=== PATIENT | female | born 1950 | race Caucasian/White ===

== ENCOUNTER 2018-03-27 17:55 | Emergency (ER) | payer MEDICARE ==
[~2018-03-27] VITALS: Ht 162.6 cm; Wt 96.2 kg
--- OUTSIDE RECORDS SUMMARY | 2018-03-27 17:57 | XMS REPORT | Clinical Summary ---
Author Author JAYNE [facility]Customer [facility] Address Unknown Phone Unavailable Care Team Providers Care Massage Therapy Instructor Name Role Phone PCP Unavailable Allergies Active Allergy Reactions Severity Noted Date Comments Codeine Other (See Comments) High 02/17/2018 HALLUCINATE Bupropion Hcl Other (See Comments) High 02/17/2018 ANGRY Current Medications Prescription Sig. Disp. Refills Start End Date Status Date clonazePAM (KLONOPIN) 0.5 Take 0.5 mg by mouth 2 Active MG tablet (two) times daily as needed for Anxiety. levothyroxine (SYNTHROID, Take 175 mcg by mouth Active LEVOTHROID) 175 MCG Every morning on an empty tablet stomach. lamoTRIgine (LAMICTAL) Take 100 mg by mouth Active 100 MG tablet daily. amLODIPine (NORVASC) 5 MG Take 5 mg by mouth daily. Active tablet citalopram (CELEXA) 40 MG Take 40 mg by mouth Active tablet daily. fluticasone (FLONASE) 50 1 spray by Nasal route Active mcg/actuation nasal spray daily. omeprazole (PRILOSEC) 20 Take 20 mg by mouth Active MG capsule daily. aspirin 81 MG EC tablet Take 81 mg by mouth Active daily. azelastine (ASTELIN) 137 1 spray by Nasal route 2 30 mL 1 02/18/20 02/18/20 Active mcg (0.1 %) nasal (two) times daily Use in 18 19 sprayIndications: each nostril as directed. Allergic rhinitis, unspecified seasonality, unspecified trigger rosuvastatin (CRESTOR) 10 Take 1 tablet (10 mg 30 tablet 2 02/18/20 02/18/20 Active MG tabletIndications: total) by mouth daily. 18 19 Hyperlipidemia, unspecified hyperlipidemia type losartan (COZAAR) 100 MG Take 1 tablet (100 mg 30 tablet 1 02/18/20 02/18/20 Active tabletIndications: total) by mouth daily. 18 19 Essential hypertension gabapentin (NEURONTIN) Take 1 capsule (300 mg 60 capsule 5 03/17/20 03/17/20 Active 300 MG capsule total) by mouth 2 (two) 18 19 times daily as needed. gabapentin (NEURONTIN) Take 300 mg by mouth 3 02/18/20 Discontin 300 MG capsule (three) times daily. 18 ued losartan-hydroCHLOROthiaz Take 1 tablet by mouth 02/18/20 Discontin scooter (HYZAAR) 100-25 mg daily. 18 ued per tablet simvastatin (ZOCOR) 40 MG Take 40 mg by mouth 02/18/20 Discontin tablet nightly. 18 ued fexofenadine (VALERIA) 60 Take 60 mg by mouth 02/18/20 Discontin MG tablet daily. 18 ued pregabalin (LYRICA) 50 MG Take 1 capsule (50 mg 90 capsule 1 02/18/20 03/17/20 Discontin capsuleIndications: total) by mouth 3 (three) 18 18 ued Chronic pain of left times daily as needed. ankle Max Daily Amount: 150 mg Active Problems Problem Noted Date Hyperlipidemia, unspecified hyperlipidemia type 02/22/2018 Essential hypertension 02/22/2018 Allergic rhinitis, unspecified seasonality, unspecified trigger 02/22/2018 Chronic pain of left ankle 02/22/2018 Bipolar affective disorder, remission status unspecified (HCC) 02/22/2018 Gastroesophageal reflux disease, esophagitis presence not specified 2017 Hypothyroidism, unspecified type 02/22/2018 Encounters Date Type Specialty Care Team Description 03/26/2018 Telephone Internal Medicine Krissy Moeller MD Concerned about patient (Concerned about patient); [facility] 03/17/2018 Orders Only Internal Medicine Krissy Moeller MD 03/17/2018 Telephone Internal Medicine Krissy Moeller MD Dizziness 02/17/2018 Office Visit Internal Medicine Krissy Moeller MD Hyperlipidemia, unspecified hyperlipidemia type (Primary Dx);Essential hypertension;Allergic rhinitis, unspecified seasonality, unspecified trigger;Chronic pain of left ankle;Bipolar affective disorder, remission status unspecified (HCC);Obstructive sleep apnea syndrome;Gastroesophageal reflux disease, esophagitis presence not specified;Hypothyroidism, unspecified type after 03/26/2017 Family History Medical History Relation Name Comments Bipolar disorder Father Diabetes Father Tongue cancer Father Heart disease Mother 68- MASSIVE Bipolar disorder Sister Relation Name Status Comments Brother Alive Father Maternal Grandfather Maternal Grandmother Mother Paternal Grandfather Paternal Grandmother Sister Alive Son Alive 40 YEARS Social History Tobacco Use Types Packs/Day Years Used Date Passive Smoke Exposure - Never Smoker Smokeless Tobacco: Never Used Comments: teenage Alcohol Use Drinks/Week oz/Week Comments No Sex Assigned at Date Recorded Not on file Last Filed Vital Signs Vital Sign Reading Time Taken Blood Pressure 125/56 02/17/2018 10:57 AM CDT Pulse 68 02/17/2018 10:57 AM CDT Temperature 35.9 C (96.6 F) 02/17/2018 10:57 AM CDT Respiratory Rate 18 02/17/2018 10:57 AM CDT Oxygen Saturation 97% 02/17/2018 10:57 AM CDT Inhaled Oxygen - - Concentration Weight 96.6 kg (213 lb) 02/17/2018 10:57 AM CDT Height 162.6 cm (5' 4") 02/17/2018 10:57 AM CDT Body Mass Index 36.56 02/17/2018 10:57 AM CDT Plan of Treatment Date Type Specialty Care Team Description 05/20/2018 Office Visit Internal Medicine Krissy Moelelr MD [id number] [id number] Health Maintenance Due Date Last Done Comments INFLUENZA VACCINE 08/04/2018 Results Not on fileafter 03/26/2017
[2018-03-27] MEDS ORDERED: ACETAMINOPHEN 325 MG TAB PO ONE (18:30)
[2018-03-27] MEDS ORDERED: DIPHTH/TETANUS/ACEL. PERTUSSIS 0.5 ML SYR IM ONE (18:30)
[2018-03-27] MEDS ORDERED: NORVASC5 MG PO ×2 (18:32→18:39)
[2018-03-27] MEDS ORDERED: ASPIR 8181 MG ×2 (18:33→18:40)
[2018-03-27] MEDS ORDERED: CELEXA40 MG ×2 (18:34→18:40)
[2018-03-27] MEDS ORDERED: KLONOPIN0.5 MG (18:34)
[2018-03-27] MEDS ORDERED: FLONASE (18:35)
[2018-03-27] MEDS ORDERED: LAMICTAL100 MG ×2 (18:36→18:42)
[2018-03-27] MEDS ORDERED: LEVOTHYROXINE50 MCG PO (18:36)
[2018-03-27] MEDS ORDERED: PRILOSEC OTC20 MG ×2 (18:38→18:44)
[2018-03-27] MEDS ORDERED: LEVOTHYROXINE112 MCG PO ×2 (18:38→18:43)
[2018-03-27] MEDS ORDERED: GABAPENTIN100 MG (18:45)
[2018-03-27] MEDS ORDERED: COZAAR25 MG PO (18:45)
[2018-03-27 18:55] VITALS: BP 120/74
== END 2018-03-27 19:00 | disposition home or self-care (01) ==
LOC: FSED 17:55
DX: S11.85XA Open bite of other specified part of neck, initial encounter (principal); W55.01XA Bitten by cat, initial encounter; Y92.008 Other place in unspecified non-institutional (private) residence as the place of occurrence of the external cause; I10 Essential (primary) hypertension; E03.9 Hypothyroidism, unspecified; J45.909 Unspecified asthma, uncomplicated; K21.9 Gastro-esophageal reflux disease without esophagitis; F41.9 Anxiety disorder, unspecified

== ENCOUNTER 2018-07-13 05:08 | Emergency (ER) | payer MEDICARE ==
[~2018-07-13] VITALS: Ht 162.6 cm; Wt 92.5 kg
[~2018-07-13 05:08] MED LIST: ASPIR 8181 MG; CELEXA40 MG; COZAAR25 MG PO; FLONASE; GABAPENTIN100 MG; KLONOPIN0.5 MG; LAMICTAL100 MG; LEVOTHYROXINE112 MCG PO; LEVOTHYROXINE50 MCG PO; NORVASC5 MG PO; PRILOSEC OTC20 MG
[2018-07-13] MEDS ORDERED: ONDANSETRON HCL INJ 2 MG/ML VIAL IV STA (05:43)
[2018-07-13] MEDS ORDERED: MORPHINE SULFATE INJ 4 MG/ML INJ IV ONE (05:45)
== END 2018-07-13 06:49 | disposition other institution (70) ==
LOC: FSED 05:08
DX: S61.211A Laceration without foreign body of left index finger without damage to nail, initial encounter (principal); W45.8XXA Other foreign body or object entering through skin, initial encounter; Y92.008 Other place in unspecified non-institutional (private) residence as the place of occurrence of the external cause; L02.512 Cutaneous abscess of left hand; M65.842 Other synovitis and tenosynovitis, left hand
CPT/HCPCS: 80053; 85025; 99284

== ENCOUNTER 2018-08-30 21:18 | Emergency (ER) | payer MEDICARE ==
[~2018-08-30] VITALS: Ht 162.6 cm; Wt 92.5 kg
--- OUTSIDE RECORDS SUMMARY | 2018-08-30 21:21 | XMS REPORT | Clinical Summary ---
Author Author JAYNE [facility] Address Unknown Phone Unavailable Care Team Providers Care Magnetic Tape Typewriter Operator Name Role Phone Krissy Moeller MD PCP Allergies Comments Active Allergy Reactions Severity Noted Date HALLUCINATE Codeine Other (See High 02/17/2018 Comments) ANGRY Bupropion Hcl Other (See High 02/17/2018 Comments) Medications End Date Status Medication Sig Dispensed Refills Start Date Active clonazePAM (KLONOPIN) 0.5 Take 0.5 mg 0 MG tablet by mouth 2 (two) times daily as needed for Anxiety. Active lamoTRIgine (LAMICTAL) Take 100 mg 0 100 MG tablet by mouth 3 (three) times daily . Active citalopram (CELEXA) 40 MG Take 40 mg by 0 tablet mouth daily. Active fluticasone (FLONASE) 50 1 spray by 0 mcg/actuation nasal spray Nasal route daily. Active omeprazole (PRILOSEC) 20 Take 20 mg by 0 MG capsule mouth daily. Active aspirin 81 MG EC tablet Take 81 mg by 0 mouth daily. 02/17/2019 Active azelastine (ASTELIN) 137 1 spray by 30 mL 1 mcg (0.1 %) nasal Nasal route 2 8 sprayIndications: (two) times Allergic rhinitis, daily Use in unspecified seasonality, each nostril unspecified trigger as directed. 04/29/2019 Active gabapentin (NEURONTIN) Take 2 120 capsule 5 300 MG capsules (600 8 capsuleIndications: Other mg total) by polyneuropathy mouth 2 (two) times daily. Active losartan (COZAAR) 100 MG Take 1 tablet 90 tablet 0 tabletIndications: (100 mg 8 Essential hypertension total) by mouth daily. 06/04/2019 Active simvastatin (ZOCOR) 20 MG Take 1 tablet 30 tablet 2 tabletIndications: Mixed (20 mg total) 8 hyperlipidemia by mouth nightly. Active levothyroxine (SYNTHROID, Take 1 tablet 30 tablet 5 LEVOTHROID) 150 MCG (150 mcg 8 tabletIndications: total) by Hypothyroidism, mouth Every unspecified type morning on an empty stomach. 06/14/2018 Discontinued levothyroxine (SYNTHROID, Take 175 mcg 0 LEVOTHROID) 175 MCG by mouth tablet Every morning on an empty stomach. 02/17/2018 Discontinued gabapentin (NEURONTIN) Take 300 mg 0 300 MG capsule by mouth 3 (three) times daily. 06/04/2018 Discontinued amLODIPine (NORVASC) 5 MG Take 5 mg by 0 tablet mouth daily. 02/17/2018 Discontinued losartan-hydroCHLOROthiaz Take 1 tablet 0 scooter (HYZAAR) 100-25 mg by mouth per tablet daily. 02/17/2018 Discontinued simvastatin (ZOCOR) 40 MG Take 40 mg by 0 tablet mouth nightly. 02/17/2018 Discontinued fexofenadine (VALERIA) 60 Take 60 mg by 0 MG tablet mouth daily. 06/04/2018 Discontinued rosuvastatin (CRESTOR) 10 Take 1 tablet 30 tablet 2 MG tabletIndications: (10 mg total) 8 Hyperlipidemia, by mouth unspecified daily. hyperlipidemia type 04/23/2018 Discontinued losartan (COZAAR) 100 MG Take 1 tablet 30 tablet 1 tabletIndications: (100 mg 8 Essential hypertension total) by mouth daily. 03/17/2018 Discontinued pregabalin (LYRICA) 50 MG Take 1 90 capsule 1 capsuleIndications: capsule (50 8 Chronic pain of left mg total) by ankle mouth 3 (three) times daily as needed. Max Daily Amount: 150 mg 04/29/2018 Discontinued gabapentin (NEURONTIN) Take 1 60 capsule 5 300 MG capsule capsule (300 8 mg total) by mouth 2 (two) times daily as needed. 05/26/2018 Discontinued losartan (COZAAR) 100 MG TAKE ONE 30 tablet 0 tabletIndications: TABLET BY 8 Essential hypertension MOUTH DAILY 07/24/2018 sulfamethoxazole-trimetho Take 1 tablet 14 tablet 0 prim (BACTRIM DS) 800-160 (160 mg of 8 mg per tablet trimethoprim total) by mouth 2 (two) times daily for 7 days. Active Problems Problem Noted Date Tenosynovitis 07/13/2018 Hyperlipidemia, unspecified hyperlipidemia type 02/22/2018 Essential hypertension 02/22/2018 Allergic rhinitis, unspecified seasonality, unspecified trigger 02/22/2018 Chronic pain of left ankle 02/22/2018 Bipolar affective disorder, remission status unspecified 02/22/2018 Gastroesophageal reflux disease, esophagitis presence not specified 02/22/2018 Hypothyroidism, unspecified type 02/22/2018 Encounters Care Team Description Date Type Specialty Pete Tejead, DO DEBRIDEMENT/I&D,WOUND EXTREMITY UPPER 07/14/2018 Surgery PapaCristy, BRAZER CONTROLLED ATMOSPHERIC FURNACE 07/14/2018 Anesthesia Event Abelardo Barnes MD Gadicherla, Sonal Muralinath, MD Tenosynovitis 07/13/2018 [facility] Internal Medicine - Encounter 07/17/2018 Krissy Moeller MD Hypothyroidism, unspecified type (Primary Dx) 06/14/2018 Orders Only Internal Medicine Krissy Moeller MD Weakness (Primary Dx); Chronic fatigue; Mixed hyperlipidemia; Hypothyroidism, unspecified type; Vitamin D deficiency; Hypotension due to drugs; Bipolar affective disorder, remission status unspecified (HCC); Hyperlipidemia, unspecified hyperlipidemia type; Chronic pain of left ankle 06/04/2018 Office Visit Internal Medicine Krissy Moeller MD Essential hypertension 05/29/2018 Refill Internal Medicine Krissy Moeller MD Essential hypertension 05/24/2018 Refill Internal Medicine Krissy Moeller MD Med advice 04/28/2018 Telephone Internal Medicine Krissy Moeller MD Essential hypertension 04/23/2018 Refill Internal Medicine Krissy Moeller MD Concerned about patient (Concerned about patient); FYI 03/26/2018 Telephone Internal Medicine Krissy Moeller MD 03/17/2018 Orders Only Internal Medicine Krissy Moeller MD Dizziness 03/17/2018 Telephone Internal Medicine Krissy Moeller MD Hyperlipidemia, unspecified hyperlipidemia type (Primary Dx); Essential hypertension; Allergic rhinitis, unspecified seasonality, unspecified trigger; Chronic pain of left ankle; Bipolar affective disorder, remission status unspecified ([facility]); Obstructive sleep apnea syndrome; Gastroesophageal reflux disease, esophagitis presence not specified; Hypothyroidism, unspecified type 02/17/2018 Office Visit Internal Medicine after 08/29/2017 Family History Medical History Relation Name Comments Bipolar disorder Father Diabetes Father Tongue cancer Father Heart disease Mother 68- MASSIVE Bipolar disorder Sister Relation Name Status Comments Brother Alive Father Maternal Grandfather Maternal Grandmother Mother Paternal Grandfather Paternal Grandmother Sister Alive Son Alive 40 YEARS Social History Date Tobacco Use Types Packs/Day Years Used Passive Smoke Exposure - Never Smoker Smokeless Tobacco: Never Used Comments: teenage Alcohol Use Drinks/Week oz/Week Comments No Sex Assigned at Date Recorded Not on file Industry Job Start Date Occupation Not on file Not on file Not on file Travel End Travel History Travel Start No recent travel history available. Last Filed Vital Signs Time Taken Vital Sign Reading 07/17/2018 11:15 AM CDT Blood Pressure 139/70 07/17/2018 11:15 AM CDT Pulse 68 07/17/2018 11:15 AM CDT Temperature 36.6 C (97.9 F) 07/17/2018 11:15 AM CDT Respiratory Rate 19 07/17/2018 11:15 AM CDT Oxygen Saturation 97% 07/15/2018 9:46 PM CDT Inhaled Oxygen 21% Concentration 07/13/2018 2:53 PM CDT Weight 92.6 kg (204 lb 3.2 oz) 07/13/2018 2:53 PM CDT Height 164.6 cm (5' 4.8") 07/13/2018 2:53 PM CDT Body Mass Index 34.19 Plan of Treatment Care Team Description Date Type Specialty Krissy Moeller MD [id number] [id number] 09/04/2018 Office Visit Internal Medicine Health Maintenance Due Date Last Done Comments INFLUENZA VACCINE 08/04/2018 Procedures Comments Procedure Name Priority Date/Time Associated Diagnosis RHYTHM STRIP - SCAN 07/18/2018 12:50 PM CDT VANCOMYCIN LEVEL, TROUGH Timed 07/16/2018 6:27 AM CDT CBC W/PLT COUNT & AUTO Routine 07/15/2018 DIFFERENTIAL 6:19 AM CDT CBC W/PLT COUNT & AUTO Routine 07/15/2018 DIFFERENTIAL 6:19 AM CDT BASIC METABOLIC PANEL (7) Routine 07/15/2018 6:19 AM CDT SURGICALLY OBTAINED Routine 07/14/2018 CULTURE + GRAM STAIN 4:31 PM CDT AFB CULTURE + SMEAR Routine 07/14/2018 4:31 PM CDT ANAEROBIC CULTURE Routine 07/14/2018 4:31 PM CDT FUNGUS CULTURE + SMEAR Routine 07/14/2018 4:31 PM CDT SPIN/CONCENTRATION CHARGE Routine 07/14/2018 4:31 PM CDT DEBRIDEMENT/I&D,WOUND 07/14/2018 Infection EXTREMITY UPPER 3:00 PM CDT Special Needs REQ 1200 CBC W/PLT COUNT & AUTO Routine 07/14/2018 DIFFERENTIAL 3:45 AM CDT CBC W/PLT COUNT & AUTO Routine 07/14/2018 DIFFERENTIAL 3:45 AM CDT BASIC METABOLIC PANEL (7) Routine 07/14/2018 3:45 AM CDT XR HAND LEFT 3 VIEW SHAR 07/13/2018 11:49 AM CDT CBC W/PLT COUNT & AUTO Routine 07/13/2018 DIFFERENTIAL 11:17 AM CDT CBC W/PLT COUNT & AUTO Routine 07/13/2018 DIFFERENTIAL 11:17 AM CDT BASIC METABOLIC PANEL (7) Routine 07/13/2018 11:17 AM CDT CBC W/PLT COUNT & AUTO Routine 06/04/2018 Chronic fatigue DIFFERENTIAL 3:01 PM CDT VITAMIN D, 25-HYDROXY Routine 06/04/2018 Vitamin D deficiency 3:01 PM CDT VITAMIN B12 Routine 06/04/2018 Chronic fatigue 3:01 PM CDT TSH+FREE T4 Routine 06/04/2018 Hypothyroidism, 3:01 PM CDT unspecified type BASIC METABOLIC PANEL (7) Routine 06/04/2018 Chronic fatigue 3:01 PM CDT after 08/29/2017 Results * RHYTHM STRIP - SCAN (07/18/2018 12:50 PM CDT) Narrative Performed At * Vancomycin level, trough (07/16/2018 6:27 AM CDT) Vancomycin Tr 16.6 10.0 - 20.0 ug/mL [facility] Specimen Blood Narrative Performed At Draw trough level prior to dose administration. [facility] Performing Organization Address City/State/Zipcode Phone Number [facility] [address] [place] [address] [facility] [place] * CBC with platelet count + automated diff (07/15/2018 6:19 AM CDT) Only the most recent of 3 results within the time period is included. WBC 10.6 (H) 3.5 - 10.5 K/L [facility] RBC 3.78 (L) 3.93 - 5.22 M/L [facility] Hemoglobin 11.1 (L) 11.2 - 15.7 GM/DL [facility] Hematocrit 34.4 34.1 - 44.9 % [facility] MCV 91.0 79.4 - 94.8 fL [facility] MCH 29.4 25.6 - 32.2 pg [facility] MCHC 32.3 32.2 - 35.5 GM/DL [facility] RDW 12.4 11.7 - 14.4 % [facility] Platelets 204 150 - 450 K/CU MM [facility] MPV 11.0 9.4 - 12.3 fL [facility] nRBC 0 0 - 0 /100 WBC [facility] % Neutros 75 % [facility] % Lymphs 14 % [facility] % Monos 10 % [facility] % Eos 0 % [facility] % Baso 0 % [facility] # Neutros 7.98 (H) 1.56 - 6.13 K/L [facility] # Lymphs 1.47 1.18 - 3.74 K/L [facility] # Monos 1.09 (H) 0.24 - 0.36 K/L [facility] # Eos 0.00 (L) 0.04 - 0.36 K/L [facility] # Baso 0.01 0.01 - 0.08 K/L [facility] Immature 1 0 - 1 % [facility] Granulocytes[facility] Specimen Blood Performing Organization Address City/State/Zipcode Phone Number [facility] [address] [place] [address] [facility] * Basic metabolic panel (07/15/2018 6:19 AM CDT) Only the most recent of 4 results within the time period is included. Sodium 137 136 - 145 meq/L [facility] Potassium 4.3 3.5 - 5.1 meq/L [facility] Chloride 104 98 - 107 meq/L [facility] CO2 27 22 - 29 meq/L [facility] BUN 13 7 - 21 mg/dL [facility] Creatinine 0.66 0.57 - 1.25 mg/dL [facility] Glucose 99 70 - 105 mg/dL [facility] Calcium 9.0 8.4 - 10.2 mg/dL [facility] EGFR 89Comment: ESTIMATED GFR IS mL/min/1.73 sq m [facility] NOT ACCURATE CREATININE [facility] CLEARANCE IN PREDICTING GLOMERULAR FILTRATION RATE. ESTIMATED GFR IS NOT APPLICABLE FOR DIALYSIS PATIENTS. Specimen Blood Performing Organization Address City/[facility] Phone Number [address] [address] [phone] [place] [address] * AFB culture + smear (07/14/2018 4:31 PM CDT) Result No acid-fast bacilli isolated [facility] in 42 days [facility] AFB Smear No partially acid fast bacilli [facility] seen [facility] Specimen Wound - Finger, Left Performing Organization Address City/[facility] Phone Number [address] [address] [phone] [place] [address] * Anaerobic culture (07/14/2018 4:31 PM CDT) Result No anaerobes isolated [facility] Specimen Wound - Finger, Left Performing Organization Address [facility] Phone Number [address] [address] [phone] [place] [address] * Surgically obtained culture + gram stain (07/14/2018 4:31 PM CDT) Result (A) [facility] Gram Stain Result <1+ WBCs [facility] Gram Stain Result <1+ gram positive cocci in [facility] pairs [facility] Specimen Wound - Finger, Left Antibiotic Method Susceptibility Organism Clindamycin >=4: Resistant Methicillin resistant Staphylococcus aureus Erythromycin >=8: Resistant Methicillin resistant Staphylococcus aureus Linezolid 2: Susceptible Methicillin resistant Staphylococcus aureus Oxacillin >=4: Resistant Methicillin resistant Staphylococcus aureus Rifampin <=0.5: Susceptible Methicillin resistant Staphylococcus aureus Tetracycline <=1: Susceptible Methicillin resistant Staphylococcus aureus Trimethoprim + Sulfamethoxazole <=10: Susceptible Methicillin resistant Staphylococcus aureus Vancomycin <=0.5: Susceptible Methicillin resistant Staphylococcus aureus Performing Organization Address City/[facility]/Zipcode Phone Number [facility] [address] [place] [phone] [facility] * Fungus culture + smear (07/14/2018 4:31 PM CDT) Result No fungus isolated in 28 days [facility] Fungus Smear No fungi seen [facility] Specimen Wound - Finger, Left Performing Organization Address City/[facility] Cent[facility] Phone Number [facility] [address] [place] [phone] [facility] * SPIN/CONCENTRATION CHARGE (07/14/2018 4:31 PM CDT) Concentration charged Done [facility] Specimen Wound - Finger, Left Performing Organization Address [facility] [place] [address] [phone] [place] [address] * XR hand 3 views left (07/13/2018 11:49 AM CDT) Narrative Performed At FINAL REPORT GE RIS Left hand, three images HISTORY: Index finger infection COMPARISON: None IMPRESSION: No fracture or dislocation. Swelling of the second digit. No apparent soft tissue defect. No radiopaque foreign body. Interphalangeal and carpometacarpal degenerative changes are noted. Signed: Pete Meyers MD Report Verified Date/Time:07/13/2018 13:37:58 Reading Location: [facility] C[facility] CT Body Reading Room Procedure Note Interface, External Ris In - 07/13/2018 1:40 PM CDT FINAL REPORT Left hand, three images HISTORY: Index finger infection COMPARISON: None IMPRESSION: No fracture or dislocation. Swelling of the second digit. No apparent soft tissue defect. No radiopaque foreign body. Interphalangeal and carpometacarpal degenerative changes are noted. Signed: ePte Meyers MD Report Verified Date/Time: 07/13/2018 13:37:58 Reading Location: [facility] [id number] CT Body Reading Room Performing Organization Address [facility] Cent[facility]ode Phone Number GE RIS * TSH+FREE T4 ([facility] Only) (06/04/2018 3:01 PM CDT) TSH 0.039 (L) 0.450 - 4.50 uIU/mL [facility] 1 T4,Free(Direct) 2.03 (H) 0.82 - 1.77 ng/dL [facility] 1 Narrative Performed At Performed at:01 - [facility] [address] [place], [id number] Etl Analyst: González Hsu MD, Phone:[phone] Performing Organization Address [facility] Phone Number [facility] * Vitamin D 25 hydroxy (06/04/2018 3:01 PM CDT) Vitamin D, 25-Hydroxy 43.8 30.0 - 100.0 ng/mL [facility] Comment: Vitamin D deficiency has been defined by the [place] of Medicine and an Endocrine Society practice guideline as a level of serum 25-OH vitamin D less than 20 ng/mL (1,2). The Endocrine Society went on to further define vitamin D insufficiency as a level between 21 and 29 ng/mL (2). 1. IOM ([place] of Medicine). 2010. Dietary reference intakes for calcium and D. [place]: The National Academies Press. 2. Sid MF, Dk [place], Tiesha FARAH, et al. Evaluation, treatment, and prevention of vitamin D deficiency: an Endocrine Society clinical practice guideline. JCEM. 2010; 96(7):1911-30. Specimen Blood Narrative Performed At Performed at:01 - [facility] [address] [place], [id number] Etl Analyst: González Hsu MD, Phone:[phone] Performing Organization Address [facility] Phone Number [facility] * CBC w/PLT Count Auto Differential (06/04/2018 3:01 PM CDT) WBC 6.6 3.4 - 10.8 x10E3/uL [facility] RBC 4.26 3.77 - 5.28 x10E6/uL [facility] Hemoglobin 12.8 11.1 - 15.9 g/dL [facility] 1 Hematocrit 37.7 34.0 - 46.6 % [facility] 1 MCV 89 79 - 97 fL [facility] MCH 30.0 26.6 - 33.0 pg [facility] MCHC 34.0 31.5 - 35.7 g/dL [facility] 1 RDW 13.8 12.3 - 15.4 % [facility] 1 Platelets 249 150 - 379 x10E3/uL [facility] % Neutros 54 Not Estab. % [facility] % Lymphs 33 Not Estab. % [facility] % Monos 10 Not Estab. % [facility] % Eos 3 Not Estab. % [facility] % Baso 0 Not Estab. % [facility] # Neutros 3.5 1.4 - 7.0 x10E3/uL [facility] # Lymphs 2.2 0.7 - 3.1 x10E3/uL [facility] # Monos 0.7 0.1 - 0.9 x10E3/uL [facility] # Eos 0.2 0.0 - 0.4 x10E3/uL [facility] 1 Baso (Absolute) 0.0 0.0 - 0.2 x10E3/uL [facility] % Immature Grans 0 Not Estab. % [facility] # Immature Grans 0.0 0.0 - 0.1 x10E3/uL [facility] 1 Specimen Blood Narrative Performed At Performed at:[address] [place] [address] [facility] [address] [place], [place] [id number] Etl Analyst: González Hsu MD, Phone:[phone] Performing Organization Address [facility] Phone Number [facility] * Vitamin B12 (06/04/2018 3:01 PM CDT) Vitamin B12 576 232 - 1,245 pg/mL [facility] 1 Specimen Blood Narrative Performed At Performed at:[address] [place], [place] [id number] Etl Analyst: González Hsu MD, Phone:[phone] Performing Organization Address [facility] Phone Number [facility] 1 after 08/29/2017 Insurance Payer Benefit Subscriber ID Type Phone Address Plan / Group MEDICARE MEDICARE A xxxxxxxxxxx Medicare B MCR SUPPLEMENT/INDIVIDUAL AARP/UNITE xxxxxxxxxxx [facility] D HEALTHCARE Advance Directives For more information, please contact: [facility] [address] [place] [address] Date Inactivated Comments Code Status Date Activated 07/17/2018 7:21 PM Full Code 07/13/2018 8:01 AM This code status was determined by: Patient
--- OUTSIDE RECORDS SUMMARY | 2018-08-30 21:22 | XMS REPORT | Continuity of Care Document ---
Author Author [facility] Interface Address Unknown Phone Unavailable Problems Problem Status Onset Date Classification Date Reported Comments Source LT INDEX FINGER SEPTIC ARTIRITIS Active 08/18/2018 [facility] Encounter for screening mammogram for malignant neoplasm of breast 12/26/2017 03/19/2018 [facility] ROUTINE SCREENING LAST MMG OOS Active 12/10/2017 [facility] LEG PAIN Active 07/26/2015 [facility] WEAKNESS, DIZZINESS, ANKLE FX Active 07/26/2015 [facility] Discharge Diagnosis: Trimalleolar fracture of left ankle 07/22/2015 07/25/2015 [facility] ANKLE INJURY Active 07/22/2015 [facility] Anxiety Active Problem 03/19/2018 [facility] Depression (<span ID="[id number]">Confirmed</span>) Resolved Problem 03/19/2018 [facility] FH: hypothyroidism Active Problem 03/19/2018 [facility] Gastric reflux Active Problem 03/19/2018 [facility] HTN - Hypertension Active Problem 03/19/2018 [facility] Morbid obesity Active Problem 03/19/2018 [facility] Cholesterol Active Problem 08/07/2015 [facility] MALAISE AND FATIGUE NEC Active [facility] ENCNTR SCREEN MAMMOGRAM FOR MALIGNANT NE Active [facility] ILLNESS, UNSPECIFIED Active [facility] Medications Medication Details Route Status Patient Instructions Ordering Provider Order Date Source meclizine 25 mg oral tablet 25 mg=1 tab, PO, TID, PRN Dizziness, 0 Refill(s) Active 08/05/2015 [facility] heparin 5000 units/0.5 mL injectable solution SUB-Q, Q12H, 0 Refill(s) Active 08/04/2015 [facility] levothyroxine 150 mcg (0.15 mg) oral tablet 150 microgram=1 tab, PO, Q630AM, 0 Refill(s) Active 08/04/2015 [facility] tramadol hydrochloride 50 MG Oral Tablet [Ultram] 1-2 tab, PO, Q4H, PRN for pain, # 40 tab, 0 Refill(s) Active 08/04/2015 [facility] POLYETHYLENE GLYCOL 3350 PO, Daily, PRN Constipation, 0 Refill(s) Active 08/04/2015 [facility] acetaminophen 325 mg oral tablet 650 mg=2 tab, PO, Q4H, PRN Pain 1-3/Temp > 100.4 F, 0 Refill(s) Active 08/04/2015 [facility] Maalox Advanced Regular Strength SUSP 0 Refill(s) Active 08/04/2015 [facility] bisacodyl 5 mg oral enteric coated tablet 5 mg=1 tab, PO, Q24H, PRN Constipation, 0 Refill(s) Active 08/04/2015 [facility] Acetaminophen 325 MG / Hydrocodone Bitartrate 7.5 MG Oral Tablet [Winslow 7.5/325] 1 tab, Route: PO, Drug Form: TAB, Dosing Weight 104.5, kg, Q4H, PRN Pain Score 7-10, Start date: 08/02/15 15:28:00, Duration: 30 day, Stop date: 09/01/15 15:27:00Notes: Same as Winslow 325-7.5mg Do not exceed 4gm/day of acetaminophen. No Longer Active 08/02/2015 [facility] Ativan 2 mg, 1 mL, Route: IV, Drug form: INJ, ONCE, Dosing Weight 104.5, kg, Start date: 07/30/15 14:39:00, Stop date: 07/30/15 14:39:00Notes: (Same as: Ativan) Inactive 07/30/2015 [facility] ceFAZolin (SCIP) 1 gm, 100 mL, Route: IVPB, Drug form: INJ, Q8H, Dosing Weight 104.545, kg, Start date: 07/29/15 15:30:00, Duration: 1 doses or times, Stop date: 07/29/15 15:30:00 Inactive 07/29/2015 [facility] Acetaminophen 325 MG / Hydrocodone Bitartrate 5 MG Oral Tablet [Winslow 5/325] 2 tab, Route: PO, Drug Form: TAB, Dosing Weight 104.545, kg, Q4H, PRN Pain Score 7-10, Start date: 07/29/15 13:44:00, Duration: 30 day, Stop date: 08/28/15 13:43:00Notes: (Same as: Winslow 325/5) Do not exceed 4gm/day of acetaminophen. No Longer Active 07/29/2015 [facility] Clindamycin 150 MG/ML Injectable Solution 600 mg, 50 mL, Route: IVPB, Drug form: INJ, Q8H, Dosing Weight 104.545, kg, Start date: 07/29/15 11:00:00, Duration: 1 doses or times, Stop date: 07/29/15 11:00:00 Inactive 07/29/2015 [facility] Ondansetron 4 mg, Route: IVP, ONCE, Dosing Weight 104.545, kg, PRN Nausea & Vomiting, Start date: 07/29/15 9:28:00 Inactive 07/29/2015 [facility] Naloxone 0.04 mg, Route: IVP, Q2MIN, Dosing Weight 104.545, kg, PRN Narcotic Reversal, Start date: 07/29/15 9:28:00, Duration: 8 doses or times, Stop date: Limited # of times Inactive 07/29/2015 [facility] Flumazenil 0.2 mg, Route: IVP, PRN, Dosing Weight 104.545, kg, PRN Benzodiazepine Reversal, Initial dose, Start date: 07/29/15 9:28:00, Duration: 30 day, Stop date: 08/28/15 9:27:00 Inactive 07/29/2015 [facility] Fentanyl 50 microgram, Route: IVP, Q5Min, Dosing Weight 104.545, kg, PRN Pain Score 7-10, Start date: 07/29/15 9:28:00, Duration: 2 doses or times, Stop date: Limited # of times Inactive 07/29/2015 [facility] Hydromorphone 0.5 mg, Route: IVP, Q5Min, Dosing Weight 104.545, kg, PRN Pain Score 7-10, Start date: 07/29/15 9:28:00, Duration: 4 doses or times, Stop date: Limited # of times Inactive 07/29/2015 [facility] Oxycodone 10 mg, Route: PO, Drug form: TAB, Q4H, Dosing Weight 104.545, kg, PRN Pain Score 7-10, Start date: 07/29/15 9:28:00, Duration: 30 day, Stop date: 08/28/15 9:27:00 Inactive 07/29/2015 [facility] Acetaminophen 1,000 mg, Route: IVPB, Drug form: INJ, ONCE, Dosing Weight 104.545, kg, PRN Pain Score 1-3, Start date: 07/29/15 9:28:00, Duration: 1 doses or times, Stop date: Limited # of times Inactive 07/29/2015 [facility] pantoprazole 40 mg, Route: PO, Drug form: ECTAB, Daily, Dosing Weight 104.545, kg, Start date: 07/29/15 9:00:00, Duration: 30 day, Stop date: 08/27/15 9:00:00 Inactive 07/29/2015 [facility] docusate sodium 100 mg oral capsule 100 mg, 1 cap, Route: PO, Drug form: CAP, BID, Dosing Weight 104.545, kg, Start date: 07/29/15 9:00:00, Duration: 30 day, Stop date: 08/27/15 17:00:00Notes: (Same as: Colace) (Do Not Crush) No Longer Active 07/29/2015 [facility] influenza virus vaccine, inactivated 0.5 mL, Route: IM, Drug Form: SUSP, Daily, Start date: 07/29/15 9:00:00, Duration: 1 doses or times, Stop date: 07/29/15 9:00:00Notes: (Same as: Fluzone Quadrivalent) For 3 years of age and older (0.5 mL IM) Shake well before use Inactive 07/29/2015 [facility] Al hydroxide/Mg hydroxide/simethicone 200 mg-200 mg-20 mg/5 mL oral suspension 30 ml, Route: PO, Drug Form: SUSP, Dosing Weight 104.545, kg, Q4H, PRN Indigestion, Start date: 07/29/15 8:56:00, Duration: 30 day, Stop date: 08/28/15 8:55:00Notes: (aluminum hydroxide-magnesium hyd-simethicone [phone]/5ml 30 ml ud SARAH) No Longer Active 07/29/2015 [facility] Diphenhydramine 12.5 mg, 0.5 tab, Route: PO, Drug form: TAB, Q6H, Dosing Weight 104.545, kg, PRN Itching, Start date: 07/29/15 8:56:00, Duration: 30 day, Stop date: 08/28/15 8:55:00 No Longer Active 07/29/2015 [facility] Dulcolax Laxative 5 mg, 1 tab, Route: PO, Drug form: ECTAB, Q24H, Dosing Weight 104.545, kg, PRN Constipation, Start date: 07/29/15 8:56:00, Duration: 30 day, Stop date: 08/28/15 8:55:00Notes: (Same As: Dulcolax, Correctol) (Do Not Crush) "Do Not Crush" No Longer Active 07/29/2015 [facility] Morphine 2 mg, 1 mL, Route: IVP, Drug form: INJ, Q3H, Dosing Weight 104.545, kg, PRN Pain Score 1-3, Start date: 07/29/15 8:56:00, Duration: 30 day, Stop date: 08/28/15 8:55:00Notes: (Same as:MORPhine Sulfate) Inactive 07/29/2015 [facility] Acetaminophen 650 mg, 2 tab, Route: PO, Drug form: TAB, Q4H, Dosing Weight 104.545, kg, PRN Pain 1-3/Temp > 100.4 F, Start date: 07/29/15 8:56:00, Duration: 30 day, Stop date: 08/28/15 8:55:00Notes: Do not exceed 4 gm/day. (Same as: Tylenol) No Longer Active 07/29/2015 [facility] Acetaminophen 325 MG / Hydrocodone Bitartrate 10 MG Oral Tablet 1 tab, Route: PO, Drug Form: TAB, Dosing Weight 104.545, kg, Q4H, PRN Pain Score 4-6, Start date: 07/29/15 8:56:00, Duration: 30 day, Stop date: 08/28/15 8:55:00Notes: Do not exceed 4gm/day of acetaminophen. (Same as: Winslow 325/10) Inactive 07/29/2015 [facility] Lactated Ringers IV 1,000 mL 1,000 mL, Rate: 75 ml/hr, Infuse over: 13.3 hr, Route: IV, Dosing Weight 104.545 kg, Total Volume: 1,000, Start date: 07/29/15 8:56:00, Duration: 30 day, Stop date: 08/28/15 8:55:00 No Longer Active 07/29/2015 [facility] Ancef 2 gm, 100 mL, Route: IVPB, Drug form: INJ, ONCE, Dosing Weight 104.545, kg, Start date: 07/29/15 7:47:00, Duration: 1 doses or times, Stop date: 07/29/15 7:47:00Notes: Same as: Ancef Inactive 07/29/2015 [facility] Calcium Chloride 0.0014 MEQ/ML / Potassium Chloride 0.004 MEQ/ML / Sodium Chloride 0.103 MEQ/ML / Sodium Lactate 0.028 MEQ/ML Injectable Solution 1,000 mL, Rate: 25 ml/hr, Infuse over: 40 hr, Route: IV, Dosing Weight 104.545 kg, Total Volume: 1,000, Start date: 07/29/15 7:45:00, Duration: 30 day, Stop date: 08/28/15 7:44:00 Inactive 07/29/2015 [facility] Antivert 25 mg, 1 tab, Route: PO, Drug form: TAB, TID, Dosing Weight 104.545, kg, Start date: 07/28/15 13:00:00, Duration: 30 day, Stop date: 08/27/15 9:00:00Notes: (Same as: Antivert) No Longer Active 07/28/2015 [facility] Nitroglycerin 0.4 MG Sublingual Tablet 0.4 mg, 1 tab, Route: SL, Drug form: TAB, Q5Min, Dosing Weight 104.545, kg, PRN Chest Pain, Start date: 07/28/15 11:46:00, Duration: 30 day, Stop date: 08/27/15 11:45:00Notes: (Same as:Nitroquick, Nitrostat) "Do Not Crush" Sublingual tablet No Longer Active 07/28/2015 [facility] Atropine 0.5 mg, 5 mL, Route: IVP, Drug form: INJ, ONCE, Dosing Weight 104.545, kg, PRN Bradycardia, Start date: 07/28/15 11:46:00, for symptomatic bradycardia No Longer Active 07/28/2015 [facility] Solu-Medrol 100 mg, 1.6 mL, Route: IVP, Drug form: INJ, ONCE, Dosing Weight 104.545, kg, Priority: NOW, Start date: 07/28/15 9:30:00, Stop date: 07/28/15 9:30:00Notes: (Same as:Solu-MEDROL, A-Methapred) Inactive 07/28/2015 [facility] heparin sodium, porcine 2500 UNT/ML Injectable Solution 5,000 unit, 1 mL, Route: SUB-Q, Drug form: INJ, Q12H, Dosing Weight 104.545, kg, Start date: 07/27/15 21:00:00, Duration: 30 day, Stop date: 08/26/15 9:00:00Notes: porcine heparin No Longer Active 07/28/2015 [facility] Protonix 40 mg, 1 tab, Route: PO, Drug form: ECTAB, Before Dinner, Start date: 07/27/15 16:30:00, Duration: 30 day, Stop date: 08/25/15 16:30:00Notes: Tablet should not be chewed or crushed. (Same as: Protonix) No Longer Active 07/27/2015 [facility] Claritin 10 mg, 1 tab, Route: PO, Drug form: TAB, Daily, Start date: 07/27/15 9:00:00, Duration: 30 day, Stop date: 08/25/15 9:00:00Notes: 1 hr before meals (Same as: Claritin) No Longer Active 07/27/2015 [facility] hydrochlorothiazide 25 mg oral tablet 25 mg, 1 tab, Route: PO, Drug form: TAB, Daily, Start date: 07/27/15 9:00:00, Duration: 30 day, Stop date: 08/25/15 9:00:00Notes: (Same as: Hydrodiuril) With food. No Longer Active 07/27/2015 [facility] Prevacid 15 mg, Route: PO, Drug form: ECCAP, Daily, Dosing Weight 104.545, kg, Start date: 07/27/15 9:00:00, Duration: 30 day, Stop date: 08/25/15 9:00:00 No Longer Active 07/27/2015 [facility] lamotrigine 100 MG Oral Tablet 300 mg, 3 tab, Route: PO, Drug form: TAB, Daily, Dosing Weight 104.545, kg, Start date: 07/27/15 9:00:00, Duration: 30 day, Stop date: 08/25/15 9:00:00Notes: (Same as:LaMICtal) No Longer Active 07/27/2015 [facility] Hydrochlorothiazide 25 MG / Losartan Potassium 100 MG Oral Tablet 1 tab, Route: PO, Drug Form: TAB, Dosing Weight 104.545, kg, Daily, Start date: 07/27/15 9:00:00, Duration: 30 day, Stop date: 08/25/15 9:00:00 No Longer Active 07/27/2015 [facility] Clarice 180 mg, Route: PO, Drug form: TAB, Daily, Dosing Weight 104.545, kg, Start date: 07/27/15 9:00:00, Duration: 30 day, Stop date: 08/25/15 9:00:00 No Longer Active 07/27/2015 [facility] Citalopram 80 mg, 4 tab, Route: PO, Drug form: TAB, Daily, Dosing Weight 104.545, kg, Start date: 07/27/15 9:00:00, Duration: 30 day, Stop date: 08/25/15 9:00:00Notes: (Same As: CeleXA) No Longer Active 07/27/2015 [facility] Cozaar 100 mg, 2 tab, Route: PO, Drug form: TAB, Daily, Start date: 07/27/15 9:00:00, Duration: 30 day, Stop date: 08/25/15 9:00:00Notes: (Same as: Cozaar) No Longer Active 07/27/2015 [facility] Thyroxine 150 microgram, 1 tab, Route: PO, Drug form: TAB, Q630AM, Dosing Weight 104.545, kg, Start date: 07/27/15 6:30:00, Stop date: 08/25/15 6:30:00Notes: Take 1 hour before or 2 hours after meal; Enteral feeds may interefere with the absorption of this medication. (Same as: Levothroid) No Longer Active 07/27/2015 [facility] Simvastatin 40 mg, 1 tab, Route: PO, Drug form: TAB, Bedtime, Dosing Weight 104.545, kg, Start date: 07/26/15 21:00:00, Duration: 30 day, Stop date: 08/24/15 21:00:00Notes: (Same as: Zocor) No Longer Active 07/27/2015 [facility] Rocephin 1 gm, Route: IVPB, [id number], Dosing Weight 104.545, kg, Start date: 07/26/15 20:00:00, Duration: 30 day, Stop date: 08/24/15 20:00:00Notes: (Same As: Rocephin). Use with 100ml NS mini-bag PLUS and infuse over 30 min MEDICATION WASTE Product Size: 1000 mg Product Wasted: ___ mg No Longer Active 07/27/2015 [facility] Solu-Medrol 125 mg, 2 mL, Route: IV, Drug form: INJ, ONCE, Dosing Weight 104.545, kg, Start date: 07/26/15 17:50:00, Stop date: 07/26/15 17:50:00Notes: (Same as:Solu-MEDROL, A-Methapred) Inactive 07/26/2015 [facility] Meclizine 25 mg, 1 tab, Route: PO, Drug form: TAB, TID, Dosing Weight 104.545, kg, PRN Dizziness, Start date: 07/26/15 17:49:00, Duration: 30 day, Stop date: 08/25/15 17:48:00Notes: (Same as: Antivert) No Longer Active 07/26/2015 [facility] Miralax 17 gm, 1 pkt, Route: PO, Drug form: PWDR, Daily, Dosing Weight 104.545, kg, PRN Constipation, Start date: 07/26/15 17:16:00, Duration: 30 day, Stop date: 08/25/15 17:15:00Notes: Dissolve in 8 oz of water or juice. (Same as: Miralax) No Longer Active 07/26/2015 [facility] Zofran 4 mg, 2 mL, Route: IVP, Drug form: INJ, Q4H, Dosing Weight 104.545, kg, PRN Nausea, Start date: 07/26/15 17:16:00, Duration: 30 day, Stop date: 08/25/15 17:15:00Notes: (Same as: Nancy) MEDICATION WASTE Product Size: 4 mg Product Wasted: ___ mg No Longer Active 07/26/2015 [facility] Tylenol 650 mg, 20.3 mL, Route: PO, Drug form: LIQ, Q6H, Dosing Weight 104.545, kg, PRN Other -See Comment, Start date: 07/26/15 17:16:00, Duration: 30 day, Stop date: 08/25/15 17:15:00, fever, pain, headach eNotes: Max ubismxdydenag=[id number]/day (4 gm/day). (Same as: Tylenol) No Longer Active 07/26/2015 [facility] Restoril 15 mg, 1 cap, Route: PO, Drug form: CAP, Bedtime, Dosing Weight 104.545, kg, PRN Sleep, Start date: 07/26/15 17:16:00, Duration: 30 day, Stop date: 08/25/15 17:15:00Notes: (Same As: Restoril) No Longer Active 07/26/2015 [facility] Acetaminophen 325 MG / Hydrocodone Bitartrate 5 MG Oral Tablet [Winslow 5/325] 1 tab, Route: PO, Drug Form: TAB, Dosing Weight 104.545, kg, Q4H, PRN Other -See Comment, Start date: 07/26/15 17:15:00, Duration: 30 day, Stop date: 08/25/15 17:14:00Notes: (Same as: Winslow 325/5) Do not exceed 4gm/day of acetaminophen. No Longer Active 07/26/2015 [facility] Clonidine Hydrochloride 0.1 MG Oral Tablet 0.1 mg, 1 tab, Route: PO, Drug form: TAB, Q6H, Dosing Weight 104.545, kg, PRN Other -See Comment, Start date: 07/26/15 17:15:00, Duration: 30 day, Stop date: 08/25/15 17:14:00, SBP > 165Notes: (Same As: Catapres) No Longer Active 07/26/2015 [facility] Ondansetron 4 mg, 2 mL, Route: IVP, Drug form: INJ, Q6H, Dosing Weight 104.545, kg, PRN Nausea & Vomiting, Start date: 07/26/15 16:30:00, Duration: 30 day, Stop date: 08/25/15 16:29:00Notes: (Same as: Nancy) MEDICATION WASTE Product Size: 4 mg Product Wasted: ___ mg No Longer Active 07/26/2015 [facility] Morphine 2 mg, 1 mL, Route: IVP, Drug form: INJ, Q4H, Dosing Weight 104.545, kg, PRN Pain Score 7-10, Start date: 07/26/15 16:30:00, Duration: 30 day, Stop date: 08/25/15 16:29:00Notes: (Same as:MORPhine Sulfate) No Longer Active 07/26/2015 [facility] lansoprazole 15 MG Enteric Coated Capsule [Prevacid] 15 mg=1 cap, PO, Daily, 0 Refill(s) Active 07/26/2015 [facility] levothyroxine 200 mcg (0.2 mg) oral tablet 200 microgram=1 tab, PO, Q630AM, 0 Refill(s) No Longer Active 07/26/2015 [facility] Hydrochlorothiazide 25 MG / Losartan Potassium 100 MG Oral Tablet 1 tab, PO, Daily, 0 Refill(s) Active 07/26/2015 [facility] citalopram 40 mg oral tablet 80 mg=2 tab, PO, Daily, 0 Refill(s) Active 07/26/2015 [facility] Fexofenadine hydrochloride 180 MG Oral Tablet [Clarice] 180 mg=1 tab, PO, Daily, 0 Refill(s) Active 07/26/2015 [facility] simvastatin 40 mg oral tablet 40 mg=1 tab, PO, Bedtime, 0 Refill(s) Active 07/26/2015 [facility] lamotrigine 100 MG Oral Tablet 300 mg=3 tab, PO, Daily, 0 Refill(s) Active 07/26/2015 [facility] temazepam 30 mg oral capsule 30 mg=1 cap, PO, Bedtime, 0 Refill(s) Active 07/26/2015 [facility] Levaquin 500 mg, 100 mL, Route: IVPB, Drug form: SOLN, [id number], Dosing Weight 104.545, kg, Start date: 07/26/15 15:00:00, Duration: 30 day, Stop date: 08/24/15 15:00:00Notes: (Same as:Levaquin) Inactive 07/26/2015 [facility] Sodium Chloride 0.9% (titrate) 250 mL 250 mL, Rate: 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 product administration, Dosing Weight 104.545, kg, Route: IV, Total Volume: 250, Start Date: 07/26/15 14:26:00, Duration: 1 day, Stop date: 07/27/15 14:25:00, Replace Every: 24 hr No Longer Active 07/26/2015 [facility] potassium chloride 40 mEq, 2 tab, Route: PO, Drug form: ERTAB, Daily, Dosing Weight 104.545, kg, Priority: Routine, Start date: 07/26/15 13:30:00, Duration: 30 day, Stop date: 08/24/15 13:30:00Notes: (Same as: K-Dur 20) "Do Not Crush" With food and full glass of water Inactive 07/26/2015 [facility] Acetaminophen 325 MG / Hydrocodone Bitartrate 10 MG Oral Tablet [Winslow 10/325] 1 tab, PO, Q6H, PRN for pain, X 5 day, # 20 tab, 0 Refill(s) Active 07/23/2015 [facility] Acetaminophen 325 MG / Hydrocodone Bitartrate 10 MG Oral Tablet 1 tab, Route: PO, Dosing Weight 104.545, kg, ONCE, STAT, Start date: 07/22/15 19:42:00, Stop date: 07/22/15 19:42:00 Inactive 07/23/2015 [facility] Allergies, Adverse Reactions, Alerts Substance Category Reaction Severity Reaction type Status Date Reported Comments Source codeine phosphate Assertion Drug allergy Active [facility] Immunizations Immunization Date Given Site Status Last Updated Comments Source influenza virus vaccine, inactivated 07/29/2015 Right deltoid completed [facility] Results Order Name Results Value Reference Range Date Interpretation Comments Source Hand 3 views DX Hand 3 views DX EXAM: XR LEFT HAND 3 VIEWS DATE: 08/19/2018 11:17 AM CDT INDICATION: - index finger infection COMPARISON: None available TECHNIQUE: PA, lateral and oblique radiographs of the hand FINDINGS: At the left index finger DIP joint, there is joint space narrowing with erosive changes, highly concerning for septic arthritis. There is marked soft tissue swelling of the index finger. Joint space narrowing and osteophyte formation present at the middle, ring, and small finger DIP joints, as well as some IP joint. Mild joint space narrowing and subchondral sclerosis at the 1st CMC joint. IMPRESSION: 1. Findings highly concerning for septic arthritis at the index finger DIP joint. At the time of dictation, it is documented that the patient is planned be taken to the operating room for incision and drainage with possible amputation the following day. 2. 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 08/19/2018 - - This report was dictated by a Grants Director/Fellow. I have personally reviewed the images as well as the Resident's interpretation and agree with the findings. Read by: Miguel Angel Cisnerso MD Resident: Miguel Angel Cisneros MD Dictated Date/time: 08/19/18 14:17 Electronically Signed by: Karlie Lee MD 08/19/18 19:28 FINAL REPORT [facility] Breast Mammo Scrn SHELIA incl CAD MA Breast Mammo Scrn SHELIA incl CAD MA BILATERAL DIGITAL SCREENING MAMMOGRAM WITH CAD: 12/11/2017 CLINICAL: /Routine. Current study was evaluated with a Computer Aided Detection (CAD) system. COMPARISON:Comparison is made to exams dated: 05/16/2016 mammogram, 04/13/2015 mammogram, and 06/19/2016 mammogram. TECHNIQUE: Mammographic views were obtained using digital acquisition. [employer] Focusa Version 1.3 was utilized for computer aided detection. FINDINGS: There are scattered fibroglandular densities in both breasts. Benign appearing densities are noted in both breasts. There are benign calcifications in the right breast. No significant masses, calcifications, or other findings are seen in either breast. There has been no significant interval change. IMPRESSION: BENIGN RECOMMENDATION:There is no mammographic evidence of malignancy. A 1 year screening mammogram is recommended.(12/12/2018) This exam was interpreted at [id number] for [facility]. Cullen moura/hazel:12/24/2017 14:31:52 Scale Shooter(s): Shanika Vital, [facility] letter sent: BI-RADS 1/2 Mammogram BI-RADS: 2 Benign 12/11/2017 - - Read by: Cullen Muniz MD Dictated Date/time: 12/24/17 14:31 Electronically Signed by: Cullen Muniz MD 12/24/17 14:31 FINAL REPORT [facility] Ankle 2 views DX Ankle 2 views DX Left ankle 2 views: Postoperative radiographs show plate and screw fixation of the distal fibula, and medial malleolar screws. The previously described fracture-dislocation has been anatomically reduced. Medial and lateral skin becca are noted. A cast around the foot and ankle is seen. SL:13 07/31/2015 - - Read by: Vinayak Khalil MD Dictated Date/time: 07/31/15 19:40 Electronically Signed by: Vinayak Khalil MD 07/31/15 19:41 FINAL REPORT [facility] ELECTROLYTES Sodium Lvl 137 meq/L 135 - 145 07/30/2015 [facility] ELECTROLYTES Chloride Lvl 100 meq/L 95 - 109 07/30/2015 [facility] ELECTROLYTES Potassium Lvl 3.4 meq/L 3.5 - 5.1 07/30/2015 [facility] ELECTROLYTES eGFR 59 mL/min/1.73m2 07/30/2015 Result Comment: The eGFR is calculated using the CKD-EPI formula. In most young, healthy individuals the eGFR will be >90 mL/min/1.73m2. The eGFR declines with age. An eGFR of 60-89 may be normal in some populations, particularly the elderly, for whom the CKD-EPI formula has not been extensively validated. Use of the eGFR is not recommended in the following populations: Individuals with unstable creatinine concentrations, including patients and those with serious co-morbid conditions. Patients with extremes in muscle mass or diet. The data above are obtained from the National Kidney Disease Education Program (NKDEP) which additionally recommends that when the eGFR is used in patients with extremes of body mass index for purposes of drug dosing, the eGFR should be multiplied by the estimated BMI. [facility] ELECTROLYTES Calcium Lvl 8.9 mg/dL 8.5 - 10.5 07/30/2015 [facility] ELECTROLYTES AGAP 10.4 meq/L 10.0 - 20.0 07/30/2015 [facility] ELECTROLYTES CO2 30 meq/L 24 - 32 07/30/2015 [facility] ELECTROLYTES Glucose Lvl 85 mg/dL 70 - 99 07/30/2015 [facility] ELECTROLYTES Creatinine Lvl 1.0 mg/dL 0.5 - 1.4 07/30/2015 [facility] ELECTROLYTES BUN 15 mg/dL 7 - 22 07/30/2015 [facility] Basophils # 0.1 K/CMM 0.0 - 0.2 07/30/2015 [facility] Monocytes 10.4 % 2.0 - 12.0 07/30/2015 [facility] HEMATOLOGY Basophils 0.5 % 0.0 - 1.0 07/30/2015 [facility] Segs-Bands # 8.4 K/CMM 1.5 - 8.1 07/30/2015 [facility] Lymphocytes # 2.2 K/CMM 1.0 - 5.5 07/30/2015 [facility] Monocytes # 1.2 K/CMM 0.0 - 0.8 07/30/2015 [facility] Segs 70.5 % 45.0 - 75.0 07/30/2015 [facility] Lymphocytes 18.6 % 20.0 - 40.0 07/30/2015 [facility] MPV 9.2 fL 7.4 - 10.4 07/30/2015 [facility] MCHC 32.1 g/dL 32.0 - 36.0 07/30/2015 [facility] RDW 13.8 % 11.5 - 14.5 07/30/2015 [facility] Platelet 254 K/CMM 133 - 450 07/30/2015 [facility] MCV 90.5 fL 80.0 - 98.0 07/30/2015 [facility] MCH 29.1 pg 27.0 - 31.0 07/30/2015 [facility] Hgb 12.1 g/dL 12.0 - 16.0 07/30/2015 [facility] Hct 37.6 % 36.0 - 48.0 07/30/2015 [facility] WBC 11.9 K/CMM 3.7 - 10.4 07/30/2015 [facility] RBC 4.16 M/CMM 4.20 - 5.40 07/30/2015 [facility] CHEM PANEL eGFR 67 mL/min/1.73m2 07/29/2015 Result Comment: The eGFR is calculated using the CKD-EPI formula. In most young, healthy individuals the eGFR will be >90 mL/min/1.73m2. The eGFR declines with age. An eGFR of 60-89 may be normal in some populations, particularly the elderly, for whom the CKD-EPI formula has not been extensively validated. Use of the eGFR is not recommended in the following populations: Individuals with unstable creatinine concentrations, including patients and those with serious co-morbid conditions. Patients with extremes in muscle mass or diet. The data above are obtained from the National Kidney Disease Education Program (NKDEP) which additionally recommends that when the eGFR is used in patients with extremes of body mass index for purposes of drug dosing, the eGFR should be multiplied by the estimated BMI. [facility] CHEM PANEL Chloride Lvl 104 meq/L 95 - 109 07/29/2015 [facility] CHEM PANEL Potassium Lvl 4.9 meq/L 3.5 - 5.1 07/29/2015 [facility] CHEM PANEL CO2 33 meq/L 24 - 32 07/29/2015 [facility] CHEM PANEL Calcium Lvl 9.2 mg/dL 8.5 - 10.5 07/29/2015 [facility] CHEM PANEL Glucose Lvl 129 mg/dL 70 - 99 07/29/2015 [facility] CHEM PANEL Sodium Lvl 140 meq/L 135 - 145 07/29/2015 [facility] CHEM PANEL Creatinine Lvl 0.9 mg/dL 0.5 - 1.4 07/29/2015 [facility] CHEM PANEL BUN 15 mg/dL 7 - 22 07/29/2015 [facility] CHEM PANEL AGAP 7.9 meq/L 10.0 - 20.0 07/29/2015 [facility] HEMATOLOGY Eosinophils 1.9 % 0.0 - 4.0 07/29/2015 [facility] HEMATOLOGY Monocytes 6.2 % 2.0 - 12.0 07/29/2015 [facility] HEMATOLOGY Segs-Bands # 7.1 K/CMM 1.5 - 8.1 07/29/2015 [facility] HEMATOLOGY Lymphocytes # 1.1 K/CMM 1.0 - 5.5 07/29/2015 [facility] HEMATOLOGY Eosinophils # 0.2 K/CMM 0.0 - 0.5 07/29/2015 [facility] HEMATOLOGY Monocytes # 0.6 K/CMM 0.0 - 0.8 07/29/2015 [facility] HEMATOLOGY Basophils # 0.1 K/CMM 0.0 - 0.2 07/29/2015 [facility] HEMATOLOGY Lymphocytes 12.2 % 20.0 - 40.0 07/29/2015 [facility] HEMATOLOGY Segs 78.9 % 45.0 - 75.0 07/29/2015 [facility] HEMATOLOGY Basophils 0.8 % 0.0 - 1.0 07/29/2015 [facility] HEMATOLOGY WBC 9.0 K/CMM 3.7 - 10.4 07/29/2015 [facility] RBC 4.29 M/CMM 4.20 - 5.40 07/29/2015 [facility] MCHC 33.0 g/dL 32.0 - 36.0 07/29/2015 [facility] MCH 29.7 pg 27.0 - 31.0 07/29/2015 [facility] Hgb 12.7 g/dL 12.0 - 16.0 07/29/2015 [facility] MCV 90.0 fL 80.0 - 98.0 07/29/2015 [facility] Hct 38.6 % 36.0 - 48.0 07/29/2015 [facility] RDW 13.3 % 11.5 - 14.5 07/29/2015 [facility] MPV 9.2 fL 7.4 - 10.4 07/29/2015 [facility] Platelet 256 K/CMM 133 - 450 07/29/2015 [facility] Ankle 2 views DX Ankle 2 views DX Examination: Left ankle, 7 views History: left ankle ORIF Comparison: Plain films of the left ankle from 07/22/2015 Findings: Multiple nondiagnostic intraoperative fluoroscopic views of the left ankle show new postoperative changes of plate and screw fixation of bimalleolar fractures with apposition of the major fracture fragments. Fluoro time is 37.1 seconds. SL: 16 07/29/2015 - - Read by: Keagan Doe MD Dictated Date/time: 07/29/15 09:19 Electronically Signed by: Keagan Doe MD 07/29/15 09:20 FINAL REPORT [facility] ELECTROLYTES Sodium Lvl 140 meq/L 135 - 145 07/28/2015 [facility] ELECTROLYTES Potassium Lvl 4.2 meq/L 3.5 - 5.1 07/28/2015 [facility] ELECTROLYTES Chloride Lvl 102 meq/L 95 - 109 07/28/2015 [facility] ELECTROLYTES eGFR 67 mL/min/1.73m2 07/28/2015 Result Comment: The eGFR is calculated using the CKD-EPI formula. In most young, healthy individuals the eGFR will be >90 mL/min/1.73m2. The eGFR declines with age. An eGFR of 60-89 may be normal in some populations, particularly the elderly, for whom the CKD-EPI formula has not been extensively validated. Use of the eGFR is not recommended in the following populations: Individuals with unstable creatinine concentrations, including patients and those with serious co-morbid conditions. Patients with extremes in muscle mass or diet. The data above are obtained from the National Kidney Disease Education Program (NKDEP) which additionally recommends that when the eGFR is used in patients with extremes of body mass index for purposes of drug dosing, the eGFR should be multiplied by the estimated BMI. [facility] ELECTROLYTES AGAP 11.2 meq/L 10.0 - 20.0 07/28/2015 [facility] ELECTROLYTES Calcium Lvl 8.8 mg/dL 8.5 - 10.5 07/28/2015 [facility] ELECTROLYTES BUN 18 mg/dL 7 - 22 07/28/2015 [facility] ELECTROLYTES CO2 31 meq/L 24 - 32 07/28/2015 [facility] ELECTROLYTES Creatinine Lvl 0.9 mg/dL 0.5 - 1.4 07/28/2015 [facility] ELECTROLYTES Glucose Lvl 92 mg/dL 70 - 99 07/28/2015 [facility] RBC 4.00 M/CMM 4.20 - 5.40 07/28/2015 [facility] Hct 36.2 % 36.0 - 48.0 07/28/2015 [facility] Hgb 11.9 g/dL 12.0 - 16.0 07/28/2015 [facility] MPV 9.7 fL 7.4 - 10.4 07/28/2015 [facility] RDW 13.2 % 11.5 - 14.5 07/28/2015 [facility] Platelet 234 K/CMM 133 - 450 07/28/2015 [facility] WBC 8.0 K/CMM 3.7 - 10.4 07/28/2015 [facility] MCH 29.7 pg 27.0 - 31.0 07/28/2015 [facility] MCV 90.4 fL 80.0 - 98.0 07/28/2015 [facility] MCHC 32.9 g/dL 32.0 - 36.0 07/28/2015 [facility] Lymphocytes 31.9 % 20.0 - 40.0 07/28/2015 [facility] Segs 58.7 % 45.0 - 75.0 07/28/2015 [facility] Monocytes 8.9 % 2.0 - 12.0 07/28/2015 [facility] Monocytes # 0.7 K/CMM 0.0 - 0.8 07/28/2015 [facility] HEMATOLOGY Basophils 0.3 % 0.0 - 1.0 07/28/2015 [facility] HEMATOLOGY Segs-Bands # 4.7 K/CMM 1.5 - 8.1 07/28/2015 [facility] HEMATOLOGY Lymphocytes # 2.5 K/CMM 1.0 - 5.5 07/28/2015 [facility] HEMATOLOGY Eosinophils 0.2 % 0.0 - 4.0 07/28/2015 [facility] HEMATOLOGY Eosinophils 0.1 % 0.0 - 4.0 07/27/2015 [facility] LIPIDS VLDL 14 07/27/2015 [facility] LIPIDS LDL (Calculated) 76 mg/dL <=99 mg/dL 07/27/2015 [facility] LIPIDS Trig 71 mg/dL <=149 mg/dL 07/27/2015 [facility] LIPIDS CHD Risk 2.73 3.90 - 5.80 07/27/2015 [facility] LIPIDS HDL 52 mg/dL >=61 mg/dL 07/27/2015 [facility] LIPIDS Chol 142 mg/dL <=199 mg/dL 07/27/2015 [facility] SPECIAL CHEMISTRY Hgb A1C 5.9 % <=5.6 % 07/27/2015 [facility] THYROID PANEL TSH 0.056 uIU/mL 0.360 - 3.740 07/27/2015 [facility] THYROID PANEL T4 Free 1.47 ng/dL 0.76 - 1.46 07/27/2015 [facility] BLOOD BANK RESULTS ABO/Rh AB POS 07/26/2015 [facility] BLOOD BANK RESULTS Antibody Scrn Negative (07/26/15 2:55 PM) 07/26/2015 [facility] DRUG SCREEN U Amph Scr Negative *NA* (07/26/15 2:05 PM) Negative 07/26/2015 [facility] DRUG SCREEN U Cocaine Scr Negative *NA* (07/26/15 2:05 PM) Negative 07/26/2015 [facility] DRUG SCREEN U Benzodia Scr Negative *NA* (07/26/15 2:05 PM) Negative 07/26/2015 [facility] DRUG SCREEN U Julia Scr Negative *NA* (07/26/15 2:05 PM) Negative 07/26/2015 [facility] DRUG SCREEN U Phencyc Scr Negative *NA* (07/26/15 2:05 PM) Negative 07/26/2015 [facility] DRUG SCREEN U Opiate Scr Positive *ABN* (07/26/15 2:05 PM) Negative 07/26/2015 [facility] DRUG SCREEN U Cannab Scr Negative *NA* (07/26/15 2:05 PM) Negative 07/26/2015 [facility] DRUG SCREEN UDS Note See Note (07/26/15 2:05 PM) 07/26/2015 [facility] URINE AND STOOL UA Sq Epi None Seen 07/26/2015 [facility] URINE AND STOOL UA WBC 3 /HPF 0 - 5 07/26/2015 [facility] URINE AND STOOL UA RBC null 0 - 2 07/26/2015 [facility] URINE AND STOOL UA Ketones Negative mg/dL Negative mg/dL 07/26/2015 [facility] URINE AND STOOL UA Urobilinogen 2.0 mg/dL 0.1 - 1.0 07/26/2015 [facility] URINE AND STOOL UA Bili Negative *NA* (07/26/15 2:05 PM) Negative 07/26/2015 [facility] URINE AND STOOL UA Blood Negative (07/26/15 2:05 PM) Negative 07/26/2015 [facility] URINE AND STOOL UA Nitrite Positive *ABN* (07/26/15 2:05 PM) Negative 07/26/2015 [facility] URINE AND STOOL UA Leuk Est Trace *ABN* (07/26/15 2:05 PM) Negative 07/26/2015 [facility] URINE AND STOOL UA Bacteria Many /HPF None Seen /HPF 07/26/2015 [facility] URINE AND STOOL UA Glucose Negative mg/dL Negative mg/dL 07/26/2015 [facility] URINE AND STOOL UA Protein Negative mg/dL Negative mg/dL 07/26/2015 [facility] URINE AND STOOL UA pH 6.0 5.0 - 8.0 07/26/2015 [facility] URINE AND STOOL UA Spec Grav 1.014 <=1.030 07/26/2015 [facility] URINE AND STOOL UA Turbidity Slight *ABN* (07/26/15 2:05 PM) Clear 07/26/2015 [facility] URINE AND STOOL UA Color Yellow *NA* (07/26/15 2:05 PM) Yellow 07/26/2015 [facility] Chest CTA Chest CTA CT CHEST WITH CONTRAST - CT PULMONARY ANGIOGRAPHY with 3-D volumetric rotational (obtained on an independent workstation), sagittal and coronal reconstructions. (Pulmonary Embolism Protocol). History: Technique: Initially, helical CT images at 2.5 mm intervals were obtained from the level of the aortic arch to the lung bases during the dynamic administration of nonionic iodinated intravenous contrast (CT pulmonary angiography -pulmonary embolism protocol). 3-D volumetric rotational (obtained on an independent workstation), sagittal and coronal reconstructions were provided. Subsequently, helical CT images were obtained from the thoracic inlet to the upper abdomen. A chest radiograph today was reviewed. FINDINGS: 1. No evidence of pulmonary embolism. 2. No active disease. The lungs are clear. There are no pleural effusions. 3. The heart is normal in size. There is no pericardial effusion. 4. There is minimal atherosclerotic calcification within the aortic arch. The aorta is otherwise normal in appearance. There is no aneurysm or dissection. 5. No mass or adenopathy is seen within the chest. 6. Moderate sized hiatal hernia. 7. Prior granulomatous disease. There is a 7 mm calcified granuloma in the left lower lobe. There are small calcified granulomas in the spleen. 8. Minimal degenerative changes in the thoracic spine. The regional skeleton is otherwise unremarkable. CONCLUSION: 1. No evidence of pulmonary embolism. 2. No evidence of an active or acute process within the chest. 3. Moderate sized lateral hernia. 4. Prior granulomatous disease. SL: 12 Rick Weiss M.D. 07/26/2015 - - Read by: Rick Weiss MD Dictated Date/time: 07/26/15 18:35 Electronically Signed by: Rick Weiss MD 07/26/15 18:41 FINAL REPORT [facility] CARDIAC ENZYMES Troponin-I null 0.00 - 0.40 07/26/2015 [facility] CARDIAC ENZYMES CK MB 2.1 ng/mL 0.5 - 3.6 07/26/2015 [facility] CARDIAC ENZYMES Total CK 288 unit/L 12 - 191 07/26/2015 [facility] CARDIAC ENZYMES CK MB Index 0.7 0.0 - 2.5 07/26/2015 [facility] CHEM PANEL Globulin 2.9 g/dL 2.0 - 4.0 07/26/2015 [facility] CHEM PANEL A/G Ratio 1.2 0.7 - 1.6 07/26/2015 [facility] CHEM PANEL Total Protein 6.3 g/dL 6.4 - 8.4 07/26/2015 [facility] CHEM PANEL Albumin Lvl 3.4 g/dL 3.5 - 5.0 07/26/2015 [facility] CHEM PANEL Bili Total 0.5 mg/dL 0.2 - 1.3 07/26/2015 [facility] CHEM PANEL B/C Ratio 16 6 - 25 07/26/2015 [facility] CHEM PANEL Alk Phos 68 unit/L 39 - 136 07/26/2015 [facility] CHEM PANEL AST 28 unit/L 0 - 37 07/26/2015 [facility] CHEM PANEL ALT 29 unit/L 0 - 65 07/26/2015 [facility] HEMATOLOGY Eosinophils # 0.2 K/CMM 0.0 - 0.5 07/26/2015 [facility] HEMATOLOGY PTT 28.2 s 22.9 - 35.8 07/26/2015 [facility] HEMATOLOGY PT 13.5 s 12.0 - 14.7 07/26/2015 [facility] HEMATOLOGY INR 1.00 0.85 - 1.17 07/26/2015 [facility] Brain wo contrast CT Brain wo contrast CT Examination: CT scan of the brain without contrast. HISTORY: Weakness COMPARISON: CT brain from 07/22/2012 DLP: 1015.26 TECHNIQUE: Multiple axial CT images of the brain were obtained without the administration of intravenous contrast. FINDINGS: Age-related involutional changes of the brain parenchyma are seen. Mild chronic microvascular ischemic changes are noted. No acute intracranial hemorrhage, mass effect, midline shift, or hydrocephalus is seen. There are no extra-axial fluid collections. The visualized paranasal sinuses and mastoid air cells are well-aerated. The optic globes and retrobulbar soft tissues are unremarkable. IMPRESSION: No acute intracranial abnormality. SL: 16 07/26/2015 - - Read by: Keagan Doe MD Dictated Date/time: 07/26/15 11:24 Electronically Signed by: Keagan Doe MD 07/26/15 11:26 FINAL REPORT [facility] Chest 1view DX Chest 1view DX EXAM: CHEST 1 VIEW DATE: Jul 26, 2015 10:32:51 AM INDICATION: Dizziness. Fatigue. COMPARISON: None. TECHNIQUE: AP chest radiograph. FINDINGS: Lungs are clear bilaterally No pleural effusion or pneumothorax is identified . Cardiac silhouette is not enlarged. Aortic arch calcification is seen.. The skeleton is intact IMPRESSION: 1. No acute intrathoracic abnormality SL: 14 07/26/2015 - - Read by: Isha Cain MD Dictated Date/time: 07/26/15 10:39 Electronically Signed by: Isha Cain MD 07/26/15 10:40 FINAL REPORT [facility] Ankle 3 views DX Ankle 3 views DX LEFT ANKLE 3 Views HISTORY: Left ankle pain. TECHNIQUE: Frontal, lateral, and oblique views of the left ankle were obtained. FINDINGS: 1. Trimalleolar fracture. 2. There is a moderately displaced oblique fracture through the lateral malleolus just above the ankle joint. 3. There is a transverse fracture of the medial malleolus at the level of the tibial plafond with moderate lateral displacement. 4. There is a minimally displaced fracture of the posterior margin of the distal tibia ("posterior malleolus.") This involves approximately the posterior 8 mm the distal tibia. There is less than 2 mm of displacement. 5. There is mild lateral displacement of the talus in relation to the distal fibula. 6. There is widening of ankle mortise. 7. There is no evidence of underlying degenerative changes. 8. Plantar and posterior calcaneal spurs 9. Soft tissue swelling. Coding: Ankle 3 views CPT code: 49289 SL: 13 Rick Weiss M.D. 07/22/2015 - - Read by: Rick Weiss MD Dictated Date/time: 07/22/15 20:09 Electronically Signed by: Rick Weiss MD 07/22/15 20:12 FINAL REPORT [facility] Vital Signs Vital Sign Value Date Comments Source Temperature Oral (F) 97.6 F 08/04/2015 [facility] Systolic (mm Hg) 129 08/04/2015 [facility] Diastolic (mm Hg) 77 08/04/2015 [facility] Respitory Rate 17 08/04/2015 [facility] Heart Rate 87 08/04/2015 [facility] Heart Rate 79 08/04/2015 [facility] Temperature Oral (F) 98.4 F 08/04/2015 [facility] Systolic (mm Hg) 123 08/04/2015 [facility] Diastolic (mm Hg) 75 08/04/2015 [facility] Respitory Rate 16 08/04/2015 [facility] Temperature Oral (F) 98.6 F 08/04/2015 [facility] Heart Rate 82 08/04/2015 [facility] Respitory Rate 17 08/04/2015 [facility] Systolic (mm Hg) 137 08/04/2015 [facility] Diastolic (mm Hg) 80 08/04/2015 [facility] Height 162.5 cm 07/30/2015 [facility] BMI Calculated 39.57 07/30/2015 [facility] Weight 104.5 07/30/2015 [facility] Weight 104.545 07/28/2015 [facility] Height 162.56 cm 07/26/2015 [facility] Weight 104.545 07/26/2015 [facility] BMI Calculated 39.56 07/26/2015 [facility] BMI Calculated 39.56 07/26/2015 [facility] Height 162.56 cm 07/26/2015 [facility] Systolic (mm Hg) 122 07/23/2015 [facility] Diastolic (mm Hg) 69 07/23/2015 [facility] Respitory Rate 16 07/23/2015 [facility] Temperature Oral (F) 98.9 F 07/23/2015 [facility] Heart Rate 88 07/23/2015 [facility] Weight 104.545 07/23/2015 [facility] BMI Calculated 39.56 07/23/2015 [facility] Height 162.56 cm 07/23/2015 [facility] Temperature Oral (F) 99.2 F 07/23/2015 [facility] Systolic (mm Hg) 119 07/23/2015 [facility] Diastolic (mm Hg) 67 07/23/2015 [facility] Respitory Rate 18 07/23/2015 [facility] Heart Rate 94 07/23/2015 [facility] Encounters Location Location Details Encounter Type Encounter Number Reason For Visit Attending Provider ADM Date DC Date Status Source [facility] [id number] Bipin Bell 07/23/2015 07/23/2015 [facility] Inpatient [id number] Zafar New 07/26/2015 08/05/2015 [facility] Outpatient [id number] LAURA MARTIN 07/22/2017 Active [facility] Outpatient [id number] Maggie Gomez 12/11/2017 12/12/2017 [facility] Procedures Procedure Code Date Perfomer Comments Source Abdominal hysterectomy [id number] [facility] Appendectomy [id number] [facility]
--- OUTSIDE RECORDS SUMMARY | 2018-08-30 21:22 | XMS REPORT | Summary of Care ---
Author Author MARIAA TEJEDA D.O. Organization Unknown Address [facility] Phone Unavailable Care Team Providers Care Sap Security Architect Name Role Phone HANG MAYORGA MD Unavailable Unavailable Mariaa Tejeda DO Unavailable Unavailable Functional Status Name Dates Details Functional status health issues are not documented Status: Name Dates Details Cognitive status health issues are not documented Status: Problems Name Dates Details Hand pain (729.5, M79.643) Status: Active Infection of fingernail of left hand (681.02, L03.012) Status: Active Medications Name Dates Details Medications not documented Allergies and Adverse Reactions Name Dates Details Allergy history not documented Status: Procedures Procedure Dates Details Procedures not documented Immunization Name Dates Details Immunizations not documented Social History Name Dates Details Unknown if ever smoked Vital Signs Date Test Result Details No Known Vitals to report Results Date Description Value Details [id number] [U] XRAY HAND MIN 3 VWS LEFT [id number] XR HAND MIN 3 VWS LEFT EXAM: XR HAND MIN 3 VWS LEFT DATE: 08/18/2018 11:09 AM CDT INDICATION: hand pain COMPARISON: None available TECHNIQUE: PA, lateral and oblique radiographs of the left hand DISCUSSION: Severe degenerative changes of the second and third DIP joints with flexion deformities noted, worse involving the index finger. The soft tissue swelling of the index finger centered at the DIP. Mild soft tissue swelling also seen at the middle finger DIP.Severe first CMC joint degenerative changes with mild lateral subluxation.Mild joint space narrowing and osteophyte formation seen at the fourth and fifth DIP joints. No acute fracture.Mild diffuse osteopenia. 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 08/18/2018 4:59 PM CDT Abida Ray Plan of Care Name Dates Details Planned Observations Planned Goals not documented Planned Encounters Appointment; MARIAA TEJEDA D.O. On: 03-Sep-2018 13:45 Instructions Name Dates Details Instructions not documented Encounters Appointment; ALEXANDRU NASCIMENTO P.A. Encounter Diagnosis: Problem not documented On: 18-Aug-2018 9:00
--- OUTSIDE RECORDS SUMMARY | 2018-08-30 21:22 | XMS REPORT ---
Author Author [facility] Address Unknown Phone Unavailable Care Team Providers Care Tobacco Baler Name Role Phone LEEANN DOHERTY Unavailable Unavailable Problems This patient has no known problems. Allergies, Adverse Reactions, Alerts This patient has no known allergies or adverse reactions. Medications This patient has no known medications. Results Test Description Test Time Test Comments Text Results Atomic Results Result Comments AFB CULTURE + SMEAR 2018-08-24 16:58:00 CULTURE (BEAKER) (test rbiz=0174) No acid-fast bacilli isolated in 42 days AFB SMEAR (BEAKER) (test wlcf=046) No partially acid fast bacilli seen FUNGUS CULTURE + [id number] 06:54:00* Test Item Value Reference Range Comments CULTURE (BEAKER) (test qitn=1159) No fungus isolated in 28 days FUNGUS SMEAR (BEAKER) (test oasl=7833) No fungi seen ANAEROBIC [id number] 19:11:00* Test Item Value Reference Range Comments CULTURE (BEAKER) (test jcbr=3541) No anaerobes isolated SURGICALLY OBTAINED CULTURE + GRAM [id number] 13:47:00* Test Item Value Reference Range Comments CULTURE (BEAKER) (test avhi=8808) 1+ Methicillin resistant Staphylococcus aureus GRAM STAIN RESULT (BEAKER) (test aqju=2061) <1+ WBCs GRAM STAIN RESULT (BEAKER) (test gecl=98374) <1+ gram positive cocci in pairs VANCOMYCIN LEVEL, [id number] 07:17:00* Test Item Value Reference Range Comments VANCOMYCIN TROUGH (BEAKER) (test qskw=869) 16.6 ug/mL 10.0-20.0 Draw trough level prior to dose administration.SPIN/CONCENTRATION CHARGE 2018-07-15 07:35:00* Test Item Value Reference Range Comments CONCENTRATION CHARGED (BEAKER) (test ytbk=0791) Done BASIC METABOLIC [id number] 07:06:00* Test Item Value Reference Range Comments SODIUM (BEAKER) (test fbum=186) 137 meq/L 136-145 POTASSIUM (BEAKER) (test jowb=399) 4.3 meq/L 3.5-5.1 CHLORIDE (BEAKER) (test bvyo=632) 104 meq/L 98-107 CO2 (BEAKER) (test zgpn=347) 27 meq/L 22-29 BLOOD UREA NITROGEN (BEAKER) (test umol=841) 13 mg/dL 7-21 CREATININE (BEAKER) (test hfvg=290) 0.66 mg/dL 0.57-1.25 GLUCOSE RANDOM (BEAKER) (test wjgb=836) 99 mg/dL 70-105 CALCIUM (BEAKER) (test cmtd=063) 9.0 mg/dL 8.4-10.2 EGFR (BEAKER) (test fhhd=4239) 89 mL/min/1.73 sq m ESTIMATED GFR IS NOT ACCURATE CREATININE CLEARANCE IN PREDICTING GLOMERULAR FILTRATION RATE. ESTIMATED GFR IS NOT APPLICABLE FOR DIALYSIS PATIENTS. CBC W/PLT COUNT & AUTO [id number] 06:47:00* Test Item Value Reference Range Comments WHITE BLOOD CELL COUNT (BEAKER) (test zwqi=321) 10.6 K/ L 3.5-10.5 RED BLOOD CELL COUNT (BEAKER) (test qanm=989) 3.78 M/ L 3.93-5.22 HEMOGLOBIN (BEAKER) (test htir=880) 11.1 GM/DL 11.2-15.7 HEMATOCRIT (BEAKER) (test kkxb=693) 34.4 % 34.1-44.9 MEAN CORPUSCULAR VOLUME (BEAKER) (test lgmf=440) 91.0 fL 79.4-94.8 MEAN CORPUSCULAR HEMOGLOBIN (BEAKER) (test fzsz=495) 29.4 pg 25.6-32.2 MEAN CORPUSCULAR HEMOGLOBIN CONC (BEAKER) (test utea=084) 32.3 GM/DL 32.2-35.5 RED CELL DISTRIBUTION WIDTH (BEAKER) (test euim=019) 12.4 % 11.7-14.4 PLATELET COUNT (BEAKER) (test aptu=115) 204 K/CU MM 150-450 MEAN PLATELET VOLUME (BEAKER) (test ihcz=355) 11.0 fL 9.4-12.3 NUCLEATED RED BLOOD CELLS (BEAKER) (test iwcv=758) 0 /100 WBC 0-0 NEUTROPHILS RELATIVE PERCENT (BEAKER) (test amit=843) 75 % LYMPHOCYTES RELATIVE PERCENT (BEAKER) (test xxxr=367) 14 % MONOCYTES RELATIVE PERCENT (BEAKER) (test kiia=377) 10 % EOSINOPHILS RELATIVE PERCENT (BEAKER) (test idxi=979) 0 % BASOPHILS RELATIVE PERCENT (BEAKER) (test idad=263) 0 % NEUTROPHILS ABSOLUTE COUNT (BEAKER) (test wjne=150) 7.98 K/ L 1.56-6.13 LYMPHOCYTES ABSOLUTE COUNT (BEAKER) (test jdxv=940) 1.47 K/ L 1.18-3.74 MONOCYTES ABSOLUTE COUNT (BEAKER) (test khbg=703) 1.09 K/ L 0.24-0.36 EOSINOPHILS ABSOLUTE COUNT (BEAKER) (test kzyp=037) 0.00 K/ L 0.04-0.36 BASOPHILS ABSOLUTE COUNT (BEAKER) (test nort=739) 0.01 K/ L 0.01-0.08 IMMATURE GRANULOCYTES-RELATIVE PERCENT (BEAKER) (test gzwz=5531) 1 % 0-1 BASIC METABOLIC [id number] 05:16:00* Test Item Value Reference Range Comments SODIUM (BEAKER) (test zlye=501) 137 meq/L 136-145 POTASSIUM (BEAKER) (test wykx=837) 4.4 meq/L 3.5-5.1 CHLORIDE (BEAKER) (test dbxy=299) 104 meq/L 98-107 CO2 (BEAKER) (test zbaa=499) 27 meq/L 22-29 BLOOD UREA NITROGEN (BEAKER) (test mlzo=448) 11 mg/dL 7-21 CREATININE (BEAKER) (test mtzj=318) 0.75 mg/dL 0.57-1.25 GLUCOSE RANDOM (BEAKER) (test capr=740) 104 mg/dL 70-105 CALCIUM (BEAKER) (test qmkk=282) 9.2 mg/dL 8.4-10.2 EGFR (BEAKER) (test lbcx=7349) 77 mL/min/1.73 sq m ESTIMATED GFR IS NOT ACCURATE CREATININE CLEARANCE IN PREDICTING GLOMERULAR FILTRATION RATE. ESTIMATED GFR IS NOT APPLICABLE FOR DIALYSIS PATIENTS. CBC W/PLT COUNT & AUTO [id number] 04:29:00* Test Item Value Reference Range Comments WHITE BLOOD CELL COUNT (BEAKER) (test exal=835) 8.9 K/ L 3.5-10.5 RED BLOOD CELL COUNT (BEAKER) (test snes=332) 4.11 M/ L 3.93-5.22 HEMOGLOBIN (BEAKER) (test xcni=592) 12.1 GM/DL 11.2-15.7 HEMATOCRIT (BEAKER) (test iiep=487) 37.4 % 34.1-44.9 MEAN CORPUSCULAR VOLUME (BEAKER) (test zlws=624) 91.0 fL 79.4-94.8 MEAN CORPUSCULAR HEMOGLOBIN (BEAKER) (test eeya=480) 29.4 pg 25.6-32.2 MEAN CORPUSCULAR HEMOGLOBIN CONC (BEAKER) (test xmri=646) 32.4 GM/DL 32.2-35.5 RED CELL DISTRIBUTION WIDTH (BEAKER) (test ftdl=489) 12.4 % 11.7-14.4 PLATELET COUNT (BEAKER) (test nvgd=275) 206 K/CU MM 150-450 MEAN PLATELET VOLUME (BEAKER) (test twhn=430) 11.0 fL 9.4-12.3 NUCLEATED RED BLOOD CELLS (BEAKER) (test vbnh=695) 0 /100 WBC 0-0 NEUTROPHILS RELATIVE PERCENT (BEAKER) (test pyot=102) 71 % LYMPHOCYTES RELATIVE PERCENT (BEAKER) (test mmbt=957) 17 % MONOCYTES RELATIVE PERCENT (BEAKER) (test uugp=482) 12 % EOSINOPHILS RELATIVE PERCENT (BEAKER) (test ivgc=312) 0 % BASOPHILS RELATIVE PERCENT (BEAKER) (test fsar=324) 0 % NEUTROPHILS ABSOLUTE COUNT (BEAKER) (test taqt=678) 6.31 K/ L 1.56-6.13 LYMPHOCYTES ABSOLUTE COUNT (BEAKER) (test pmfc=262) 1.52 K/ L 1.18-3.74 MONOCYTES ABSOLUTE COUNT (BEAKER) (test zsps=303) 1.03 K/ L 0.24-0.36 EOSINOPHILS ABSOLUTE COUNT (BEAKER) (test lpba=346) 0.02 K/ L 0.04-0.36 BASOPHILS ABSOLUTE COUNT (BEAKER) (test dzbz=788) 0.02 K/ L 0.01-0.08 IMMATURE GRANULOCYTES-RELATIVE PERCENT (BEAKER) (test bzmq=5647) 0 % 0-1 RAD, HAND, 3 VIEWS, [id number] 13:37:00Reason for exam:->LEFT index finger infectionFINAL REPORT Left hand, three images HISTORY: Index finger infection COMPARISON: None IMPRESSION:No fracture or dislocation. Swelling of the second digit. No apparent soft tissue defect. No radiopaque foreign body. Interphalangeal and carpometacarpal degenerative changes are noted. Signed: Mariaa Meyers MDReport Verified Date/Time: 07/13/2018 13:37:58 Reading Location: [facility] B1 C013Y CT Body Reading Room C METABOLIC PANEL 2018-07-13 12:07:00* Test Item Value Reference Range Comments SODIUM (BEAKER) (test xyvh=377) 134 meq/L 136-145 POTASSIUM (BEAKER) (test srjg=508) 4.2 meq/L 3.5-5.1 Specimen slightly hemolyzed CHLORIDE (BEAKER) (test xunm=955) 102 meq/L 98-107 CO2 (BEAKER) (test hkhj=726) 25 meq/L 22-29 BLOOD UREA NITROGEN (BEAKER) (test grvk=395) 10 mg/dL 7-21 CREATININE (BEAKER) (test vpio=875) 0.77 mg/dL 0.57-1.25 Specimen slightly hemolyzed GLUCOSE RANDOM (BEAKER) (test puvb=134) 117 mg/dL 70-105 CALCIUM (BEAKER) (test dwso=338) 9.0 mg/dL 8.4-10.2 EGFR (BEAKER) (test kbfk=0146) 74 mL/min/1.73 sq m ESTIMATED GFR IS NOT ACCURATE CREATININE CLEARANCE IN PREDICTING GLOMERULAR FILTRATION RATE. ESTIMATED GFR IS NOT APPLICABLE FOR DIALYSIS PATIENTS. CBC W/PLT COUNT & AUTO [id number] 11:32:00* Test Item Value Reference Range Comments WHITE BLOOD CELL COUNT (BEAKER) (test ynfz=298) 7.6 K/ L 3.5-10.5 RED BLOOD CELL COUNT (BEAKER) (test cpar=458) 3.86 M/ L 3.93-5.22 HEMOGLOBIN (BEAKER) (test vfxz=584) 11.4 GM/DL 11.2-15.7 HEMATOCRIT (BEAKER) (test luep=674) 34.7 % 34.1-44.9 MEAN CORPUSCULAR VOLUME (BEAKER) (test dorw=628) 89.9 fL 79.4-94.8 MEAN CORPUSCULAR HEMOGLOBIN (BEAKER) (test dyvc=509) 29.5 pg 25.6-32.2 MEAN CORPUSCULAR HEMOGLOBIN CONC (BEAKER) (test sesb=157) 32.9 GM/DL 32.2-35.5 RED CELL DISTRIBUTION WIDTH (BEAKER) (test arnh=350) 12.5 % 11.7-14.4 PLATELET COUNT (BEAKER) (test yqll=254) 225 K/CU MM 150-450 MEAN PLATELET VOLUME (BEAKER) (test bywd=851) 10.9 fL 9.4-12.3 NUCLEATED RED BLOOD CELLS (BEAKER) (test yamu=791) 0 /100 WBC 0-0 NEUTROPHILS RELATIVE PERCENT (BEAKER) (test xryv=141) 64 % LYMPHOCYTES RELATIVE PERCENT (BEAKER) (test hqap=467) 23 % MONOCYTES RELATIVE PERCENT (BEAKER) (test brra=369) 11 % EOSINOPHILS RELATIVE PERCENT (BEAKER) (test hypu=138) 1 % BASOPHILS RELATIVE PERCENT (BEAKER) (test fiqs=274) 0 % NEUTROPHILS ABSOLUTE COUNT (BEAKER) (test myvk=117) 4.88 K/ L 1.56-6.13 LYMPHOCYTES ABSOLUTE COUNT (BEAKER) (test bnjy=735) 1.78 K/ L 1.18-3.74 MONOCYTES ABSOLUTE COUNT (BEAKER) (test vltn=714) 0.87 K/ L 0.24-0.36 EOSINOPHILS ABSOLUTE COUNT (BEAKER) (test kkyv=587) 0.06 K/ L 0.04-0.36 BASOPHILS ABSOLUTE COUNT (BEAKER) (test njnu=966) 0.02 K/ L 0.01-0.08 IMMATURE GRANULOCYTES-RELATIVE PERCENT (BEAKER) (test wlxr=0457) 0 % 0-1
[2018-08-30] MEDS ORDERED: VANCOMYCIN 1GM/NS 250 ML 250 ML IV ONE (22:00)
[2018-08-30] MEDS ORDERED: MORPHINE SULFATE 2 MG/ML SYR IV STA (22:03)
[2018-08-30] MEDS ORDERED: ONDANSETRON HCL INJ 2 MG/ML VIAL IV STA (22:03)
[2018-08-30 22:31] VITALS: BP 156/73
== END 2018-08-31 | disposition home or self-care (01) ==
LOC: FSED 21:18
DX: M79.645 Pain in left finger(s) (principal); L03.012 Cellulitis of left finger; I10 Essential (primary) hypertension; E03.9 Hypothyroidism, unspecified; K21.9 Gastro-esophageal reflux disease without esophagitis; F41.9 Anxiety disorder, unspecified; F31.9 Bipolar disorder, unspecified
CPT/HCPCS: 80053; 85025; 99283

== ENCOUNTER 2018-10-05 09:45 | Emergency (ER) | payer MEDICARE ==
[~2018-10-05] VITALS: Ht 162.6 cm; Wt 92.5 kg
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
--- OUTSIDE RECORDS SUMMARY | 2018-10-05 09:49 | XMS REPORT | Continuity of Care Document ---
Author Author [facility] Interface Address Unknown Phone Unavailable Problems Problem Status Onset Date Classification Date Reported Comments Source LT INDEX FINGER SEPTIC ARTIRITIS Active 08/18/2018 [facility] Encounter for screening mammogram for malignant neoplasm of breast 12/26/2017 03/19/2018 [facility] ROUTINE SCREENING LAST MMG OOS Active 12/10/2017 [facility] LEG PAIN Active 07/26/2015 [facility] WEAKNESS, DIZZINESS, ANKLE FX Active 07/26/2015 [facility] Discharge Diagnosis: Trimalleolar fracture of left ankle 07/22/2015 07/25/2015 [facility] ANKLE INJURY Active 07/22/2015 [facility] Anxiety Active Problem 03/19/2018 [facility] Depression (<span ID="[id number]">Confirmed</span>) Resolved Problem 03/19/2018 [facility] FH: hypothyroidism Active Problem 03/19/2018 [facility] Gastric reflux Active Problem 03/19/2018 [facility] HTN - Hypertension Active Problem 03/19/2018 [facility] Morbid obesity Active Problem 03/19/2018 [facility] Cholesterol Active Problem 08/07/2015 [facility] MALAISE AND FATIGUE NEC Active [facility] ENCNTR SCREEN MAMMOGRAM FOR MALIGNANT NE Active [facility] ILLNESS, UNSPECIFIED Active [facility] Medications Medication Details Route Status Patient Instructions Ordering Provider Order Date Source meclizine 25 mg oral tablet 25 mg=1 tab, PO, TID, PRN Dizziness, 0 Refill(s) Active 08/05/2015 [facility] heparin 5000 units/0.5 mL injectable solution SUB-Q, Q12H, 0 Refill(s) Active 08/04/2015 [facility] levothyroxine 150 mcg (0.15 mg) oral tablet 150 microgram=1 tab, PO, Q630AM, 0 Refill(s) Active 08/04/2015 [facility] tramadol hydrochloride 50 MG Oral Tablet [Ultram] 1-2 tab, PO, Q4H, PRN for pain, # 40 tab, 0 Refill(s) Active 08/04/2015 [facility] POLYETHYLENE GLYCOL 3350 PO, Daily, PRN Constipation, 0 Refill(s) Active 08/04/2015 [facility] acetaminophen 325 mg oral tablet 650 mg=2 tab, PO, Q4H, PRN Pain 1-3/Temp > 100.4 F, 0 Refill(s) Active 08/04/2015 [facility] Maalox Advanced Regular Strength SUSP 0 Refill(s) Active 08/04/2015 [facility] bisacodyl 5 mg oral enteric coated tablet 5 mg=1 tab, PO, Q24H, PRN Constipation, 0 Refill(s) Active 08/04/2015 [facility] Acetaminophen 325 MG / Hydrocodone Bitartrate 7.5 MG Oral Tablet [Childress 7.5/325] 1 tab, Route: PO, Drug Form: TAB, Dosing Weight 104.5, kg, Q4H, PRN Pain Score 7-10, Start date: 08/02/15 15:28:00, Duration: 30 day, Stop date: 09/01/15 15:27:00Notes: Same as Childress 325-7.5mg Do not exceed 4gm/day of acetaminophen. No Longer Active 08/02/2015 [facility] Ativan 2 mg, 1 mL, Route: IV, Drug form: INJ, ONCE, Dosing Weight 104.5, kg, Start date: 07/30/15 14:39:00, Stop date: 07/30/15 14:39:00Notes: (Same as: Ativan) Inactive 07/30/2015 [facility] ceFAZolin (SCIP) 1 gm, 100 mL, Route: IVPB, Drug form: INJ, Q8H, Dosing Weight 104.545, kg, Start date: 07/29/15 15:30:00, Duration: 1 doses or times, Stop date: 07/29/15 15:30:00 Inactive 07/29/2015 [facility] Acetaminophen 325 MG / Hydrocodone Bitartrate 5 MG Oral Tablet [Childress 5/325] 2 tab, Route: PO, Drug Form: TAB, Dosing Weight 104.545, kg, Q4H, PRN Pain Score 7-10, Start date: 07/29/15 13:44:00, Duration: 30 day, Stop date: 08/28/15 13:43:00Notes: (Same as: Childress 325/5) Do not exceed 4gm/day of acetaminophen. No Longer Active 07/29/2015 [facility] Clindamycin 150 MG/ML Injectable Solution 600 mg, 50 mL, Route: IVPB, Drug form: INJ, Q8H, Dosing Weight 104.545, kg, Start date: 07/29/15 11:00:00, Duration: 1 doses or times, Stop date: 07/29/15 11:00:00 Inactive 07/29/2015 [facility] Ondansetron 4 mg, Route: IVP, ONCE, Dosing Weight 104.545, kg, PRN Nausea & Vomiting, Start date: 07/29/15 9:28:00 Inactive 07/29/2015 [facility] Naloxone 0.04 mg, Route: IVP, Q2MIN, Dosing Weight 104.545, kg, PRN Narcotic Reversal, Start date: 07/29/15 9:28:00, Duration: 8 doses or times, Stop date: Limited # of times Inactive 07/29/2015 [facility] Flumazenil 0.2 mg, Route: IVP, PRN, Dosing Weight 104.545, kg, PRN Benzodiazepine Reversal, Initial dose, Start date: 07/29/15 9:28:00, Duration: 30 day, Stop date: 08/28/15 9:27:00 Inactive 07/29/2015 [facility] Fentanyl 50 microgram, Route: IVP, Q5Min, Dosing Weight 104.545, kg, PRN Pain Score 7-10, Start date: 07/29/15 9:28:00, Duration: 2 doses or times, Stop date: Limited # of times Inactive 07/29/2015 [facility] Hydromorphone 0.5 mg, Route: IVP, Q5Min, Dosing Weight 104.545, kg, PRN Pain Score 7-10, Start date: 07/29/15 9:28:00, Duration: 4 doses or times, Stop date: Limited # of times Inactive 07/29/2015 [facility] Oxycodone 10 mg, Route: PO, Drug form: TAB, Q4H, Dosing Weight 104.545, kg, PRN Pain Score 7-10, Start date: 07/29/15 9:28:00, Duration: 30 day, Stop date: 08/28/15 9:27:00 Inactive 07/29/2015 [facility] Acetaminophen 1,000 mg, Route: IVPB, Drug form: INJ, ONCE, Dosing Weight 104.545, kg, PRN Pain Score 1-3, Start date: 07/29/15 9:28:00, Duration: 1 doses or times, Stop date: Limited # of times Inactive 07/29/2015 [facility] pantoprazole 40 mg, Route: PO, Drug form: ECTAB, Daily, Dosing Weight 104.545, kg, Start date: 07/29/15 9:00:00, Duration: 30 day, Stop date: 08/27/15 9:00:00 Inactive 07/29/2015 [facility] docusate sodium 100 mg oral capsule 100 mg, 1 cap, Route: PO, Drug form: CAP, BID, Dosing Weight 104.545, kg, Start date: 07/29/15 9:00:00, Duration: 30 day, Stop date: 08/27/15 17:00:00Notes: (Same as: Colace) (Do Not Crush) No Longer Active 07/29/2015 [facility] influenza virus vaccine, inactivated 0.5 mL, Route: IM, Drug Form: SUSP, Daily, Start date: 07/29/15 9:00:00, Duration: 1 doses or times, Stop date: 07/29/15 9:00:00Notes: (Same as: Fluzone Quadrivalent) For 3 years of age and older (0.5 mL IM) Shake well before use Inactive 07/29/2015 [facility] Al hydroxide/Mg hydroxide/simethicone 200 mg-200 mg-20 mg/5 mL oral suspension 30 ml, Route: PO, Drug Form: SUSP, Dosing Weight 104.545, kg, Q4H, PRN Indigestion, Start date: 07/29/15 8:56:00, Duration: 30 day, Stop date: 08/28/15 8:55:00Notes: (aluminum hydroxide-magnesium hyd-simethicone [phone]/5ml 30 ml ud SARAH) No Longer Active 07/29/2015 [facility] Diphenhydramine 12.5 mg, 0.5 tab, Route: PO, Drug form: TAB, Q6H, Dosing Weight 104.545, kg, PRN Itching, Start date: 07/29/15 8:56:00, Duration: 30 day, Stop date: 08/28/15 8:55:00 No Longer Active 07/29/2015 [facility] Dulcolax Laxative 5 mg, 1 tab, Route: PO, Drug form: ECTAB, Q24H, Dosing Weight 104.545, kg, PRN Constipation, Start date: 07/29/15 8:56:00, Duration: 30 day, Stop date: 08/28/15 8:55:00Notes: (Same As: Dulcolax, Correctol) (Do Not Crush) "Do Not Crush" No Longer Active 07/29/2015 [facility] Morphine 2 mg, 1 mL, Route: IVP, Drug form: INJ, Q3H, Dosing Weight 104.545, kg, PRN Pain Score 1-3, Start date: 07/29/15 8:56:00, Duration: 30 day, Stop date: 08/28/15 8:55:00Notes: (Same as:MORPhine Sulfate) Inactive 07/29/2015 [facility] Acetaminophen 650 mg, 2 tab, Route: PO, Drug form: TAB, Q4H, Dosing Weight 104.545, kg, PRN Pain 1-3/Temp > 100.4 F, Start date: 07/29/15 8:56:00, Duration: 30 day, Stop date: 08/28/15 8:55:00Notes: Do not exceed 4 gm/day. (Same as: Tylenol) No Longer Active 07/29/2015 [facility] Acetaminophen 325 MG / Hydrocodone Bitartrate 10 MG Oral Tablet 1 tab, Route: PO, Drug Form: TAB, Dosing Weight 104.545, kg, Q4H, PRN Pain Score 4-6, Start date: 07/29/15 8:56:00, Duration: 30 day, Stop date: 08/28/15 8:55:00Notes: Do not exceed 4gm/day of acetaminophen. (Same as: Childress 325/10) Inactive 07/29/2015 [facility] Lactated Ringers IV 1,000 mL 1,000 mL, Rate: 75 ml/hr, Infuse over: 13.3 hr, Route: IV, Dosing Weight 104.545 kg, Total Volume: 1,000, Start date: 07/29/15 8:56:00, Duration: 30 day, Stop date: 08/28/15 8:55:00 No Longer Active 07/29/2015 [facility] Ancef 2 gm, 100 mL, Route: IVPB, Drug form: INJ, ONCE, Dosing Weight 104.545, kg, Start date: 07/29/15 7:47:00, Duration: 1 doses or times, Stop date: 07/29/15 7:47:00Notes: Same as: Ancef Inactive 07/29/2015 [facility] Calcium Chloride 0.0014 MEQ/ML / Potassium Chloride 0.004 MEQ/ML / Sodium Chloride 0.103 MEQ/ML / Sodium Lactate 0.028 MEQ/ML Injectable Solution 1,000 mL, Rate: 25 ml/hr, Infuse over: 40 hr, Route: IV, Dosing Weight 104.545 kg, Total Volume: 1,000, Start date: 07/29/15 7:45:00, Duration: 30 day, Stop date: 08/28/15 7:44:00 Inactive 07/29/2015 [facility] Antivert 25 mg, 1 tab, Route: PO, Drug form: TAB, TID, Dosing Weight 104.545, kg, Start date: 07/28/15 13:00:00, Duration: 30 day, Stop date: 08/27/15 9:00:00Notes: (Same as: Antivert) No Longer Active 07/28/2015 [facility] Nitroglycerin 0.4 MG Sublingual Tablet 0.4 mg, 1 tab, Route: SL, Drug form: TAB, Q5Min, Dosing Weight 104.545, kg, PRN Chest Pain, Start date: 07/28/15 11:46:00, Duration: 30 day, Stop date: 08/27/15 11:45:00Notes: (Same as:Nitroquick, Nitrostat) "Do Not Crush" Sublingual tablet No Longer Active 07/28/2015 [facility] Atropine 0.5 mg, 5 mL, Route: IVP, Drug form: INJ, ONCE, Dosing Weight 104.545, kg, PRN Bradycardia, Start date: 07/28/15 11:46:00, for symptomatic bradycardia No Longer Active 07/28/2015 [facility] Solu-Medrol 100 mg, 1.6 mL, Route: IVP, Drug form: INJ, ONCE, Dosing Weight 104.545, kg, Priority: NOW, Start date: 07/28/15 9:30:00, Stop date: 07/28/15 9:30:00Notes: (Same as:Solu-MEDROL, A-Methapred) Inactive 07/28/2015 [facility] heparin sodium, porcine 2500 UNT/ML Injectable Solution 5,000 unit, 1 mL, Route: SUB-Q, Drug form: INJ, Q12H, Dosing Weight 104.545, kg, Start date: 07/27/15 21:00:00, Duration: 30 day, Stop date: 08/26/15 9:00:00Notes: porcine heparin No Longer Active 07/28/2015 [facility] Protonix 40 mg, 1 tab, Route: PO, Drug form: ECTAB, Before Dinner, Start date: 07/27/15 16:30:00, Duration: 30 day, Stop date: 08/25/15 16:30:00Notes: Tablet should not be chewed or crushed. (Same as: Protonix) No Longer Active 07/27/2015 [facility] Claritin 10 mg, 1 tab, Route: PO, Drug form: TAB, Daily, Start date: 07/27/15 9:00:00, Duration: 30 day, Stop date: 08/25/15 9:00:00Notes: 1 hr before meals (Same as: Claritin) No Longer Active 07/27/2015 [facility] hydrochlorothiazide 25 mg oral tablet 25 mg, 1 tab, Route: PO, Drug form: TAB, Daily, Start date: 07/27/15 9:00:00, Duration: 30 day, Stop date: 08/25/15 9:00:00Notes: (Same as: Hydrodiuril) With food. No Longer Active 07/27/2015 [facility] Prevacid 15 mg, Route: PO, Drug form: ECCAP, Daily, Dosing Weight 104.545, kg, Start date: 07/27/15 9:00:00, Duration: 30 day, Stop date: 08/25/15 9:00:00 No Longer Active 07/27/2015 [facility] lamotrigine 100 MG Oral Tablet 300 mg, 3 tab, Route: PO, Drug form: TAB, Daily, Dosing Weight 104.545, kg, Start date: 07/27/15 9:00:00, Duration: 30 day, Stop date: 08/25/15 9:00:00Notes: (Same as:LaMICtal) No Longer Active 07/27/2015 [facility] Hydrochlorothiazide 25 MG / Losartan Potassium 100 MG Oral Tablet 1 tab, Route: PO, Drug Form: TAB, Dosing Weight 104.545, kg, Daily, Start date: 07/27/15 9:00:00, Duration: 30 day, Stop date: 08/25/15 9:00:00 No Longer Active 07/27/2015 [facility] Clarice 180 mg, Route: PO, Drug form: TAB, Daily, Dosing Weight 104.545, kg, Start date: 07/27/15 9:00:00, Duration: 30 day, Stop date: 08/25/15 9:00:00 No Longer Active 07/27/2015 [facility] Citalopram 80 mg, 4 tab, Route: PO, Drug form: TAB, Daily, Dosing Weight 104.545, kg, Start date: 07/27/15 9:00:00, Duration: 30 day, Stop date: 08/25/15 9:00:00Notes: (Same As: CeleXA) No Longer Active 07/27/2015 [facility] Cozaar 100 mg, 2 tab, Route: PO, Drug form: TAB, Daily, Start date: 07/27/15 9:00:00, Duration: 30 day, Stop date: 08/25/15 9:00:00Notes: (Same as: Cozaar) No Longer Active 07/27/2015 [facility] Thyroxine 150 microgram, 1 tab, Route: PO, Drug form: TAB, Q630AM, Dosing Weight 104.545, kg, Start date: 07/27/15 6:30:00, Stop date: 08/25/15 6:30:00Notes: Take 1 hour before or 2 hours after meal; Enteral feeds may interefere with the absorption of this medication. (Same as: Levothroid) No Longer Active 07/27/2015 [facility] Simvastatin 40 mg, 1 tab, Route: PO, Drug form: TAB, Bedtime, Dosing Weight 104.545, kg, Start date: 07/26/15 21:00:00, Duration: 30 day, Stop date: 08/24/15 21:00:00Notes: (Same as: Zocor) No Longer Active 07/27/2015 [facility] Rocephin 1 gm, Route: IVPB, [id number], Dosing Weight 104.545, kg, Start date: 07/26/15 20:00:00, Duration: 30 day, Stop date: 08/24/15 20:00:00Notes: (Same As: Rocephin). Use with 100ml NS mini-bag PLUS and infuse over 30 min MEDICATION WASTE Product Size: 1000 mg Product Wasted: ___ mg No Longer Active 07/27/2015 [facility] Solu-Medrol 125 mg, 2 mL, Route: IV, Drug form: INJ, ONCE, Dosing Weight 104.545, kg, Start date: 07/26/15 17:50:00, Stop date: 07/26/15 17:50:00Notes: (Same as:Solu-MEDROL, A-Methapred) Inactive 07/26/2015 [facility] Meclizine 25 mg, 1 tab, Route: PO, Drug form: TAB, TID, Dosing Weight 104.545, kg, PRN Dizziness, Start date: 07/26/15 17:49:00, Duration: 30 day, Stop date: 08/25/15 17:48:00Notes: (Same as: Antivert) No Longer Active 07/26/2015 [facility] Miralax 17 gm, 1 pkt, Route: PO, Drug form: PWDR, Daily, Dosing Weight 104.545, kg, PRN Constipation, Start date: 07/26/15 17:16:00, Duration: 30 day, Stop date: 08/25/15 17:15:00Notes: Dissolve in 8 oz of water or juice. (Same as: Miralax) No Longer Active 07/26/2015 [facility] Zofran 4 mg, 2 mL, Route: IVP, Drug form: INJ, Q4H, Dosing Weight 104.545, kg, PRN Nausea, Start date: 07/26/15 17:16:00, Duration: 30 day, Stop date: 08/25/15 17:15:00Notes: (Same as: Nancy) MEDICATION WASTE Product Size: 4 mg Product Wasted: ___ mg No Longer Active 07/26/2015 [facility] Tylenol 650 mg, 20.3 mL, Route: PO, Drug form: LIQ, Q6H, Dosing Weight 104.545, kg, PRN Other -See Comment, Start date: 07/26/15 17:16:00, Duration: 30 day, Stop date: 08/25/15 17:15:00, fever, pain, headach eNotes: Max [id number]=[id number]/day (4 gm/day). (Same as: Tylenol) No Longer Active 07/26/2015 [facility] Restoril 15 mg, 1 cap, Route: PO, Drug form: CAP, Bedtime, Dosing Weight 104.545, kg, PRN Sleep, Start date: 07/26/15 17:16:00, Duration: 30 day, Stop date: 08/25/15 17:15:00Notes: (Same As: Restoril) No Longer Active 07/26/2015 [facility] Acetaminophen 325 MG / Hydrocodone Bitartrate 5 MG Oral Tablet [Childress 5/325] 1 tab, Route: PO, Drug Form: TAB, Dosing Weight 104.545, kg, Q4H, PRN Other -See Comment, Start date: 07/26/15 17:15:00, Duration: 30 day, Stop date: 08/25/15 17:14:00Notes: (Same as: Childress 325/5) Do not exceed 4gm/day of acetaminophen. No Longer Active 07/26/2015 [facility] Clonidine Hydrochloride 0.1 MG Oral Tablet 0.1 mg, 1 tab, Route: PO, Drug form: TAB, Q6H, Dosing Weight 104.545, kg, PRN Other -See Comment, Start date: 07/26/15 17:15:00, Duration: 30 day, Stop date: 08/25/15 17:14:00, SBP > 165Notes: (Same As: Catapres) No Longer Active 07/26/2015 [facility] Ondansetron 4 mg, 2 mL, Route: IVP, Drug form: INJ, Q6H, Dosing Weight 104.545, kg, PRN Nausea & Vomiting, Start date: 07/26/15 16:30:00, Duration: 30 day, Stop date: 08/25/15 16:29:00Notes: (Same as: Nancy) MEDICATION WASTE Product Size: 4 mg Product Wasted: ___ mg No Longer Active 07/26/2015 [facility] Morphine 2 mg, 1 mL, Route: IVP, Drug form: INJ, Q4H, Dosing Weight 104.545, kg, PRN Pain Score 7-10, Start date: 07/26/15 16:30:00, Duration: 30 day, Stop date: 08/25/15 16:29:00Notes: (Same as:MORPhine Sulfate) No Longer Active 07/26/2015 [facility] lansoprazole 15 MG Enteric Coated Capsule [Prevacid] 15 mg=1 cap, PO, Daily, 0 Refill(s) Active 07/26/2015 [facility] levothyroxine 200 mcg (0.2 mg) oral tablet 200 microgram=1 tab, PO, Q630AM, 0 Refill(s) No Longer Active 07/26/2015 [facility] Hydrochlorothiazide 25 MG / Losartan Potassium 100 MG Oral Tablet 1 tab, PO, Daily, 0 Refill(s) Active 07/26/2015 [facility] citalopram 40 mg oral tablet 80 mg=2 tab, PO, Daily, 0 Refill(s) Active 07/26/2015 [facility] Fexofenadine hydrochloride 180 MG Oral Tablet [Clarice] 180 mg=1 tab, PO, Daily, 0 Refill(s) Active 07/26/2015 [facility] simvastatin 40 mg oral tablet 40 mg=1 tab, PO, Bedtime, 0 Refill(s) Active 07/26/2015 [facility] lamotrigine 100 MG Oral Tablet 300 mg=3 tab, PO, Daily, 0 Refill(s) Active 07/26/2015 [facility] temazepam 30 mg oral capsule 30 mg=1 cap, PO, Bedtime, 0 Refill(s) Active 07/26/2015 [facility] Levaquin 500 mg, 100 mL, Route: IVPB, Drug form: SOLN, [id number], Dosing Weight 104.545, kg, Start date: 07/26/15 15:00:00, Duration: 30 day, Stop date: 08/24/15 15:00:00Notes: (Same as:Levaquin) Inactive 07/26/2015 [facility] Sodium Chloride 0.9% (titrate) 250 mL 250 mL, Rate: call center nurse for use with blood product administration, Dosing Weight 104.545, kg, Route: IV, Total Volume: 250, Start Date: 07/26/15 14:26:00, Duration: 1 day, Stop date: 07/27/15 14:25:00, Replace Every: 24 hr No Longer Active 07/26/2015 [facility] potassium chloride 40 mEq, 2 tab, Route: PO, Drug form: ERTAB, Daily, Dosing Weight 104.545, kg, Priority: Routine, Start date: 07/26/15 13:30:00, Duration: 30 day, Stop date: 08/24/15 13:30:00Notes: (Same as: K-Dur 20) "Do Not Crush" With food and full glass of water Inactive 07/26/2015 [facility] Acetaminophen 325 MG / Hydrocodone Bitartrate 10 MG Oral Tablet [Childress 10/325] 1 tab, PO, Q6H, PRN for pain, X 5 day, # 20 tab, 0 Refill(s) Active 07/23/2015 [facility] Acetaminophen 325 MG / Hydrocodone Bitartrate 10 MG Oral Tablet 1 tab, Route: PO, Dosing Weight 104.545, kg, ONCE, STAT, Start date: 07/22/15 19:42:00, Stop date: 07/22/15 19:42:00 Inactive 07/23/2015 [facility] Allergies, Adverse Reactions, Alerts Substance Category Reaction Severity Reaction type Status Date Reported Comments Source codeine phosphate Assertion Drug allergy Active [facility] Immunizations Immunization Date Given Site Status Last Updated Comments Source influenza virus vaccine, inactivated 07/29/2015 Right deltoid completed [facility] Results Order Name Results Value Reference Range [...] - This report was dictated by a Substation Operator Helper Generation/Fellow. I have personally reviewed the images as well as the Resident's interpretation and agree with the findings. Read by: Miguel Angel Cisneros MD Resident: Miguel Angel Cisneros MD Dictated Date/time: 08/19/18 14:17 Electronically Signed by: Karlie Lee MD 08/19/18 19:28 FINAL REPORT [facility] Breast Mammo Scrn SHELIA incl CAD MA Breast Mammo Scrn SHELIA incl CAD MA BILATERAL DIGITAL SCREENING MAMMOGRAM WITH CAD: 12/11/2017 CLINICAL: /Routine. Current study was evaluated with a Computer Aided Detection (CAD) system. COMPARISON:Comparison is made to exams dated: 05/16/2016 mammogram, 04/13/2015 mammogram, and 06/19/2016 mammogram. TECHNIQUE: Mammographic views were obtained using digital acquisition. [place] [employer] Version 1.3 was utilized for computer aided [...] is recommended.(12/12/2018) This exam was interpreted at [id number] for [facility]. Cullen moura/hazel:12/24/2017 14:31:52 X Ray Physician(s): Shanika Vital, [facility] letter sent: BI-RADS 1/2 Mammogram BI-RADS: 2 Benign 12/11/2017 - - Read by: Cullen Muniz MD Dictated Date/time: 12/24/17 14:31 Electronically Signed by: Cullen Muniz MD 12/24/17 14:31 FINAL REPORT [facility] Ankle 2 views DX Ankle 2 views [...] Vinayak Khalil MD 07/31/15 19:41 FINAL REPORT [facility] ELECTROLYTES Sodium Lvl 137 meq/L 135 - 145 07/30/2015 [facility] ELECTROLYTES Chloride Lvl 100 meq/L 95 - 109 07/30/2015 [facility] ELECTROLYTES Potassium Lvl 3.4 meq/L 3.5 - 5.1 07/30/2015 [facility] ELECTROLYTES eGFR 59 mL/min/1.73m2 07/30/2015 Result Comment: [...] should be multiplied by the estimated BMI. [facility] ELECTROLYTES Calcium Lvl 8.9 mg/dL 8.5 - 10.5 07/30/2015 [facility] ELECTROLYTES AGAP 10.4 meq/L 10.0 - 20.0 07/30/2015 [facility] ELECTROLYTES CO2 30 meq/L 24 - 32 07/30/2015 [facility] ELECTROLYTES Glucose Lvl 85 mg/dL 70 - 99 07/30/2015 [facility] ELECTROLYTES Creatinine Lvl 1.0 mg/dL 0.5 - 1.4 07/30/2015 [facility] ELECTROLYTES BUN 15 mg/dL 7 - 22 07/30/2015 [facility] Basophils # 0.1 K/CMM 0.0 - 0.2 07/30/2015 [facility] Monocytes 10.4 % 2.0 - 12.0 07/30/2015 [facility] HEMATOLOGY Basophils 0.5 % 0.0 - 1.0 07/30/2015 [facility] Segs-Bands # 8.4 K/CMM 1.5 - 8.1 07/30/2015 [facility] Lymphocytes # 2.2 K/CMM 1.0 - 5.5 07/30/2015 [facility] Monocytes # 1.2 K/CMM 0.0 - 0.8 07/30/2015 [facility] Segs 70.5 % 45.0 - 75.0 07/30/2015 [facility] Lymphocytes 18.6 % 20.0 - 40.0 07/30/2015 [facility] MPV 9.2 fL 7.4 - 10.4 07/30/2015 [facility] MCHC 32.1 g/dL 32.0 - 36.0 07/30/2015 [facility] RDW 13.8 % 11.5 - 14.5 07/30/2015 [facility] Platelet 254 K/CMM 133 - 450 07/30/2015 [facility] MCV 90.5 fL 80.0 - 98.0 07/30/2015 [facility] MCH 29.1 pg 27.0 - 31.0 07/30/2015 [facility] Hgb 12.1 g/dL 12.0 - 16.0 07/30/2015 [facility] Hct 37.6 % 36.0 - 48.0 07/30/2015 [facility] WBC 11.9 K/CMM 3.7 - 10.4 07/30/2015 [facility] RBC 4.16 M/CMM 4.20 - 5.40 07/30/2015 [facility] CHEM PANEL eGFR 67 mL/min/1.73m2 07/29/2015 Result [...] should be multiplied by the estimated BMI. [facility] CHEM PANEL Chloride Lvl 104 meq/L 95 - 109 07/29/2015 [facility] CHEM PANEL Potassium Lvl 4.9 meq/L 3.5 - 5.1 07/29/2015 [facility] CHEM PANEL CO2 33 meq/L 24 - 32 07/29/2015 [facility] CHEM PANEL Calcium Lvl 9.2 mg/dL 8.5 - 10.5 07/29/2015 [facility] CHEM PANEL Glucose Lvl 129 mg/dL 70 - 99 07/29/2015 [facility] CHEM PANEL Sodium Lvl 140 meq/L 135 - 145 07/29/2015 [facility] CHEM PANEL Creatinine Lvl 0.9 mg/dL 0.5 - 1.4 07/29/2015 [facility] CHEM PANEL BUN 15 mg/dL 7 - 22 07/29/2015 [facility] CHEM PANEL AGAP 7.9 meq/L 10.0 - 20.0 07/29/2015 [facility] HEMATOLOGY Eosinophils 1.9 % 0.0 - 4.0 07/29/2015 [facility] HEMATOLOGY Monocytes 6.2 % 2.0 - 12.0 07/29/2015 [facility] HEMATOLOGY Segs-Bands # 7.1 K/CMM 1.5 - 8.1 07/29/2015 [facility] HEMATOLOGY Lymphocytes # 1.1 K/CMM 1.0 - 5.5 07/29/2015 [facility] HEMATOLOGY Eosinophils # 0.2 K/CMM 0.0 - 0.5 07/29/2015 [facility] HEMATOLOGY Monocytes # 0.6 K/CMM 0.0 - 0.8 07/29/2015 [facility] HEMATOLOGY Basophils # 0.1 K/CMM 0.0 - 0.2 07/29/2015 [facility] HEMATOLOGY Lymphocytes 12.2 % 20.0 - 40.0 07/29/2015 [facility] HEMATOLOGY Segs 78.9 % 45.0 - 75.0 07/29/2015 [facility] HEMATOLOGY Basophils 0.8 % 0.0 - 1.0 07/29/2015 [facility] HEMATOLOGY WBC 9.0 K/CMM 3.7 - 10.4 07/29/2015 [facility] RBC 4.29 M/CMM 4.20 - 5.40 07/29/2015 [facility] MCHC 33.0 g/dL 32.0 - 36.0 07/29/2015 [facility] MCH 29.7 pg 27.0 - 31.0 07/29/2015 [facility] Hgb 12.7 g/dL 12.0 - 16.0 07/29/2015 [facility] MCV 90.0 fL 80.0 - 98.0 07/29/2015 [facility] Hct 38.6 % 36.0 - 48.0 07/29/2015 [facility] RDW 13.3 % 11.5 - 14.5 07/29/2015 [facility] MPV 9.2 fL 7.4 - 10.4 07/29/2015 [facility] Platelet 256 K/CMM 133 - 450 07/29/2015 [facility] Ankle 2 views DX Ankle 2 views [...] Keagan Doe MD 07/29/15 09:20 FINAL REPORT [facility] ELECTROLYTES Sodium Lvl 140 meq/L 135 - 145 07/28/2015 [facility] ELECTROLYTES Potassium Lvl 4.2 meq/L 3.5 - 5.1 07/28/2015 [facility] ELECTROLYTES Chloride Lvl 102 meq/L 95 - 109 07/28/2015 [facility] ELECTROLYTES eGFR 67 mL/min/1.73m2 07/28/2015 Result Comment: [...] should be multiplied by the estimated BMI. [facility] ELECTROLYTES AGAP 11.2 meq/L 10.0 - 20.0 07/28/2015 [facility] ELECTROLYTES Calcium Lvl 8.8 mg/dL 8.5 - 10.5 07/28/2015 [facility] ELECTROLYTES BUN 18 mg/dL 7 - 22 07/28/2015 [facility] ELECTROLYTES CO2 31 meq/L 24 - 32 07/28/2015 [facility] ELECTROLYTES Creatinine Lvl 0.9 mg/dL 0.5 - 1.4 07/28/2015 [facility] ELECTROLYTES Glucose Lvl 92 mg/dL 70 - 99 07/28/2015 [facility] RBC 4.00 M/CMM 4.20 - 5.40 07/28/2015 [facility] Hct 36.2 % 36.0 - 48.0 07/28/2015 [facility] Hgb 11.9 g/dL 12.0 - 16.0 07/28/2015 [facility] MPV 9.7 fL 7.4 - 10.4 07/28/2015 [facility] RDW 13.2 % 11.5 - 14.5 07/28/2015 [facility] Platelet 234 K/CMM 133 - 450 07/28/2015 [facility] WBC 8.0 K/CMM 3.7 - 10.4 07/28/2015 [facility] MCH 29.7 pg 27.0 - 31.0 07/28/2015 [facility] MCV 90.4 fL 80.0 - 98.0 07/28/2015 [facility] MCHC 32.9 g/dL 32.0 - 36.0 07/28/2015 [facility] Lymphocytes 31.9 % 20.0 - 40.0 07/28/2015 [facility] Segs 58.7 % 45.0 - 75.0 07/28/2015 [facility] Monocytes 8.9 % 2.0 - 12.0 07/28/2015 [facility] Monocytes # 0.7 K/CMM 0.0 - 0.8 07/28/2015 [facility] HEMATOLOGY Basophils 0.3 % 0.0 - 1.0 07/28/2015 [facility] HEMATOLOGY Segs-Bands # 4.7 K/CMM 1.5 - 8.1 07/28/2015 [facility] HEMATOLOGY Lymphocytes # 2.5 K/CMM 1.0 - 5.5 07/28/2015 [facility] HEMATOLOGY Eosinophils 0.2 % 0.0 - 4.0 07/28/2015 [facility] HEMATOLOGY Eosinophils 0.1 % 0.0 - 4.0 07/27/2015 [facility] LIPIDS VLDL 14 07/27/2015 [facility] LIPIDS LDL (Calculated) 76 mg/dL <=99 mg/dL 07/27/2015 [facility] LIPIDS Trig 71 mg/dL <=149 mg/dL 07/27/2015 [facility] LIPIDS CHD Risk 2.73 3.90 - 5.80 07/27/2015 [facility] LIPIDS HDL 52 mg/dL >=61 mg/dL 07/27/2015 [facility] LIPIDS Chol 142 mg/dL <=199 mg/dL 07/27/2015 [facility] SPECIAL CHEMISTRY Hgb A1C 5.9 % <=5.6 % 07/27/2015 [facility] THYROID PANEL TSH 0.056 uIU/mL 0.360 - 3.740 07/27/2015 [facility] THYROID PANEL T4 Free 1.47 ng/dL 0.76 - 1.46 07/27/2015 [facility] BLOOD BANK RESULTS ABO/Rh AB POS 07/26/2015 [facility] BLOOD BANK RESULTS Antibody Scrn Negative (07/26/15 2:55 PM) 07/26/2015 [facility] DRUG SCREEN U Amph Scr Negative *NA* (07/26/15 2:05 PM) Negative 07/26/2015 [facility] DRUG SCREEN U Cocaine Scr Negative *NA* (07/26/15 2:05 PM) Negative 07/26/2015 [facility] DRUG SCREEN U Benzodia Scr Negative *NA* (07/26/15 2:05 PM) Negative 07/26/2015 [facility] DRUG SCREEN U Julia Scr Negative *NA* (07/26/15 2:05 PM) Negative 07/26/2015 [facility] DRUG SCREEN U Phencyc Scr Negative *NA* (07/26/15 2:05 PM) Negative 07/26/2015 [facility] DRUG SCREEN U Opiate Scr Positive *ABN* (07/26/15 2:05 PM) Negative 07/26/2015 [facility] DRUG SCREEN U Cannab Scr Negative *NA* (07/26/15 2:05 PM) Negative 07/26/2015 [facility] DRUG SCREEN UDS Note See Note (07/26/15 2:05 PM) 07/26/2015 [facility] URINE AND STOOL UA Sq Epi None Seen 07/26/2015 [facility] URINE AND STOOL UA WBC 3 /HPF 0 - 5 07/26/2015 [facility] URINE AND STOOL UA RBC null 0 - 2 07/26/2015 [facility] URINE AND STOOL UA Ketones Negative mg/dL Negative mg/dL 07/26/2015 [facility] URINE AND STOOL UA Urobilinogen 2.0 mg/dL 0.1 - 1.0 07/26/2015 [facility] URINE AND STOOL UA Bili Negative *NA* (07/26/15 2:05 PM) Negative 07/26/2015 [facility] URINE AND STOOL UA Blood Negative (07/26/15 2:05 PM) Negative 07/26/2015 [facility] URINE AND STOOL UA Nitrite Positive *ABN* (07/26/15 2:05 PM) Negative 07/26/2015 [facility] URINE AND STOOL UA Leuk Est Trace *ABN* (07/26/15 2:05 PM) Negative 07/26/2015 [facility] URINE AND STOOL UA Bacteria Many /HPF None Seen /HPF 07/26/2015 [facility] URINE AND STOOL UA Glucose Negative mg/dL Negative mg/dL 07/26/2015 [facility] URINE AND STOOL UA Protein Negative mg/dL Negative mg/dL 07/26/2015 [facility] URINE AND STOOL UA pH 6.0 5.0 - 8.0 07/26/2015 [facility] URINE AND STOOL UA Spec Grav 1.014 <=1.030 07/26/2015 [facility] URINE AND STOOL UA Turbidity Slight *ABN* (07/26/15 2:05 PM) Clear 07/26/2015 [facility] URINE AND STOOL UA Color Yellow *NA* (07/26/15 2:05 PM) Yellow 07/26/2015 [facility] Chest CTA Chest CTA CT CHEST WITH [...] Rick Weiss MD 07/26/15 18:41 FINAL REPORT [facility] CARDIAC ENZYMES Troponin-I null 0.00 - 0.40 07/26/2015 [facility] CARDIAC ENZYMES CK MB 2.1 ng/mL 0.5 - 3.6 07/26/2015 [facility] CARDIAC ENZYMES Total CK 288 unit/L 12 - 191 07/26/2015 [facility] CARDIAC ENZYMES CK MB Index 0.7 0.0 - 2.5 07/26/2015 [facility] CHEM PANEL Globulin 2.9 g/dL 2.0 - 4.0 07/26/2015 [facility] CHEM PANEL A/G Ratio 1.2 0.7 - 1.6 07/26/2015 [facility] CHEM PANEL Total Protein 6.3 g/dL 6.4 - 8.4 07/26/2015 [facility] CHEM PANEL Albumin Lvl 3.4 g/dL 3.5 - 5.0 07/26/2015 [facility] CHEM PANEL Bili Total 0.5 mg/dL 0.2 - 1.3 07/26/2015 [facility] CHEM PANEL B/C Ratio 16 6 - 25 07/26/2015 [facility] CHEM PANEL Alk Phos 68 unit/L 39 - 136 07/26/2015 [facility] CHEM PANEL AST 28 unit/L 0 - 37 07/26/2015 [facility] CHEM PANEL ALT 29 unit/L 0 - 65 07/26/2015 [facility] HEMATOLOGY Eosinophils # 0.2 K/CMM 0.0 - 0.5 07/26/2015 [facility] HEMATOLOGY PTT 28.2 s 22.9 - 35.8 07/26/2015 [facility] HEMATOLOGY PT 13.5 s 12.0 - 14.7 07/26/2015 [facility] HEMATOLOGY INR 1.00 0.85 - 1.17 07/26/2015 [facility] Brain wo contrast CT Brain wo contrast [...] Keagan Doe MD 07/26/15 11:26 FINAL REPORT [facility] Chest 1view DX Chest 1view DX EXAM: [...] Isha Cain MD 07/26/15 10:40 FINAL REPORT [facility] Ankle 3 views DX Ankle 3 views [...] swelling. Coding: Ankle 3 views CPT code: 35363 SL: 13 Rick Weiss M.D. 07/22/2015 - - Read by: Rick Weiss MD Dictated Date/time: 07/22/15 20:09 Electronically Signed by: Rick Weiss MD 07/22/15 20:12 FINAL REPORT [facility] Vital Signs Vital Sign Value Date Comments Source Temperature Oral (F) 97.6 F 08/04/2015 [facility] Systolic (mm Hg) 129 08/04/2015 [facility] Diastolic (mm Hg) 77 08/04/2015 [facility] Respitory Rate 17 08/04/2015 [facility] Heart Rate 87 08/04/2015 [facility] Heart Rate 79 08/04/2015 [facility] Temperature Oral (F) 98.4 F 08/04/2015 [facility] Systolic (mm Hg) 123 08/04/2015 [facility] Diastolic (mm Hg) 75 08/04/2015 [facility] Respitory Rate 16 08/04/2015 [facility] Temperature Oral (F) 98.6 F 08/04/2015 [facility] Heart Rate 82 08/04/2015 [facility] Respitory Rate 17 08/04/2015 [facility] Systolic (mm Hg) 137 08/04/2015 [facility] Diastolic (mm Hg) 80 08/04/2015 [facility] Height 162.5 cm 07/30/2015 [facility] BMI Calculated 39.57 07/30/2015 [facility] Weight 104.5 07/30/2015 [facility] Weight 104.545 07/28/2015 [facility] Height 162.56 cm 07/26/2015 [facility] Weight 104.545 07/26/2015 [facility] BMI Calculated 39.56 07/26/2015 [facility] BMI Calculated 39.56 07/26/2015 [facility] Height 162.56 cm 07/26/2015 [facility] Systolic (mm Hg) 122 07/23/2015 [facility] Diastolic (mm Hg) 69 07/23/2015 [facility] Respitory Rate 16 07/23/2015 [facility] Temperature Oral (F) 98.9 F 07/23/2015 [facility] Heart Rate 88 07/23/2015 [facility] Weight 104.545 07/23/2015 [facility] BMI Calculated 39.56 07/23/2015 [facility] Height 162.56 cm 07/23/2015 [facility] Temperature Oral (F) 99.2 F 07/23/2015 [facility] Systolic (mm Hg) 119 07/23/2015 [facility] Diastolic (mm Hg) 67 07/23/2015 [facility] Respitory Rate 18 07/23/2015 [facility] Heart Rate 94 07/23/2015 [facility] Encounters Location Location Details Encounter Type Encounter Number Reason For Visit Attending Provider ADM Date DC Date Status Source [facility] [id number] Bipin Bell 07/23/2015 07/23/2015 [facility] Inpatient [id number] Zafar New 07/26/2015 08/05/2015 [facility] Outpatient [id number] LAURA MARTIN 07/22/2017 Active [facility] Outpatient [id number] Maggie Gomez 12/11/2017 12/12/2017 [facility] Procedures Procedure Code Date Perfomer Comments Source Abdominal hysterectomy [id number] [facility] Appendectomy [id number] [facility]
[2018-10-05] MEDS ORDERED: CLONIDINE HCL 0.2 MG TAB PO ONE (10:15)
--- NOTE | 2018-10-05 10:35 | Diagnostic Imaging Report ---
Examination: CT head without contrast Clinical Indication: Headaches. Technique: Transaxial noncontrast images from the skull base through the vertex were obtained. Sagittal and coronal reformatted images were done. Dose modulation, iterative reconstruction, and/or weight based adjustment of the mA/kV was utilized to reduce the radiation dose to as low as reasonably achievable. Comparison: None. Findings: Scalp: No abnormalities. Bones: Intact. No fractures. No blastic or lytic lesions. Brain sulci: Appropriate for patient's age. Ventricles: Normal in size and configuration. No hydrocephalus. . Extra-axial space: No abnormalities. Parenchyma: There are patchy areas of low-attenuation within subcortical and periventricular white matter, nonspecific, but could represent microvascular ischemic disease. No masses, hemorrhage, or acute or chronic cortical based vascular insults. Suprasellar region: No abnormalities. Craniocervical junction: The foramen magnum is patent. No Chiari one malformation. Incidental findings: Atherosclerotic calcification of the cavernous and supraclinoid internal carotid arteries. Impression: 1. No acute intracranial finding. 2. Mild chronic microvascular ischemic change. Signed by: Dr. Tamera Caruso M.D. on 10/05/2018 10:32 AM
[2018-10-05] MEDS ORDERED: PROMETHAZINE HCL (IM) 25 MG/ML VIAL IM NR (10:45)
[2018-10-05] MEDS ORDERED: KETOROLAC TROMETHAMINE 30 MG/ML VIAL IM PRN (11:00)
[2018-10-05 12:48] VITALS: BP 154/64
== END 2018-10-05 12:53 | disposition home or self-care (01) ==
LOC: FSED 09:45
DX: R51 Headache (principal); I10 Essential (primary) hypertension
CPT/HCPCS: 70450; 99283; J1885

== ENCOUNTER 2020-03-30 16:38 | Emergency (ER) | payer MEDICARE ==
[~2020-03-30] VITALS: Ht 162.6 cm; Wt 92.5 kg
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
--- OUTSIDE RECORDS SUMMARY | 2020-03-30 16:42 | XMS REPORT | Continuity of Care Document ---
Author Author [employer] Organization [employer] Address Unknown Phone Unavailable Care Team Providers Care Senior Structural Engineer Name Role Phone [employer] Information [email or web address] Unavailable Un available Problems Problem Status Onset Date Classification Date Reported Comments Source Other acute osteomyelitis, left hand 08/29/2018 03/09/2019 [facility] Methicillin resistant Staphylococcus aureus (organism) Active 08/20/2018 Problem 03/09/2019 Aspirate/Bone Tissu e, 08/20/2018 Problem added by Discern Expert. [facility] LT INDEX FINGER SEPTIC ARTIRITIS Active 08/18/2018 [facility] Encounter for screening mammogram for ma lignant neoplasm of breast 12/26/2017 03/19/2018 [facility] ROUTINE SCREENING LAST MMG OOS Active 12/10/2017 [facility] LEG PAIN Active 07/26/2015 [facility] WEAKNESS, DIZZINESS, ANKLE FX Active 07/26/2015 [facility] Discharge Diagnosis: Trimalleolar fractu re of left ankle 07/22/2015 07/25/2015 [facility] ANKLE INJURY Active 07/22/2015 [facility] Cholesterol (substance) Active Problem 08/07/2015 [facility] Essential (primary) hypertension 03/09/2019 [facility] Anxiety (finding) Active Problem 03/09/2019 [facility] Depressive disorder (disorder) Resolved Problem 04/2019 [facility] Family history: Hypothyroidism (context- dependent category) Active Prob osiel 03/09/2019 [facility] Gastric reflux (finding) Active Problem 03/09/2019 [facility] Hypertensive disorder, systemic arterial (disorder) Active Problem 03/09/2019 [facility] Morbid obesity (disorder) Acti ve Problem 04/2019 [facility] MALAISE AND FATIGUE NEC Active [facility] ILLNESS, UNSPECIFIED Active [facility] ENCNTR SCREEN MAMMOGRAM FOR MALIGNANT NE Active [facility] Medications Medication Details Route Status Patient Instructions Ordering Provider Order Date Source tramadol hydrochloride 50 MG Oral Tablet See Instructions, PRN Pain, take 1-2 tab PO Q6H for 10 days, # 40 tab, 0 Refill(s) No Longer Active 08/20/2018 [facility] Ondansetron 4 MG Disintegrating Tablet [Zofran] 4 mg = 1 tab, PO, BID, PRN Nausea and Vomiting, Dissolve tab under tongue, # 10 tab, 0 Refill(s) Active 08/20/2018 [facility] Sulfamethoxazole 800 MG / Trimethoprim 1 60 MG Oral Tablet [Bactrim] 1 tab, PO, BID, X 10 day, # 20 tab, 0 Re fill(s) No Longer Active 08/20/2018 [facility] labetalol (ANES) Route: IV, Dr ug form: INJ, ONCE, Stop date: 08/20/18 12:51:00 CDT Inactive 08/20/2018 [facility] Naloxone Notes: Same as Narcan Inactive 08/20/2018 [facility] Flumazenil Notes: (Same as: Ro mazicon) Inactive 08/20/2018 [facility] Oxycodone Notes: (Same as: Haylee icodone) Inactive 08/20/2018 [facility] Hydromorphone Notes: Same as D ilaudid Inactive 08/20/2018 [facility] Acetaminophen Notes: Max aceta minophen 4000 mg/day (4 gm/day). (Same as: Tylenol Extra Strength) Inactive 08/20/2018 [facility] Ondansetron Notes: (Same as: Xiomara valenzuela) MEDICATION WASTE Product Size: 4 mg Product Wasted: ___ mg Inactive 08/20/2018 [facility] Hydralazine Notes: (Same as: A presoline) Push over 5 minutes Inactive 08/20/2018 [facility] Labetalol 10 mg, 2 mL, Route: IVP, Drug form: INJ, Q5Min, Dosing Weight 90.909, kg, PRN Elevated BP, Start date: 08/20/18 12:44:00 CDT, Duration: 5 doses or times, Stop date: 08/21/18 0:00:00 CDT Inactive 08/20/2018 [facility] ondansetron (ANES) Route: IV, Drug form: INJ, ONCE, Stop date: 08/20/18 12:33:00 CDT Inactive 08/20/2018 [facility] cefepime (ANES) Route: IV, Lucas g form: INJ, ONCE, Stop date: 08/20/18 12:28:00 CDT Inactive 08/20/2018 [facility] acetaminophen (ANES) 10 mg Rou te: IV, Drug form: INJ, Start date: 08/20/18 12:10:00 CDT, Stop date: 08/20/18 13:10:00 CDT Inactive 08/20/2018 [facility] succinylcholine (ANES) Route: IV, Drug form: INJ, ONCE, Stop date: 08/20/18 12:03:00 CDT Inactive 08/20/2018 [facility] propofol (ANES) Route: IV, Lucas g form: INJ, ONCE, Stop date: 08/20/18 12:03:00 CDT Inactive 08/20/2018 [facility] lidocaine (ANES) Route: IV, Dr ug form: INJ, ONCE, Stop date: 08/20/18 12:03:00 CDT Inactive 08/20/2018 [facility] fentaNYL (ANES) Route: IV, Lucas g form: INJ, ONCE, Stop date: 08/20/18 12:03:00 CDT Inactive 08/20/2018 [facility] dexamethasone (ANES) Route: IV , Drug form: INJ, ONCE, Stop date: 08/20/18 12:03:00 CDT Inactive 08/20/2018 [facility] ePHEDrine (ANES) Route: IV, Dr ug form: INJ, ONCE, Stop date: 08/20/18 12:03:00 CDT Inactive 08/20/2018 [facility] midazolam (ANES) Route: IV, Dr ug form: SOLN, ONCE, Stop date: 08/20/18 12:03:00 CDT Inactive 08/20/2018 [facility] vancomycin (ANES) 1000 mg Rout e: IV, Drug form: INJ, Start date: 08/20/18 11:55:00 CDT, Stop date: 08/20/18 12:55:00 CDT Inactive 08/20/2018 [facility] Lactated Ringers Injection IV (ANES) 1000 mL Route: IV, Total Volume: 1,000, Start date: 08/20/18 10:40:00 CDT, Stop date: 08/20/18 11:40:00 CDT Inactive 08/20/2018 [facility] cetirizine Notes: (Same As: Shady rtec) Inactive 08/20/2018 [facility] Cozaar Notes: (Same as: Cozaar) Inactive 08/20/2018 [facility] Prevacid 15 mg, Route: PO, Lucas g form: ECCAP, Daily, Dosing Weight 90.909, kg, Start date: 08/20/18 9:00:00 CDT, Duration: 30 day, Stop date: 09/18/18 9:00:00 FRANCHISE FIELD 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 (Same as: Levothroid) Inactive 08/20/2018 [facility] Simvastatin Notes: (Same as: Z ocor) No Longer Active 08/20/2018 [facility] Protonix Notes: Tablet should not be chewed or crushed. (Same as: Protonix) No Longer Active 08/19/2018 [facility] citalopram 40 mg oral tablet 4 0 mg = 1 tab, PO, Daily, 0 Refill(s) Active 08/19/2018 [facility] gabapentin 600 MG Oral Tablet 600 mg = 1 tab, PO, BID, 0 Refill(s) Active 08/19/2018 [facility] Bisacodyl Notes: (Same As: Dul colax, Correctol) (Do Not Crush) "Do Not Crush" No Longer Active 08/19/2018 [facility] clonazePAM 0.5 mg oral tablet 0.5 mg = 1 tab, PO, TID, 0 Refill(s) Active 08/19/2018 [facility] mometasone furoate 0.1 MG/ACTUAT Metered Dose Inhaler = 1 puff, INHALATION, BID, 0 Refill(s) Active 08/19/2018 [facility] Meclizine Notes: (Same as: Ant ivert) No Longer Active 08/19/2018 [facility] Docusate Notes: (Same as: Cola ce) (Do Not Crush) No Longer Active 08/19/2018 [facility] influenza virus vaccine, inactivated hig h-dose preservative-free intramuscular suspension Notes: (Same as: Fluzone High-Dose) For 65 years of age of older (0.5 ml IM) Shake well before use No Longer Active 08/19/2018 [facility] Ancef Notes: (Same as Ancef) Inactive 08/19/2018 [facility] Acetaminophen 325 MG / Hydrocodone Isadora trate 5 MG Oral Tablet [[place] 5/325] 1 tab, Route: PO, Dosing Weight 90.909, kg, Q6H, Start date: 08/19/18 0:00:00 CDT, Duration: 30 day, Stop date: 09/17/18 18:00:00 FRANCHISE FIELD CONSULTANT No Longer Active 08/19/2018 [facility] gabapentin Notes: (Same as: Ne urontin) No Longer Active 08/19/2018 [facility] Tramadol Notes: Not to exceed 400mg/day. (Same As: Ultram) No Longer Active 08/19/2018 [facility] Acetaminophen Notes: Max aceta minophen = 4000mg/day (4 gm/day). (Same as: Tylenol) N o Longer Active 08/19/2018 [facility] Acetaminophen 325 MG / Hydrocodone Isadora trate 5 MG Oral Tablet [[place] 5/325] Notes: (Same as: [place] 325/5) Do not ex ceed 4gm/day of acetaminophen. No Longer Activ e 08/19/2018 [facility] meclizine 25 mg oral tablet 25 mg = 1 tab, PO, TID, PRN Dizziness, 0 Refill(s) Active 08/05/2015 [facility] heparin 5000 units/0.5 mL injectable solution SUB-Q, Q12H, 0 Refill(s) Active 08/04/2015 [facility] levothyroxine 150 mcg (0.15 mg) oral tablet 150 microgram = 1 tab, PO, Q630AM, 0 Refill(s) Active 08/04/2015 [facility] tramadol hydrochloride 50 MG Oral Tablet [Ultram] 1-2 tab, PO, Q4H, PRN for pain, # 40 tab, 0 Refill(s) Active 08/04/2015 [facility] POLYETHYLENE GLYCOL 3350 PO, D aily, PRN Constipation, 0 Refill(s) Active 08/04/2015 [facility] acetaminophen 325 mg oral tablet 100.4 F, 0 Refill(s) Active 08/04/2015 [facility] Maalox Advanced Regular Strength SUSP 0 Refill(s) Active 08/04/2015 [facility] bisacodyl 5 mg oral enteric coated tablet 5 mg = 1 tab, PO, Q24H, PRN Constipation, 0 Refill(s) Active 08/04/2015 [facility] Acetaminophen 325 MG / Hydrocodone Isadora trate 7.5 MG Oral Tablet [[place] 7.5/325] Notes: Same as [place] 325-7.5mg Do not exceed 4gm/day of acetaminophen. No Longer Active 08/02/2015 [facility] Ativan Notes: (Same as: Ativan) Inactive 07/30/2015 [facility] ceFAZolin (SCIP) 1 gm, 100 mL, Route: IVPB, Drug form: INJ, Q8H, Dosing Weight 104.545, kg, Start date: 07/29/15 15:30:00, Duration: 1 doses or times, Stop date: 07/29/15 15:30:00 Inactive 07/29/2015 [facility] Acetaminophen 325 MG / Hydrocodone Isadora trate 5 MG Oral Tablet [[place] 5/325] Notes: (Same as: [place] 325/5) Do not ex ceed 4gm/day of acetaminophen. No Longer Activ e 07/29/2015 [facility] Clindamycin [facility] Hydrom[facility] 0.5 mg, Route: I MATRIX BATH OPERATOR, Q5Min, Dosing Weight 104.545, kg, PRN Pain Score 7-10, Start date: 07/29/15 9:28:00, Duration: 4 doses or times, Stop date: Limited # of times Inactive 07/29/2015 [facility] Oxycodone 10 mg, Route: PO, Dr ug form: TAB, Q4H, Dosing Weight 104.545, kg, [...] Duration: 30 day, Stop date: 08/27/15 9:00:00 Inactiv e 07/29/2015 [facility] docusate sodium 100 mg oral capsule Notes: (Same as: Colace) (Do Not Crush) No Longer Active 07/29/2015 [facility] influenza virus vaccine, inactivated Notes: (Same as: Fluzone Quadrivalent) For 3 years of age and older (0.5 mL IM) Shake well before use Inactive 07/29/2015 [facility] Al hydroxide/Mg hydroxide/simethicone 20 0 mg-200 mg-20 mg/5 mL oral suspension Notes: (aluminum hydroxide-magnesium hyd -simethicone [id number]/5ml 30 ml ud SARAH) No Longer Active 07/29/2015 [facility] Diphenhydramine 12.5 mg, 0.5 t ab, Route: PO, Drug form: TAB, Q6H, Dosing Weight 104.545, kg, PRN Itching, Start date: 07/29/15 8:56:00, Duration: 30 day, Stop date: 08/28/15 8:55:00 No Longer Active 07/29/2015 [facility] Dulcolax Laxative Notes: (Same As: Dulcolax, Correctol) (Do Not Crush) "Do Not Crush" No Longer Active 07/29/2015 [facility] Morphine Notes: (Same as:MORPh ine Sulfate) Inactive 07/29/2015 [facility] Acetaminophen Notes: Do not ex ceed 4 gm/day. (Same as: Tylenol) No Longer Active 07/29/2015 [facility] Acetaminophen 325 MG / Hydrocodone Isadora trate 10 MG Oral Tablet Notes: Do not exceed 4gm/day of acetamin ophen. (Same as: [place] 325/10) Inactive 07/29/2015 [facility] Lactated Ringers IV 1,000 mL 1 ,000 mL, Rate: 75 ml/hr, Infuse over: 13.3 hr, Route: IV, Dosing Weight 104.545 kg, Total Volume: 1,000, Start date: 07/29/15 8:56:00, Duration: 30 day, Stop date: 08/28/15 8:55:00 No Longer Active 07/29/2015 [facility] Ancef Notes: Same as: Ancef Inactive 07/29/2015 [facility] Calcium Chloride 0.0014 MEQ/ML / Potassi um Chloride 0.004 MEQ/ML / Sodium Chloride 0.103 MEQ/ML / Sodium Lactate 0.028 MEQ/ML Injectable Solution 1,000 mL, Rate: 25 ml/hr, Infuse over: 4 0 hr, Route: IV, Dosing Weight 104.545 kg, Total Volume: 1,000, Start date: 07/29/15 7:45:00, Duration: 30 day, Stop date: 08/28/15 7:44:00 Inactive 07/29/2015 [facility] Antivert Notes: (Same as: Anti vert) No Longer Active 07/28/2015 [facility] Nitroglycerin 0.4 MG Sublingual Tablet Notes: (Same as:Nitroquick, Nitrostat) "Do Not Crush" Sublingual tablet No Longer Active 07/28/2015 [facility] Atropine 0.5 mg, 5 mL, Route: IVP, Drug form: INJ, ONCE, Dosing Weight 104.545, kg, PRN Bradycardia, Start date: 07/28/15 11:46:00, for symptomatic bradycardia No Longer Active 07/28/2015 [facility] Solu-Medrol Notes: (Same as:So nyasia-MEDROL, A-Methapred) Inactive 07/28/2015 [facility] heparin sodium, porcine 2500 UNT/ML Injectable Solutio n Notes: porcine heparin No Longer Active 07/28/2015 [facility] Protonix Notes: Tablet should not be chewed or crushed. (Same as: Protonix) No Longer Active 07/27/2015 [facility] Claritin Notes: 1 hr before me als (Same as: Claritin) No Longer Active 07/27/2015 [facility] hydrochlorothiazide 25 mg oral tablet Notes: (Same as: Hydrodiuril) With food. No Longer Active 07/27/2015 [facility] Prevacid 15 mg, Route: PO, Lucas g form: ECCAP, Daily, Dosing Weight 104.545, kg, Start date: 07/27/15 9:00:00, Duration: 30 day, Stop date: 08/25/15 9:00:00 No Longer Active 07/27/2015 [facility] lamotrigine 100 MG Oral Tablet Notes: (Same as:LaMICtal) No Longer Active 07/27/2015 [facility] Hydrochlorothiazide 25 MG / Losartan Pot assium 100 MG Oral Tablet 1 tab, Route: PO, Drug Form: TAB, Dosing Weight 104.545, kg, Daily, Start date: 07/27/15 9:00:00, Duration: 30 day, Stop date: 08/25/15 9:00:00 No Longer Active 07/27/2015 [facility] Clarice 180 mg, Route: PO, Lucas g form: TAB, Daily, Dosing Weight 104.545, kg, Start date: 07/27/15 9:00:00, Duration: 30 day, Stop date: 08/25/15 9:00:00 No Longer Active 07/27/2015 [facility] Citalopram Notes: (Same As: Ce Katia) No Longer Active 07/27/2015 [facility] Cozaar Notes: (Same as: Cozaar) No Longer Active 07/27/2015 [facility] Thyroxine Notes: Take 1 hour b efore or 2 hours after meal; Enteral feeds may interefere with the absorption of this medication. (Same as: Levothroid) No Longe r Active 07/27/2015 [facility] Simvastatin Notes: (Same as: Z ocor) No Longer Active 07/27/2015 [facility] Rocephin Notes: (Same As: Roce phin). Use with 100ml NS mini-bag PLUS and infuse over 30 min MEDICATION WASTE Product Size: 1000 mg Product Wasted: ___ mg No Longer Active 07/27/2015 [facility] Solu-Medrol Notes: (Same as:So nyasia-MEDROL, A-Methapred) Inactive 07/26/2015 [facility] Meclizine Notes: (Same as: Ant ivert) No Longer Active 07/26/2015 [facility] Miralax Notes: Dissolve in 8 o z of water or juice. (Same as: Miralax) No Longer Active 07/26/2015 [facility] Zofran Notes: (Same as: Zofran ) MEDICATION WASTE Product Size: 4 mg Product Wasted: ___ mg No Longer Active 07/26/2015 [facility] Tylenol Notes: Max acetaminoph en = 4000mg/day (4 gm/day). (Same as: Tylenol) N o Longer Active 07/26/2015 [facility] Restoril Notes: (Same As: Rest oril) No Longer Active 07/26/2015 [facility] Acetaminophen 325 MG / Hydrocodone Isadora trate 5 MG Oral Tablet [[place] 5/325] Notes: (Same as: [place] 325/5) Do not ex ceed 4gm/day of acetaminophen. No Longer Activ e 07/26/2015 [facility] Clonidine Hydrochloride 0.1 MG Oral Tablet Notes: (Same As: Catapres) No Longer Active 07/26/2015 [facility] Ondansetron Notes: (Same as: Xiomara valenzuela) MEDICATION WASTE Product Size: 4 mg Product Wasted: ___ mg No Longer Active 07/26/2015 [facility] Morphine Notes: (Same as:MORPh ine Sulfate) No Longer Active 07/26/2015 [facility] lansoprazole 15 MG Enteric Coated Capsule [Prevacid] 15 mg = 1 cap, PO, Daily, 0 Refill(s) Active 07/26/2015 [facility] levothyroxine 200 mcg (0.2 mg) oral tablet 200 microgram = 1 tab, PO, Q630AM, 0 Refill(s) No Longer Active 07/26/2015 [facility] Hydrochlorothiazide 25 MG / Losartan Pot assium 100 MG Oral Tablet 1 tab, PO, Daily, 0 Refill(s) Active 07/26/2015 [facility] citalopram 40 mg oral tablet 8 0 mg = 2 tab, PO, Daily, 0 Refill(s) Active 07/26/2015 [facility] Fexofenadine hydrochloride 180 MG Oral Tablet [Clarice ] 180 mg = 1 tab, PO, Daily, 0 Refill(s) Active 07/26/2015 [facility] simvastatin 40 mg oral tablet 40 mg = 1 tab, PO, Bedtime, 0 Refill(s) Active 07/26/2015 [facility] lamotrigine 100 MG Oral Tablet 300 mg = 3 tab, PO, Daily, 0 Refill(s) Active 07/26/2015 [facility] temazepam 30 mg oral capsule 3 0 mg = 1 cap, PO, Bedtime, 0 Refill(s) Active 07/26/2015 [facility] Levaquin Notes: (Same as:Levaq uin) Inactive 07/26/2015 [facility] Sodium Chloride 0.9% (titrate) 250 mL 250 mL, Rate: wholesale loan processor for use with blood product administration, Dosing Weight 104.545, kg, Route: IV, Total Volume: 250, Start Date: 07/26/15 14:26:00, Duration: 1 day, Stop date: 07/27/15 14:25:00, Replace Every: 24 hr No Longer Active 07/26/2015 [facility] potassium chloride Notes: (Juan e as: K-Dur 20) "Do Not Crush" With food and full glass of water Inactive 07/26/2015 [facility] Acetaminophen 325 MG / Hydrocodone Isadora trate 10 MG Oral Tablet [[place] 10/325] 1 tab, PO, Q6H, PRN for pain, X 5 day, # 20 tab, 0 Refill(s) Active 07/23/2015 [facility] Acetaminophen 325 MG / Hydrocodone Isadora trate 10 MG Oral Tablet 1 tab, Route: PO, Dosing Weight 104.545, kg, ONCE, STAT, Start date: 07/22/15 19:42:00, Stop date: 07/22/15 19:42:00 Inactive 07/23/2015 [facility] Allergies, Adverse Reactions, Alerts Substance Category Reaction Severity Reaction type Status Date Reported Comments Source codeine phosphate Assertion Drug allergy Active [facility] Immunizations Immunization Date Given Site Status Last Updated Comments Source influenza virus vaccine, inactivated 07/29/2015 Right deltoid completed [facility] Results Order Name Results Value Reference Range Date Interpretation Comments Source CHLORAMPHENICOL:SUSC:PT:ISOLATE:ORDQN:NOMI Gram Stain Report Few Wbc'S; No Organisms Seen 08/20/2018 [facility] CHLORAMPHENICOL:SUSC:PT:ISOLATE:ORDQN:NOMI Culture: Aspirate/Body Fluid/Tissue From Broth Only: Methicillin Resistant S taphylococcus aureus 08/20/2018 [facility] CHLORAMPHENICOL:SUSC:PT:ISOLATE:ORDQN:NOMI Methicillin Resistant Staphylococcus aureus Methicillin Resistant Staphylococcus aur eus 08/20/2018 [facility] PENICILLIN:SUSC:PT:ISOLATE:ORDQN:NOMI Gram Stain Report Few Wbc'S; No Organisms Seen 08/20/2018 [facility] PENICILLIN:SUSC:PT:ISOLATE:ORDQN:NOMI Culture: Aspirate/Body Fluid/Tissue Few Methicillin Resistant Staphylococcus aureus 08/20/2018 [facility] PENICILLIN:SUSC:PT:ISOLATE:ORDQN:NOMI Methicillin Resistant Staphylococcus aureus Methicillin Resistant Staphylococcus aur eus 08/20/2018 [facility] Culture: Anaerobic No Anaerobes Is olated After 5 Days 08/20/2018 [facility] Culture: Anaerobic No Anaerobes Is olated After 5 Days 08/20/2018 [facility] Culture: Anaerobic No Anaerobes Is olated After 5 Days 08/20/2018 [facility] Gram Stain Report Few Wbc'S; No Organisms Seen 08/20/2018 [facility] Culture: Aspirate/Body Fluid/Tissue Rare Staphylococcus aureus Refer To Culture # [id number] 08/20/18 For Susceptibility Results 08/20/2018 [facility] ELECTROLYTES AGAP 12.3 10.0 - 20.0 08/20/2018 [facility] ELECTROLYTES eGFR 79 08/20/2018 Result Comment: The eGFR is calculated using [...] should be multiplied by the estimated BMI. [facility] ELECTROLYTES Calcium Lvl 9.0 8.5 - 10.5 08/20/2018 [facility] ELECTROLYTES Chloride Lvl 107 95 - 109 08/20/2018 [facility] ELECTROLYTES CO2 26 24 - 32 08/20/2018 [facility] ELECTROLYTES Potassium Lvl 4.3 3.5 - 5.1 08/20/2018 [facility] [facility] ELECTROLYTES Glucose Lvl 89 70 - 99 08/20/2018 [facility] ELECTROLYTES BUN 12 7 - 22 08/20/2018 [facility] ELECTROLYTES Sodium Lvl 141 135 - 145 08/20/2018 [facility] ELECTROLYTES Creatinine Lvl 0.7 7 0.50 - 1.40 08/20/2018 [facility] HEMATOLOGY Hgb 12.5 12.0 - 16.0 08/20/2018 [facility] HEMATOLOGY MCH 30.8 27.0 - 31.0 08/20/2018 [facility] HEMATOLOGY MCV 89.3 80.0 - 98.0 08/20/2018 [facility] HEMATOLOGY RBC 4.07 4.20 - 5.40 08/20/2018 [facility] HEMATOLOGY MPV 8.7 7.4 - 10.4 08/20/2018 [facility] HEMATOLOGY MCHC 34.5 32.0 - 36.0 08/20/2018 [facility] HEMATOLOGY Platelet 222 133 - 450 08/20/2018 [facility] HEMATOLOGY Hct 36.3 36.0 - 48.0 08/20/2018 [facility] HEMATOLOGY RDW 13.7 11.5 - 14.5 08/20/2018 [facility] HEMATOLOGY WBC 5.5 3.7 - 10.4 08/20/2018 [facility] HEMATOLOGY Eosinophils # 0.3 0.0 - 0.5 08/20/2018 [facility] HEMATOLOGY Monocytes # 0.6 0.0 - 0.8 08/20/2018 [facility] HEMATOLOGY Lymphocytes # 2.2 1.0 - 5.5 08/20/2018 [facility] HEMATOLOGY Neutrophils # 2.4 1.5 - 8.1 08/20/2018 [facility] HEMATOLOGY Segs 42.9 45.0 - 75.0 08/20/2018 [facility] HEMATOLOGY Monocytes 10.5 2.0 - 12.0 08/20/2018 [facility] HEMATOLOGY Lymphocytes 40.7 20.0 - 40.0 08/20/2018 [facility] HEMATOLOGY Basophils 0.5 0.0 - 1.0 08/20/2018 [facility] HEMATOLOGY Eosinophils 5.4 0.0 - 4.0 08/20/2018 [facility] BLOOD BANK RESULTS Antibody Scrn Negative (08/19/18 1:12 PM) 08/19/2018 [facility] BLOOD BANK RESULTS ABO/Rh AB POS 08/19/2018 [facility] HEMATOLOGY INR 1.05 0.85 - 1.17 08/19/2018 [facility] HEMATOLOGY PTT 28.6 22.9 - 35.8 08/19/2018 [facility] HEMATOLOGY PT 13.7 12.0 - 14.7 08/19/2018 [facility] SPECIAL CHEMISTRY Hgb A1C 5.6 <=5.6 % 08/19/2018 [facility] CHEM PANEL eGFR 84 08/19/2018 Result Comment: The eGFR is calculated using [...] should be multiplied by the estimated BMI. [facility] CHEM PANEL Potassium Lvl 4.5 3.5 - 5.1 08/19/2018 [facility] CHEM PANEL Chloride Lvl 105 95 - 109 08/19/2018 [facility] CHEM PANEL Calcium Lvl 8.6 8.5 - 10.5 08/19/2018 [facility] CHEM PANEL CO2 24 24 - 32 08/19/2018 [facility] CHEM PANEL Sodium Lvl 138 135 - 145 08/19/2018 [facility] CHEM PANEL Glucose Lvl 83 70 - 99 08/19/2018 [facility] CHEM PANEL Creatinine Lvl 0.73 0.50 - 1.40 08/19/2018 [facility] CHEM PANEL BUN 9 7 - 22 08/19/2018 [facility] CHEM PANEL AGAP 13.5 10.0 - 20.0 08/19/2018 [facility] HEMATOLOGY MCH 30.0 27.0 - 31.0 08/19/2018 [facility] HEMATOLOGY Hgb 12.2 12.0 - 16.0 08/19/2018 [facility] HEMATOLOGY MCHC 33.5 32.0 - 36.0 08/19/2018 [facility] HEMATOLOGY Platelet 196 133 - 450 08/19/2018 [facility] HEMATOLOGY MCV 89.6 80.0 - 98.0 08/19/2018 [facility] HEMATOLOGY MPV 8.8 7.4 - 10.4 08/19/2018 [facility] HEMATOLOGY RDW 13.5 11.5 - 14.5 08/19/2018 [facility] HEMATOLOGY WBC 5.3 3.7 - 10.4 08/19/2018 [facility] HEMATOLOGY Hct 36.3 36.0 - 48.0 08/19/2018 [facility] HEMATOLOGY RBC 4.06 4.20 - 5.40 08/19/2018 [facility] HEMATOLOGY Sed Rate 7 0 - 20 08/19/2018 [facility] IMMUNOLOGY C-REACTIVE PROTEIN <2.9 <=2.9 mg/L 08/19/2018 [facility] HEMATOLOGY Sed Rate 1 0 - 20 08/19/2018 [facility] ELECTROLYTES Sodium Lvl 137 135 - 145 07/30/2015 [facility] ELECTROLYTES Chloride Lvl 100 95 - 109 07/30/2015 [facility] ELECTROLYTES Potassium Lvl 3.4 3.5 - 5.1 07/30/2015 [facility] ELECTROLYTES eGFR 59 07/30/2015 Result Comment: The eGFR is calculated [facility] Calcium Lvl 8.9 8.5 - 10.5 07/30/2015 [facility] ELECTROLYTES AGAP 10.4 10.0 - 20.0 07/30/2015 [facility] ELECTROLYTES CO2 30 24 - 32 07/30/2015 [facility] ELECTROLYTES Glucose Lvl 85 70 - 99 07/30/2015 [facility] ELECTROLYTES Creatinine Lvl 1.0 0.5 - 1.4 07/30/2015 [facility] ELECTROLYTES BUN 15 7 - 22 07/30/2015 [facility] HEMATOLOGY Basophils # 0.1 0.0 - 0.2 07/30/2015 [facility] HEMATOLOGY Monocytes 10.4 2.0 - 12.0 07/30/2015 [facility] HEMATOLOGY Basophils 0.5 0.0 - 1.0 07/30/2015 [facility] Segs-Bands # 8.4 1.5 - 8.1 07/30/2015 [facility] Lymphocytes # 2.2 1.0 - 5.5 07/30/2015 [facility] Monocytes # 1.2 0.0 - 0.8 07/30/2015 [facility] HEMATOLOGY Segs 70.5 45.0 - 75.0 07/30/2015 [facility] Lymphocytes 18.6 20.0 - 40.0 07/30/2015 [facility] MPV 9.2 7.4 - 10.4 07/30/2015 [facility] MCHC 32.1 32.0 - 36.0 07/30/2015 [facility] RDW 13.8 11.5 - 14.5 07/30/2015 [facility] Platelet 254 133 - 450 07/30/2015 [facility] MCV 90.5 80.0 - 98.0 07/30/2015 [facility] MCH 29.1 27.0 - 31.0 07/30/2015 [facility] Hgb 12.1 12.0 - 16.0 07/30/2015 [facility] HEMATOLOGY Hct 37.6 36.0 - 48.0 07/30/2015 [facility] HEMATOLOGY WBC 11.9 3.7 - 10.4 07/30/2015 [facility] HEMATOLOGY RBC 4.16 4.20 - 5.40 07/30/2015 [facility] CHEM PANEL eGFR 67 07/29/2015 Result Comment: The eGFR is calculated [facility] CHEM [facility] Chloride Lvl 104 95 - 109 07/29/2015 [facility] CHEM PANEL Potassium Lvl 4.9 3.5 - 5.1 07/29/2015 [facility] CHEM PANEL CO2 33 24 - 32 07/29/2015 [facility] CHEM PANEL Calcium Lvl 9.2 8.5 - 10.5 07/29/2015 [facility] CHEM PANEL Glucose Lvl 129 70 - 99 07/29/2015 [facility] CHEM PANEL Sodium Lvl 140 135 - 145 07/29/2015 [facility] CHEM PANEL Creatinine Lvl 0.9 0.5 - 1.4 07/29/2015 [facility] CHEM PANEL BUN 15 7 - 22 07/29/2015 [facility] CHEM PANEL AGAP 7.9 10.0 - 20.0 07/29/2015 [facility] HEMATOLOGY Eosinophils 1.9 0.0 - 4.0 07/29/2015 [facility] HEMATOLOGY Monocytes 6.2 2.0 - 12.0 07/29/2015 [facility] HEMATOLOGY Segs-Bands # 7.1 1.5 - 8.1 07/29/2015 [facility] HEMATOLOGY Lymphocytes # 1.1 1.0 - 5.5 07/29/2015 [facility] HEMATOLOGY Eosinophils # 0.2 0.0 - 0.5 07/29/2015 [facility] HEMATOLOGY Monocytes # 0.6 0.0 - 0.8 07/29/2015 [facility] Basophils # 0.1 0.0 - 0.2 07/29/2015 [facility] Lymphocytes 12.2 20.0 - 40.0 07/29/2015 [facility] Segs 78.9 45.0 - 75.0 07/29/2015 [facility] Basophils 0.8 0.0 - 1.0 07/29/2015 [facility] WBC 9.0 3.7 - 10.4 07/29/2015 [facility] RBC 4.29 4.20 - 5.40 07/29/2015 [facility] MCHC 33.0 32.0 - 36.0 07/29/2015 [facility] MCH 29.7 27.0 - 31.0 07/29/2015 [facility] Hgb 12.7 12.0 - 16.0 07/29/2015 [facility] MCV 90.0 80.0 - 98.0 07/29/2015 [facility] Hct 38.6 36.0 - 48.0 07/29/2015 [facility] RDW 13.3 11.5 - 14.5 07/29/2015 [facility] MPV 9.2 7.4 - 10.4 07/29/2015 [facility] Platelet 256 133 - 450 07/29/2015 [facility] ELECTROLYTES Sodium Lvl 140 135 - 145 07/28/2015 [facility] ELECTROLYTES Potassium Lvl 4.2 3.5 - 5.1 07/28/2015 [facility] ELECTROLYTES Chloride Lvl 102 95 - 109 07/28/2015 [facility] ELECTROLYTES eGFR 67 07/28/2015 Result Comment: The eGFR is calculated [...] [facility] E[facility] AGAP 11.2 10.0 - 20.0 07/28/2015 [facility] ELECTROLYTES Calcium Lvl 8.8 8.5 - 10.5 07/28/2015 [facility] ELECTROLYTES BUN 18 7 - 22 07/28/2015 [facility] ELECTROLYTES CO2 31 24 - 32 07/28/2015 [facility] ELECTROLYTES Creatinine Lvl 0.9 0.5 - 1.4 07/28/2015 [facility] ELECTROLYTES Glucose Lvl 92 70 - 99 07/28/2015 [facility] HEMATOLOGY RBC 4.00 4.20 - 5.40 07/28/2015 [facility] HEMATOLOGY Hct 36.2 36.0 - 48.0 07/28/2015 [facility] HEMATOLOGY Hgb 11.9 12.0 - 16.0 07/28/2015 [facility] HEMATOLOGY MPV 9.7 7.4 - 10.4 07/28/2015 [facility] HEMATOLOGY RDW 13.2 11.5 - 14.5 07/28/2015 [facility] HEMATOLOGY Platelet 234 133 - 450 07/28/2015 [facility] HEMATOLOGY WBC 8.0 3.7 - 10.4 07/28/2015 [facility] MCH 29.7 27.0 - 31.0 07/28/2015 [facility] HEMATOLOGY MCV 90.4 80.0 - 98.0 07/28/2015 [facility] MCHC 32.9 32.0 - 36.0 07/28/2015 [facility] Lymphocytes 31.9 20.0 - 40.0 07/28/2015 [facility] HEMATOLOGY Segs 58.7 45.0 - 75.0 07/28/2015 [facility] HEMATOLOGY Monocytes 8.9 2.0 - 12.0 07/28/2015 [facility] HEMATOLOGY Monocytes # 0.7 0.0 - 0.8 07/28/2015 [facility] HEMATOLOGY Basophils 0.3 0.0 - 1.0 07/28/2015 [facility] Segs-Bands # 4.7 1.5 - 8.1 07/28/2015 [facility] Lymphocytes # 2.5 1.0 - 5.5 07/28/2015 [facility] Eosinophils 0.2 0.0 - 4.0 07/28/2015 [facility] HEMATOLOGY Eosinophils 0.1 0.0 - 4.0 07/27/2015 [facility] LIPIDS VLDL 14 07/27/2015 [facility] LIPIDS LDL (Calculated) 76 <=99 mg/dL 07/27/2015 [facility] LIPIDS Trig 71 <=149 mg/dL 07/27/2015 [facility] LIPIDS CHD Risk 2.73 3.90 - 5.80 07/27/2015 [facility] LIPIDS HDL 52 >=61 mg/dL 07/27/2015 [facility] LIPIDS Chol 142 <=199 mg/dL 07/27/2015 [facility] SPECIAL CHEMISTRY Hgb A1C 5.9 <=5.6 % 07/27/2015 [facility] THYROID PANEL TSH 0.056 0.360 - 3.740 07/27/2015 [facility] THYROID PANEL T4 Free 1.47 0.76 - 1.46 07/27/2015 [facility] BLOOD BANK RESULTS ABO/Rh AB POS 07/26/2015 [facility] BLOOD BANK RESULTS Antibody Scrn Negative (07/26/15 2:55 PM) 07/26/2015 [facility] DRUG SCREEN U Amph Scr Nega tive *NA* (07/26/15 2:05 PM) Negative 07/26/2015 [facility] DRUG SCREEN U Cocaine Scr Nega tive *NA* (07/26/15 2:05 PM) Negative 07/26/2015 [facility] DRUG SCREEN U Benzodia Scr Nega tive *NA* (07/26/15 2:05 PM) Negative 07/26/2015 [facility] DRUG SCREEN U Julia Scr Nega tive *NA* (07/26/15 2:05 PM) Negative 07/26/2015 [facility] DRUG SCREEN U Phencyc Scr Nega tive *NA* (07/26/15 2:05 PM) Negative 07/26/2015 [facility] DRUG SCREEN U Opiate Scr Posi tive *ABN* (07/26/15 2:05 PM) Negative 07/26/2015 [facility] DRUG SCREEN U Cannab Scr Nega tive *NA* (07/26/15 2:05 PM) Negative 07/26/2015 [facility] DRUG SCREEN UDS Note See Note (07/26/15 2:05 PM) 07/26/2015 [facility] URINE AND STOOL UA Sq Epi None Seen 07/26/2015 [facility] URINE AND STOOL UA WBC 3 0 - 5 07/26/2015 [facility] URINE AND STOOL UA RBC <1 0 - 2 07/26/2015 [facility] URINE AND STOOL UA Ketones Negative mg/dL Negative mg/dL 07/26/[address] [facility] [address] URINE AND STOOL UA Urobilinogen 2.0 0.1 - 1.0 07/26/2015 [facility] UA Glucose Negative mg/dL Negative mg/dL 07/26/2015 [facility] URINE AND STOOL UA Protein Negative mg/dL Negative mg/dL 07/26/2015 [facility] URINE AND STOOL UA pH 6.0 [...] Yellow 07/26/2015 [facility] CARDIAC ENZYMES Troponin-I <0.02 0.00 - 0.40 07/26/2015 [facility] CARDIAC ENZYMES CK MB 2.1 0.5 - 3.6 07/26/2015 [facility] CARDIAC ENZYMES Total CK 288 12 - 191 07/26/2015 [facility] CARDIAC ENZYMES CK MB Index 0.7 0.0 - 2.5 07/26/2015 [facility] CHEM PANEL Globulin 2.9 2.0 - 4.0 07/26/2015 [facility] CHEM PANEL A/G Ratio 1.2 0.7 - 1.6 07/26/2015 [facility] CHEM PANEL Total Protein 6.3 6.4 - 8.4 07/26/2015 [facility] CHEM PANEL Albumin Lvl 3.4 3.5 - 5.0 07/26/2015 [facility] CHEM PANEL Bili Total 0.5 0.2 - 1.3 07/26/2015 [facility] CHEM PANEL B/C Ratio 16 6 - 25 07/26/2015 [facility] CHEM PANEL Alk Phos 68 39 - 136 07/26/2015 [facility] CHEM PANEL AST 28 0 - 37 07/26/2015 [facility] CHEM PANEL ALT 29 0 - 65 07/26/2015 [facility] HEMATOLOGY Eosinophils # 0.2 0.0 - 0.5 07/26/2015 [facility] HEMATOLOGY PTT 28.2 22.9 - 35.8 07/26/2015 [facility] HEMATOLOGY PT 13.5 12.0 - 14.7 07/26/2015 [facility] HEMATOLOGY INR 1.00 0.85 - 1.17 07/26/2015 [facility] Pathology Reports No Data Provided for This Section Diagnostic Reports Report Value Date Source Hand 3 views DX EXAM: XR LEFT [...] joint. IMPRESSION: 1. Findings highly concerning for septi c arthritis at the index finger DIP joint. At the time of dictation, it is documented that the patient is planned be taken to the operating room for incision and drainage with possible amputation the following day. 2. 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 08/19/2018 [facility] Breast Mammo Scrn SHELIA incl CAD MA BILATERAL DIGITAL SCREENING MAMMOGRAM WITH CAD: 12/11/2017 CLINICAL: /Routine. Current study was evaluated with a Computer Aided Detection (CAD) system. COMPARISON:Comparison is made to exams dated: 05/16/2016 mammogram, 04/13/2015 mammogram, and 06/19/2016 mammogram. TECHNIQUE: Mammographic views were obtained using digital acquisition. blogTV Version 1.3 was utilized for computer aided [...] is recommended.(12/12/2018) This exam was interpreted at [id number] for [facility] Breast [place]. Culeln moura/hazel:12/24/2017 14:31:52 Medical Doctor(s): Shankia Vital, [facility] letter sent: BI-RADS 1/2 Mammogram BI-RADS: 2 Benign 12/11/2017 [facility] Ankle 2 views DX Left ankle 2 views: Postoperative radiographs show plate and screw fixation of the distal fibula, and medial malleolar screws. The previously described fracture-dislocation has been anatomically reduced. Medial and lateral skin becca are noted. A cast around the foot and ankle is seen. SL:13 07/31/2015 [facility] Ankle 2 views DX Examination: Left ankle, 7 views History: left ankle ORIF Comparison: Plain films of the left ankle from 07/22/2015 Findings: Multiple nondiagnostic intraoperative fluoroscopic views of the left ankle show new postoperative changes of plate and screw fixation of bimalleolar fractures with apposition of the major fracture fragments. Fluoro time is 37.1 seconds. SL: 16 07/29/2015 [facility] Chest CTA CT CHEST WITH CONTRA ST - CT PULMONARY ANGIOGRAPHY with 3-D volumetric [...] 2. No active disease. The lungs are yudelka r. There are no pleural effusions. 3. The heart is normal in size. There is no pericardial effusion. 4. There is minimal atherosclerotic calc ification within the aortic arch. The aorta is otherwise normal in appearance. There is no aneurysm or dissection. 5. No mass or adenopathy is seen within the chest. 6. Moderate sized hiatal hernia. 7. Prior granulomatous disease. There is a 7 mm calcified granuloma in the left lower lobe. There are small calcified granulomas in the spleen. 8. Minimal degenerative changes in the t horacic spine. The regional skeleton is otherwise unremarkable. CONCLUSION: 1. No evidence of pulmonary embolism. 2. No evidence of an active or acute pro cess within the chest. 3. Moderate sized lateral hernia. 4. Prior granulomatous disease. SL: 12 Rick Weiss M.D. 07/26/2015 [facility] Brain wo contrast CT Examinati on: CT scan of the brain without contrast. [...] No acute intracranial abnormality. SL: 16 07/26/2015 [facility] Chest 1view DX EXAM: CHEST 1 V IEW DATE: Jul 26, 2015 10:32:51 AM INDICATION: Dizziness. Fatigue. COMPARISON: None. TECHNIQUE: AP chest radiograph. FINDINGS: Lungs are clear bilaterally No pleural effusion or pneumothorax is identified . Cardiac silhouette is not enlarged. Aortic arch calcification is seen.. The skeleton is intact IMPRESSION: 1. No acute intrathoracic abnormality SL: 14 07/26/2015 [facility] Ankle 3 views DX LEFT ANKLE 3 Views HISTORY: Left ankle pain. TECHNIQUE: Frontal, lateral, and oblique views of the left ankle were obtained. FINDINGS: 1. Trimalleolar fracture. 2. There is a moderately displaced obliq ue fracture through the lateral malleolus just above the ankle joint. 3. There is a transverse fracture of the medial malleolus at the level of the tibial plafond with moderate lateral displacement. 4. There is a minimally displaced fractu re of the posterior margin of the distal tibia ('posterior malleolus.') This involves approximately the posterior 8 mm the distal tibia. There is less than 2 mm of displacement. 5. There is mild lateral displacement of the talus in relation to the distal fibula. 6. There is widening of ankle mortise. 7. There is no evidence of underlying de generative changes. 8. Plantar and posterior calcaneal spurs 9. Soft tissue swelling. Coding: Ankle 3 views CPT code: 09138 SL: 13 Rick Weiss M.D. 07/22/2015 [facility] Consultation Notes No Data Provided for This Section Discharge Summaries No Data Provided for This Section History and Physicals No Data Provided for This Section Vital Signs Vital Sign Value Date Comments Source Heart Rate 73 08/20/2018 [facility] Temperature Oral (F) 98.4 F 08/20/2018 [facility] Systolic (mm Hg) 144 08/20/2018 [facility] Diastolic (mm Hg) 83 08/20/2018 [facility] Respitory Rate 18 08/20/2018 [facility] Systolic (mm Hg) 138 08/20/2018 [facility] Diastolic (mm Hg) 65 08/20/2018 [facility] Respitory Rate 17 08/20/2018 [facility] Respitory Rate 17 08/20/2018 [facility] Systolic (mm Hg) 152 08/20/2018 [facility] Diastolic (mm Hg) 61 08/20/2018 [facility] Heart Rate 66 08/20/2018 [facility] Temperature Oral (F) 98.5 F 08/20/2018 [facility] Temperature Oral (F) 98.9 F 08/20/2018 [facility] Heart Rate 60 08/20/2018 [facility] Weight 90.909 08/18/2018 [facility] BMI Calculated 34.4 08/18/2018 [facility] Height 162.56 cm 08/18/2018 [facility] Temperature Oral (F) 97.6 F 08/04/2015 [facility] Diastolic (mm Hg) 80 08/04/2015 [facility] Height 162.5 cm 07/30/2015 [facility] BMI Calculated 39.57 07/30/2015 [facility] Weight 104.5 07/30/2015 [facility] Weight 104.545 07/28/2015 [facility] Height 162.56 cm 07/26/2015 [facility] Weight 104.545 07/26/2015 [facility] BMI Calculated 39.56 07/26/2015 [facility] BMI Calculated 39.56 07/26/2015 [facility] Height 162.56 cm 07/26/2015 [facility] Systolic (mm Hg) 122 07/23/2015 [facility] Diastolic (mm Hg) 69 07/23/2015 [facility] Respitory Rate 16 07/23/2015 [facility] Temperature Oral (F) 98.9 F 07/23/2015 [facility] Heart Rate 88 07/23/2015 [facility] Weight 104.545 07/23/2015 [facility] BMI Calculated 39.56 07/23/2015 [facility] Height 162.56 cm 07/23/2015 [facility] [...] Provider ADM Date DC Date Status Source [facility] [id number] Bipin Arabella 07/23/2015 07/23/2015 [facility] Inpatient [id number] Zafar New 07/26/2015 08/05/2015 [facility] Outpatient [id number] LAURA MARIO 07/22/2017 [facility] Outpatient [id number] Maggie Gomez 12/11/2017 12/12/2017 [facility] Inpatient [id number] Pete Tejeda 8 08/20/2018 [facility] Procedures Procedure Code Date Perfomer Comments Source Abdominal hysterectomy [id number] [facility] Appendectomy [id number] [facility] Assessment and Plan Assessment and Plan Date Source Extracted from:Title: ORS hand H&P Author: Alexandru Melton MD Date: 08/19/18 ORS hand History and Physical Assessment: 67F s/p I&D L Index finger several weeks ago with left index finger infection Plan: - WBAT LUE -scheduled ancef - XR L hand orderred - marked, consented - Plan for repeat I&D, possible amputati on left index finger on 08/20/2018 Alexandru Melton MD PGY-3 MSO [id number] pager [phone] Orthopaedic Attending: Pete Tejeda DO Date of Service: 08/18/2018 CC " my finger is infected" HPI: This 67-year-old female with a left index finger infection status post irrigation and debridement several weeks ago by Dr. Morse at [facility] presenting after being admitted directly from clinic for left index finger infection. She reports that her infection in her finger has improved much since her surgery and still reports pain and warmth to the DIP and distal phalanx. She denies measurable fever, or chills, denies type 2 diabetes. PMH:Depression (emotion), HTN, FH: Non-contributory PSxH: Abdominal hysterectomy Appendectomy SH: denies tobacco;denies ETOH; denies drugs Medications: Medication List Active Medications Ordered acetaminophen: 650 mg, 20.3 mL, PO, Q6H. acetaminophen-hydrocodone: 1 tab, PO, Q6H, PRN: Pain Score 7-10. ceFAZolin: 2 gm, 20 mL, 200 ml/hr, IVPB, Q8H. docusate: 100 mg, 1 cap, PO, Daily. gabapentin: 300 mg, 1 cap, PO, Q8H. influenza virus vaccine, inactivated: 0.5 mL, IM, ONCALL. tramadol: 50 mg, 1 tab, PO, Q6H. Documented acetaminophen: 650 mg, 2 tab, PO, Q4H, PRN: Pain 1-3/Temp > 100.4 F, 0 Refill(s). bisacodyl: 5 mg, 1 tab, PO, Q24H, PRN: Constipation, 0 Refill(s). citalopram: 80 mg, 2 tab, PO, Daily, 0 Refill(s). fexofenadine: 180 mg, 1 tab, PO, Daily, 0 Refill(s). gabapentin: PO, 0 Refill(s). hydrochlorothiazide-losartan: 1 tab, PO, Daily, 30 tab, 0 Refill(s). hydrochlorothiazide-losartan: 1 tab, PO, Daily, 0 Refill(s). lamoTRIgine: 300 mg, 3 tab, PO, Daily, 0 Refill(s). lansoprazole: 15 mg, 1 cap, PO, Daily, 0 Refill(s). levothyroxine: 150 microgram, 1 tab, PO, Q630AM, 0 Refill(s). meclizine: 25 mg, 1 tab, PO, TID, PRN: Dizziness, 0 Refill(s). mometasone: INHALATION, 0 Refill(s). simvastatin: 40 mg, 1 tab, PO, Bedtime, 0 Refill(s). temazepam: 30 mg, 1 cap, PO, Bedtime, 0 Refill(s). Medications Inactivated in the Last 72 Hours acetaminophen-hydrocodone: 1 tab, PO, Q6H. Allergies: codeine phosphate (hallucinations) Review of Systems: Gen: Denies fever/chills HEENT: Denies vision change CV: Denies CP Resp: Denies SOB GI: Denies Abd pain : Denies urinary retention Neuro: Denies numbness, tingling weakness in extremities. Derm: Denies infection, rash Psych: Denies mood changes Musculoskeletal: See HPI Vitals Tmp(F) Pulse BP RR SpO2 FIO2 08/19 09:03 98.2 74 141/84 1 8 96 --- 08/19 03:55 97.6 67 156/75 1 6 97 --- 08/18 23:37 97.6 82 114/70 1 6 94 --- 08/18 18:58 97.6 69 134/78 1 6 97 --- 08/18 17:44 98.3 69 134/79 1 6 97 --- 24 Hr Tmax: 98.3F (36.83c) at 08/18 17:4 4 Vital Signs are the last 5 in the past 48 hours. Date Wt(kg) Wt(lb) Ht(cm) Ht(in) Method 08/18 (initial) 90.91 200.00 Estimated 08/18 162.56 64.00 Stated Labs: Hgb: 12.2 g/dL (08/18/18 21:07:00) Hct: 36.3 % (08/18/18 21:07:00) Exam: Gen: AAOx3, NAD HEENT: NCAT Resp: Breathing unlabored CV: RRR Abd: NT, ND RUE: Inspection: Skin intact, no TTP or deformity, Sensation: sensation intact to light touch m/r/u nerve at hand Motor:no pain with AROM/PROM of elbow or shoulder Vascular: 2+ Radial pulse, BCR all fingers <2 sec. LUE: Inspection: Skin intact, erythema, swelling, and ulnar deviation at index finger DIP. pain with DIP ROM. No TTP along flexor shealth, no expressible purulence. Sensation: sensation intact to light touch m/r/u nerve at hand and index finger + Motor:no pain with AROM/PROM of elbow or shoulder, intact cascade, + EPL/FPL, FDP, HI all fingers Vascular: BCR all fingers <2 sec. 08/20/2018 [facility] Extracted from:Title: Clinical Document Author: Mata Zhong MD Date: 08/04/15 PROGRESS NOTE Psychiatry MATA ZHONG M.D. Patient seen, Events noted. SUBJECTIVE : Feels better. OBJECTIVE : She is alert, awake, mood better, o x 3, d/w family. Allergies: codeine phosphate Labs (Last four charted values) WBC H 11.9 (JUL 30) 9.0 (JUL 29) 8.0 (JUL 24) 5.1 (JUL 27) Hgb 12.1 (JUL 30) 12.7 (JUL 29) L 11.9 (SEP 24) 12.7 (JUL 27) Hct 37.6 (SEP ) 38.6 (SEP 25) 36.2 (SEP 24) 38.6 (SEP 23) Plt 254 (SEP ) 256 (SEP 25) 234 (SEP 24) 223 (JUL 27) Na 137 (SEP ) 140 (SEP 25) 140 (SEP 24) 138 (JUL 27) K L 3.4 (JUL 30) 4.9 (SEP 25) 4.2 (SEP 24) 3.7 (JUL 27) CO2 30 (JUL 30) H 33 (JUL 29) 31 (JUL 28) 29 (JUL 27) Cl 100 (JUL 30) 104 (JUL 29) 102 (JUL 24) 102 (JUL 27) Cr 1.0 (JUL 30) 0.9 (JUL 29) 0.9 (JUL 28) 0.9 (JUL 27) BUN 15 (JUL 30) 15 (JUL 29) 18 (JUL 24) 12 (JUL 27) Glucose Random 85 (JUL 30) H 129 (JUL 29) 92 (JUL 24) H 169 (JUL 27) Ca 8.9 (JUL 30) 9.2 (JUL 29) 8.8 (JUL 24) 8.5 (JUL 27) PT 13.5 (JUL 26) INR 1.00 (JUL 26) PTT 28.2 (JUL 26) Troponin <0.02 (JUL 26) CK MB 2.1 (JUL 26) Total CK H 288 (JUL 26) MENTAL STATUS EXAM : Alert, awake, mood fair. o x 3 ASSESSMENT : 1. Major depression, recurrent. 2. r/o Bipolar disorder 3. Delirium, multifactorial. Likely et iology urinary tract infection, metabolic causes. PLAN : Continue lamictal 300 mg po daily. Continue celexa 10 mg po qam. Monitor mood and mental status. 08/05/2015 [facility] Plan of Care No Data Provided for This Section Social History Social History Date Source Social History TypeResponse Substance Abuse Use: None. IV drug use: No. Drug use interferes with work/home: No. Ready to change: No. Household substance abuse concerns: No. Cessation Education Provided: No. Alcohol Never, Previous treatment: None. Alcohol use interferes with work or home: No. Drinks more than intended: No. Others hurt by drinking: No. Ready to change: No. Household alcohol concerns: No. Smoking Status Never smoker; Previous treatment: None; Ready to change: No; Concerns about tobacco use in household: No; Exposure to Tobacco Smoke None; Cigarette Smoking Last 365 Days No; Reg Smoking Cessation Counseling No entered on: 08/18/18 08/18/2018 [facility] Social History TypeResponse Smoking Status Never smoker; Exposure to Tobacco Smoke None; Cigarette Smoking Last 365 Days No; Reg Smoking Cessation Counseling No entered on: 07/22/17 07/22/2017 [facility] Family History No Data Provided for This Section Advance Directives No Data Provided for This Section Functional Status No Data Provided for This Section
--- OUTSIDE RECORDS SUMMARY | 2020-03-30 16:42 | XMS REPORT | Summary of Care ---
Author Author [facility] Organization [facility] Address Unknown Phone Unavailable Encounter HQ Tika(FIN) [id number] Date(s): 08/18/18 - 08/20/18 [facility] [address] [employer] provided by [employer] [place] [address]- Encounter Diagnosis Other acute osteomyelitis, left hand (Final) - 08/28/18 Essential (primary) hypertension (Final) - Discharge Disposition: Home or Self Care Attending Physician: Pete Tejeda DO Admitting Physician: Pete Tejeda DO Vital Signs 1 2 3 Most recent to oldest [Reference Range]: 162.56 cm (08/18/18 4:34 PM) Height 98.4 DegF (08/20/18 5:14 PM) 98.5 DegF (08/20/18 7:39 AM) 98.9 DegF (08/20/18 4:15 AM) Temperature Oral [96.4-99.1 DegF] 144/83 mmHg *HI* (08/20/18 5:14 PM) 138/65 mmHg (08/20/18 1:30 PM) 152/61 mmHg *HI* (08/20/18 1:15 PM) Blood Pressure [90-140/60-90 mmHg] 18 BRMIN (08/20/18 5:14 PM) 17 BRMIN (08/20/18 1:30 PM) 17 BRMIN (08/20/18 1:15 PM) Respiratory Rate [14-20 BRMIN] 73 bpm (08/20/18 5:14 PM) 66 bpm (08/20/18 7:39 AM) 60 bpm (08/20/18 4:15 AM) Peripheral Pulse Rate [60-100 bpm] 90.909 kg (08/18/18 4:34 PM) Weight 34.4 m2 (08/18/18 4:34 PM) Body Mass Index Problem List Condition Effective Dates Status Health Status Informan t Anxiety(Confirmed) Active Depression Resolved (emotion)(Confirmed) FH: Active hypothyroidism(Confi rmed) Gastric Active reflux(Confirmed) HTN - Active Hypertension(Confirm ed) Morbid Active obesity(Confirmed) MRSA(Confirmed)1, 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 Allergies, Adverse Reactions, Alerts Substance Reaction Severity Status codeine phosphate Active Medications acetaminophen 650 mg, 20.3 mL, Route: PO, Drug form: LIQ, Q6H, Dosing Weight 90.909, kg, Start date: 08/19/18 0:00:00 CDT, Duration: 30 day, Stop date: 09/17/18 18:00:00 FORESTRY PATROLMAN Notes: Max acetaminophen = 4000mg/day (4 gm/day). (Same as: Tylenol) Start Date: 08/19/18 Stop Date: 08/20/18 Status: Discontinued acetaminophen (ANES) 10 mg Route: IV, Drug form: INJ, Start date: 08/20/18 12:10:00 CDT, Stop date: 8 13:10:00 CDT Start Date: 08/20/18 Stop Date: 08/20/18 Status: Completed Clarice 180 mg, Route: PO, Drug form: TAB, Daily, Dosing Weight 90.909, kg, Start date: 08/20/18 9:00:00 CDT, Duration: 30 day, Stop date: 09/18/18 9:00:00 FORESTRY PATROLMAN Start Date: 08/20/18 Stop Date: 08/19/18 Status: Deleted Ancef 2 gm, 20 mL, Route: IVPB, Drug form: SOLN, Q8H, Dosing Weight 90.909, kg, Start date: 08/19/18 0:00:00 CDT, Duration: 1 day, Stop date: 08/19/18 16:00:00 CDT, A BX Indication: Surgical Prophylaxis Notes: (Same as Ancef) Start Date: 08/19/18 Stop Date: 08/19/18 Status: Completed ANES acetaminophen 1,000 mg, 2 tab, Route: PO, Drug form: TAB, ONCE, Dosing Weight 90.909, kg, PRN Pain Score 1-3, Start date: 08/20/18 12:44:00 CDT Notes: Max acetaminophen 4000 mg/day (4 gm/day). (Same as: Tylenol Extra Streng th) Start Date: 08/20/18 Stop Date: 08/20/18 Status: Discontinued ANES flumazenil 0.2 mg, 2 mL, Route: IVP, Drug form: INJ, PRN, Dosing Weight 90.909, kg, PRN Jovani zodiazepine Reversal, Initial dose, Start date: 08/20/18 12:44:00 CDT, Stop date : 08/21/18 0:00:00 CDT Notes: (Same as: Romazicon) Start Date: 08/20/18 Stop Date: 08/20/18 Status: Discontinued ANES hydrALAZINE 10 mg, 0.5 mL, Route: IVP, Drug form: INJ, Q20Min, Dosing Weight 90.909, kg, PRN Elevated BP, Start date: 08/20/18 12:44:00 CDT, Duration: 2 doses or times, Stop date: 08/21/18 0:00:00 CDT Notes: (Same as: Apresoline)Push over 5 minutes Start Date: 08/20/18 Stop Date: 08/20/18 Status: Discontinued ANES HYDROmorphone 0.5 mg, 0.25 mL, Route: IVP, Drug form: INJ, Q5Min, Dosing Weight 90.909, kg, ID N Pain Score 7-10, Start date: 08/20/18 12:44:00 CDT, Duration: 4 doses or times , Stop date: 08/21/18 0:00:00 CDT Notes: Same as Dilaudid Start Date: 08/20/18 Stop Date: 08/20/18 Status: Discontinued ANES labetalol 10 mg, 2 mL, Route: IVP, Drug form: INJ, Q5Min, Dosing Weight 90.909, kg, PRN El evated BP, Start date: 08/20/18 12:44:00 CDT, Duration: 5 doses or times, Stop d ate: 08/21/18 0:00:00 CDT Start Date: 08/20/18 Stop Date: 08/20/18 Status: Discontinued ANES naloxone 0.4 mg, 1 mL, Route: IVP, Drug form: INJ, Q2MIN, Dosing Weight 90.909, kg, PRN N arcotic Reversal, Start date: 08/20/18 12:44:00 CDT, Duration: 8 doses or times, Stop date: 08/21/18 0:00:00 CDT Notes: Same as Narcan Start Date: 08/20/18 Stop Date: 08/20/18 Status: Discontinued ANES ondansetron 4 mg, 2 mL, Route: IVP, Drug form: INJ, ONCE, Dosing Weight 90.909, kg, PRN Naus ea & Vomiting, Start date: 08/20/18 12:44:00 CDT Notes: (Same as: Nancy) MEDICATION WASTE Product Size: 4 mgProduct Was pamela: ___ mg Start Date: 08/20/18 Stop Date: 08/20/18 Status: Discontinued ANES oxyCODONE 10 mg, 2 tab, Route: PO, Drug form: TAB, Q4H, Dosing Weight 90.909, kg, PRN Pain Score 7-10, Start date: 08/20/18 12:44:00 CDT, Stop date: 08/21/18 0:00:00 CDT Notes: (Same as: Roxicodone) Start Date: 08/20/18 Stop Date: 08/20/18 Status: Discontinued ANES oxyCODONE 5 mg, 1 tab, Route: PO, Drug form: TAB, Q4H, Dosing Weight 90.909, kg, PRN Pain Score 4-6, Start date: 08/20/18 12:44:00 CDT, Stop date: 08/21/18 0:00:00 CDT Notes: (Same as: Roxicodone) Start Date: 08/20/18 Stop Date: 08/20/18 Status: Discontinued Bactrim DS 800 mg- 160 mg oral tablet 1 tab, PO, BID, X 10 day, # 20 tab, 0 Refill(s) Start Date: 08/20/18 Stop Date: 08/30/18 Status: Completed bisacodyl 5 mg, 1 tab, Route: PO, Drug form: ECTAB, Q24H, Dosing Weight 90.909, kg, PRN Co nstipation, Start date: 08/19/18 11:25:00 CDT, Duration: 30 day, Stop date: 09/04 03/21 11:24:00 FORESTRY PATROLMAN Notes: (Same As: Dulcolax, Correctol) (Do Not Crush) "Do Not Crush" Start Date: 08/19/18 Stop Date: 08/20/18 Status: Discontinued cefepime (ANES) Route: IV, Drug form: INJ, ONCE, Stop date: 08/20/18 12:28:00 CDT Start Date: 08/20/18 Stop Date: 08/20/18 Status: Completed cetirizine 10 mg, 1 tab, Route: PO, Drug form: TAB, Daily, Start date: 08/20/18 9:00:00 CDT , Duration: 30 day, Stop date: 09/18/18 9:00:00 FORESTRY PATROLMAN Notes: (Same As: Zyrtec) Start Date: 08/20/18 Stop Date: 08/20/18 Status: Discontinued citalopram 40 mg, 2 tab, Route: PO, Drug form: TAB, Daily, Dosing Weight 90.909, kg, Start date: 08/20/18 9:00:00 CDT, Duration: 30 day, Stop date: 09/18/18 9:00:00 FORESTRY PATROLMAN Notes: (Same As: CeleXA) Start Date: 08/20/18 Stop Date: 08/20/18 Status: Discontinued citalopram 40 mg oral tablet 40 mg = 1 tab, PO, Daily, 0 Refill(s) Start Date: 08/19/18 Status: Ordered clonazePAM 0.5 mg oral tablet 0.5 mg = 1 tab, PO, TID, 0 Refill(s) Start Date: 08/19/18 Status: Ordered Cozaar 100 mg, 2 tab, Route: PO, Drug form: TAB, Daily, Start date: 08/20/18 9:00:00 CD T, Duration: 30 day, Stop date: 09/18/18 9:00:00 FORESTRY PATROLMAN Notes: (Same as: Cozaar) Start Date: 08/20/18 Stop Date: 08/20/18 Status: Discontinued dexamethasone (ANES) Route: IV, Drug form: INJ, ONCE, Stop date: 08/20/18 12:03:00 CDT Start Date: 08/20/18 Stop Date: 08/20/18 Status: Completed docusate 100 mg, 1 cap, Route: PO, Drug form: CAP, Daily, Dosing Weight 90.909, kg, Start date: 08/19/18 9:00:00 CDT, Duration: 30 day, Stop date: 09/17/18 9:00:00 FORESTRY PATROLMAN Notes: (Same as: Colace) (Do Not Crush) Start Date: 08/19/18 Stop Date: 08/20/18 Status: Discontinued ePHEDrine (ANES) Route: IV, Drug form: INJ, ONCE, Stop date: 08/20/18 12:03:00 CDT Start Date: 08/20/18 Stop Date: 08/20/18 Status: Completed fentaNYL (ANES) Route: IV, Drug form: INJ, ONCE, Stop date: 08/20/18 12:03:00 CDT Start Date: 08/20/18 Stop Date: 08/20/18 Status: Completed gabapentin 300 mg, 1 cap, Route: PO, Drug form: CAP, Q8H, Dosing Weight 90.909, kg, Start d ate: 08/19/18 0:00:00 CDT, Duration: 30 day, Stop date: 09/17/18 16:00:00 FORESTRY PATROLMAN Notes: (Same as: Neurontin) Start Date: 08/19/18 Stop Date: 08/20/18 Status: Discontinued gabapentin 600 mg oral tablet 600 mg = 1 tab, PO, BID, 0 Refill(s) Start Date: 08/19/18 Status: Ordered hydrochlorothiazide 25 mg oral tablet 25 mg, 1 tab, Route: PO, Drug form: TAB, Daily, Start date: 08/20/18 9:00:00 CDT , Duration: 30 day, Stop date: 09/18/18 9:00:00 FORESTRY PATROLMAN Notes: (Same as: Hydrodiuril) With food. Start Date: 08/20/18 Stop Date: 08/20/18 Status: Discontinued hydrochlorothiazide-losartan 25 mg-100 mg oral tablet 1 tab, Route: PO, Drug Form: TAB, Dosing Weight 90.909, kg, Daily, Start date: 1 9:00:00 CDT, Duration: 30 day, Stop date: 09/18/18 9:00:00 FORESTRY PATROLMAN Start Date: 08/20/18 Stop Date: 08/19/18 Status: Deleted influenza virus vaccine, inactivated high-dose preservative-free intramuscular s uspension 0.5 mL, Route: IM, Drug Form: SUSP, kg, ONCALL, Start date: 08/19/18 8:18:42 CDT , Stop date: 09/18/18 8:13:42 FORESTRY PATROLMAN Notes: (Same as: Fluzone High-Dose)For 65 years of age of older (0.5 ml IM)Shake well before use Start Date: 08/19/18 Stop Date: 08/20/18 Status: Discontinued labetalol (ANES) Route: IV, Drug form: INJ, ONCE, Stop date: 08/20/18 12:51:00 CDT Start Date: 08/20/18 Stop Date: 08/20/18 Status: Completed Lactated Ringers Injection IV (ANES) 1000 mL Route: IV, Total Volume: 1,000, Start date: 08/20/18 10:40:00 CDT, Stop date: 11:40:00 CDT Start Date: 08/20/18 Stop Date: 08/20/18 Status: Completed lamoTRIgine 100 mg oral tablet 300 mg, 3 tab, Route: PO, Drug form: TAB, Daily, Dosing Weight 90.909, kg, Start date: 08/20/18 9:00:00 CDT, Duration: 30 day, Stop date: 09/18/18 9:00:00 FORESTRY PATROLMAN Notes: (Same as:LaMICtal) Start Date: 08/20/18 Stop Date: 08/20/18 Status: Discontinued levothyroxine 150 microgram, 1 tab, Route: PO, Drug form: TAB, Q630AM, Dosing Weight 90.909, k g, Start date: 08/20/18 6:30:00 CDT, Duration: 30 day, Stop date: 09/18/18 6:30: 00 FORESTRY PATROLMAN Notes: Take 1 hour before or 2 hours after meal; Enteral feeds may interefere wi th the absorption of this medication. (Same as: Levothroid) Start Date: 08/20/18 Stop Date: 08/20/18 Status: Discontinued lidocaine (ANES) Route: IV, Drug form: INJ, ONCE, Stop date: 08/20/18 12:03:00 CDT Start Date: 08/20/18 Stop Date: 08/20/18 Status: Completed meclizine 25 mg, 1 tab, Route: PO, Drug form: TAB, TID, Dosing Weight 90.909, kg, PRN Dizz iness, Start date: 08/19/18 11:25:00 CDT, Duration: 30 day, Stop date: 09/18/18 11:24:00 FORESTRY PATROLMAN Notes: (Same as: Antivert) Start Date: 08/19/18 Stop Date: 08/20/18 Status: Discontinued midazolam (ANES) Route: IV, Drug form: SOLN, ONCE, Stop date: 08/20/18 12:03:00 CDT Start Date: 08/20/18 Stop Date: 08/20/18 Status: Completed mometasone 100 mcg/inh inhalation aerosol = 1 puff, INHALATION, BID, 0 Refill(s) Start Date: 08/19/18 Status: Ordered [place] 5/325 oral tablet 1 tab, Route: PO, Drug Form: TAB, Dosing Weight 90.909, kg, Q6H, PRN Pain Score 7-10, Start date: 08/18/18 20:43:00 CDT, Duration: 30 day, Stop date: 09/17/18 2 0:42:00 FORESTRY PATROLMAN Notes: (Same as: [place] 325/5) Do not exceed 4gm/day of acetaminophen. Start Date: 08/18/18 Stop Date: 08/20/18 Status: Discontinued [place] 5/325 oral tablet 1 tab, Route: PO, Dosing Weight 90.909, kg, Q6H, Start date: 08/19/18 0:00:00 CD T, Duration: 30 day, Stop date: 09/17/18 18:00:00 FORESTRY PATROLMAN Start Date: 08/19/18 Stop Date: 08/18/18 Status: Canceled ondansetron (ANES) Route: IV, Drug form: INJ, ONCE, Stop date: 08/20/18 12:33:00 CDT Start Date: 08/20/18 Stop Date: 08/20/18 Status: Completed Prevacid 15 mg, Route: PO, Drug form: ECCAP, Daily, Dosing Weight 90.909, kg, Start date: 08/20/18 9:00:00 CDT, Duration: 30 day, Stop date: 09/18/18 9:00:00 FORESTRY PATROLMAN Start Date: 08/20/18 Stop Date: 08/19/18 Status: Deleted propofol (ANES) Route: IV, Drug form: INJ, ONCE, Stop date: 08/20/18 12:03:00 CDT Start Date: 08/20/18 Stop Date: 08/20/18 Status: Completed Protonix 40 mg, 1 tab, Route: PO, Drug form: ECTAB, Before Dinner, Start date: 08/19/18 6:30:00 CDT, Duration: 30 day, Stop date: 09/17/18 16:30:00 FORESTRY PATROLMAN Notes: Tablet should not be chewed or crushed.(Same as: Protonix) Start Date: 08/19/18 Stop Date: 08/20/18 Status: Discontinued simvastatin 40 mg, 1 tab, Route: PO, Drug form: TAB, Bedtime, Dosing Weight 90.909, kg, Star t date: 08/19/18 21:00:00 CDT, Duration: 30 day, Stop date: 09/17/18 21:00:00 CS T Notes: (Same as: Zocor) Start Date: 08/19/18 Stop Date: 08/20/18 Status: Discontinued succinylcholine (ANES) Route: IV, Drug form: INJ, ONCE, Stop date: 08/20/18 12:03:00 CDT Start Date: 08/20/18 Stop Date: 08/20/18 Status: Completed tramadol 50 mg, 1 tab, Route: PO, Drug form: TAB, Q6H, Dosing Weight 90.909, kg, Start da te: 08/19/18 0:00:00 CDT, Duration: 30 day, Stop date: 09/17/18 18:00:00 FORESTRY PATROLMAN Notes: Not to exceed 400mg/day. (Same As: Ultram) Start Date: 08/19/18 Stop Date: 08/20/18 Status: Discontinued tramadol 50 mg oral tablet See Instructions, PRN Pain, take 1-2 tab PO Q6H for 10 days, # 40 tab, 0 Refill (s) Start Date: 08/20/18 Stop Date: 09/02/18 Status: Completed vancomycin (ANES) 1000 mg Route: IV, Drug form: INJ, Start date: 08/20/18 11:55:00 CDT, Stop date: 8 12:55:00 CDT Start Date: 08/20/18 Stop Date: 08/20/18 Status: Completed Zofran ODT 4 mg oral tablet, disintegrating 4 mg = 1 tab, PO, BID, PRN Nausea and Vomiting, Dissolve tab under tongue, # 10 tab, 0 Refill(s) Start Date: 08/20/18 Stop Date: 08/25/18 Status: Ordered Results Most recent to 1 2 oldest [Reference Range]: Neutrophils # 2.4 K/CMM [1.5-8.1 K/CMM] (08/20/18 3:46 AM) Lymphocytes # 2.2 K/CMM [1.0-5.5 K/CMM] (08/20/18 3:46 AM) Monocytes # [0.0-0.8 0.6 K/CMM K/CMM] (08/20/18 3:46 AM) Eosinophils # 0.3 K/CMM [0.0-0.5 K/CMM] (08/20/18 3:46 AM) eGFR 79 mL/min/1.73m2 1 84 mL/min/1.73m2 2 *NA* *NA* (08/20/18 3:46 AM) (08/18/18 9:07 PM) ABO/Rh AB POS *Unknown* (08/19/18 1:12 PM) Antibody Scrn Negative (08/19/18 1:12 PM) AGAP [10.0-20.0 12.3 mEq/L 13.5 mEq/L mEq/L] (08/20/18 3:46 AM) (08/18/18 9:07 PM) Basophils [0.0-1.0 0.5 % %] (08/20/18 3:46 AM) BUN [7-22 mg/dL] 12 mg/dL 9 mg/dL (08/20/18 3:46 AM) (08/18/18 9:07 PM) Calcium Lvl 9.0 mg/dL 8.6 mg/dL [8.5-10.5 mg/dL] (08/20/18 3:46 AM) (08/18/18 9:07 PM) Chloride Lvl [95-109 107 mEq/L 105 mEq/L mEq/L] (08/20/18 3:46 AM) (08/18/18 9:07 PM) CO2 [24-32 mEq/L] 26 mEq/L 24 mEq/L (08/20/18 3:46 AM) (08/18/18 9:07 PM) Creatinine Lvl 0.77 mg/dL 0.73 mg/dL [0.50-1.40 mg/dL] (08/20/18 3:46 AM) (08/18/18 9:07 PM) CRP [<=2.9 mg/L] <2.9 mg/L (08/18/18 9:07 PM) Eosinophils [0.0-4.0 5.4 % %] *HI* (08/20/18 3:46 AM) Glucose Lvl [70-99 89 mg/dL 83 mg/dL mg/dL] (08/20/18 3:46 AM) (08/18/18 9:07 PM) Hct [36.0-48.0 %] 36.3 % 36.3 % (08/20/18 3:46 AM) (08/18/18 9:07 PM) Hgb [12.0-16.0 g/dL] 12.5 g/dL 12.2 g/dL (08/20/18 3:46 AM) (08/18/18 9:07 PM) Hgb A1C [<=5.6 %] 5.6 % (08/19/18 1:12 PM) INR [0.85-1.17] 1.05 (08/19/18 1:12 PM) Potassium Lvl 4.3 mEq/L 4.5 mEq/L [3.5-5.1 mEq/L] (08/20/18 3:46 AM) (08/18/18 9:07 PM) Lymphocytes 40.7 % [20.0-40.0 %] *HI* (08/20/18 3:46 AM) MCH [27.0-31.0 pg] 30.8 pg 30.0 pg (08/20/18 3:46 AM) (08/18/18 9:07 PM) MCHC [32.0-36.0 34.5 g/dL 33.5 g/dL g/dL] (08/20/18 3:46 AM) (08/18/18 9:07 PM) MCV [80.0-98.0 fL] 89.3 fL 89.6 fL (08/20/18 3:46 AM) (08/18/18 9:07 PM) Monocytes [2.0-12.0 10.5 % %] (08/20/18 3:46 AM) MPV [7.4-10.4 fL] 8.7 fL 8.8 fL (08/20/18 3:46 AM) (08/18/18 9:07 PM) Sodium Lvl [135-145 141 mEq/L 138 mEq/L mEq/L] (08/20/18 3:46 AM) (08/18/18 9:07 PM) Platelet [133-450 222 K/CMM 196 K/CMM K/CMM] (08/20/18 3:46 AM) (08/18/18 9:07 PM) Segs [45.0-75.0 %] 42.9 % *LOW* (08/20/18 3:46 AM) PT [12.0-14.7 13.7 seconds seconds] (08/19/18 1:12 PM) PTT [22.9-35.8 28.6 seconds seconds] (08/19/18 1:12 PM) RBC [4.20-5.40 4.07 M/CMM 4.06 M/CMM M/CMM] *LOW* *LOW* (08/20/18 3:46 AM) (08/18/18 9:07 PM) RDW [11.5-14.5 %] 13.7 % 13.5 % (08/20/18 3:46 AM) (08/18/18 9:07 PM) Sed Rate [0-20 7 mm/hr 1 mm/hr mm/hr] (08/18/18 9:07 PM) (08/18/18 7:28 PM) WBC [3.7-10.4 K/CMM] 5.5 K/CMM 5.3 K/CMM (08/20/18 3:46 AM) (08/18/18 9:07 PM) 1Result Comment: The eGFR is calculated using the [...] from the National Kidney Disease Education Program ( NKDEP) which additionally recommends that when the eGFR is used in patients with extremes of body mass index for purposes of drug dosing, the eGFR should be mul tiplied by the estimated BMI. 2Result Comment: The eGFR is calculated using the [...] from the National Kidney Disease Education Program ( NKDEP) which additionally recommends that when the eGFR is used in patients with extremes of body mass index for purposes of drug dosing, the eGFR should be mul tiplied by the estimated BMI. Microbiology Reports TEST: Culture: Anaerobic STATUS: Auth (Verified) BODY SITE: SOURCE: Aspirate COLLECTED DATE/TIME: 08/20/18 11:24 AM FINAL REPORT No Anaerobes Isolated After 5 Days TEST: Culture: Anaerobic STATUS: Auth (Verified) BODY SITE: SOURCE: Aspirate COLLECTED DATE/TIME: 08/20/18 11:24 AM FINAL REPORT No Anaerobes Isolated After 5 Days TEST: Culture: Anaerobic STATUS: Auth (Verified) BODY SITE: SOURCE: Tissue COLLECTED DATE/TIME: 08/20/18 11:24 AM FINAL REPORT No Anaerobes Isolated After 5 Days TEST: Culture: Aspirate/Body Fluid/Tissue STATUS: Auth (Verified) BODY SITE: SOURCE: Aspirate COLLECTED DATE/TIME: 08/20/18 11:24 AM FINAL REPORT Few Methicillin Resistant Staphylococcus aureus STAIN REPORT Few Wbc'S; No Organisms Seen ORGANISM:Methicillin Resistant Staphylococcus aureus TEST: Culture: Aspirate/Body Fluid/Tissue STATUS: Auth (Verified) BODY SITE: SOURCE: Aspirate COLLECTED DATE/TIME: 08/20/18 11:24 AM FINAL REPORT Rare Staphylococcus aureus Refer To Culture # [id number] 08/20/18 For Susceptibility Results STAIN REPORT Few Wbc'S; No Organisms Seen TEST: Culture: Aspirate/Body Fluid/Tissue STATUS: Auth (Verified) BODY SITE: SOURCE: Tissue COLLECTED DATE/TIME: 08/20/18 11:24 AM FINAL REPORT From Broth Only: Methicillin Resistant Staphylococcus aureus STAIN REPORT Few Wbc'S; No Organisms Seen ORGANISM:Methicillin Resistant Staphylococcus aureus Immunizations Given and Recorded Vaccine Date Status Refusal Reason influenza virus vaccine, inactivated 07/29/15 G iven Procedures Procedure Date Related Diagnosis Body Site Status Abdominal hysterectomy Completed Appendectomy Completed Social History Social History Type Response Substance Abuse Use: None. IV drug use: No . Drug use interferes with work/home: No. Ready to change: No. Household substan ce abuse concerns: No. Cessation Education Provided: No. Alcohol Never, Previous treatment: None. Alcohol use interferes with work or home: No. Drinks more than intended: No. Ot hers hurt by drinking: No. Ready to change: No. Household alcohol concerns : No. Smoking Status Never smoker; Previous pablo tment: None; Ready to change: No; Concerns about tobacco use in household: No; Exposure to Tobacco Smoke None; Cigarette Smoking Last 365 Days No; Reg Smoking C essation Counseling No entered on: 08/18/18 Assessment and Plan Extracted from: Title: ORS hand H&P Author: Alexandru Melton MD Date : 08/19/18 ORS hand History and Physical Assessment: 67F s/p I&D L Index finger several weeks ago with left index finger infection Plan: - WBAT LUE -scheduled ancef - XR L hand orderred - marked, consented - Plan for repeat I&D, possible amputati on left index finger on 08/20/2018 Alexandru Melton MD PGY-3 MSO [id number] pager [phone] Orthopaedic Attending: Pete Tejeda DO Date of Service: 08/18/2018 CC " my finger is infected" HPI: This 67-year-old female with a left index finger infection status post irrigation and debridement several weeks ago by Dr. Morse at [facility] presenting after being admitted directly from clinic [...] Psych: Denies mood changes Musculoskeletal: See HPI VitalsTmp(F)[id number] 08/19 [id number]--- 08/19 03:[id number]--- 08/18 23:[id number]--- 08/18 18:[id number]--- 08/18 17:[id number]--- 24 Hr Tmax: 98.3F (36.83c) at 10/15 17:4 4Vital Signs are the last 5 in the past 48 hours. DateWt(kg)Wt(lb)Ht(cm)Ht(in)Method 08/18 (initial) 90.91 200.00Estimated 62.56 64.00Stated Labs: Hgb: 12.2 g/dL (08/18/18 21:07:00) Hct: [...]
--- OUTSIDE RECORDS SUMMARY | 2020-03-30 16:43 | XMS REPORT ---
Author Author [facility] t Organization [facility] Address 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 Attphys Unavailable LEEANN DOHERTY Attphys Unavailable Anitha Gomez Attphys Alberto New Attphys Flavio Bell Attphys DR ALEX BOOKER Admphys Unavailable Kaitlyn RAY Admphys Unavailable Edu Tejeda Admphys LEEANN DOHERTY Admphys Unavailable Neil Estrada Admphys Payers Payer Name Policy Type Policy Number Effective Date Expiration Date S pino [facility] [id number] 2017 00:00:00 [facility] Medicare A & B [id number] 2012 00:00:00 [facility] [id number] 2017 00:00:00 [facility] Medicare A & B [id number] 2012 00:00:00 [facility] [id number] 2017 00:00:00 [facility] Medicare A & B [id number] [facility] Problems Condition Name Condition Details Condition Category Status Onset Date Resolution Date Last Treatment Date Treating Clinician Comments Source Methicillin resistant Staphylococcus aureus (organism) Methicillin resistant Staphylococcus aureus (organism) Active 08/20/2018 Problem 03/09/2019 Aspirate/Bone Tissue, 08/20/2018Problem added by Discern Expert. [facility] Problem Active 2018-08-20 00:00:00 2019-03-09 12:54:[address] [facility] [address] LT INDEX FINGER SEPTIC ARTIRITIS LT INDEX FINGER SEPTIC ARTIRITIS Active 08/18/2018 [facility] Diagnosis Active 2018-08-18 00:00:00 2018-08-26 14:31:00 [facility] ROUTINE SCREENING LAST MMG OOS ROUTINE SCREENING LAST MMG OOS Active 12/10/2017 [facility] Diagnosis Active 2017-12-10 00:00:00 2017-12-11 10:00:00 [facility] LEG PAIN LEG PAIN Active 07/26/2015 [facility] Diagnosis Active 2015-07-26 00:00:00 2015-07-26 11:11:00 [facility] WEAKNESS, DIZZINESS, ANKLE FX WEAKNESS, DIZZINESS, ANKLE FX Active 07/26/2015 [facility] Active 2015-07-26 00:00:00 2015-08-09 21:56:00 [facility] ANKLE INJURY ANKL E INJURY Active 07/22/2015 [facility] Diagnosis Active 2015-07-22 00:00:00 2015-07-22 20:02:00 [facility] Hand pain Hand pain Problem HL7.CCDAR2 Active [facility] Infection of fingernail of left hand Infection of fingernail of left hand Problem HL7.CCDAR2 [facility] Cholesterol (substance) Chol esterol (substance) Active Problem 08/07/2015 [facility] Problem Active 2015-08-07 01:21:3 8 [facility] Essential (primary) hypertension Essential (primary) hypertension 03/09/2019 [facility] Problem 2019-03-09 12:54:[address] [facility] Anxiety (finding) Anxi ety (finding) Active Problem 03/09/2019 [facility] Problem Active 2019-03-09 12:54:28 [facility] Depressive disorder (disorder) Depressive disorder (disorder) Resolved Problem 03/09/2019 [facility] Problem Resolved 2019-03-09 12:54:28 [facility], [facility] Family history: Hypothyroidism (context-dependent sienna gory) Family history: Hypothyroidism (context-dependent category) Active Problem 03/09/2019 [facility] Problem Active 2019-03-09 12:54:[address] [facility] [address], [facility] Gastric reflux (finding) Wilman emmie reflux (finding) Active Problem 03/09/2019 [facility] Problem Active 2019-03-09 12:54:[address] [facility] [address], [facility] Hypertensive disorder, systemic arterial (disorder) Hypertensive disorder, systemic arterial (disorder) Active Problem 03/09/2019 [facility] Problem Active 2019-03-09 12:54:28 [facility], [facility] Morbid obesity (disorder) Morb id obesity (disorder) Active Problem 03/09/2019 [facility] Problem Active 2019-03-09 12:54:[address] [facility] [address], [facility] MALAISE AND FATIGUE NEC MATTEO ISE AND FATIGUE NEC Active [facility] Diagnosis Active 2015-08-09 21:56:00 [facility] ILLNESS, UNSPECIFIED ILLN ESS, UNSPECIFIED Active [facility] Diagnosis Active 2018-08-26 14:31:00 [facility] ENCNTR SCREEN MAMMOGRAM FOR MALIGNANT NE ENCNTR SCREEN MAMMOGRAM FOR MALIGNANT NE Active [facility] Diagnosis Active 2017-12-11 10:00:00 [facility] Other acute osteomyelitis, left hand Other acute osteomyelitis, left hand 08/29/2018 03/09/2019 [facility] Problem 2018-08-29 02:57:03 2019-03-09 12:54:28 2019-03-09 12:54:28 [facility] Encounter for screening mammogram for malignant neopla sm of breast Encounter for screening mammogram for malignant neoplasm of breast 12/26/2017 03/19/2018 [facility] Problem 2017-12-26 04:11:38 2017 15:11:51 2018-03-19 15:11:51 [facility] Discharge Diagnosis: Trimalleolar fracture of left ank le Discharge Diagnosis: Trimalleolar fracture of left ankle 07/22/2015 07/25/2015 [facility] Problem 2015-07-22 05:00:00 2015-07-25 09:19:10 2015-07 09:19:10 [facility] Allergies, Adverse Reactions, Alerts Allergy Name Allergy Type Status Severity Reaction(s) Onset Date Inacti ve Date Treating Clinician Comments Source codeine phosphate codeine phosphate Active [facility] Social History Social Habit Start Date Stop Date Quantity Comments Source Social History 2018-08-18 23:20:11 2018-08-18 23:20:11 [facility] Smoking Status Start Date Stop Date Source Social History [facility] Medications Ordered Medication Name Filled Medication Name Start Date Stop Da te Current Medication? Ordering Clinician Indication Dosage Frequency Signature (SIG) Comments Components Source tramadol hydrochloride 50 MG Oral Tablet 2018-08-20 17:55:00 No See Instructions, PRN Pain, take 1-2 tab PO Q6H for 10 days, # 40 tab, 0 Refill(s) [facility] Ondansetron 4 MG Disintegrating Tablet [Zofran] 2018-08-20 17:55 :00 Yes 4 mg = 1 tab, PO, BID, PRN N ausea and Vomiting, Dissolve tab under tongue, # 10 tab, 0 Refill(s) [facility] nter Sulfamethoxazole 800 MG / Trimethoprim 160 MG Oral Tablet [B actrim] 2018-08-20 17:55:00 No 1 tab, PO, BID, X 10 day, # 20 tab, 0 Refill(s) [facility] labetalol (ANES) 2018-08-20 17:51:00 No Route: IV, Drug form: INJ, ONCE, Stop date: 08/20/18 12:51:00 CDT [facility] Naloxone 2018-08-20 17:44:00 No Notes: Same as Narcan [facility] Flumazenil 2018-08-20 17:44:00 No Notes: (S dk as: Romazicon) [facility] Oxycodone 2018-08-20 17:44:00 No Notes: (Sa me as: Roxicodone) [facility] Hydromorphone 2018-08-20 17:44:00 No Notes: Same as Dilaudid [facility] Acetaminophen 2018-08-20 17:44:00 No Notes: Max acetaminophen 4000 mg/day (4 gm/day). (Same as: Tylenol Extra Strength) [facility] Ondansetron 2018-08-20 17:44:00 No Notes: (Same as: Zofran) MEDICATION WASTE Product Size: 4 mg Product Wasted: ___ mg [facility] Hydralazine 2018-08-20 17:44:00 No Notes: (Same as: Apresoline) Push over [address] [facility] [address] Labetalol 2018-08-20 17:44:00 No 10 mg, 2 mL, Route: IVP, Drug form: INJ, Q5Min, Dosing Weight 90.909, kg, PRN Elevated BP, Start date: 08/20/18 12:44:00 CDT, Duration: 5 doses or times, Stop date: 08/21/18 0:00:00 CDT [facility] ondansetron ([facility]) 2018-08-20 17:33:00 No Route: IV, Drug form: INJ, ONCE, Stop date: 08/20/18 12:33:00 CDT [facility] cefepime ([facility]) 2018-08-20 17:28:00 No Route: IV, Drug form: INJ, ONCE, Stop date: 08/20/18 12:28:00 CDT [facility] acetaminophen ([facility] 10 mg 2018-08-20 17:10:00 No Route: IV, Drug form: INJ, Start date: 08/20/18 12:10:00 CDT, Stop date: 08/20/18 13:10:00 CDT [facility] succinylcholine ([facility] 2018-08-20 17:03:00 No Route: IV, Drug form: INJ, ONCE, Stop date: 08/20/18 12:03:00 CDT [facility] propofol ([facility]) 2018-08-20 17:03:00 No Route: IV, Drug form: INJ, ONCE, Stop date: 08/20/18 12:03:00 CDT [facility] lidocaine ([facility] 2018-08-20 17:03:00 No Route: IV, Drug form: INJ, ONCE, Stop date: 08/20/18 12:03:00 CDT [facility] fentaNYL ([facility] 2018-08-20 17:03:00 No Route: IV, Drug form: INJ, ONCE, Stop date: 08/20/18 12:03:00 CDT [facility] dexamethasone (ANES) 2018-08-20 17:03:00 No Route: IV, Drug form: INJ, ONCE, Stop date: 08/20/18 12:03:00 CDT [facility] ePHEDrine (ANES) 2018-08-20 17:03:00 No Route: IV, Drug form: INJ, ONCE, Stop date: 08/20/18 12:03:00 CDT [facility] midazolam (ANES) 2018-08-20 17:03:00 No Route: IV, Drug form: SOLN, ONCE, Stop date: 08/20/18 12:03:00 CDT [facility] vancomycin ([facility] 1000 mg 2018-08-20 16:55:00 No Route: IV, Drug form: INJ, Start date: 08/20/18 11:55:00 CDT, Stop date: 08/20/18 12:55:00 CDT [facility] Lactated Ringers Injection IV (ANES) 1000 mL 2018-08-20 15:40:00 No Route: IV, Total Volume: 1,000, Start date: 08/20/18 10:40:00 CDT, Stop date: 08/20/18 11:40:00 CDT [facility] enter cetirizine 2018-08-20 14:00:00 No Notes: (S dk As: Zyrtec) [facility] Cozaar 2018-08-20 14:00:00 No Notes: (Same as: Alex) [facility] Prevacid 2018-08-20 14:00:00 No 15 mg, Route: PO, Drug form: ECCAP, Daily, Dosing Weight 90.909, kg, Start date: 08/20/18 9:00:00 CDT, Duration: 30 day, Stop date: 09/18/18 9:00:00 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 [facility] Clarice 2018-08-20 14:00:00 No 180 mg, Route: PO, Drug form: TAB, Daily, Dosing Weight 90.909, kg, Start date: 08/20/18 9:00:00 CDT, Duration: 30 day, Stop date: 09/18/18 9:00:00 [employer] MECH[employer]IC [facility] Citalopram 2018-08-20 14:00:00 No Notes: (S dk As: CeleXA) [facility] Thyroxine 2018-08-20 11:30:00 No Notes: Take 1 hour before or 2 hours after meal; Enteral feeds may interefere with the absorption of this medication. (Same as: Levothroid) [facility] Simvastatin 2018-08-20 02:00:00 No Notes: ( Same as: Zocor) [facility] Protonix 2018-08-19 21:30:00 No Notes: Tablet should not be chewed or crushed. (Same as: Protonix) [facility] citalopram 40 mg oral tablet 2018-08-19 17:52:00 Yes 40 mg = 1 tab, PO, Daily, 0 Refill(s) [facility] gabapentin 600 MG Oral Tablet 2018-08-19 16:43:00 Yes 600 mg = 1 tab, PO, BID, 0 Refill(s) [facility] Bisacodyl 2018-08-19 16:25:00 No Notes: (Same As: Dulcolax, Correctol) (Do Not Crush) "Do Not Crush" [facility] clonazePAM 0.5 mg oral tablet 2018-08-19 16:25:00 Yes 0.5 mg = 1 tab, PO, TID, 0 Refill(s) [facility] mometasone furoate 0.1 MG/ACTUAT Metered Dose Inhaler 2018-08-19 16:25:00 Yes = 1 puff, INHALATION, BID, 0 Refill(s) [facility] Meclizine 2018-08-19 16:25:00 No Notes: (Sa me as: Antivert) [facility] Docusate 2018-08-19 14:00:00 No Notes: (Same as: Colace) (Do Not Crush) [facility] influenza virus vaccine, inactivated hig h-dose preservative-free intramuscular suspension 2018-08-19 13:18:42 No Notes: (Same as: Fluzone High- Dose) For 65 years of age of older (0.5 ml IM) Shake well before use [facility] Ancef 2018-08-19 05:00:00 No Notes: (Same a s Ancef) [facility] Acetaminophen 325 MG / Hydrocodone Bitartrate 5 MG Oral Tabl et [[place] 5/325] 2018-08-19 05:00:00 No 1 tab, Route: PO, Dosing Weight 90.909, kg, Q6H, Start date: 08/19/18 0:00:00 CDT, Duration: 30 day, Stop date: 09/17/18 18:00:[address] [employer] [facility] gabapentin 2018-08-19 05:00:00 No Notes: (S dk as: Neurontin) [facility] Tramadol 2018-08-19 05:00:00 No Notes: Not to exceed 400mg/day. (Same As: Ultram) [facility] Acetaminophen 2018-08-19 05:00:00 No Notes: Max acetaminophen = 4000mg/day (4 gm/day). (Same as: Tylenol) [facility] Acetaminophen 325 MG / Hydrocodone Bitartrate 5 MG Oral Tabl et [[place] 5/325] 2018-08-19 01:43:00 No Notes: (Same as: [place] 325/5) Do not exceed 4gm/day of acetaminophen. [facility] meclizine 25 mg oral tablet 2015-08-05 00:04:00 Yes 25 mg = 1 tab, PO, TID, PRN Dizziness, 0 Refill(s) [facility] heparin 5000 units/0.5 mL injectable solution 2015-08-04 21:44:0 0 Yes SUB-Q, Q12H, 0 Refill(s) [facility] levothyroxine 150 mcg (0.15 mg) oral tablet 2015-08-04 20:37:00 Yes 150 microgram = 1 tab, PO, Q630AM, 0 Refill(s) [facility] tramadol hydrochloride 50 MG Oral Tablet [Ultram] 2015-08-04 20:36:00 Yes 1-2 tab, PO, Q4H, PRN for pain, # 40 tab, 0 Ref ill(s) [facility] POLYETHYLENE GLYCOL 3350 2015-08-04 20:35:00 Yes PO, Daily, PRN Constipation, 0 Refill(s) [facility] acetaminophen 325 mg oral tablet 2015-08-04 20:35:00 Yes 100.4 F, 0 Refill(s) [facility] Maalox Advanced Regular Strength SUSP 2015-08-04 20:35:00 Y es 0 Refill(s) [facility] bisacodyl 5 mg oral enteric coated tablet 2015-08-04 20:35:00 Yes 5 mg = 1 tab, PO, Q24H, PRN Constipation, 0 Refill(s) [facility] Acetaminophen 325 MG / Hydrocodone Isadora trate 7.5 MG Oral Tablet [[place] 7.5/325] 2015-08-02 20:28:00 No Notes: Same as [place] 325-7.5mg Do not exceed 4gm/day of acetaminophen. [facility] torito Ativan 2015-07-30 19:39:00 No Notes: (Same as: Ativan) [facility] ceFAZolin (SCIP) 2015-07-29 20:30:00 No 1 gm, 100 mL, Route: IVPB, Drug form: INJ, Q8H, Dosing Weight 104.545, kg, Start date: 07/29/15 15:30:00, Duration: 1 doses or times, Stop date: 07/29/15 15:30:00 [facility] Acetaminophen 325 MG / Hydrocodone Bitartrate 5 MG Oral Tabl et [[place] 5/325] 2015-07-29 18:44:00 No Notes: (Same as: [place] 325/5) Do not exceed 4gm/day of acetaminophen. [facility] Clindamycin 150 MG/ML Injectable Solution 2015-07-29 16:00:00 No 600 mg, 50 mL, Route: IVPB, Drug form: INJ, Q8H, Dosing Weight 104.545, kg, Start date: 07/29/15 11:00:00, Duration: 1 doses or times, Stop date: 07/29/15 11:00:00 [facility] Ondansetron 2015-07-29 14:28:00 No 4 mg, Route: IVP, ONCE, Dosing Weight 104.545, kg, PRN Nausea & Vomiting, Start date: 07/29/15 9:28:00 [facility] Naloxone 2015-07-29 14:28:00 No 0.04 mg, Route: IVP, Q2MIN, Dosing Weight 104.545, kg, PRN Narcotic Reversal, Start date: 07/29/15 9:28:00, Duration: 8 doses or times, Stop date: Limited # of times [facility] Flumazenil 2015-07-29 14:28:00 No 0.2 mg, Route: IVP, PRN, Dosing Weight 104.545, kg, PRN Benzodiazepine Reversal, Initial dose, Start date: 07/29/15 9:28:00, Duration: 30 day, Stop date: 08/28/15 9:27:00 [facility] Fentanyl 2015-07-29 14:28:00 No 50 microgram, Route: IVP, Q5Min, Dosing Weight 104.545, kg, PRN Pain Score 7-10, Start date: 07/29/15 9:28:00, Duration: 2 doses or times, Stop date: Limited # of times [facility] Hydromorphone 2015-07-29 14:28:00 No 0.5 mg, Route: IVP, Q5Min, Dosing Weight 104.545, kg, PRN Pain Score 7-10, Start date: 07/29/15 9:28:00, Duration: 4 doses or times, Stop date: Limited # of times [facility] Oxycodone 2015-07-29 14:28:00 No 10 mg, Route: PO, Drug form: TAB, Q4H, Dosing Weight 104.545, kg, PRN Pain Score 7-10, Start date: 07/29/15 9:28:00, Duration: 30 day, Stop date: 08/28/15 9:27:00 [facility] Acetaminophen 2015-07-29 14:28:00 No 1,000 mg, Route: IVPB, Drug form: INJ, ONCE, Dosing Weight 104.545, kg, PRN Pain Score 1-3, Start date: 07/29/15 9:28:00, Duration: 1 doses or times, Stop date: Limited # of times [facility] pantoprazole 2015-07-29 14:00:00 No 40 mg, Route: PO, Drug form: ECTAB, Daily, Dosing Weight 104.545, kg, Start date: 07/29/15 9:00:00, Duration: 30 day, Stop date: 08/27/15 9:00:00 [facility] docusate sodium 100 mg oral capsule 2015-07-29 14:00:00 No Notes: (Same as: Colace) (Do Not Crush) [facility] influenza virus vaccine, inactivated 2015-07-29 14:00:00 No Notes: (Same as: Fluzone Quadrivalent) For 3 years of age and older (0.5 mL IM) Shake well before use [facility] Al hydroxide/Mg hydroxide/simethicone 200 mg-200 mg-20 mg/5 mL oral suspension 2015-07-29 13:56:00 No Note s: (aluminum hydroxide-magnesium hyd- simethicone [phone]/5ml 30 ml ud SARAH) [facility] Diphenhydramine 2015-07-29 13:56:00 No 12.5 mg, 0.5 tab, Route: PO, Drug form: TAB, Q6H, Dosing Weight 104.545, kg, PRN Itching, Start date: 07/29/15 8:56:00, Duration: 30 day, Stop date: 08/28/15 8:55:00 [facility] Dulcolax Laxative 2015-07-29 13:56:00 No Notes: (Same As: Dulcolax, Correctol) (Do Not Crush) "Do Not Crush" [facility] Morphine 2015-07-29 13:56:00 No Not es: (Same as:MORPhine Sulfate) [facility] Acetaminophen 2015-07-29 13:56:00 No Notes: Do not exceed 4 gm/day. (Same as: Tylenol) [facility] Acetaminophen 325 MG / Hydrocodone Bitartrate 10 MG Oral Tab let 2015-07-29 13:56:00 No Notes: Do not exceed 4gm/day of acetaminophen. (Same as: [place] 325/10) [facility] Lactated Ringers IV 1,000 mL 2015-07-29 13:56:00 No 1,000 mL, Rate: 75 ml/hr, Infuse over: 13.3 hr, Route: IV, Dosing Weight 104.545 kg, Total Volume: 1,000, Start date: 07/29/15 8:56:00, Duration: 30 day, Stop date: 08/28/15 8:55:00 [facility] Ancef 2015-07-29 12:47:00 No Notes: Same as : [facility] Calcium Chloride 0.0014 MEQ/ML / Potassi um Chloride 0.004 MEQ/ML / Sodium Chloride 0.103 MEQ/ML / Sodium Lactate 0.028 MEQ/ML Injectable Solution 2015-07-29 12:45:00 No 1,000 mL, Rate: 25 ml/hr, Infuse over: 40 hr, Route: IV, Dosing Weight 104.545 kg, Total Volume: 1,000, Start date: 07/29/15 7:45:00, Duration: 30 day, Stop date: 08/28/15 7:44:00 [facility] Antivert 2015-07-28 18:00:00 No Notes: (Juan e as: Antivert) [facility] Nitroglycerin 0.4 MG Sublingual Tablet 2015-07-28 16:46:00 No Notes: (Same as:Nitroquick, Nitrostat) "Do Not Crush" Sublingual tablet [facility] Atropine 2015-07-28 16:46:00 No 0.5 mg, 5 mL, Route: IVP, Drug form: INJ, ONCE, Dosing Weight 104.545, kg, PRN Bradycardia, Start date: 07/28/15 11:46:00, for symptomatic bradycardia [facility] Solu-Medrol 2015-07-28 14:30:00 No Notes: (Same as:Solu-MEDROL, A-Methapred) [facility] heparin sodium, porcine 2500 UNT/ML Injectable Solution 2015-07-28 02:00:00 No Notes: porcine heparin [facility] Protonix 2015-07-27 21:30:00 No Notes: Tablet should not be chewed or crushed. (Same as: Protonix) [facility] Claritin 2015-07-27 14:00:00 No Notes: 1 hr before meals (Same as: Claritin) [facility] hydrochlorothiazide 25 mg oral tablet 2015-07-27 14:00:00 N o Notes: (Same as: Hydrodiuril) With food. [facility] Prevacid 2015-07-27 14:00:00 No 15 mg, Route: PO, Drug form: ECCAP, Daily, Dosing Weight 104.545, kg, Start date: 07/27/15 9:00:00, Duration: 30 day, Stop date: 08/25/15 9:00:00 [facility] lamotrigine 100 MG Oral Tablet 2015-07-27 14:00:00 No Notes: (Same as:LaMICtal) [facility] Hydrochlorothiazide 25 MG / Losartan Potassium 100 MG Oral T ablet 2015-07-27 14:00:00 No 1 tab, Rou te: PO, Drug Form: TAB, Dosing Weight 104.545, kg, Daily, Start date: 07/27/15 9:00:00, Duration: 30 day, Stop date: 08/25/15 9:00:00 [facility] Clarice 2015-07-27 14:00:00 No 180 mg, Route: PO, Drug form: TAB, Daily, Dosing Weight 104.545, kg, Start date: 07/27/15 9:00:00, Duration: 30 day, Stop date: 08/25/15 9:00:00 [facility] Citalopram 2015-07-27 14:00:00 No Notes: (S dk As: CeleXA) [facility] Cozaar 2015-07-27 14:00:00 No Notes: (Same as: Cozaar) [facility] Thyroxine 2015-07-27 11:30:00 No Notes: Take 1 hour before or 2 hours after meal; Enteral feeds may interefere with the absorption of this medication. (Same as: Levothroid) [facility] Simvastatin 2015-07-27 02:00:00 No Notes: ( Same as: Zocor) [facility] Rocephin 2015-07-27 01:00:00 No Notes: (Same As: Rocephin). Use with 100ml NS mini-bag PLUS and infuse over 30 min MEDICATION WASTE Product Size: 1000 mg Product Wasted: ___ mg [facility] Solu-Medrol 2015-07-26 22:50:00 No Notes: (Same as:Solu-MEDROL, A-Methapred) [facility] Meclizine 2015-07-26 22:49:00 No Notes: ( me as: Antivert) [facility] Miralax 2015-07-26 22:16:00 No Notes: Dissolve in 8 oz of water or juice. (Same as: Miralax) [facility] Zofran 2015-07-26 22:16:00 No Notes: (Same as: Zofran) MEDICATION WASTE Product Size: 4 mg Product Wasted: ___ mg [facility] Tylenol 2015-07-26 22:16:00 No Notes: Max acetaminophen = 4000mg/day (4 gm/day). (Same as: Tylenol) [facility] Restoril 2015-07-26 22:16:00 No Notes: ([facility] e As: Restoril) [facility] Acetaminophen 325 MG / Hydrocodone Bitartrate 5 MG Oral Tabl et [[place] 5/325] 2015-07-26 22:15:00 No Notes: (Same as: [place] 325/5) Do not exceed 4gm/day of acetaminophen. [facility] Clonidine Hydrochloride 0.1 MG Oral Tablet 2015-07-26 22:15:00 No Notes: (Same As: Catapres) [facility] Ondansetron 2015-07-26 21:30:00 No Notes: (Same as: Zofran) MEDICATION WASTE Product Size: 4 mg Product Wasted: ___ mg [facility] Morphine 2015-07-26 21:30:00 No Not es: (Same as:MORPhine Sulfate) [facility] lansoprazole 15 MG Enteric Coated Capsule [Prevacid] 2 20:16:00 Yes 15 mg = 1 cap, PO, Daily, 0 Refill(s) [facility] levothyroxine 200 mcg (0.2 mg) oral tablet 2015-07-26 20:16:00 No 200 microgram = 1 tab, PO, Q630AM, 0 Refill(s) [facility] Hydrochlorothiazide 25 MG / Losartan Potassium 100 MG Oral T ablet 2015-07-26 20:16:00 Yes 1 tab, PO, Daily, 0 Refill(s) [facility] citalopram 40 mg oral tablet 2015-07-26 20:15:00 Yes 80 mg = 2 tab, PO, Daily, 0 Refill(s) [facility] Fexofenadine hydrochloride 180 MG Oral Tablet [Clarice] 2015-07-26 20:15:00 Yes 180 mg = 1 tab, PO, Daily, 0 Refill(s) [facility] simvastatin 40 mg oral tablet 2015-07-26 20:15:00 Yes 40 mg = 1 tab, PO, Bedtime, 0 Refill(s) [facility] lamotrigine 100 MG Oral Tablet 2015-07-26 20:15:00 Yes 300 mg = 3 tab, PO, Daily, 0 Refill(s) [facility] temazepam 30 mg oral capsule 2015-07-26 20:14:00 Yes 30 mg = 1 cap, PO, Bedtime, 0 Refill(s) [facility] Levaquin 2015-07-26 20:00:00 No Notes: (Juan e as:Levaquin) [facility] Sodium Chloride 0.9% (titrate) 250 mL 2015-07-26 19:26:00 N o 250 mL, Rate: call center associate for use with blood product administration, Dosing Weight 104.545, kg, Route: IV, Total Volume: 250, Start Date: 07/26/15 14:26:00, Duration: 1 day, Stop date: 07/27/15 14:25:00, Replace Every: 24 hr [facility] potassium chloride 2015-07-26 18:30:00 No Notes: (Same as: Walker ) "Do Not Crush" With food and full glass of water [facility] Acetaminophen 325 MG / Hydrocodone Bitartrate 10 MG Or al Tablet [[place] 10/325] 2015-07-23 02:50:00 Yes 1 ta b, PO, Q6H, PRN for pain, X 5 day, # 20 tab, 0 Refill(s) [facility] Acetaminophen 325 MG / Hydrocodone Bitartrate 10 MG Oral Tab let 2015-07-23 00:42:00 No 1 tab, Rou te: PO, Dosing Weight 104.545, kg, ONCE, STAT, Start date: 07/22/15 19:42:00, Stop date: 07/22/15 19:42:00 [facility] Vital Signs Vital Name Observation Time Observation Value Comments Source Heart Rate 2018-08-20 22:14:00 [facility] Temperature Oral (F) 2018-08-20 22:14:00 98.4 F [facility] Systolic (mm Hg) 2018-08-20 22:14:00 [facility] Diastolic (mm Hg) 2018-08-20 22:14:00 [facility] Respitory Rate 2018-08-20 22:14:00 [facility] Systolic (mm Hg) 2018-08-20 18:30:00 [facility] Diastolic (mm Hg) 2018-08-20 18:30:00 [facility] Respitory Rate 2018-08-20 18:30:00 [facility] Respitory Rate 2018-08-20 18:15:00 [facility] Systolic (mm Hg) 2018-08-20 18:15:00 [facility] Diastolic (mm Hg) 2018-08-20 18:15:00 [facility] Heart Rate 2018-08-20 12:39:00 [facility] Temperature Oral (F) 2018-08-20 12:39:00 98.5 F [facility] Temperature Oral (F) 2018-08-20 09:15:00 98.9 F [facility] Heart Rate 2018-08-20 09:15:00 [facility] Weight 2018-08-18 21:34:00 [facility] BMI Calculated 2018-08-18 21:34:00 [facility] Height 2018-08-18 21:34:00 162.56 cm [facility] Temperature Oral (F) 2015-08-04 20:53:00 97.6 [facility] Systolic (mm Hg) 2015-08-04 20:53:00 [facility] Diastolic (mm Hg) 2015-08-04 20:53:00 [facility] Respitory Rate 2015-08-04 20:53:00 [facility] Heart Rate 2015-08-04 20:53:00 [facility] Heart Rate 2015-08-04 17:42:00 [facility] Temperature Oral (F) 2015-08-04 17:42:00 98.4 [facility] Systolic (mm Hg) 2015-08-04 17:42:00 [facility] Diastolic (mm Hg) 2015-08-04 17:42:00 [facility] Respitory Rate 2015-08-04 17:42:00 [facility] Temperature Oral (F) 2015-08-04 13:02:00 98.6 F [facility] Heart Rate 2015-08-04 13:02:00 [facility] Respitory Rate 2015-08-04 13:02:00 [facility] [place] Systolic (mm Hg) 2015-08-04 13:02:00 [facility] Diastolic (mm Hg) 2015-08-04 13:02:00 [facility] Height 2015-07-30 14:23:00 162.5 cm [facility] BMI Calculated 2015-07-30 14:23:00 [facility] Weight 2015-07-30 14:23:00 [facility] Weight 2015-07-28 20:54:00 [facility] Height 2015-07-26 21:07:00 162.56 cm [facility] Weight 2015-07-26 21:07:00 [facility] BMI Calculated 2015-07-26 21:07:00 [facility] [place] BMI Calculated 2015-07-26 14:31:00 [facility] Height 2015-07-26 14:31:00 162.56 cm [facility] Systolic (mm Hg) 2015-07-23 03:40:00 [facility] Diastolic (mm Hg) 2015-07-23 03:40:00 [facility] Respitory Rate 2015-07-23 03:40:00 [facility] Temperature Oral (F) 2015-07-23 03:40:00 98.9 F [facility] Heart Rate 2015-07-23 03:40:00 [facility] Weight 2015-07-23 00:12:00 [facility] BMI Calculated 2015-07-23 00:12:00 [facility] Height 2015-07-23 00:12:00 162.56 cm [facility] Temperature Oral (F) 2015-07-23 00:12:00 99.2 [facility] Systolic (mm Hg) 2015-07-23 00:12:00 [facility] Diastolic (mm Hg) 2015-07-23 00:12:00 [facility] Respitory Rate 2015-07-23 00:12:00 [facility] [place] Heart Rate 2015-07-23 00:12:00 [facility] Procedures Procedure Date / Time Performed Performing Clinician [facility] [U] XRAY HAND MIN 3 VWS LEFT [id number] 2018-08-18 00:00:00 [facility]icians Abdominal hysterectomy [facility], [facility] Appendectomy [facility], [facility] Encounters Start Date/Time End Date/Time En[facility] ID Source 2019-01-20 10:21:00 2019-07-02 23:59:00 Outpatient RENATO DOUGLAS OM C [facility] PT [id number] [facility] 2018-10-05 09:45:00 2018-10-05 12:53:00 Departed Emergency Room 1 CUCO BALDERAS [facility] [id number] [facility] 2018-08-30 21:18:00 2018-08-31 00:00:00 Departed Emergency Room [facility] [id number] [facility] 2018-08-18 21:10:00 2018-08-20 22:28:00 Inpatient [facility] [id number] [facility] 2018-08-18 16:10:00 2018-08-20 17:28:00 Outpatient Mariaa Bauman [facility] [id number] 2018-08-18 09:00:00 2018-08-18 09:00:00 Appointment; DOROTHY NASCIMENTO, P.ALEXANDRU JEFFERS, PRemy [facility] Orthopedics at [facility] [id number] [facility] 2018-07-13 05:08:00 2018-07-13 06:49:00 Departed Emergency Room [facility] [id number] [facility] Patients [facility] 2018-03-27 17:55:00 2018-03-27 19:00:00 Departed Emergency Room [facility] [id number] [facility] - Patients [facility] 2017-12-11 15:49:00 2017-12-12 05:59:00 Outpatient [facility] [id number] [facility] 2017-12-11 09:49:00 2017-12-11 23:59:00 Outpatient Maggie Haskins [facility] [id number] 2017-07-22 13:10:00 2017-07-22 13:10:00 Outpatient [facility] [id number] [facility] 2015-07-26 14:30:00 2015-08-05 00:25:00 Inpatient [facility] [id number] [facility] 2015-07-26 09:30:00 2015-08-04 19:25:00 Outpatient Zafar New [facility] [id number] 2015-07-23 00:06:00 2015-07-23 03:42:00 Emergency Center [facility] [id number] [facility] 2015-07-22 19:06:00 2015-07-22 22:42:00 Outpatient Bipin Edwards [facility] [id number] Results Test Description Test Time Test Comments Results Result Comments Source RAD, BONE DENSITY STUDY 2019-12-09 14:28:00 Reason for Exam:->sc missy FINAL REPORT Bone mineral density study 12/09/2019. [...] the lumbar spine. Diagnostic criteria (World Health Organization)-Normal: BMD measurement less than one standard deviation from young adult populationOsteopenia: BMD measurement between 1 and 2.4 standard deviations belowOsteoporosis: BMD measurement greater than or equal to 2.5 standard deviations belowSevere osteoporosis: Osteoporosis and one or more fragility fractures Signed: Valentin Segura MDReport Verified Date/Time: 12/09/2019 14:28:58 Reading Location: [facility] Women , DIGITAL, MAMMO, SCREENING, WITH DIONE, BILATERAL IN CLUDING CAD 2019-04-23 09:16:00 Reason for Exam:->annual Addendum BeginsN#: [id number] 9Normal Exam AMENDMENT: 04/23/2019 Tom Marquez M.D. Comparison with the prior 12/11/2017 mammograms shows no significant interval change.Impression: Benign, BIRADS 2, recommended annual mammogram. Amended BI-RADS: 2 [facility]ign [id number] - MM, DIGITAL, MAMMO, SCREENING, WITH DIONE, BILATERAL INCLUDING CADBILATERAL DIGITAL SCREENING MAMMOGRAM 3D/2D WITH CAD: 03/16/2019No prior exams were available for comparison. There are scattered fibroglandular elements in both breasts that could obscure a lesion on mammography. Tomosynthesis 3D imaging of the breast was also performed. Current study was also evaluated with a Computer Aided Detection (CAD) system. There is a global asymmetry in the right breast at 7 o'clock middle depth. No other significant findings are seen in either breast. IMPRESSION: INCOMPLETE: NEEDS ADDITIONAL IMAGING EVALUATIONPrevious films are not available. If they become available, they will be reviewed and we will issue an addendum. Tom Marquez M.D. pth/:03/16/2019 13:59:18 Comparison Films Needed Mammogram BI-RADS: 0 Indeterminate UE EXAM 2019-01-05 16:49:00 Surgical Pat hology Report Case: [id number] Authorizing Provider: Herrera Ray MD Collected: 01/02/2019 1008 Ord ering Location: [facility] Endoscopy Received: 01/02/2019 1148 Services Pathologist: Mariangel Maldonado MD Specimen: Biopsy, Gastric, random bx STOMACH, RANDOM, ENDOSCOPIC BIOPSY: - MILD CHRONIC GASTRITIS WITH FOCAL EROSION - NO INTESTINAL METAPLASIA SEEN - NO HELICOBACTER PYLORI- LIKE ORGANISMS SEEN ON WARTHIN-STARRY STAIN - NO DYSPLASIA OR MALIGNANCY NOTED Signing Pathologist Direct Phone Line: [phone] signed by Mariangel Maldonado MD on 01/05/2019 at 4:49 [id number]; [id number] for colon cancer, reflux esophagitis Random gastric biopsy The specimen is received in a formalin-filled container labeled with the patient's information and labeled "random gastric biopsy" and consists of three fragments of alan tissue ranging from 0.1 to 0.4 cm, submitted entirely in A1. CG/ew PERFORMEDThe interpretation of this case included the use of immunohistochemistry or special stains. WARTHIN-STARRYImmunohistochemistry technical testing was performed at [facility] Pathology [facility] where it was developed and its performance characteristics were determined. It has not been cleared or approved by the U.S. Food and Drug Administration. The FDA has determined that such clearance or approval is not necessary. The test is used for clinical purposes. It should not be regarded as investigational or for research. This laboratory is certified under the Clinical Laboratory Improvement Amendments of 1988 (CLIA-88) as qualified to perform high complexity clinical laboratory testing. CT BRAIN WO-HOPD 2018-10-05 10:30:00 [place] [address] Patient Name: SYED SPENCE MR #: [id number] : 1950 Age/Sex: 67/F Req #: [id number] [facility] Physician: Ordered by: CUCO BALDERAS MD Report #: [id number] Location: [facility] Room/Bed: Procedure: [id number] [facility]: 10/05/18 Exam Time: 1024 REPORT STATUS: Signed Examination: CT head without contrast Clinical Indication: Headaches. Technique: Transaxial noncontrast images from the skull base through the vertex were obtained. Sagittal and coronal reformatted images were done. Dose modulation, iterative reconstruction, and/or weight based adjustment of the mA/kV was utilized to reduce the radiation dose to as low as reasonably achievable. Comparison: None. Findings: Scalp: No abnormalities. Bones: Intact. No fractures. No blastic or lytic lesions. Brain sulci: Appropriate for patient's age. Ventricles: Normal in size and configuration. No hydrocephalus. . Extra- axial space: No abnormalities. Parenchyma: There are patchy areas of low-attenuation within subcortical and periventricular white matter, nonspecific, but could represent microvascular ischemic disease. No masses, hemorrhage, or acute or chronic cortical based vascular insults. Suprasellar region: No abnormalities. Craniocervical junction: The foramen magnum is patent. No Chiari one malformation. Incidental findings: Atherosclerotic calcification of the cavernous and supraclinoid internal carotid arteries. Impression: 1. No acute intracranial finding. 2. Mild chronic microvascular ischemic change. Signed by: Dr. Jannette Caruso M.D. on 10/05/2018 10:32 AM Dictated By: JANNETTE CANDELARIA MD 1032 Transcribed By: BRITNEY on 10/05/18 1032 COPY TO: CUCO BALDERAS MD [employer]B CULTURE + SMEAR 2018-08-24 16:58:00 Test Item CULTURE (BEAKER) (test code = 1095) No acid-fast bacilli isolate d in 42 days AFB SMEAR (BEAKER) (test code = 994) No partially acid fast bacilli seen CHLORAMPHENICOL:SUSC:PT:ISOLATE:ORDQN:[id number] 16:24:00Methicillin Resistant St[facility] PENICILLIN:SUSC:PT:ISOLATE:ORDQN:[id number] 16:24:00Methicillin Resistant Staphylococcus aureusBig [facility] CenterUjujzxWYBKTACBPTYX6472-20-32 08:46:0012.3 [facility] CenterDpplyxFHDNFOFHUQOQ5208-20-40 08:46:0079[facility] MRETOHSJGUTM1750-76-56 08:46:009.0[facility] CenterJfhijwRFCZAGIEBVHI0975-00-80 08:46:61042LIBig [facility] CenterNwcgusGUBDOHBBRGCI1314-37-43 08:46:0026[facility] CenterInpeaxXZIAXBSYPZKC4408-76-73 08:46:[address] [place] [address] HXAJIQIARKIA7487-96-66 08:46:0089[facility] CenterHmrshvEWCYVOBFCUQF9440-82-20 08:46:0012[facility] CenterIdgufhYKLVHSXDVFHD4182-17-76 08:46:14152JYBig [facility] CenterRyyofdMCFGKVPVMANC1608-81-47 08:46:000.77[facility] CYIOMERUFO9812-31-35 08:46:0012.5[facility] CenterRncasrBDVHTCRVUS8119-52-01 08:46:00* Test Item Value Reference Range Interpretation Comments MCH (test code = MCH) 30.8 pg 27.0-31.0 [facility] CenterZvnrtyDGKMGZPOGW6234-03-46 08:46:[address] [place] [address] MGUSZSMRYO8596-56-22 08:46:004.07[facility] CenterLgamnpVBFXNCROOP7272-02-92 08:46:008.7[facility] CenterHwtqyyYIOHQYYENY8025-63-19 08:46:0034.5[facility] CenterUpilysRFVMLVORKP0477-75-47 08:46:14855WVBig [facility] Regional Medical CenterHEMATOLOGY 2018-08-20 08:46:[address] [place], [place] [address]SfoucdINEUIMAHXQ9354-12-48 08:46:0013.7 [facility] CenterUhwpeaMVQCQSGGLD7006-90-22 08:46:005.5[facility] LMVHYTDMZC9970-36-22 08:46:[address] [place], [place] [address]DnsscjWRQPLWHSVN3123-62-71 08:46:000.6[facility] Harker HeightsZldnuhNPAJWUQDNF7798-67-04 08:46:002.2MS[facility] Harker HeightsMjradsMPUPYXMQOU0556-57-73 08:46:002.4[facility] CenterHEMATOLOGY 2018-08-20 08:46:0042.9[facility] CenterYfddicSPGFUMAZDW6687-64-60 08:46:0010.5 [facility] CenterBshsrkHYLPSUUZOG5315-10-37 08:46:0040.7[facility] CNHKLMZBIS2461-12-94 08:46:000.5[facility] CenterSmstlaKIRWVIHXOK4332-04-17 08:46:005.4[facility] CenterBLOOD BANK AIIDRBJ0072-45-58 18:12:00Negative (08/19/18 1:12 PM)[facility]2018-10-16 18:12:00* Test Item Value Reference Range Interpretation Comments INR (test code = INR) 1.05 1 0.85-1.17 [facility] CenterCfynotUUWWABTWOO1968-09-43 18:12:00* Test Item Value Reference Range Interpretation Comments PTT (test code = PTT) 28.6 s 22.9-35.8 [facility]2018-10-16 18:12:00* Test Item Value Reference Range Interpretation Comments PT (test code = PT) 13.7 s 12.0-14.7 [facility] HDKHKWBFV1572-71-66 18:12:005[address] [place], [place] [address]CHEM SMDXB4042-03-65 02:07:0084[facility] CenterCHEM TKLGW2233-38-65 02:07:004.[address] [place], [place] [address]CHEM PYLHF9204-19-37 02:07:26596BABig Bend Regional Medical CenterCHEM HJPEF4548-79-98 02:07:008[address] [place], [place] [address]CHEM PANEL 2018-08-19 02:07:0024[facility] CenterCHEM SBXOQ5685-52-18 02:07:17776AQBig [facility] Regional Medical CenterCHEM ETSYD8884-95-81 02:07:0083[facility] CenterCHEM NWEQP1281-62-20 02:07:000.73[facility] CenterCHEM DUQOC5138-43-12 02:07:[address] [place], [place] [address]CHEM HXPHB8786-86-67 02:07:0013.[address] [place] [address] GJHQUNLUDD9898-46-93 02:07:00* Test Item Value Reference Range Interpretation Comments MCH (test code = MCH) 30.0 pg 27.0-31.0 [facility] CenterIlpusfQNOAGANBLF3822-74-35 02:07:0012.[address] [place] [address] TRLBTDRWMR3211-22-33 02:07:0033.5[facility] CenterGejfknLKZVKAJOKR0675-37-14 02:07:48111FPBig [facility] Regional Medical CenterRonjsjDNHXYDGBNS4837-52-48 02:07:0089.6MS[facility] Harker HeightsWkfxzlDQPKVHFSRI2848-79-62 02:07:008.8[facility] CenterHEMATOLOGY 2018-08-19 02:07:0013.5[facility] CenterAhmzptEVFJEAQADO5876-59-69 02:07:[address] [place], [place] [address]AulqgtMGWCEWAWVG0049-66-89 02:07:[address] [place] [address] HYIEKGGPCS8379-46-94 02:07:004.06[facility] CenterTyprbuJCJEQHTJVP5040-49-98 02:07:007[facility] CenterEjlptfGSVEAXDWLN5836-10-41 02:07:00<2.9[facility] CenterSozvoaHKAHWDHMZX4226-29-62 00:28:001[facility][U] XRAY HAND MIN 3 VWS LEFT [id number] 10:17:00* Test Item Value Reference Range Interpretation Comments XR HAND MIN 3 VWS LEFT (test code = XR HAND MIN 3 VWS LEFT) EXAM: XR HAND MIN 3 VWS LEFT [...] changes. 08/18/2018 4:59 PM CDT Abida Ray [facility] PhysiciansFUNGUS CULTURE + [id number] 06:54:00* Test Item Value Reference Range Interpretation Comments CULTURE (BEAKER) (test code = 1095) No fungus isolated in 28 days FUNGUS SMEAR (BEAKER) (test code = 1406) No fungi seen ANAEROBIC [id number] 19:11:00* Test Item Value Reference Range Interpretation Comments CULTURE (BEAKER) (test code = 1095) No anaerobes isolated SURGICALLY OBTAINED CULTURE + GRAM [id number] 13:47:00* Test Item Value Reference Range Interpretation Comments CULTURE (BEAKER) (test code = 1095) A 1+ Methicillin resistant Staphylococcus aureus GRAM STAIN RESULT (BEAKER) (test code = 1123) <1+ WBCs GRAM STAIN RESULT (BEAKER) (test code = 22868) <1+ gram posi tive cocci in pairs VANCOMYCIN LEVEL, [id number] 07:17:00* Test Item Value Reference Range Interpretation Comments VANCOMYCIN TROUGH (BEAKER) (test code = 522) 16.6 ug/mL 10.0-20.0 Draw trough level prior to dose administration.SPIN/CONCENTRATION CHARGE 2018-07-15 07:35:00* Test Item Value Reference Range Interpretation Comments CONCENTRATION CHARGED (BEAKER) (test code = 2657) Done BASIC METABOLIC [id number] 07:06:00* Test Item Value Reference Range Interpretation Comments SODIUM (BEAKER) (test code = 381) 137 meq/L 136-145 POTASSIUM (BEAKER) (test code = 379) 4.3 meq/L 3.5-5.1 CHLORIDE (BEAKER) (test code = 382) 104 meq/L 98-107 CO2 (BEAKER) (test code = 355) 27 meq/L 22-29 BLOOD UREA NITROGEN (BEAKER) (test code = 354) 13 mg/dL 7-21 CREATININE (BEAKER) (test code = 358) 0.66 mg/dL 0.57-1.25 GLUCOSE RANDOM (BEAKER) (test code = 652) 99 mg/dL 70-105 CALCIUM (BEAKER) (test code = 697) 9.0 mg/dL 8.4-10.2 EGFR (BEAKER) (test code = 1092) 89 mL/min/1.73 sq m ESTIMATED GFR IS NOT ACCURATE CREATININE CLEARANCE IN PREDICTING GLOMERULAR FILTRATION RATE. ESTIMATED GFR IS NOT APPLICABLE FOR DIALYSIS PATIENTS. CBC W/PLT COUNT & AUTO [id number] 06:47:00* Test Item Value Reference Range Interpretation Comments WHITE BLOOD CELL COUNT (BEAKER) (test code = 775) 10.6 K/ L 3.5- 10.5 H RED BLOOD CELL COUNT (BEAKER) (test code = 761) 3.78 M/ L 3.93-5 .22 L HEMOGLOBIN (BEAKER) (test code = 410) 11.1 GM/DL 11.2-15.7 L HEMATOCRIT (BEAKER) (test code = 411) 34.4 % 34.1-44.9 MEAN CORPUSCULAR VOLUME (BEAKER) (test code = 753) 91.0 fL 79. 4-94.8 MEAN CORPUSCULAR HEMOGLOBIN (BEAKER) (test code = 751) 29.4 pg 25.6-32.2 MEAN CORPUSCULAR HEMOGLOBIN CONC (BEAKER) (test code = 752) 32.3 GM/DL 32.2-35.5 RED CELL DISTRIBUTION WIDTH (BEAKER) (test code = 412) 12.4 % 11.7-14.4 PLATELET COUNT (BEAKER) (test code = 756) 204 K/CU MM 150-450 MEAN PLATELET VOLUME (BEAKER) (test code = 754) 11.0 fL 9.4-12 .3 NUCLEATED RED BLOOD CELLS (BEAKER) (test code = 413) 0 /100 WBC 0 -0 NEUTROPHILS RELATIVE PERCENT (BEAKER) (test code = 429) 75 % LYMPHOCYTES RELATIVE PERCENT (BEAKER) (test code = 430) 14 % MONOCYTES RELATIVE PERCENT (BEAKER) (test code = 431) 10 % EOSINOPHILS RELATIVE PERCENT (BEAKER) (test code = 432) 0 % BASOPHILS RELATIVE PERCENT (BEAKER) (test code = 437) 0 % NEUTROPHILS ABSOLUTE COUNT (BEAKER) (test code = 670) 7.98 K/ L 1.56-6.13 H LYMPHOCYTES ABSOLUTE COUNT (BEAKER) (test code = 414) 1.47 K/ L 1.18-3.74 MONOCYTES ABSOLUTE COUNT (BEAKER) (test code = 415) 1.09 K/ L 0. 24-0.36 H EOSINOPHILS ABSOLUTE COUNT (BEAKER) (test code = 416) 0.00 K/ L 0.04-0.36 L BASOPHILS ABSOLUTE COUNT (BEAKER) (test code = 417) 0.01 K/ L 0. 01-0.08 IMMATURE GRANULOCYTES-RELATIVE PERCENT (BEAKER) (test code = 2801) 1 % 0-1 BASIC METABOLIC [id number] 05:16:00* Test Item Value Reference Range Interpretation Comments SODIUM (BEAKER) (test code = 381) 137 meq/L 136-145 POTASSIUM (BEAKER) (test code = 379) 4.4 meq/L 3.5-5.1 CHLORIDE (BEAKER) (test code = 382) 104 meq/L 98-107 CO2 (BEAKER) (test code = 355) 27 meq/L 22-29 BLOOD UREA NITROGEN (BEAKER) (test code = 354) 11 mg/dL 7-21 CREATININE (BEAKER) (test code = 358) 0.75 mg/dL 0.57-1.25 GLUCOSE RANDOM (BEAKER) (test code = 652) 104 mg/dL 70-105 CALCIUM (BEAKER) (test code = 697) 9.2 mg/dL 8.4-10.2 EGFR (BEAKER) (test code = 1092) 77 mL/min/1.73 sq m ESTIMATED GFR IS NOT ACCURATE CREATININE CLEARANCE IN PREDICTING GLOMERULAR FILTRATION RATE. ESTIMATED GFR IS NOT APPLICABLE FOR DIALYSIS PATIENTS. CBC W/PLT COUNT & AUTO [id number] 04:29:00* Test Item Value Reference Range Interpretation Comments WHITE BLOOD CELL COUNT (BEAKER) (test code = 775) 8.9 K/ L 3.5- 10.5 RED BLOOD CELL COUNT (BEAKER) (test code = 761) 4.11 M/ L 3.93-5 .22 HEMOGLOBIN (BEAKER) (test code = 410) 12.1 GM/DL 11.2-15.7 HEMATOCRIT (BEAKER) (test code = 411) 37.4 % 34.1-44.9 MEAN CORPUSCULAR VOLUME (BEAKER) (test code = 753) 91.0 fL 79. 4-94.8 MEAN CORPUSCULAR HEMOGLOBIN (BEAKER) (test code = 751) 29.4 pg 25.6-32.2 MEAN CORPUSCULAR HEMOGLOBIN CONC (BEAKER) (test code = 752) 32.4 GM/DL 32.2-35.5 RED CELL DISTRIBUTION WIDTH (BEAKER) (test code = 412) 12.4 % 11.7-14.4 PLATELET COUNT (BEAKER) (test code = 756) 206 K/CU MM 150-450 MEAN PLATELET VOLUME (BEAKER) (test code = 754) 11.0 fL 9.4-12 .3 NUCLEATED RED BLOOD CELLS (BEAKER) (test code = 413) 0 /100 WBC 0 -0 NEUTROPHILS RELATIVE PERCENT (BEAKER) (test code = 429) 71 % LYMPHOCYTES RELATIVE PERCENT (BEAKER) (test code = 430) 17 % MONOCYTES RELATIVE PERCENT (BEAKER) (test code = 431) 12 % EOSINOPHILS RELATIVE PERCENT (BEAKER) (test code = 432) 0 % BASOPHILS RELATIVE PERCENT (BEAKER) (test code = 437) 0 % NEUTROPHILS ABSOLUTE COUNT (BEAKER) (test code = 670) 6.31 K/ L 1.56-6.13 H LYMPHOCYTES ABSOLUTE COUNT (BEAKER) (test code = 414) 1.52 K/ L 1.18-3.74 MONOCYTES ABSOLUTE COUNT (BEAKER) (test code = 415) 1.03 K/ L 0. 24-0.36 H EOSINOPHILS ABSOLUTE COUNT (BEAKER) (test code = 416) 0.02 K/ L 0.04-0.36 L BASOPHILS ABSOLUTE COUNT (BEAKER) (test code = 417) 0.02 K/ L 0. 01-0.08 IMMATURE GRANULOCYTES-RELATIVE PERCENT (BEAKER) (test code = 2801) 0 % 0-1 RAD, HAND, 3 VIEWS, [id number] 13:37:00Reason for exam:->LEFT index finger infectionFINAL REPORT Left hand, three images HISTORY: Index finger infection COMPARISON: None IMPRESSION:No fracture or dislocation. Swelling of the second digit. No apparent soft tissue defect. No radiopaque foreign body. Interphalangeal and carpometacarpal degenerative changes are noted. Signed: Mariaa Hoffman MDReport Verified Date/Time: 07/13/2018 13:37:58 Reading Location: [facility] C013Y CT Body Reading Room C METABOLIC PANEL 2018-07-13 12:07:00* Test Item Value Reference Range Interpretation Comments SODIUM (BEAKER) (test code = 381) 134 meq/L 136-145 L POTASSIUM (BEAKER) (test code = 379) 4.2 meq/L 3.5-5.1 Specimen slightly hemolyzed CHLORIDE (BEAKER) (test code = 382) 102 meq/L 98-107 CO2 (BEAKER) (test code = 355) 25 meq/L 22-29 BLOOD UREA NITROGEN (BEAKER) (test code = 354) 10 mg/dL 7-21 CREATININE (BEAKER) (test code = 358) 0.77 mg/dL 0.57-1.25 Specimen slightly hemolyzed GLUCOSE RANDOM (BEAKER) (test code = 652) 117 mg/dL 70-105 H CALCIUM (BEAKER) (test code = 697) 9.0 mg/dL 8.4-10.2 EGFR (BEAKER) (test code = 1092) 74 mL/min/1.73 sq m ESTIMATED GFR IS NOT ACCURATE CREATININE CLEARANCE IN PREDICTING GLOMERULAR FILTRATION RATE. ESTIMATED GFR IS NOT APPLICABLE FOR DIALYSIS PATIENTS. CBC W/PLT COUNT & AUTO [id number] 11:32:00* Test Item Value Reference Range Interpretation Comments WHITE BLOOD CELL COUNT (BEAKER) (test code = 775) 7.6 K/ L 3.5- 10.5 RED BLOOD CELL COUNT (BEAKER) (test code = 761) 3.86 M/ L 3.93-5 .22 L HEMOGLOBIN (BEAKER) (test code = 410) 11.4 GM/DL 11.2-15.7 HEMATOCRIT (BEAKER) (test code = 411) 34.7 % 34.1-44.9 MEAN CORPUSCULAR VOLUME (BEAKER) (test code = 753) 89.9 fL 79. 4-94.8 MEAN CORPUSCULAR HEMOGLOBIN (BEAKER) (test code = 751) 29.5 pg 25.6-32.2 MEAN CORPUSCULAR HEMOGLOBIN CONC (BEAKER) (test code = 752) 32.9 GM/DL 32.2-35.5 RED CELL DISTRIBUTION WIDTH (BEAKER) (test code = 412) 12.5 % 11.7-14.4 PLATELET COUNT (BEAKER) (test code = 756) 225 K/CU MM 150-450 MEAN PLATELET VOLUME (BEAKER) (test code = 754) 10.9 fL 9.4-12 .3 NUCLEATED RED BLOOD CELLS (BEAKER) (test code = 413) 0 /100 WBC 0 -0 NEUTROPHILS RELATIVE PERCENT (BEAKER) (test code = 429) 64 % LYMPHOCYTES RELATIVE PERCENT (BEAKER) (test code = 430) 23 % MONOCYTES RELATIVE PERCENT (BEAKER) (test code = 431) 11 % EOSINOPHILS RELATIVE PERCENT (BEAKER) (test code = 432) 1 % BASOPHILS RELATIVE PERCENT (BEAKER) (test code = 437) 0 % NEUTROPHILS ABSOLUTE COUNT (BEAKER) (test code = 670) 4.88 K/ L 1.56-6.13 LYMPHOCYTES ABSOLUTE COUNT (BEAKER) (test code = 414) 1.78 K/ L 1.18-3.74 MONOCYTES ABSOLUTE COUNT (BEAKER) (test code = 415) 0.87 K/ L 0. 24-0.36 H EOSINOPHILS ABSOLUTE COUNT (BEAKER) (test code = 416) 0.06 K/ L 0.04-0.36 BASOPHILS ABSOLUTE COUNT (BEAKER) (test code = 417) 0.02 K/ L 0. 01-0.08 IMMATURE GRANULOCYTES-RELATIVE PERCENT (BEAKER) (test code = 2801) 0 % 0-1 ERRXDEVDSBUZ6293-10-13 08:51:37722JK[facility] HospitalOlujguavqWSHOQKHJLHMS7814-69-79 08:51:85914 [facility] HospitalQhnrmmyeaXRDTBWOSYGMT2568-73-67 08:51:003.4[facility] HospitalKqgnltjbcVFBPWOZSYSCX0977-80-13 08:51:0059[facility] HospitalFvibvrggvWIKNDFPYOXDV1538-31-58 08:51:008.9 [facility] CCZEVSSUNRUY4149-45-57 08:51:0010.4[facility] HospitalZprfwclnaEOLOAKLOGEXW4065-83-79 08:51:0030 AkbnkuyhwGHNUNOVSGTCZ7841-45-28 08:51:0085[facility] HospitalEqnxnlfqnTJZENIBOGTNP8905-02-44 08:51:001.0 UwyubydqvVUSZKQRUSEPR3716-64-40 08:51:0015 [facility] 2015-07-30 08:51:000.1M SjgulcdycGSEMIFBVAP3599-53-31 08:51:0010.4[facility] ZMZTFZCGDP8944-47-22 08:51:000.5 RspgnoetmMFUWCYMFCP1417-00-23 08:51:008.4 ElasfsplfACBVVGNTSH9197-09-39 08:51:002.2M VsomyrqwyNLUDGKFSYX4023-98-67 08:51:001.2M NiffcgpzzFZDORMVFCY2617-60-31 08:51:0070.5 [facility] 2015-07-30 08:51:0018.6M IeehlcamlSHOTWRWUPB9965-77-04 08:51:009.2[facility] ATHGVADNYN8060-38-65 08:51:0032.1M JshatueywEFRNGVWZWL2492-90-76 08:51:0013.8 HclvdfmbvDLHNZXISRA9392-08-17 08:51:39077ZQ VqdvzevqqPXISIAXKKP9132-11-72 08:51:0090.5 ZimmzkedhBUVIEEXROZ7732-13-69 08:51:00* Test Item Value Reference Range Interpretation Comments MCH (test code = MCH) 29.1 pg 27.0-31.0 XsvlmcaavDHOLPYADVS7032-98-05 08:51:0012.1M PkpcgggdvFUGMKIEUPA8686-19-45 08:51:0037.6M RurgertqbXGWGRWTAJP5449-95-60 08:51:0011.9 [facility] 2015-07-30 08:51:004.16 SoutheastCHEM PYYTT1967-19-31 08:56:0067 [facility] CHEM MGOZF2395-00-53 08:56:55525SM SoutheastCHEM BIGUM5203-67-13 08:56:004.9 [facility]CHE[facility] SLWDC8533-38-45 08:56:0033 [facility] DIXVC1650-20-69 08:56:009.2M [facility] NNIWS1489-31-57 08:56:71010CQ SoutheastCHEM PANEL 2015-07-29 08:56:89769EG [facility]CHEM JXZNG5695-75-57 08:56:000.9 [facility] CHE[facility] IRFXM8465-94-37 08:56:0015 [facility] DICMT8061-03-05 08:56:007.9 CcikcnroqIYBLUAQUSZ9632-00-84 08:56:001.9 SrictroioJSYKNATHUB8421-95-08 08:56:006.2M HpzevjvbuKHASFTQNNH6367-34-11 08:56:007.1M [facility] 2015-07-29 08:56:001.1M BkeahgcpwPIKTEAAPVU5283-20-12 08:56:000.2M [facility] IVBKTOZDOF7083-91-41 08:56:000.6M UvwzaognzSKENZJPZLD1818-81-44 08:56:000.1M TvdhjkidlJQMLIZYGEN2443-47-06 08:56:0012.2M KqtejnbnyGMSPCRGWQG7866-08-98 08:56:0078.9 HomfjcnanKKITSJBSOS9025-95-97 08:56:000.8MH [facility] 2015-07-29 08:56:009.0 GuttuswueQNNNYUTNDW2168-60-58 08:56:004.29MH [facility] HSNMPCNQWU3167-70-62 08:56:0033.0 WtyobxzluPUTFSGEOXA2500-62-74 08:56:00* Test Item Value Reference Range Interpretation Comments MCH (test code = MCH) 29.7 pg 27.0-31.0 HbtsnotyjTSZPMOEQFK8070-09-29 08:56:0012.7 IpjvdjnhdVJFIKAZNBV5423-41-76 08:56:0090.0 GwbwqmxxuITNBVGOTZT4520-51-28 08:56:0038.6MH [facility] 2015-07-29 08:56:0013.3M EpwhlnchiCDWFAZSVKV6963-45-72 08:56:009.2[facility] EUWMLZNAUN3458-32-32 08:56:93706XJ ScvozlcycFJMQVYWGTNYU6995-64-42 08:31:67911HT EmrcpxvtuQDHHWLUYNHFM5947-78-02 08:31:004.2M WybzalyxgCJRYUBJBDFPX4382-68-30 08:31:83674RF YqebafhkpZLNOADUXXRFR3844-93-22 08:31:0067 SoutheastELECTROLYTES 2015-07-28 08:31:0011.2M FdkghzixnNSEOXERSTCPW6697-37-93 08:31:008.8 WsymzwfimFHRIIFUWTQES6460-21-50 08:31:0018 SrzksxjsoNVOKKLJCVYJF9275-39-93 08:31:0031 LtxrrqysxVKSDBJTZQYFI5826-67-86 08:31:000.9 SoutheastELECTROLYTES 2015-07-28 08:31:0092 CdxnufuiuUUYGBPKRZY0277-54-67 08:31:004.00[facility] DKWVVIXFLN0233-16-83 08:31:0036.2M AjtnkerwjFAJBKBEMKN3159-30-24 08:31:0011.9 XdugxjgrsIPGXUFXLJE4976-27-94 08:31:009.7 TabgeyknwMKXTGOZAUE5855-12-60 08:31:0013.2M UkunurxynKNWBGQIYOB7603-90-89 08:31:20524DY [facility] 2015-07-28 08:31:008.0 XyfhoplxwHZROCZAFOA9996-56-46 08:31:00* Test Item Value Reference Range Interpretation Comments MCH (test code = MCH) 29.7 pg 27.0-31.0 KmfizqumoEGQBXODJLP4003-57-59 08:31:0090.4 AdegalneqICWDEXPFPP0482-05-29 08:31:0032.9 FrzmcnbvkZAZCBFPPFZ9468-59-54 08:31:0031.9 [facility] 2015-07-28 08:31:0058.7 WjxtqggyaMQBXIOQPBD5588-87-61 08:31:008.9[facility] PGBWPDAEKD3324-61-39 08:31:000.7 TsvyyrdnpAPTMIUVNLB1110-40-49 08:31:000.3M WniiaxqtvGMXXLSJHAF6209-03-83 08:31:004.7 LgsejwnisSNRSFVKSQG6259-31-63 08:31:002.5 FbzxleqrzZFUVFFLWAR8683-90-21 08:31:000.2M [facility] 2015-07-27 08:55:000.1M QygczmeeyRDWYPX0749-48-30 08:55:0014 SoutheastLIPIDS 2015-07-27 08:55:0076 VfkecywthMXQXWK7952-89-35 08:55:0071 [facility]LIPIDS 2015-07-27 08:55:002.73 XgzzgejfxOIFOHB3228-03-77 08:55:0052 SoutheastLIPIDS 2015-07-27 08:55:41107TA SoutheastSPECIAL GHLSWKPVD0948-69-72 08:55:005.9 SoutheastTHYROID GTWBX4428-44-33 08:55:000.056 SoutheastTHYROID PANEL 2015-07-27 08:55:001.47[facility] GHZSFBI9738-68-62 19:55:00Negative (07/26/15 2:55 PM) SoutheastDRUG PVOZWT5459-88-04 19:05:00Negative *NA*(07/26/15 2:05 PM)[facility] DBXWNU9122-81-86 19:05:00Negative *NA*(07/26/15 2:05 PM)[facility] OEOPRR2090-59-29 19:05:00Negative *NA*(07/26/15 2:05 PM)MH [facility]DR[facility] JPGUTW9031-04-46 19:05:00Negative *NA*(07/26/15 2:05 PM) [facility] TUJZWA3083-24-07 19:05:00Negative *NA*(07/26/15 2:05 PM) [facility] LUNLNH7602-17-22 19:05:00Positive *ABN*(07/26/15 2:05 PM) [facility] FLTEZB3087-92-03 19:05:00Negative *NA*(07/26/15 2:05 PM) [facility] FRQUJY3078-75-48 19:05:00See Note (07/26/15 2:05 PM) SoutheastURINE AND MPMES0067-72-59 19:05:003MH SoutheastURINE AND JTREU2601-99-51 19:05:00<1MH SoutheastURINE AND MBOYY9323-90-31 19:05:002.0 [facility]UR[facility] AND KOPQR2011-47-23 19:05:00Negative *NA*(07/26/15 2:05 PM) [facility] AND TMZRU1189-79-53 19:05:00Negative (07/26/15 2:05 PM) [facility] ENAOP5031-77-04 19:05:00Positive *ABN*(07/26/15 2:05 PM) [facility]URINE AND YYDLH2965-34-89 19:05:00Trace *ABN*(07/26/15 2:05 PM) [facility]UR[facility] AND CBXJF2629-13-81 19:05:006.0MH [facility]UR[facility] AND STOOL 2015-07-26 19:05:001.014 [facility] AND XVOMP1607-21-94 19:05:00Slight *ABN*(07/26/15 2:05 PM) SoutheastURINE AND FYXMQ5844-69-70 19:05:00Yellow *NA*(07/26/15 2:05 PM) SoutheastCARDIAC ROTYWXO2220-07-84 15:48:00<0.02 SoutheastCARDIAC DMNGAMB9851-08-81 15:48:002.1MH SoutheastCARDIAC ENZYMES 2015-07-26 15:48:35204KQ SoutheastCARDIAC DKHCONE9422-21-72 15:48:000.7MH SoutheastCHEM YWXRB3874-37-69 15:48:002.9[facility] NRUXM3438-79-64 15:48:001.2M[facility] HospitalCHEM ESQIQ3930-89-44 15:48:006.3M SoutheastCHEM PANEL 2015-07-26 15:48:003.4 [facility]CHEM ADUPQ4918-30-33 15:48:000.5[facility] CHEM MILKH6018-03-64 15:48:0016[facility] WRKZE2806-33-98 15:48:0068[facility]2015-09-22 15:48:0028[facility]2015-09-22 15:48:0029[facility] HospitalSsfwynkprSSFUZJEFDR6072-86-44 15:48:000.2MM[facility]irmaryATOLOGY 2015-07-26 15:48:00* Test Item Value Reference Range Interpretation Comments PTT (test code = PTT) 28.2 s 22.9-35.8 [facility] HospitalLysporyyuEQPJDDYAKL2932-79-70 15:48:00* Test Item Value Reference Range Interpretation Comments PT (test code = PT) 13.5 s 12.0-14.7 [facility] HospitalTyaxproscEACFEHNODP8927-99-59 15:48:001.00[facility]
[2020-03-30] MEDS ORDERED: ALBUTEROL/IPRATROPIUM 3 ML NEB NEB ONE (17:15)
[2020-03-30] MEDS ORDERED: ALBUTEROL/IPRATROPIUM 3 ML NEB ONE (17:41)
--- NOTE | 2020-03-30 18:24 | Diagnostic Imaging Report ---
Examination: Single AP view of the chest. COMPARISON: None. INDICATION: Fever, cough DISCUSSION: Lines/tubes: None. Lungs: Calcified granuloma left upper lung. No pneumonia or pulmonary edema. Pleura: No pleural effusion or pneumothorax. Heart and mediastinum: The heart and the mediastinum are unremarkable. Bones and soft tissues: No acute bony abnormalities. IMPRESSION: 1. No acute cardiopulmonary abnormalities. Signed by: Dr. Ino Mckeon M.D. on 03/30/2020 6:20 PM
[2020-03-30 18:25] VITALS: BP 160/89
--- NOTE | 2020-03-30 18:28 | Emergency Department Note ---
History of Present Illnes History of Present Illness Chief Complaint: Respiratory History of Present Illness This is a 69 year old female Chief Complaint Comment PT STATED SHE IS HAVING SOB OR TROUBLE BREATHING, WITH FEVER AND COUGH X6 MONTHS, PT STATED SHE HAD A COVID TEST DONE 3 WEEKS AGO AND THE TEST WAS NEGATIVE, PT IS SATING 100% IN TRIAGE, NO DISTRESS NOTED Historian: Patient Arrival Mode: Car Onset (how long ago): day(s) (3) Location: chest Quality: dull Radiation: non-radiation, back, neck, extremity, abdomen, periumbilical, flank, proximal, distal, other Severity: mild Onset quality: gradual Duration (how long): day(s) (3) Timing of current episode: intermittent Chronicity: new Context: recent illness, recent surgery, recent immobilization, recent travel, trauma/injury, new medications, hx of DVT/PE, non-compliance w/ medications, other Relieving factors: none Exacerbating factors: none Associated symptoms: denies other symptoms Treatments prior to arrival: none Past Medical/Family History Physician Review I have reviewed the patient's past medical and family history. Any updates have been documented here. Past Medical History Recent Fever: Yes Clinical Suspicion of Infectio: No New/Unexplained Change in Ment: No Past Medical History: Hypertension, Asthma, Hypothyroidism, Anxiety, Depression, GERD Other Medical History: NEUROPATHY BIPOLAR DEPRESSION Past Surgical History: Appendectomy, Hysterectomy, T&A Other Surgery: HX OF MRSA TO A WOUND IN ANKLE POST OP ANKLE 2 YEARS AGO. PT HAD PICC LINE INSERTED WITH VANCOMYCIN ADMIN. OVARIAN CYST REMOVED FINGER AMPUTATION Social History Smoking Cessation: Never Smoker Counseling Performed: No Alcohol Use: None Any Illegal Drug Use: No TB Exposure/Symptoms: No Physically hurt or threatened: No Other Last Tetanus: 2017 Any Pre-Existing Lines (PICC,: No Is patient up to date on immun: Yes Last Flu: YES Last Pneumovax: YES Review of Systems Review of Systems Constitutional: no symptoms EENTM: no symptoms Cardiovascular: no symptoms Respiratory: as per HPI Gastrointestinal: no symptoms Genitourinary: no symptoms Musculoskeletal: no symptoms Neurological: no symptoms Psychological: no symptoms Endocrine: no symptoms Hematological/Lymphatic: no symptoms Review of other systems All other systems reviewed and negative. Physical Exam Related Data Allergies: Coded Allergies: bupropion (Unverified Adverse Reaction, Unknown, MAKES HER VERY ANGRY, 07/13/18) Uncoded Allergies: CODIENE (Allergy, Intermediate, HALLUCINATIONS, FREAKS OUT, 03/27/18) Triage Vital Signs Vital Signs Date Time Temp Pulse Resp B/P (MAP) Pulse Ox O2 Delivery O2 Flow Rate FiO2 03/30/20 16:45 97.8 71 20 160/90 100 Vital signs reviewed: Yes Physical Exam CONSTITUTIONAL Constitutional: well-developed, well-nourished HENT HENT: normocephalic, atraumatic, oropharynx clear/moist, nose normal HENT L/R: left ext ear normal, right ext ear normal EYES Eyes: PERRL, conjunctivae normal NECK Neck: ROM normal PULMONARY Pulmonary: effort normal, rhonchi (bibasilar) CARDIOVASCULAR Cardiovascular: regular rhythm, heart sounds normal, capillary refill normal, normal rate GASTROINTESTINAL Abdominal: soft, nontender, bowel sounds normal GENITOURINARY Genitourinary: exam deferred SKIN Skin: warm, dry MUSCULOSKELETAL Musculoskeletal: ROM normal NEUROLOGICAL Neurological: alert, oriented x 3, no gross motor or sensory deficits PSYCHOLOGICAL Psychological: mood/affect normal, judgement normal Results Laboratory Lab results reviewed: Yes Imaging Imaging results reviewed: Yes Procedures 12 Lead ECG Interpretation Internal Medicine Physician Assistant: Interpreted by ED physician Date: March 30, 2020 Time: 17:29 Rhythm: sinus rhythm Rate: normal BPM: 73 QRS axis: normal ST segments normal: Yes T waves normal: Yes Clinical Impression: normal ECG ABG Interpretation Interpretation: abnormal Critical Care Time Subsequent provider I assumed direction of critical care for this patient from another provider of my specialty. Assessment & Plan Reassessment Reassessment time: 18:26 Reassessment better Assessment & Plan Final Impression: (1) Dyspnea (2) Acute bronchitis Assessment & Plan omnicef Depart Disposition: HOME, SELF-CARE Last Vital Signs omnicef prednisone albuterol Date Time Temp Pulse Resp B/P (MAP) Pulse Ox O2 Delivery O2 Flow Rate FiO2 03/30/20 16:45 97.8 71 20 160/90 100 Home Meds Reported Medications Gabapentin (GABAPENTIN) 100 Mg Capsule, DAILY 03/27/18 Losartan Potassium (COZAAR) 25 Mg Tablet, 25 MG PO BID, #60 TAB 03/27/18 Omeprazole Magnesium (PRILOSEC OTC) 20 Mg Tablet.dr, DAILY 03/27/18 Levothyroxine Sodium (LEVOTHYROXINE SODIUM) 112 Mcg Tablet, 112 MCG PO DAILY, #30 TAB 03/27/18 Lamotrigine (LAMICTAL) 100 Mg Tab, DAILY 03/27/18 Citalopram Hydrobromide (CELEXA) 40 Mg Tablet, DAILY 03/27/18 Aspirin (ASPIR 81) 81 Mg Tablet.dr, DAILY 03/27/18 Amlodipine Besylate (NORVASC) 5 Mg Tab, 5 MG PO DAILY, #30 TAB 03/27/18 Omeprazole Magnesium (PRILOSEC OTC) 20 Mg Tablet.dr, DAILY 03/27/18 Levothyroxine Sodium (LEVOTHYROXINE SODIUM) 112 Mcg Tablet, 112 MCG PO DAILY, #30 TAB 03/27/18 Medications in the ED Albuterol/ Ipratropium 3 ml ONCE ONCE NEB Last administered on 03/30/20at 17:35; Admin Dose 3 ML; Start 03/30/20 at 17:15; Stop 03/30/20 at 17:16; Status DC Albuterol/ Ipratropium 3 ml STK-MED ONCE .ROUTE ; Start 03/30/20 at 17:41; Stop 03/30/20 at 17:36; Status DC NEDA VILLALTA MD March 30, 2020 18:28
== END 2020-03-30 18:32 | disposition home or self-care (01) ==
LOC: FSED 16:38
DX: R06.00 Dyspnea, unspecified (principal); R05 Cough; J20.9 Acute bronchitis, unspecified; I10 Essential (primary) hypertension; E03.9 Hypothyroidism, unspecified; G62.9 Polyneuropathy, unspecified; K21.9 Gastro-esophageal reflux disease without esophagitis; F41.9 Anxiety disorder, unspecified; F31.9 Bipolar disorder, unspecified
CPT/HCPCS: 71045; 80053; 82553; 83880; 84484; 85025; 99284

== ENCOUNTER 2020-04-14 15:54 | Emergency (ER) | payer MEDICARE ==
[~2020-04-14] VITALS: Ht 162.6 cm; Wt 90.7 kg
--- OUTSIDE RECORDS SUMMARY | 2020-04-14 15:57 | XMS REPORT | Clinical Summary ---
Author Author JAYNE [facility] Address Unknown Phone Unavailable Care Team Providers Care Finishing Manager Name Role Phone Mary Maravilla MD PCP [...] (112 mcg 8 total) by mouth daily. 04/14/2019 Discontinued fluticasone Inhale 1 puff 60 [...] this point states had fractures went to senior living and got MRSA Noted Fosamax being prescribed [...] States over October 05, 2018 went to e ER where BP was elevated 196 [...] Shortness of Breath 03/30/2020 Telephone Internal Medicine Lalo, Titus, MD Cough (Primary Dx); SOB (shortness of [...] hyperlipidemia type 04/14/2019 Office Visit Internal Medicine after 04/14/2019 Immunizations Name Dates Previously Given Next Due [...] at Date Recorded Female 12/17/2018 12:23 AM PHYSICS TECHNICAL OFFICER Industry Job Start Date Occupation Not on file Not on file Not on file Travel End Travel History Travel Start No recent travel history available. Last Filed Vital Signs Time Taken Vital Sign Reading 03/01/2020 1:41 PM CDT Blood Pressure 139/86 02/23/2020 10:37 AM CDT Pulse 81 12/14/2019 1:15 PM PHYSICS TECHNICAL OFFICER Temperature 36.3 C (97.4 F) 12/14/2019 1:15 PM PHYSICS TECHNICAL OFFICER Respiratory Rate 17 12/14/2019 1:15 PM PHYSICS TECHNICAL OFFICER Oxygen Saturation 98% - Inhaled Oxygen - [...] nosis MICROSCOPIC EXAMINATION Routine 12/14/2019 1:55 PM PHYSICS TECHNICAL OFFICER UA/M W/RFLX CULTURE, ROUT AP Routine 12/14/2019 Esse ntial hypertension 1:55 PM PHYSICS TECHNICAL OFFICER TSH+FREE T4 Routine 12/14/2019 Hyperlipidemia, 1:55 PM PHYSICS TECHNICAL OFFICER unspecified hyperlipidemia type LIPID PANEL Routine 12/14/2019 Hyperlipidemia, 1:55 PM PHYSICS TECHNICAL OFFICER unspecified hyperlipidemia type HEMOGLOBIN A1C Routine 12/14/2019 Essential hyper tension 1:55 PM PHYSICS TECHNICAL OFFICER COMPREHENSIVE METABOLIC Routine 12/14/2019 Essent ial hypertension PANEL 1:55 PM PHYSICS TECHNICAL OFFICER CBC W/PLT COUNT & AUTO Routine 12/14/2019 Essenti al hypertension DIFFERENTIAL 1:55 PM PHYSICS TECHNICAL OFFICER XR DXA BONE DENSITY STUDY Routine 12/09/2019 Well ness examination 2:07 PM PHYSICS TECHNICAL OFFICER Menopause ECG 12-LEAD Routine 05/19/2019 Essential hyper [...] Wellness examin ation 11:34 AM CDT after 04/14/2019 Results * MICROSCOPIC EXAMINATION (12/14/2019 1:55 PM PHYSICS TECHNICAL OFFICER) Only the most recent of 2 results within the time period is included. WBC 0-5 0 - 5 /hpf [facility] 1 RBC 0-2 0 - 2 /hpf [facility] 1 Epithelial Cells (non 0-10 0 - 10 /hpf [facility] 1 renal) Mucus Threads Present Not Estab. [facility] 1 Bacteria Few None seen/ [facility] 1 Specimen Narrative Performed At Performed at: - [facility] [address] [id number] Childcare Administrator: González Hsu MD, Phone: [phone] Performing Organization Address City/State/[facility] Ph one Number [facility] * UA/M W/RFLX CULTURE, ROUT (12/14/2019 1:55 PM PHYSICS TECHNICAL OFFICER) Only the most recent of 2 results within the time period is included. Specific [place], UA 1.020 1.005 - 1.03 [facility] 1 [...] Culture. Specimen Urine Narrative Performed At Performed at:[facility] [address] [place] [address] Childcare Administrator: González Hsu MD, Phone: [phone] Performing Organization Address [facility] one Number [facility] * TSH+FREE T4 (12/14/2019 1:55 PM PHYSICS TECHNICAL OFFICER) Only the most recent of 2 results within the time period is included. TSH 3.160 0.450 - 4.50 uIU/mL [facility] 1 T4,Free(Direct) 1.34 0.82 - 1.77 ng/dL [facility] 1 Specimen Narrative Performed At Performed at:[facility] [address] [place] [address] Childcare Administrator: González Hsu MD, Phone: [phone] Performing Organization Address [facility] one Number [facility] 1 * CBC with platelet count + automated diff (12/14/2019 1:55 PM PHYSICS TECHNICAL OFFICER) Only the most recent of 2 results [...] Specimen Blood Narrative Performed At Performed at: [facility] [address] [address] Childcare Administrator: González Hsu MD, Phone: [phone] Performing Organization Address [facility] Ph one Number [facility] * Hemoglobin A1c (12/14/2019 1:55 PM PHYSICS TECHNICAL OFFICER) Hemoglobin A1c 5.5 4.8 - 5.6 % [facility] 1 Comment: Prediabetes: 5.7 - 6.4 Diabetes: >6.4 Glycemic control for adults with diabetes: <7.0 Specimen Blood Narrative Performed At Performed at: [facility] [address] [address] Childcare Administrator: González Hsu MD, Phone: [phone] Performing Organization Address [facility] Ph one Number [facility] * Lipid panel (12/14/2019 1:55 PM PHYSICS TECHNICAL OFFICER) Only the most recent of 2 results [...] Specimen Blood Narrative Performed At Performed at: - [facility] [address] [place], [place] Childcare Administrator: González Hsu MD, Phone: [phone] Performing Organization Address City/State/Zipcode Ph one Number [facility] * Comprehensive metabolic panel (12/14/2019 1:55 PM PHYSICS TECHNICAL OFFICER) Only the most recent of 2 results [...] Narrative Performed At Performed at:01 - [facility] [address] [address] Childcare Administrator: González Hsu MD, Phone: [phone] Performing Organization Address City/State/Zipcode Ph one Number [facility] * DXA, BONE DENSITY STUDY (12/09/2019 2:07 PM PHYSICS TECHNICAL OFFICER) Specimen Narrative Performed At FINAL REPORT [facility] Bone mineral density study 12/09/2019. HISTORY PROVIDED: [...] Report Verified Date/Time: 0 14:28:58 Reading Location: [facility] Women Procedure Note Interface, External Ris In - 12/09/2019 2:31 PM PHYSICS TECHNICAL OFFICER FINAL REPORT Bone mineral density study 12/09/2019. [...] Report Verified Date/Time: 12/09/2019 14:28:58 Reading Location: [facility] Women Performing Organization Address City/State/Zipcode Ph one Number GE RIS * ECG 12 lead (05/19/2019 1:41 PM CDT) Narrative Performed At This result has an attachment that is n ot available. after 04/14/2019 Insurance Payer Benefit Subscriber ID Type Phone Address Plan / Group MEDICARE MEDICARE A xxxxxxxxxxx Medicare B MCR SUPPLEMENT/INDIVIDUAL AARP/UNITE xxxxxxxxxxx [facility] gap D HEALTHCARE [phone] Advance Directives For more information, please contact: [facility] [address] [place] [address] Date Inactivated Comments Code Status Date Activated 07/17/2018 7:21 PM Full Code 07/13/2018 8:01 AM This code status was determined by: Patient
--- OUTSIDE RECORDS SUMMARY | 2020-04-14 15:58 | XMS REPORT | Continuity of Care Document ---
Author Author [employer] SYED Pino Organization [employer] Address Unknown Phone Unavailable Care Team Providers Care Temple Marker Name Role Phone MobileDay Information Linguastat Unavailable Un available Problems Problem Status Onset Date Classification Date Reported Comments Source Other acute osteomyelitis, left hand 08/29/2018 03/09/2019 [facility] Methicillin resistant Staphylococcus aureus (organism) Active 08/20/2018 Problem 03/09/2019 Aspirate/Bone Tissu e, 08/20/2018 Problem added by Discern Expert. [facility] LT INDEX FINGER SEPTIC ARTIRITIS Active 08/18/2018 [facility] Encounter for screening mammogram for ma lignant neoplasm of breast 12/26/2017 03/19/2018 [facility] ROUTINE SCREENING LAST MMG OOS Active 12/10/2017 [facility] LEG PAIN Active 07/26/2015 [facility] WEAKNESS, DIZZINESS, ANKLE FX Active 07/26/2015 [facility] Discharge Diagnosis: Trimalleolar fractu re of left ankle 07/22/2015 07/25/2015 [facility] ANKLE INJURY Active 07/22/2015 [facility] Cholesterol (substance) Active Problem 08/07/2015 [facility] Essential (primary) hypertension 03/09/2019 [facility] Anxiety (finding) Active Problem 03/09/2019 [facility] Depressive disorder (disorder) Resolved Problem 04/2019 [facility] Family history: Hypothyroidism (context- dependent category) Active Prob osiel 03/09/2019 [facility] Gastric reflux (finding) Active Problem 03/09/2019 [facility] Hypertensive disorder, systemic arterial (disorder) Active Problem 03/09/2019 [facility] Morbid obesity (disorder) Acti ve Problem 04/2019 [facility] MALAISE AND FATIGUE NEC Active [facility] ILLNESS, UNSPECIFIED Active [facility] ENCNTR SCREEN MAMMOGRAM FOR MALIGNANT NE Active [facility] Medications Medication Details Route Status Patient Instructions Ordering Provider Order Date Source tramadol hydrochloride 50 MG Oral Tablet See Instructions, PRN Pain, take 1-2 tab PO Q6H for 10 days, # 40 tab, 0 Refill(s) No Longer Active 08/20/2018 [facility] Ondansetron 4 MG Disintegrating Tablet [Zofran] 4 mg = 1 tab, PO, BID, PRN Nausea and Vomiting, Dissolve tab under tongue, # 10 tab, 0 Refill(s) Active 08/20/2018 [facility] Sulfamethoxazole 800 MG / Trimethoprim 1 60 MG Oral Tablet [Bactrim] 1 tab, PO, BID, X 10 day, # 20 tab, 0 Re fill(s) No Longer Active 08/20/2018 [facility] labetalol (ANES) Route: IV, Dr ug form: INJ, ONCE, Stop date: 08/20/18 12:51:00 CDT Inactive 08/20/2018 [facility] Naloxone Notes: Same as Narcan Inactive 08/20/2018 [facility] Flumazenil Notes: (Same as: Ro mazicon) Inactive 08/20/2018 [facility] Oxycodone Notes: (Same as: Haylee icodone) Inactive 08/20/2018 [facility] Hydromorphone Notes: Same as D ilaudid Inactive 08/20/2018 [facility] Acetaminophen Notes: Max aceta minophen 4000 mg/day (4 gm/day). (Same as: Tylenol Extra Strength) Inactive 08/20/2018 [facility] Ondansetron Notes: (Same as: Xiomara valenzuela) MEDICATION WASTE Product Size: 4 mg Product Wasted: ___ mg Inactive 08/20/2018 [facility] Hydralazine Notes: (Same as: A presoline) Push over 5 minutes Inactive 08/20/2018 [facility] Labetalol 10 mg, 2 mL, Route: IVP, Drug form: INJ, Q5Min, Dosing Weight 90.909, kg, PRN Elevated BP, Start date: 08/20/18 12:44:00 CDT, Duration: 5 doses or times, Stop date: 08/21/18 0:00:00 CDT Inactive 08/20/2018 [facility] ondansetron (ANES) Route: IV, Drug form: INJ, ONCE, Stop date: 08/20/18 12:33:00 CDT Inactive 08/20/2018 [facility] cefepime (ANES) Route: IV, Lucas g form: INJ, ONCE, Stop date: 08/20/18 12:28:00 CDT Inactive 08/20/2018 [facility] nter acetaminophen (ANES) 10 mg Rou te: IV, Drug form: INJ, Start date: 08/20/18 12:10:00 CDT, Stop date: 08/20/18 13:10:00 CDT Inactive 08/20/2018 [facility] succinylcholine (ANES) Route: IV, Drug form: INJ, ONCE, Stop date: 08/20/18 12:03:00 CDT Inactive 08/20/2018 [facility]ter propofol (ANES) Route: IV, Lucas g form: INJ, ONCE, Stop date: 08/20/18 12:03:00 CDT Inactive 08/20/2018 [facility] nter lidocaine (ANES) Route: IV, Dr ug form: INJ, ONCE, Stop date: 08/20/18 12:03:00 CDT Inactive 08/20/2018 [facility] nter fentaNYL (ANES) Route: IV, Lucas g form: INJ, ONCE, Stop date: 08/20/18 12:03:00 CDT Inactive 08/20/2018 [facility] n[facility] dexamethasone (ANES) Route: IV , Drug form: INJ, ONCE, Stop date: 08/20/18 12:03:00 CDT Inactive 08/20/2018 [facility] nter ePHEDrine (ANES) Route: IV, Dr ug form: INJ, ONCE, Stop date: 08/20/18 12:03:00 CDT Inactive 08/20/2018 [facility] nter midazolam (ANES) Route: IV, Dr ug form: SOLN, ONCE, Stop date: 08/20/18 12:03:00 CDT Inactive 08/20/2018 [facility]ter vancomycin (ANES) 1000 mg Rout e: IV, Drug form: INJ, Start date: 08/20/18 11:55:00 CDT, Stop date: 08/20/18 12:55:00 CDT Inactive 08/20/2018 [facility] Lactated Ringers Injection IV (ANES) 1000 mL Route: IV, Total Volume: 1,000, Start date: 08/20/18 10:40:00 CDT, Stop date: 08/20/18 11:40:00 CDT Inactive 08/20/2018 [facility] cetirizine Notes: (Same As: Shady rtec) Inactive 08/20/2018 [facility] Cozaar Notes: (Same as: Cozaar) Inactive 08/20/2018 [facility] Prevacid 15 mg, Route: PO, Lucas g form: ECCAP, Daily, Dosing Weight 90.909, kg, Start date: 08/20/18 9:00:00 CDT, Duration: 30 day, Stop date: 09/18/18 9:00:00 PLATE ROLLER No Longer Active 08/20/2018 [facility] lamotrigine 100 MG Oral Tablet Notes: (Same as:LaMICtal) Inactive 08/20/2018 [facility] Hydrochlorothiazide 25 MG / Losartan Pot assium 100 MG Oral Tablet 1 tab, Route: PO, Drug Form: TAB, Dosing Weight 90.909, kg, Daily, Start date: 08/20/18 9:00:00 CDT, Duration: 30 day, Stop date: 09/18/18 9:00:00 PLATE ROLLER No Longer Active 08/20/2018 [facility] hydrochlorothiazide 25 mg oral tablet Notes: (Same as: Hydrodiuril) With food. Inactive 08/20/2018 [facility] nter Clarice 180 mg, Route: PO, Lucas g form: TAB, Daily, Dosing Weight 90.909, kg, Start date: 08/20/18 9:00:00 CDT, Duration: 30 day, Stop date: 09/18/18 9:00:00 PLATE ROLLER No Longer Active 08/20/2018 [facility] Citalopram Notes: (Same As: Ce Katia) Inactive 08/20/2018 [facility] Thyroxine Notes: Take 1 hour b efore or 2 hours after meal; Enteral feeds may interefere with the absorption of this medication. (Same as: Levothroid) Inactive 08/20/2018 [facility] Simvastatin Notes: (Same as: Z ocor) No Longer Active 08/20/2018 [facility] Protonix Notes: Tablet should not be chewed or crushed. (Same as: Protonix) No Longer Active 08/19/2018 [facility] citalopram 40 mg oral tablet 4 0 mg = 1 tab, PO, Daily, 0 Refill(s) Active 08/19/2018 [facility] gabapentin 600 MG Oral Tablet 600 mg = 1 tab, PO, BID, 0 Refill(s) Active 08/19/2018 [facility] Bisacodyl Notes: (Same As: Dul colax, Correctol) (Do Not Crush) "Do Not Crush" No Longer Active 08/19/2018 [facility] clonazePAM 0.5 mg oral tablet 0.5 mg = 1 tab, PO, TID, 0 Refill(s) Active 08/19/2018 [facility] mometasone furoate 0.1 MG/ACTUAT Metered Dose Inhaler = 1 puff, INHALATION, BID, 0 Refill(s) Active 08/19/2018 [facility] Meclizine Notes: (Same as: Ant ivert) No Longer Active 08/19/2018 [facility] Docusate Notes: (Same as: Cola ce) (Do Not Crush) No Longer Active 08/19/2018 [facility] influenza virus vaccine, inactivated hig h-dose preservative-free intramuscular suspension Notes: (Same as: Fluzone High-Dose) For 65 years of age of older (0.5 ml IM) Shake well before use No Longer Active 08/19/2018 [facility] Ancef Notes: (Same as Ancef) Inactive 08/19/2018 [facility] Acetaminophen 325 MG / Hydrocodone Isadora trate 5 MG Oral Tablet [[place] 5/325] 1 tab, Route: PO, Dosing Weight 90.909, kg, Q6H, Start date: 08/19/18 0:00:00 CDT, Duration: 30 day, Stop date: 09/17/18 18:00:00 PLATE ROLLER No 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 (Same As: Ultram) No Longer Active 08/19/2018 [facility] Acetaminophen Notes: Max aceta minophen = 4000mg/day (4 gm/day). (Same as: Tylenol) N o Longer Active 08/19/2018 [facility] Acetaminophen 325 MG / Hydrocodone Isadora trate 5 MG Oral Tablet [[place] 5/325] Notes: (Same as: [place] 325/5) Do not ex ceed 4gm/day of acetaminophen. No Longer Activ e 08/19/2018 [facility] meclizine 25 mg oral tablet 25 mg = 1 tab, PO, TID, PRN Dizziness, 0 Refill(s) Active 08/05/2015 [facility] heparin 5000 units/0.5 mL injectable solution SUB-Q, Q12H, 0 Refill(s) Active 08/04/2015 [facility] levothyroxine 150 mcg (0.15 mg) oral tablet 150 microgram = 1 tab, PO, Q630AM, 0 Refill(s) Active 08/04/2015 [facility] tramadol hydrochloride 50 MG Oral Tablet [Ultram] 1-2 tab, PO, Q4H, PRN for pain, # 40 tab, 0 Refill(s) Active 08/04/2015 [facility] POLYETHYLENE GLYCOL 3350 PO, D aily, PRN Constipation, 0 Refill(s) Active 08/04/2015 [facility] acetaminophen 325 mg oral tablet 100.4 F, 0 Refill(s) Active 08/04/2015 [facility] Maalox Advanced Regular Strength SUSP 0 Refill(s) Active 08/04/2015 [facility] bisacodyl 5 mg oral enteric coated tablet 5 mg = 1 tab, PO, Q24H, PRN Constipation, 0 Refill(s) Active 08/04/2015 [facility] Acetaminophen 325 MG / Hydrocodone Isadora trate 7.5 MG Oral Tablet [[place] 7.5/325] Notes: Same as [place] 325-7.5mg Do not exceed 4gm/day of acetaminophen. No Longer Active 08/02/2015 [facility] Ativan Notes: (Same as: Ativan) Inactive 07/30/2015 [facility] ceFAZolin (SCIP) 1 gm, 100 mL, Route: IVPB, Drug form: INJ, Q8H, Dosing Weight 104.545, kg, Start date: 07/29/15 15:30:00, Duration: 1 doses or times, Stop date: 07/29/15 15:30:00 Inactive 07/29/2015 [facility] Acetaminophen 325 MG / Hydrocodone Isadora trate 5 MG Oral Tablet [[place] 5/325] Notes: (Same as: [place] 325/5) Do not ex ceed 4gm/day of acetaminophen. No Longer Activ e 07/29/2015 [facility] Clindamycin 150 MG/ML Injectable Solution 600 mg, 50 mL, Route: IVPB, Drug form: INJ, Q8H, Dosing Weight 104.545, kg, Start date: 07/29/15 11:00:00, Duration: 1 doses or times, Stop date: 07/29/15 11:00:00 Inactive 07/29/2015 [facility] Ondansetron 4 mg, Route: IVP, ONCE, Dosing Weight 104.545, kg, PRN Nausea & Vomiting, Start date: 07/29/15 9:28:00 Inactive 07/29/2015 [facility] Naloxone 0.04 mg, Route: IVP, Q2MIN, Dosing Weight 104.545, kg, PRN Narcotic Reversal, Start date: 07/29/15 9:28:00, Duration: 8 doses or times, Stop date: Limited # of times Inactive 07/29/2015 [facility] Flumazenil 0.2 mg, Route: IVP, PRN, Dosing Weight 104.545, kg, PRN Benzodiazepine Reversal, Initial dose, Start date: 07/29/15 9:28:00, Duration: 30 day, Stop date: 08/28/15 9:27:00 Inactive 07/29/2015 [facility] Fentanyl 50 microgram, Route: IVP, Q5Min, Dosing Weight 104.545, kg, PRN Pain Score 7-10, Start date: 07/29/15 9:28:00, Duration: 2 doses or times, Stop date: Limited # of times Inactive 07/29/2015 [facility] Hydromorphone 0.5 mg, Route: I PRESSROOM FOREMAN, Q5Min, Dosing Weight 104.545, kg, PRN Pain Score 7-10, Start date: 07/29/15 9:28:00, Duration: 4 doses or times, Stop date: Limited # of times Inactive 07/29/2015 [facility] Oxycodone 10 mg, Route: PO, Dr ug form: TAB, Q4H, Dosing Weight 104.545, kg, PRN Pain Score 7-10, Start date: 07/29/15 9:28:00, Duration: 30 day, Stop date: 08/28/15 9:27:00 Inactive 07/29/2015 [facility] Acetaminophen 1,000 mg, Route: IVPB, Drug form: INJ, ONCE, Dosing Weight 104.545, kg, PRN Pain Score 1-3, Start date: 07/29/15 9:28:00, Duration: 1 doses or times, Stop date: Limited # of times Inactive 07/29/2015 [facility] pantoprazole 40 mg, Route: PO, Drug form: ECTAB, Daily, Dosing Weight 104.545, kg, Start date: 07/29/15 9:00:00, Duration: 30 day, Stop date: 08/27/15 9:00:00 Inactiv e 07/29/2015 [facility] docusate sodium 100 mg oral capsule Notes: (Same as: Colace) (Do Not Crush) No Longer Active 07/29/2015 [facility] influenza virus vaccine, inactivated Notes: (Same as: Fluzone Quadrivalent) For 3 years of age and older (0.5 mL IM) Shake well before use Inactive 07/29/2015 [facility] Al hydroxide/Mg hydroxide/simethicone 20 0 mg-200 mg-20 mg/5 mL oral suspension Notes: (aluminum hydroxide-magnesium hyd -simethicone [phone]/5ml 30 ml ud SARAH) No Longer Active 07/29/2015 [facility] Diphenhydramine 12.5 mg, 0.5 t ab, Route: PO, Drug form: TAB, Q6H, Dosing Weight 104.545, kg, PRN Itching, Start date: 07/29/15 8:56:00, Duration: 30 day, Stop date: 08/28/15 8:55:00 No Longer Active 07/29/2015 [facility] Dulcolax Laxative Notes: (Same As: Dulcolax, Correctol) (Do Not Crush) "Do Not Crush" No Longer Active 07/29/2015 [facility] Morphine Notes: (Same as:MORPh ine Sulfate) Inactive 07/29/2015 [facility] Acetaminophen Notes: Do not ex ceed 4 gm/day. (Same as: Tylenol) No Longer Active 07/29/2015 [facility] Acetaminophen 325 MG / Hydrocodone Isadora trate 10 MG Oral Tablet Notes: Do not exceed 4gm/day of acetamin ophen. (Same as: [place] 325/10) Inactive 07/29/2015 [facility] Lactated Ringers IV 1,000 mL 1 ,000 mL, Rate: 75 ml/hr, Infuse over: 13.3 hr, Route: IV, Dosing Weight 104.545 kg, Total Volume: 1,000, Start date: 07/29/15 8:56:00, Duration: 30 day, Stop date: 08/28/15 8:55:00 No Longer Active 07/29/2015 [facility] Ancef Notes: Same as: Ancef Inactive 07/29/2015 [facility] Calcium Chloride 0.0014 MEQ/ML / Potassi um Chloride 0.004 MEQ/ML / Sodium Chloride 0.103 MEQ/ML / Sodium Lactate 0.028 MEQ/ML Injectable Solution 1,000 mL, Rate: 25 ml/hr, Infuse over: 4 0 hr, Route: IV, Dosing Weight 104.545 kg, Total Volume: 1,000, Start date: 07/29/15 7:45:00, Duration: 30 day, Stop date: 08/28/15 7:44:00 Inactive 07/29/2015 [facility] Antivert Notes: (Same as: Anti vert) No Longer Active 07/28/2015 [facility] Nitroglycerin 0.4 MG Sublingual Tablet Notes: (Same as:Nitroquick, Nitrostat) "Do Not Crush" Sublingual tablet No Longer Active 07/28/2015 [facility] Atropine 0.5 mg, 5 mL, Route: IVP, Drug form: INJ, ONCE, Dosing Weight 104.545, kg, PRN Bradycardia, Start date: 07/28/15 11:46:00, for symptomatic bradycardia No Longer Active 07/28/2015 [facility] Solu-Medrol Notes: (Same as:So nyasia-MEDROL, A-Methapred) Inactive 07/28/2015 [facility] heparin sodium, porcine 2500 UNT/ML Injectable Solutio n Notes: porcine heparin No Longer Active 07/28/2015 [facility] Protonix Notes: Tablet should not be chewed or crushed. (Same as: Protonix) No Longer Active 07/27/2015 [facility] Claritin Notes: 1 hr before me als (Same as: Claritin) No Longer Active 07/27/2015 [facility] hydrochlorothiazide 25 mg oral tablet Notes: (Same as: Hydrodiuril) With food. No Longer Active 07/27/2015 [facility] Prevacid 15 mg, Route: PO, Lucas g form: ECCAP, Daily, Dosing Weight 104.545, kg, Start date: 07/27/15 9:00:00, Duration: 30 day, Stop date: 08/25/15 9:00:00 No Longer Active 07/27/2015 [facility] lamotrigine 100 MG Oral Tablet Notes: (Same as:LaMICtal) No Longer Active 07/27/2015 [facility] Hydrochlorothiazide 25 MG / Losartan Pot assium 100 MG Oral Tablet 1 tab, Route: PO, Drug Form: TAB, Dosing Weight 104.545, kg, Daily, Start date: 07/27/15 9:00:00, Duration: 30 day, Stop date: 08/25/15 9:00:00 No Longer Active 07/27/2015 [facility] Clarice 180 mg, Route: PO, Lucas g form: TAB, Daily, Dosing Weight 104.545, kg, Start date: 07/27/15 9:00:00, Duration: 30 day, Stop date: 08/25/15 9:00:00 No Longer Active 07/27/2015 [facility] Citalopram Notes: (Same As: Ce Katia) No Longer Active 07/27/2015 [facility] Cozaar Notes: (Same as: Cozaar) No Longer Active 07/27/2015 [facility] Thyroxine Notes: Take 1 hour b efore or 2 hours after meal; Enteral feeds may interefere with the absorption of this medication. (Same as: Levothroid) No Longe r Active 07/27/2015 [facility] Simvastatin Notes: (Same as: Z ocor) No Longer Active 07/27/2015 [facility] Rocephin Notes: (Same As: Roce phin). Use with 100ml NS mini-bag PLUS and infuse over 30 min MEDICATION WASTE Product Size: 1000 mg Product Wasted: ___ mg No Longer Active 07/27/2015 [facility] Solu-Medrol Notes: (Same as:So nyasia-MEDROL, A-Methapred) Inactive 07/26/2015 [facility] Meclizine Notes: (Same as: Ant ivert) No Longer Active 07/26/2015 [facility] Miralax Notes: Dissolve in 8 o z of water or juice. (Same as: Miralax) No Longer Active 07/26/2015 [facility] Zofran Notes: (Same as: Zofran ) MEDICATION WASTE Product Size: 4 mg Product Wasted: ___ mg No Longer Active 07/26/2015 [facility] Tylenol Notes: Max acetaminoph en = 4000mg/day (4 gm/day). (Same as: Tylenol) N o Longer Active 07/26/2015 [facility] Restoril Notes: (Same As: Rest oril) No Longer Active 07/26/2015 [facility] Acetaminophen 325 MG / Hydrocodone Isadora trate 5 MG Oral Tablet [[place] 5/325] Notes: (Same as: [place] 325/5) Do not ex ceed 4gm/day of acetaminophen. No Longer Activ e 07/26/2015 [facility] Clonidine Hydrochloride 0.1 MG Oral Tablet Notes: (Same As: Catapres) No Longer Active 07/26/2015 [facility] Ondansetron Notes: (Same as: Xiomara valenzuela) MEDICATION WASTE Product Size: 4 mg Product Wasted: ___ mg No Longer Active 07/26/2015 [facility] Morphine Notes: (Same as:MORPh ine Sulfate) No Longer Active 07/26/2015 [facility] lansoprazole 15 MG Enteric Coated Capsule [Prevacid] 15 mg = 1 cap, PO, Daily, 0 Refill(s) Active 07/26/2015 [facility] levothyroxine 200 mcg (0.2 mg) oral tablet 200 microgram = 1 tab, PO, Q630AM, 0 Refill(s) No Longer Active 07/26/2015 [facility] Hydrochlorothiazide 25 MG / Losartan Pot assium 100 MG Oral Tablet 1 tab, PO, Daily, 0 Refill(s) Active 07/26/2015 [facility] citalopram 40 mg oral tablet 8 0 mg = 2 tab, PO, Daily, 0 Refill(s) Active 07/26/2015 [facility] Fexofenadine hydrochloride 180 MG Oral Tablet [Clarice ] 180 mg = 1 tab, PO, Daily, 0 Refill(s) Active 07/26/2015 [facility] simvastatin 40 mg oral tablet 40 mg = 1 tab, PO, Bedtime, 0 Refill(s) Active 07/26/2015 [facility] lamotrigine 100 MG Oral Tablet 300 mg = 3 tab, PO, Daily, 0 Refill(s) Active 07/26/2015 [facility] temazepam 30 mg oral capsule 3 0 mg = 1 cap, PO, Bedtime, 0 Refill(s) Active 07/26/2015 [facility] Levaquin Notes: (Same as:Levaq uin) Inactive 07/26/2015 [facility] Sodium Chloride 0.9% (titrate) 250 mL 250 mL, Rate: dcs engineer for use with blood product administration, Dosing Weight 104.545, kg, Route: IV, Total Volume: 250, Start Date: 07/26/15 14:26:00, Duration: 1 day, Stop date: 07/27/15 14:25:00, Replace Every: 24 hr No Longer Active 07/26/2015 [facility] potassium chloride Notes: (Juan e as: K-Dur 20) "Do Not Crush" With food and full glass of water Inactive 07/26/2015 [facility] Acetaminophen 325 MG / Hydrocodone Isadora trate 10 MG Oral Tablet [[place] 10/325] 1 tab, PO, Q6H, PRN for pain, X 5 day, # 20 tab, 0 Refill(s) Active 07/23/2015 [facility] Acetaminophen 325 MG / Hydrocodone Isadora trate 10 MG Oral Tablet 1 tab, Route: PO, Dosing Weight 104.545, kg, ONCE, STAT, Start date: 07/22/15 19:42:00, Stop date: 07/22/15 19:42:00 Inactive 07/23/2015 [facility] Allergies, Adverse Reactions, Alerts Substance Category Reaction Severity Reaction type Status Date Reported Comments Source codeine phosphate Assertion Drug allergy Active [facility] Immunizations Immunization Date Given Site Status Last Updated Comments Source influenza virus vaccine, inactivated 07/29/2015 Right deltoid completed [facility] Results Order Name Results Value Reference Range Date Interpretation Comments Source CHLORAMPHENICOL:SUSC:PT:ISOLATE:ORDQN:NOMI Gram Stain Report Few Wbc'S; No Organisms Seen 08/20/2018 [facility] CHLORAMPHENICOL:SUSC:PT:ISOLATE:ORDQN:NOMI Culture: Aspirate/Body Fluid/Tissue From Broth Only: Methicillin Resistant S taphylococcus aureus 08/20/2018 [facility] CHLORAMPHENICOL:SUSC:PT:ISOLATE:ORDQN:NOMI Methicillin Resistant Staphylococcus aureus Methicillin Resistant Staphylococcus aur eus 08/20/2018 [facility] PENICILLIN:SUSC:PT:ISOLATE:ORDQN:NOMI Gram Stain Report Few Wbc'S; No Organisms Seen 08/20/2018 [facility] PENICILLIN:SUSC:PT:ISOLATE:ORDQN:NOMI Culture: Aspirate/Body Fluid/Tissue Few Methicillin Resistant Staphylococcus aureus 08/20/2018 [facility] PENICILLIN:SUSC:PT:ISOLATE:ORDQN:NOMI Methicillin Resistant Staphylococcus aureus Methicillin Resistant Staphylococcus aur eus 08/20/2018 [facility] Culture: Anaerobic No Anaerobes Is olated After 5 Days 08/20/2018 [facility] Culture: Anaerobic No Anaerobes Is olated After 5 Days 08/20/2018 [facility] Culture: Anaerobic No Anaerobes Is olated After 5 Days 08/20/2018 [facility] Gram Stain Report Few Wbc'S; No Organisms Seen 08/20/2018 [facility] Culture: Aspirate/Body Fluid/Tissue Rare Staphylococcus aureus Refer To Culture # [id number] 08/20/18 For Susceptibility Results 08/20/2018 [facility] ELECTROLYTES AGAP 12.3 10.0 - 20.0 08/20/2018 [facility] ELECTROLYTES eGFR 79 08/20/2018 Result Comment: The [...] should be multiplied by the estimated BMI. [facility] ELECTROLYTES Calcium Lvl 9.0 8.5 - 10.5 08/20/2018 [facility] ELECTROLYTES Chloride Lvl 107 95 - 109 08/20/2018 [facility] ELECTROLYTES CO2 26 24 - 32 08/20/2018 [facility] ELECTROLYTES Potassium Lvl 4.3 3.5 - 5.1 08/20/2018 [facility] ELECTROLYTES Glucose Lvl 89 70 - 99 08/20/2018 [facility] ELECTROLYTES BUN 12 7 - 22 08/20/2018 [facility] ELECTROLYTES Sodium Lvl 141 135 - 145 08/20/2018 [facility] ELECTROLYTES Creatinine Lvl 0.7 7 0.50 - 1.40 08/20/2018 [facility] HEMATOLOGY Hgb 12.5 12.0 - 16.0 08/20/2018 [facility] HEMATOLOGY MCH 30.8 27.0 - 31.0 08/20/2018 [facility] HEMATOLOGY MCV 89.3 80.0 - 98.0 08/20/2018 [facility] HEMATOLOGY RBC 4.07 4.20 - 5.40 08/20/2018 [facility] HEMATOLOGY MPV 8.7 7.4 - 10.4 08/20/2018 [facility] HEMATOLOGY MCHC 34.5 32.0 - 36.0 08/20/2018 [facility] HEMATOLOGY Platelet 222 133 - 450 08/20/2018 [facility] HEMATOLOGY Hct 36.3 36.0 - 48.0 08/20/2018 [facility] HEMATOLOGY RDW 13.7 11.5 - 14.5 08/20/2018 [facility] HEMATOLOGY WBC 5.5 3.7 - 10.4 08/20/2018 [facility] HEMATOLOGY Eosinophils # 0.3 0.0 - 0.5 08/20/2018 [facility] HEMATOLOGY Monocytes # 0.6 0.0 - 0.8 08/20/2018 [facility] HEMATOLOGY Lymphocytes # 2.2 1.0 - 5.5 08/20/2018 [facility] HEMATOLOGY Neutrophils # 2.4 1.5 - 8.1 08/20/2018 [facility] HEMATOLOGY Segs 42.9 45.0 - 75.0 08/20/2018 [facility] HEMATOLOGY Monocytes 10.5 2.0 - 12.0 08/20/2018 [facility] HEMATOLOGY Lymphocytes 40.7 20.0 - 40.0 08/20/2018 [facility] HEMATOLOGY Basophils 0.5 0.0 - 1.0 08/20/2018 [facility] HEMATOLOGY Eosinophils 5.4 0.0 - 4.0 08/20/2018 [facility] BLOOD BANK RESULTS Antibody Scrn Negative (08/19/18 1:12 PM) 08/19/2018 [facility] BLOOD BANK RESULTS ABO/Rh AB POS 08/19/2018 [facility] HEMATOLOGY INR 1.05 0.85 - 1.17 08/19/2018 [facility] HEMATOLOGY PTT 28.6 22.9 - 35.8 08/19/2018 [facility] HEMATOLOGY PT 13.7 12.0 - 14.7 08/19/2018 [facility] SPECIAL CHEMISTRY Hgb A1C 5.6 <=5.6 % 08/19/2018 [facility] CHEM PANEL eGFR 84 08/19/2018 Result Comment: [...] should be multiplied by the estimated BMI. [facility] CHEM PANEL Potassium Lvl 4.5 3.5 - 5.1 08/19/2018 [facility] CHEM PANEL Chloride Lvl 105 95 - 109 08/19/2018 [facility] CHEM PANEL Calcium Lvl 8.6 8.5 - 10.5 08/19/2018 [facility] CHEM PANEL CO2 24 24 - 32 08/19/2018 [facility] CHEM PANEL Sodium Lvl 138 135 - 145 08/19/2018 [facility] CHEM PANEL Glucose Lvl 83 70 - 99 08/19/2018 [facility] CHEM PANEL Creatinine Lvl 0.73 0.50 - 1.40 08/19/2018 [facility] CHEM PANEL BUN 9 7 - 22 08/19/2018 [facility] CHEM PANEL AGAP 13.5 10.0 - 20.0 08/19/2018 [facility] HEMATOLOGY MCH 30.0 27.0 - 31.0 08/19/2018 [facility] HEMATOLOGY Hgb 12.2 12.0 - 16.0 08/19/2018 [facility] HEMATOLOGY MCHC 33.5 32.0 - 36.0 08/19/2018 [facility] HEMATOLOGY Platelet 196 133 - 450 08/19/2018 [facility] HEMATOLOGY MCV 89.6 80.0 - 98.0 08/19/2018 [facility] HEMATOLOGY MPV 8.8 7.4 - 10.4 08/19/2018 [facility] HEMATOLOGY RDW 13.5 11.5 - 14.5 08/19/2018 [facility] HEMATOLOGY WBC 5.3 3.7 - 10.4 08/19/2018 [facility] HEMATOLOGY Hct 36.3 36.0 - 48.0 08/19/2018 [facility] HEMATOLOGY RBC 4.06 4.20 - 5.40 08/19/2018 [facility] HEMATOLOGY Sed Rate 7 0 - 20 08/19/2018 [facility] IMMUNOLOGY C-REACTIVE PROTEIN <2.9 <=2.9 mg/L 08/19/2018 [facility] HEMATOLOGY Sed Rate 1 0 - 20 08/19/2018 [facility] ELECTROLYTES Sodium Lvl 137 135 - 145 [...] should be multiplied by the estimated BMI. [facility] ELECTROLYTES Calcium Lvl 8.9 8.5 - 10.5 07/30/2015 [facility] ELECTROLYTES AGAP 10.4 10.0 - 20.0 07/30/2015 [facility] ELECTROLYTES CO2 30 24 - 32 07/30/2015 [facility] ELECTROLYTES Glucose Lvl 85 70 - 99 07/30/2015 [facility] ELECTROLYTES Creatinine Lvl 1.0 0.5 - 1.4 07/30/2015 [facility] ELECTROLYTES BUN 15 7 - 22 07/30/2015 [facility] HEMATOLOGY Basophils # 0.1 0.0 - 0.2 07/30/2015 [facility] HEMATOLOGY Monocytes 10.4 2.0 - 12.0 07/30/2015 [facility] HEMATOLOGY Basophils 0.5 0.0 - 1.0 07/30/2015 [facility] Segs-Bands # 8.4 1.5 - 8.1 07/30/2015 [facility] Lymphocytes # 2.2 1.0 - 5.5 07/30/2015 [facility] Monocytes # 1.2 0.0 - 0.8 07/30/2015 [facility] HEMATOLOGY Segs 70.5 45.0 - 75.0 07/30/2015 [facility] Lymphocytes 18.6 20.0 - 40.0 07/30/2015 [facility] MPV 9.2 7.4 - 10.4 07/30/2015 [facility] MCHC 32.1 32.0 - 36.0 07/30/2015 [facility] RDW 13.8 11.5 - 14.5 07/30/2015 [facility] Platelet 254 133 - 450 07/30/2015 [facility] MCV 90.5 80.0 - 98.0 07/30/2015 [facility] MCH 29.1 27.0 - 31.0 07/30/2015 [facility] Hgb 12.1 12.0 - 16.0 07/30/2015 [facility] HEMATOLOGY Hct 37.6 36.0 - 48.0 07/30/2015 [facility] HEMATOLOGY WBC 11.9 3.7 - 10.4 07/30/2015 [facility] HEMATOLOGY RBC 4.16 4.20 - 5.40 07/30/2015 [facility] CHEM PANEL eGFR 67 07/29/2015 Result Comment: [...] should be multiplied by the estimated BMI. [facility] CHEM PANEL Chloride Lvl 104 95 - 109 07/29/2015 [facility] CHEM PANEL Potassium Lvl 4.9 3.5 - 5.1 07/29/2015 [facility] CHEM PANEL CO2 33 24 - 32 07/29/2015 [facility] CHEM PANEL Calcium Lvl 9.2 8.5 - 10.5 07/29/2015 [facility] CHEM PANEL Glucose Lvl 129 70 - 99 07/29/2015 [facility] CHEM PANEL Sodium Lvl 140 135 - 145 07/29/2015 [facility] CHEM PANEL Creatinine Lvl 0.9 0.5 - 1.4 07/29/2015 [facility] CHEM PANEL BUN 15 7 - 22 07/29/2015 [facility] CHEM PANEL AGAP 7.9 10.0 - 20.0 07/29/2015 [facility] HEMATOLOGY Eosinophils 1.9 0.0 - 4.0 07/29/2015 [facility] HEMATOLOGY Monocytes 6.2 2.0 - 12.0 07/29/2015 [facility] HEMATOLOGY Segs-Bands # 7.1 1.5 - 8.1 07/29/2015 [facility] HEMATOLOGY Lymphocytes # 1.1 1.0 - 5.5 07/29/2015 [facility] HEMATOLOGY Eosinophils # 0.2 0.0 - 0.5 07/29/2015 [facility] HEMATOLOGY Monocytes # 0.6 0.0 - 0.8 07/29/2015 [facility] Basophils # 0.1 0.0 - 0.2 07/29/2015 [facility] Lymphocytes 12.2 20.0 - 40.0 07/29/2015 [facility] Segs 78.9 45.0 - 75.0 07/29/2015 [facility] Basophils 0.8 0.0 - 1.0 07/29/2015 [facility] WBC 9.0 3.7 - 10.4 07/29/2015 [facility] RBC 4.29 4.20 - 5.40 07/29/2015 [facility] MCHC 33.0 32.0 - 36.0 07/29/2015 [facility] MCH 29.7 27.0 - 31.0 07/29/2015 [facility] Hgb 12.7 12.0 - 16.0 07/29/2015 [facility] MCV 90.0 80.0 - 98.0 07/29/2015 [facility] Hct 38.6 36.0 - 48.0 07/29/2015 [facility] RDW 13.3 11.5 - 14.5 07/29/2015 [facility] MPV 9.2 7.4 - 10.4 07/29/2015 [facility] Platelet 256 133 - 450 07/29/2015 [facility] ELECTROLYTES Sodium Lvl 140 135 - 145 07/28/2015 [facility] ELECTROLYTES Potassium Lvl 4.2 3.5 - 5.1 07/28/2015 [facility] ELECTROLYTES Chloride Lvl 102 95 - 109 07/28/2015 [facility] ELECTROLYTES eGFR 67 07/28/2015 Result Comment: The [...] should be multiplied by the estimated BMI. [facility] ELECTROLYTES AGAP 11.2 10.0 - 20.0 07/28/2015 [facility] ELECTROLYTES Calcium Lvl 8.8 8.5 - 10.5 07/28/2015 [facility] ELECTROLYTES BUN 18 7 - 22 07/28/2015 [facility] ELECTROLYTES CO2 31 24 - 32 07/28/2015 [facility] ELECTROLYTES Creatinine Lvl 0.9 0.5 - 1.4 07/28/2015 [facility] ELECTROLYTES Glucose Lvl 92 70 - 99 07/28/2015 [facility] HEMATOLOGY RBC 4.00 4.20 - 5.40 07/28/2015 [facility] HEMATOLOGY Hct 36.2 36.0 - 48.0 07/28/2015 [facility] HEMATOLOGY Hgb 11.9 12.0 - 16.0 07/28/2015 [facility] HEMATOLOGY MPV 9.7 7.4 - 10.4 07/28/2015 [facility] HEMATOLOGY RDW 13.2 11.5 - 14.5 07/28/2015 [facility] HEMATOLOGY Platelet 234 133 - 450 07/28/2015 [facility] HEMATOLOGY WBC 8.0 3.7 - 10.4 07/28/2015 [facility] MCH 29.7 27.0 - 31.0 07/28/2015 [facility] HEMATOLOGY MCV 90.4 80.0 - 98.0 07/28/2015 [facility] MCHC 32.9 32.0 - 36.0 07/28/2015 [facility] Lymphocytes 31.9 20.0 - 40.0 07/28/2015 [facility] HEMATOLOGY Segs 58.7 45.0 - 75.0 07/28/2015 [facility] HEMATOLOGY Monocytes 8.9 2.0 - 12.0 07/28/2015 [facility] HEMATOLOGY Monocytes # 0.7 0.0 - 0.8 07/28/2015 [facility] HEMATOLOGY Basophils 0.3 0.0 - 1.0 07/28/2015 [facility] Segs-Bands # 4.7 1.5 - 8.1 07/28/2015 [facility] Lymphocytes # 2.5 1.0 - 5.5 07/28/2015 [facility] Eosinophils 0.2 0.0 - 4.0 07/28/2015 [facility] HEMATOLOGY Eosinophils 0.1 0.0 - 4.0 07/27/2015 [facility] LIPIDS VLDL 14 07/27/2015 [facility] LIPIDS LDL (Calculated) 76 <=99 mg/dL 07/27/2015 [facility] LIPIDS Trig 71 <=149 mg/dL 07/27/2015 [facility] LIPIDS CHD Risk 2.73 3.90 - 5.80 07/27/2015 [facility] LIPIDS HDL 52 >=61 mg/dL 07/27/2015 [facility] LIPIDS Chol 142 <=199 mg/dL 07/27/2015 [facility] SPECIAL CHEMISTRY Hgb A1C 5.9 <=5.6 % 07/27/2015 [facility] THYROID PANEL TSH 0.056 0.360 - 3.740 07/27/2015 [facility] THYROID PANEL T4 Free 1.47 0.76 - 1.46 07/27/2015 [facility] BLOOD BANK RESULTS ABO/Rh AB POS 07/26/2015 [facility] BLOOD BANK RESULTS Antibody Scrn Negative (07/26/15 2:55 PM) 07/26/2015 [facility] DRUG SCREEN U Amph Scr Nega tive *NA* (07/26/15 2:05 PM) Negative 07/26/2015 [facility] DRUG SCREEN U Cocaine Scr Nega tive *NA* (07/26/15 2:05 PM) Negative 07/26/2015 [facility] DRUG SCREEN U Benzodia Scr Nega tive *NA* (07/26/15 2:05 PM) Negative 07/26/2015 [facility] DRUG SCREEN U Julia Scr Nega tive *NA* (07/26/15 2:05 PM) Negative 07/26/2015 [facility] DRUG SCREEN U Phencyc Scr Nega tive *NA* (07/26/15 2:05 PM) Negative 07/26/2015 [facility] DRUG SCREEN U Opiate Scr Posi tive *ABN* (07/26/15 2:05 PM) Negative 07/26/2015 [facility] DRUG SCREEN U Cannab Scr Nega tive *NA* (07/26/15 2:05 PM) Negative 07/26/2015 [facility] DRUG SCREEN UDS Note See Note (07/26/15 2:05 PM) 07/26/2015 [facility] URINE AND STOOL UA Sq Epi None Seen 07/26/2015 [facility] URINE AND STOOL UA WBC 3 0 - 5 07/26/2015 [facility] URINE AND STOOL UA RBC <1 0 - 2 07/26/2015 [facility] URINE AND STOOL UA Ketones Negative mg/dL Negative mg/dL 07/26/[address] [facility] [address] URINE AND STOOL UA Urobilinogen 2.0 0.1 - 1.0 07/26/2015 [facility] URINE AND STOOL UA Bili Negative *NA* (07/26/15 2:05 PM) Negative 07/26/2015 [facility] URINE AND STOOL UA Blood Negative (07/26/15 2:05 PM) Negative 07/26/2015 [facility] URINE AND STOOL UA Nitrite Positive *ABN* (07/26/15 2:05 PM) Negative 07/26/2015 [facility] URINE AND STOOL UA Leuk Est Trace *ABN* (07/26/15 2:05 PM) Negative 07/26/2015 [facility] URINE AND STOOL UA Bacteria Many /HPF None Seen /HPF 07/26/2015 [facility] URINE AND STOOL UA Glucose Negative mg/dL Negative mg/dL 07/26/2015 [facility] URINE AND STOOL UA Protein Negative mg/dL Negative mg/dL 07/26/2015 [facility] URINE AND STOOL UA pH 6.0 5.0 - 8.0 07/26/2015 [facility] URINE AND STOOL UA Spec Grav 1.014 <=1.030 07/26/2015 [facility] URINE AND STOOL UA Turbidity Slight *ABN* (07/26/15 2:05 PM) Clear 07/26/2015 [facility] URINE AND STOOL UA Color Yellow *NA* (07/26/15 2:05 PM) Yellow 07/26/2015 [facility] CARDIAC ENZYMES Troponin-I <0.02 0.00 - 0.40 07/26/2015 [facility] CARDIAC ENZYMES CK MB 2.1 0.5 - 3.6 07/26/2015 [facility] CARDIAC ENZYMES Total CK 288 12 - 191 07/26/2015 [facility] CARDIAC ENZYMES CK MB Index 0.7 0.0 - 2.5 07/26/2015 [facility] CHEM PANEL Globulin 2.9 2.0 - 4.0 07/26/2015 [facility] CHEM PANEL A/G Ratio 1.2 0.7 - 1.6 07/26/2015 [facility] CHEM PANEL Total Protein 6.3 6.4 - 8.4 07/26/2015 [facility] CHEM PANEL Albumin Lvl 3.4 3.5 - 5.0 07/26/2015 [facility] CHEM PANEL Bili Total 0.5 0.2 - 1.3 07/26/2015 [facility] CHEM PANEL B/C Ratio 16 6 - 25 07/26/2015 [facility] CHEM PANEL Alk Phos 68 39 - 136 07/26/2015 [facility] CHEM PANEL AST 28 0 - 37 07/26/2015 [facility] CHEM PANEL ALT 29 0 - 65 07/26/2015 [facility] HEMATOLOGY Eosinophils # 0.2 0.0 - 0.5 07/26/2015 [facility] HEMATOLOGY PTT 28.2 22.9 - 35.8 07/26/2015 [facility] HEMATOLOGY PT 13.5 12.0 - 14.7 07/26/2015 [facility] HEMATOLOGY INR 1.00 0.85 - 1.17 07/26/2015 [facility] Pathology Reports No Data Provided for This [...] DIP joints and thumb IP joint. 08/19/2018 [facility] Breast Mammo Scrn SHELIA incl CAD MA BILATERAL DIGITAL SCREENING MAMMOGRAM WITH CAD: 12/11/2017 CLINICAL: /Routine. Current study was evaluated with a Computer Aided Detection (CAD) system. COMPARISON:Comparison is made to exams dated: 05/16/2016 mammogram, 04/13/2015 mammogram, and 06/19/2016 mammogram. TECHNIQUE: Mammographic views were obtained using digital acquisition. Ardelyx Version 1.3 was utilized for computer aided [...] is recommended.(12/12/2018) This exam was interpreted at [id number] for [facility] Breast Kermit. Cullen moura/hazel:12/24/2017 14:31:52 Editor Index(s): Shanika Vital, [facility] letter sent: BI-RADS 1/2 Mammogram BI-RADS: 2 Benign 12/11/2017 [facility] Ankle 2 views DX Left ankle 2 views: Postoperative radiographs show plate and screw fixation of the distal fibula, and medial malleolar screws. The previously described fracture-dislocation has been anatomically reduced. Medial and lateral skin becca are noted. A cast around the foot and ankle is seen. SL:13 07/31/2015 [facility] Ankle 2 views DX Examination: Left ankle, 7 views History: left ankle ORIF Comparison: Plain films of the left ankle from 07/22/2015 Findings: Multiple nondiagnostic intraoperative fluoroscopic views of the left ankle show new postoperative changes of plate and screw fixation of bimalleolar fractures with apposition of the major fracture fragments. Fluoro time is 37.1 seconds. SL: 16 07/29/2015 [facility] Chest CTA CT CHEST WITH CONTRA ST [...] disease. SL: 12 Rick Weiss M.D. 07/26/2015 [facility] Brain wo contrast CT Examinati on: CT [...] No acute intracranial abnormality. SL: 16 07/26/2015 [facility] Chest 1view DX EXAM: CHEST 1 V IEW DATE: Jul 26, 2015 10:32:51 AM INDICATION: Dizziness. Fatigue. COMPARISON: None. TECHNIQUE: AP chest radiograph. FINDINGS: Lungs are clear bilaterally No pleural effusion or pneumothorax is identified . Cardiac silhouette is not enlarged. Aortic arch calcification is seen.. The skeleton is intact IMPRESSION: 1. No acute intrathoracic abnormality SL: 14 07/26/2015 [facility] Ankle 3 views DX LEFT ANKLE 3 [...] swelling. Coding: Ankle 3 views CPT code: 67183 SL: 13 Rick Weiss M.D. 07/22/2015 [facility] Consultation Notes No Data Provided for This Section Discharge Summaries No Data Provided for This Section History and Physicals No Data Provided for This Section Vital Signs Vital Sign Value Date Comments Source Heart Rate 73 08/20/2018 [facility] Temperature Oral (F) 98.4 F 08/20/2018 [facility] Systolic (mm Hg) 144 08/20/2018 [facility] Diastolic (mm Hg) 83 08/20/2018 [facility] Respitory Rate 18 08/20/2018 [facility] Systolic (mm Hg) 138 08/20/2018 [facility] Diastolic (mm Hg) 65 08/20/2018 [facility] Respitory Rate 17 08/20/2018 [facility] Respitory Rate 17 08/20/2018 [facility] Systolic (mm Hg) 152 08/20/2018 [facility] Diastolic (mm Hg) 61 08/20/2018 [facility] Heart Rate 66 08/20/2018 [facility] Temperature Oral (F) 98.5 F 08/20/2018 [facility] Temperature Oral (F) 98.9 F 08/20/2018 [facility] Heart Rate 60 08/20/2018 [facility] Weight 90.909 08/18/2018 [facility] BMI Calculated 34.4 08/18/2018 [facility] Height 162.56 cm 08/18/2018 [facility] Temperature Oral (F) 97.6 F 08/04/2015 [facility] Systolic (mm Hg) 129 08/04/2015 [facility] Diastolic (mm Hg) 77 08/04/2015 [facility] Respitory Rate 17 08/04/2015 [facility] Heart Rate 87 08/04/2015 [facility] Heart Rate 79 08/04/2015 [facility] Temperature Oral (F) 98.4 F 08/04/2015 [facility] Systolic (mm Hg) 123 08/04/2015 [facility] Diastolic (mm Hg) 75 08/04/2015 [facility] Respitory Rate 16 08/04/2015 [facility] Temperature Oral (F) 98.6 F 08/04/2015 [facility] Heart Rate 82 08/04/2015 [facility] Respitory Rate 17 08/04/2015 [facility] Systolic (mm Hg) 137 08/04/2015 [facility] Diastolic (mm Hg) 80 08/04/2015 [facility] Height 162.5 cm 07/30/2015 [facility] BMI Calculated 39.57 07/30/2015 [facility] Weight 104.5 07/30/2015 [facility] Weight 104.545 07/28/2015 [facility] Height 162.56 cm 07/26/2015 [facility] Weight 104.545 07/26/2015 [facility] BMI Calculated 39.56 07/26/2015 [facility] BMI Calculated 39.56 07/26/2015 [facility] Height 162.56 cm 07/26/2015 [facility] Systolic (mm Hg) 122 07/23/2015 [facility] Diastolic (mm Hg) 69 07/23/2015 [facility] Respitory Rate 16 07/23/2015 [facility] Temperature Oral (F) 98.9 F 07/23/2015 [facility] Heart Rate 88 07/23/2015 [facility] Weight 104.545 07/23/2015 [facility] BMI Calculated 39.56 07/23/2015 [facility] Height 162.56 cm 07/23/2015 [facility] Temperature Oral (F) 99.2 F 07/23/2015 [facility] Systolic (mm Hg) 119 07/23/2015 [facility] Diastolic (mm Hg) 67 07/23/2015 [facility] Respitory Rate 18 07/23/2015 [facility] Heart Rate 94 07/23/2015 [facility] Encounters Location Location Details Encounter Type Encounter Number Reason For Visit Attending Provider ADM Date DC Date Status Source [facility] [id number] Bipin Arabella 07/23/2015 07/23/2015 [facility] Inpatient [id number] Zafar New 07/26/2015 08/05/2015 [facility] Outpatient [id number] LAURA MARIO 07/22/2017 Active [facility] Outpatient [id number] Maggie Gomez 12/11/2017 12/12/2017 [facility] Inpatient [id number] Pete Tejeda 8 08/20/2018 [facility] Procedures Procedure Code Date Perfomer Comments Source Abdominal hysterectomy [id number] [facility] Appendectomy [id number] [facility] Assessment and Plan Assessment and Plan Date [...] on 08/20/2018 Alexandru Melton MD PGY-3 MSO [phone] pager [phone] Orthopaedic Attending: Pete Tejeda DO Date of Service: 08/18/2018 CC " my finger is infected" HPI: This 67-year-old female with a left index finger infection status post irrigation and debridement several weeks ago by Dr. Morse at [facility] presenting after being admitted directly [...] Vascular: BCR all fingers <2 sec. 08/20/2018 [facility] Extracted from:Title: Clinical Document Author: Mata Zhong [...] qam. Monitor mood and mental status. 08/05/2015 [facility] Plan of Care No Data Provided for [...] Cessation Counseling No entered on: 08/18/18 08/18/2018 [facility] Social History TypeResponse Smoking Status Never smoker; Exposure to Tobacco Smoke None; Cigarette Smoking Last 365 Days No; Reg Smoking Cessation Counseling No entered on: 07/22/17 07/22/2017 [facility] Family History No Data Provided for This Section Advance Directives No Data Provided for This Section Functional Status No Data Provided for This Section
--- OUTSIDE RECORDS SUMMARY | 2020-04-14 15:59 | XMS REPORT | Continuity of Care Document ---
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 hydroxide-magnesium hyd- simethicone [phone]/5ml 30 ml ud SARAH) Wen Reyes Diphenhydramine 2015-07-29 13:56:00 No 12.5 mg, 0.5 tab, Route: PO, Drug form: TAB, Q6H, Dosing Weight 104.545, kg, PRN Itching, Start date: 07/29/15 8:56:00, Duration: 30 day, Stop date: 08/28/15 8:55:00 Wen Reyes Dulcolax Laxative 2015-07-29 13:56:00 No Notes: (Same As: Dulcolax, Correctol) (Do Not Crush) "Do Not Crush" Wen Reyes Morphine 2015-07-29 13:56:00 No Not es: (Same as:MORPhine Sulfate) Wen Reyes Acetaminophen 2015-07-29 13:56:00 No Notes: Do not exceed 4 gm/day. (Same as: Tylenol) Wen Reyes Acetaminophen 325 MG / Hydrocodone Bitartrate 10 MG Oral Tab let 2015-07-29 13:56:00 No Notes: Do not exceed 4gm/day of acetaminophen. (Same as: Norris 325/10) Wen Reyes Lactated Ringers IV 1,000 mL 2015-07-29 13:56:00 No 1,000 mL, Rate: 75 ml/hr, Infuse over: 13.3 hr, Route: IV, Dosing Weight 104.545 kg, Total Volume: 1,000, Start date: 07/29/15 8:56:00, Duration: 30 day, Stop date: 08/28/15 8:55:00 Wen Reyes Ancef 2015-07-29 12:47:00 No Notes: Same as : [facility] Calcium Chloride 0.0014 MEQ/ML / Potassi um Chloride 0.004 MEQ/ML / Sodium Chloride 0.103 MEQ/ML / Sodium Lactate 0.028 MEQ/ML Injectable Solution 2015-07-29 12:45:00 No 1,000 mL, Rate: 25 ml/hr, Infuse over: 40 hr, Route: IV, Dosing Weight 104.545 kg, Total Volume: 1,000, Start date: 07/29/15 7:45:00, Duration: 30 day, Stop date: 08/28/15 7:44:00 Wen Reyes Antivert 2015-07-28 18:00:00 No Notes: (Juan e as: Antivert) [facility] Nitroglycerin 0.4 MG Sublingual Tablet 2015-07-28 16:46:00 No Notes: (Same as:Nitroquick, Nitrostat) "Do Not Crush" Sublingual tablet [facility] Atropine 2015-07-28 16:46:00 No 0.5 mg, 5 mL, Route: IVP, Drug form: INJ, ONCE, Dosing Weight 104.545, kg, PRN Bradycardia, Start date: 07/28/15 11:46:00, for symptomatic bradycardia [facility] Eric Solu-Medrol 2015-07-28 14:30:00 No Notes: (Same as:Solu-MEDROL, A-Methapred) [facility] heparin sodium, porcine 2500 UNT/ML Injectable Solution 2015-07-28 02:00:00 No Notes: porcine heparin M [facility] Eric Protonix 2015-07-27 21:30:00 No Notes: Tablet should not be chewed or crushed. (Same as: Protonix) [facility] Claritin 2015-07-27 14:00:00 No Notes: 1 hr before meals (Same as: Claritin) Wen Reyes hydrochlorothiazide 25 mg oral tablet 2015-07-27 14:00:00 N o Notes: (Same as: Hydrodiuril) With food. Rominaprasanna wheat Eric Prevacid 2015-07-27 14:00:00 No 15 mg, Route: PO, Drug form: ECCAP, Daily, Dosing Weight 104.545, kg, Start date: 07/27/15 9:00:00, Duration: 30 day, Stop date: 08/25/15 9:00:00 Tayla Reyes lamotrigine 100 MG Oral Tablet 2015-07-27 14:00:00 No Notes: (Same as:LaMICtal) Wen Reyes Hydrochlorothiazide 25 MG / Losartan Potassium 100 MG Oral T ablet 2015-07-27 14:00:00 No 1 tab, Rou te: PO, Drug Form: TAB, Dosing Weight 104.545, kg, Daily, Start date: 07/27/15 9:00:00, Duration: 30 day, Stop date: 08/25/15 9:00:00 Wen Reyes Clarice 2015-07-27 14:00:00 No 180 mg, Route: PO, Drug form: TAB, Daily, Dosing Weight 104.545, kg, Start date: 07/27/15 9:00:00, Duration: 30 day, Stop date: 08/25/15 9:00:00 Tayla Reyes Citalopram 2015-07-27 14:00:00 No Notes: (S dk As: CeleXA) Wen Reyes Cozaar 2015-07-27 14:00:00 No Notes: (Same as: Cozaar) Wen Reyes Thyroxine 2015-07-27 11:30:00 No Notes: Take 1 hour before or 2 hours after meal; Enteral feeds may interefere with the absorption of this medication. (Same as: Levothroid) Vania Reyes Simvastatin 2015-07-27 02:00:00 No Notes: ( Same as: Zocor) Wen Reyes Rocephin 2015-07-27 01:00:00 No Notes: (Same As: Rocephin). Use with 100ml NS mini-bag PLUS and infuse over 30 min MEDICATION WASTE Product Size: 1000 mg Product Wasted: ___ mg Wen Reyes Solu-Medrol 2015-07-26 22:50:00 No Notes: (Same as:Solu-MEDROL, A-Methapred) Wen Reyes Meclizine 2015-07-26 22:49:00 No Notes: (Sa me as: Antivert) Wen Reyes Miralax 2015-07-26 22:16:00 No Notes: Dissolve in 8 oz of water or juice. (Same as: Miralax) Wen Valle nn Zofran 2015-07-26 22:16:00 No Notes: (Same as: Zofran) MEDICATION WASTE Product Size: 4 mg Product Wasted: ___ mg Wen Reyes Tylenol 2015-07-26 22:16:00 No Notes: Max acetaminophen = 4000mg/day (4 gm/day). (Same as: Tylenol) Wen Reyes Restoril 2015-07-26 22:16:00 No Notes: ([facility] e As: Restoril) Wen Reyes Acetaminophen 325 MG / Hydrocodone Bitartrate 5 MG Oral Tabl et [Norris 5/325] 2015-07-26 22:15:00 No Notes: (Same as: Norris 325/5) Do not exceed 4gm/day of acetaminophen. [facility] Tori schwab Clonidine Hydrochloride 0.1 MG Oral Tablet 2015-07-26 22:15:00 No Notes: (Same As: Catapres) Wen shah Ondansetron 2015-07-26 21:30:00 No Notes: (Same as: Zofran) MEDICATION WASTE Product Size: 4 mg Product Wasted: ___ mg [facility] Morphine 2015-07-26 21:30:00 No Not es: (Same as:MORPhine Sulfate) [facility] [place] lansoprazole 15 MG Enteric Coated Capsule [Prevacid] 2 20:16:00 Yes 15 mg = 1 cap, PO, Daily, 0 Refill(s) Wen Reyes levothyroxine 200 mcg (0.2 mg) oral tablet 2015-07-26 20:16:00 No 200 microgram = 1 tab, PO, Q630AM, 0 Refill(s) Wen Reyes Hydrochlorothiazide 25 MG / Losartan Potassium 100 MG Oral T ablet 2015-07-26 20:16:00 Yes 1 tab, PO, Daily, 0 Refill(s) Wen Reyes citalopram 40 mg oral tablet 2015-07-26 20:15:00 Yes 80 mg = 2 tab, PO, Daily, 0 Refill(s) Wen Reyes Fexofenadine hydrochloride 180 MG Oral Tablet [Clarice] 2015-07-26 20:15:00 Yes 180 mg = 1 tab, PO, Daily, 0 Refill(s) Wen Reyes simvastatin 40 mg oral tablet 2015-07-26 20:15:00 Yes 40 mg = 1 tab, PO, Bedtime, 0 Refill(s) Wen Valle nn lamotrigine 100 MG Oral Tablet 2015-07-26 20:15:00 Yes 300 mg = 3 tab, PO, Daily, 0 Refill(s) Wen castillo temazepam 30 mg oral capsule 2015-07-26 20:14:00 Yes 30 mg = 1 cap, PO, Bedtime, 0 Refill(s) Wen [facility] Levaquin 2015-07-26 20:00:00 No Notes: (Juan e as:Ana) Wen Reyes Sodium Chloride 0.9% (titrate) 250 mL 2015-07-26 19:26:00 N o 250 mL, Rate: camera storage clerk for use with blood product administration, Dosing Weight 104.545, kg, Route: IV, Total Volume: 250, Start Date: 07/26/15 14:26:00, Duration: 1 day, Stop date: 07/27/15 14:25:00, Replace Every: 24 hr Wen Reyes potassium chloride 2015-07-26 18:30:00 No Notes: (Same as: Walker 20) "Do Not Crush" With food and full glass of water Wen Reyes Acetaminophen 325 MG / Hydrocodone Bitartrate 10 MG Or al Tablet [Norris 10/325] 2015-07-23 02:50:00 Yes 1 ta b, PO, Q6H, PRN for pain, X 5 day, # 20 tab, 0 Refill(s) Wen Reyes Acetaminophen 325 MG / Hydrocodone Bitartrate 10 MG Oral Tab let 2015-07-23 00:42:00 No 1 tab, Rou te: PO, Dosing Weight 104.545, kg, ONCE, STAT, Start date: 07/22/15 19:42:00, Stop date: 07/22/15 19:42:00 [facility] Amlodipine Besylate (Norvasc) 5 Mg TAB Amlodipine Besylate (Norv asc) 5 Mg TAB Yes 5 Daily [facility] Aspirin (Aspir 81) 81 Mg TABLET. Aspirin (Aspir 81) 81 Mg TABLET. Yes Daily [facility] Citalopram Hydrobromide (Celexa) 40 Mg TABLET Citalopr am Hydrobromide (Celexa) 40 Mg TABLET Yes Daily [facility] Gabapentin Gabapentin Yes Daily [facility] Lamotrigine (Lamictal) 100 Mg TAB Lamotrigine (Lamictal) 100 Mg TAB Yes Daily [facility] Levothyroxine Sodium Levothyroxine Sodium Yes 112 Daily [facility] Levothyroxine Sodium Levothyroxine Sodium Yes 112 Daily [facility] Losartan Potassium (Cozaar) 25 Mg TABLET Losartan Pota ssium (Cozaar) 25 Mg TABLET Yes 25 Twice A Day [facility] Omeprazole Magnesium (Prilosec Otc) 20 Mg TABLET.DR Pittman eprazole Magnesium (Prilosec Otc) 20 Mg TABLET. Yes Daily [facility] Omeprazole Magnesium (Prilosec Otc) 20 Mg TABLET.DR Pittman eprazole Magnesium (Prilosec Otc) 20 Mg TABLET.DR Nari Daily [facility] Immunizations Ordered Immunization Name Filled Immunization Name Date Status Comments Source Influenza High Dose Preservative Free IM 2018-09-04 00:00: 00 Completed [facility] Vital Signs Vital Name Observation Time Observation Value Comments Source Weight 2020-03-30 16:45:00 204 [lb_av] [facility] BMI (Body Mass Index) 2020-03-30 16:45:00 35.0 kg/m2 [facility] Systolic blood pressure 2020-03-01 13:41:00 139 mm[Hg] [facility] Diastolic blood pressure 2020-03-01 13:41:00 86 mm[Hg] [facility] Body height 2020-03-01 13:41:00 162.6 cm [facility] Body weight Measured 2020-03-01 13:41:00 90.719 kg [facility] BMI 2020-03-01 13:41:00 34.33 kg/m2 [facility] Heart rate 2020-02-23 10:37:00 81 /min [facility] Body temperature 2019-12-14 13:15:00 36.33 Cristy [facility] Respiratory rate 2019-12-14 13:15:00 17 /min [facility] Oxygen saturation in Arterial blood by Pulse oximetry 12-14 13:15:00 98 /[facility] 2018-08-20 22:14:00 [facility] Temperature Oral (F) 2018-08-20 22:14:00 98.4 F [facility] Systolic (mm Hg) 2018-08-20 22:14:00 Myles rial [place] Diastolic (mm Hg) 2018-08-20 22:14:00 Mem orial Eric Respitory Rate 2018-08-20 22:14:00 Memori al [facility] Systolic (mm Hg) 2018-08-20 18:30:00 Myles rial Eric Diastolic (mm Hg) 2018-08-20 18:30:00 Mem orial Eric Respitory Rate 2018-08-20 18:30:00 [facility] [place] Respitory Rate 2018-08-20 18:15:00 Memori al Eric Systolic (mm Hg) 2018-08-20 18:15:00 Myles rial Eric Diastolic (mm Hg) 2018-08-20 18:15:00 Mem [facility] [place] Heart Rate 2018-08-20 12:39:00 [facility] Temperature Oral (F) 2018-08-20 12:39:00 98.5 F [facility] Temperature Oral (F) 2018-08-20 09:15:00 98.9 F [facility] Heart Rate 2018-08-20 09:15:00 [facility] Weight 2018-08-18 21:34:00 [facility] BMI Calculated 2018-08-18 21:34:00 Memori al [facility] Height 2018-08-18 21:34:00 162.56 cm [facility] Temperature Oral (F) 2015-08-04 20:53:00 97.6 F [facility] Systolic (mm Hg) 2015-08-04 20:53:00 Myles rial [place] Diastolic (mm Hg) 2015-08-04 20:53:00 Mem [facility] [place] Respitory Rate 2015-08-04 20:53:00 Memori al Eric Heart Rate 2015-08-04 20:53:00 [facility] [place] Heart Rate 2015-08-04 17:42:00 [facility] Temperature Oral (F) 2015-08-04 17:42:00 98.4 F [facility] Systolic (mm Hg) 2015-08-04 17:42:00 Myles rial [place] Diastolic (mm Hg) 2015-08-04 17:42:00 Mem orial Eric Respitory Rate 2015-08-04 17:42:00 Memori al [facility] Temperature Oral (F) 2015-08-04 13:02:00 98.6 F [facility] [place] Heart Rate 2015-08-04 13:02:00 [facility] Respitory Rate 2015-08-04 13:02:00 [facility] [place] Systolic (mm Hg) 2015-08-04 13:02:00 Myles rial Eric Diastolic (mm Hg) 2015-08-04 13:02:00 Mem [facility] [place] Height 2015-07-30 14:23:00 162.5 cm [facility] BMI Calculated 2015-07-30 14:23:00 [facility] [place] Weight 2015-07-30 14:23:00 [facility] [place] Weight 2015-07-28 20:54:00 [facility] Height 2015-07-26 21:07:00 162.56 cm [facility] Weight 2015-07-26 21:07:00 [facility] BMI Calculated 2015-07-26 21:07:00 Memori al [facility] BMI Calculated 2015-07-26 14:31:00 [facility] [place] Height 2015-07-26 14:31:00 162.56 cm [facility] Systolic (mm Hg) 2015-07-23 03:40:00 Myles rial Eric Diastolic (mm Hg) 2015-07-23 03:40:00 Mem [facility] [place] Respitory Rate 2015-07-23 03:40:00 Memori al Eric Temperature Oral (F) 2015-07-23 03:40:00 98.9 F [facility] Heart Rate 2015-07-23 03:40:00 [facility] [place] Weight 2015-07-23 00:12:00 [facility] [place] BMI Calculated 2015-07-23 00:12:00 Omar walter [place] Height 2015-07-23 00:12:00 162.56 cm [facility] Temperature Oral (F) 2015-07-23 00:12:00 99.2 F [facility] Systolic (mm Hg) 2015-07-23 00:12:00 Myles velasco [place] Diastolic (mm Hg) 2015-07-23 00:12:00 Mem [facility] [place] Respitory Rate 2015-07-23 00:12:00 [facility] Heart Rate 2015-07-23 00:12:00 [facility] Eric Procedures Procedure Date / Time Performed Performing Clinician Sourc e CBC W/PLT COUNT & AUTO DIFFERENTIAL 2019-12-14 13:55:00 [facility]IVE METABOLIC PANEL 2019-12-14 13:55:00 Notmanuel, [facility] HEMOGLOBIN A1C 2019-12-14 13:55:00 Notmanuel, [facility] LIPID PANEL 2019-12-14 13:55:00 Notmanuel, [facility] TSH+FREE T4 2019-12-14 13:55:00 Notmanuel [facility] UA/M W/RFLX CULTURE, ROUT 2019-12-14 13:55:00 Notmanuel [facility] MICROSCOPIC EXAMINATION 2019-12-14 13:55:00 [facility] XR DXA BONE DENSITY STUDY 2019-12-09 14:07:00 Renita [facility] ECG 12-LEAD 2019-05-19 13:41:00 Notmanuel, [facility] TSH+FREE T4 2019-05-19 11:34:00 Renita [facility] COMPREHENSIVE METABOLIC PANEL 2019-05-19 11:34:00 Notmanuel [facility] LIPID PANEL 2019-05-19 11:34:[address] [address] CBC W/PLT COUNT & AUTO DIFFERENTIAL 2019-05-19 11:34:00 Notta, N asreen [facility] UA/M W/RFLX CULTURE, ROUT 2019-05-19 11:34:00 Blaisemanuel Mary Oziel kernsanyi [facility] MICROSCOPIC EXAMINATION 2019-05-19 11:34:00 Mary Maravilla Ozieljacque castro [facility] [U] XRAY HAND MIN 3 VWS LEFT [id number] 2018-08-18 00:00:00 [facility] Abdominal hysterectomy [facility] Appendectomy [facility] Plan of Care Planned Activity Planned Date Details Comments Source Future Scheduled Test 2029-01-02 00:00:00 COLON CANCER SCREE CLARISSA COLONOSCOPY [code = COLON CANCER SCREENING COLONOSCOPY] [facility] Future Scheduled Test 2021-03-16 00:00:00 BREAST CANCER SCRE ENING [code = BREAST CANCER SCREENING] [facility] r Future Scheduled Test 2020-07-05 00:00:00 INFLUENZA VACCINE (Season Ended) [code = INFLUENZA VACCINE (Season Ended)] [facility] Future Scheduled Test 2013 00:00:00 PNEUMOCOCCAL 65+ L OW/MEDIUM RISK (1 of 2 - PCV13) [code = PNEUMOCOCCAL 65+ LOW/MEDIUM RISK (1 of 2 - PCV13)] [facility] Future Scheduled Test 2013-07-06 00:00:00 MEDICARE ANNUAL WE LLNESS (YEAR 2 or FIRST YEAR if no IPPE) [code = MEDICARE ANNUAL WELLNESS (YEAR 2 or FIRST YEAR if no IPPE)] [facility] r Instructions Bronchitis (Acute) - Adult [facility] Encounters Start Date/Time End Date/Time Encounter Type Admission Type Attendi [facility] Care Department Encounter ID Source 2020-03-30 16:38:00 2020-03-30 18:32:00 Departed Emergency Room 1 NEDA VILLALTA [facility] [id number] I [facility] 2019-01-20 10:21:00 2019-07-02 23:59:00 Outpatient RENATO DOUGLAS OM BALANCE PT [id number] [facility] 2018-10-05 09:45:00 2018-10-05 12:53:00 Departed Emergency Room 1 CUCO BALDERAS [facility] [id number] [facility] 2018-08-30 21:18:00 2018-08-31 00:00:00 Departed Emergency Room [facility] [id number] [facility] 2018-08-18 16:10:00 2018-08-20 17:28:00 Outpatient Mariaa Bauman [facility] [id number] 2018-08-18 09:00:00 2018-08-18 09:00:00 Appointment; DOROTHY NASCIMENTO, P.ALEXANDRU JEFFERS, PRemy [facility] Orth[facility] at [facility] [id number] [facility] 2018-07-13 05:08:00 2018-07-13 06:49:00 Departed Emergency Room [facility] [id number] [facility] 2018-03-27 17:55:00 2018-03-27 19:00:00 Departed Emergency Room [facility] [id number] [facility] 2017-12-11 09:49:00 2017-12-11 23:59:[address] [facility] [id number] 2015-07-26 09:30:00 2015-08-04 19:25:00 Outpatient Zafar [place] [facility] [id number] 2015-07-22 19:06:00 2015-07-22 22:42:00 Outpatient Bipin Edwards [facility] [id number] Results Test Description Test Time Test Comments Results Result Comments Source CXR [address] [facility] 2020-03-30 18:20:00 [place] [id number] Patient Name: SYED SPENCE MR #: [id number] : 1950 Age/Sex: 69[id number] Req #: [id number] [facility] Physician: Ordered by: NEDA VILLALTA MD Report #: [id number] Location: [facility] Room/Bed: Procedure: [id number] HOPD[facility]CXR 1 [facility] Ex[facility] Date: 03/30/20 Exam Time: 1720 REPORT STATUS: Signed Examination: Single AP view of the chest. COMPARISON: None. INDICATION: Fever, cough DISCUSSION: Lines/tubes: None. Lungs: Calcified granuloma left upper lung. No pneumonia or pulmonary edema. Pleura: No pleural effusion or pneumothorax. Heart and mediastinum: The heart and the mediastinum are unremarkable. Bones and soft tissues: No acute bony abnormalities. IMPRESSION: 1. No acute cardiopulmonary abnormalities. Signed by: Dr. Jonathan Coles M.D. on 03/30/2020 6:20 PM Dictated By: JONATHAN COLES MD 19 Transcribed By: BRITNEY on 03/30/201819 COPY TO: NEDA VILLALTA MD Comprehensive metabolic panel 2019-12-15 14:35:00 Test Item Glucose, Serum (test code = 6944091) 89 mg/dL 65-99 BUN (test code = 6662341) 17 mg/dL 8-27 Creatinine, Serum (test code = 2096924) 0.86 mg/dL 0.57-1 eGFR If NonAfricn Am (test code = 9862435) 68 mL/min/1.73 >59 eGFR If Africn Am (test code = 7175290) 79 mL/min/1.73 >59 BUN/Creatinine Ratio (test code = 5679697) 20 12-28 Sodium, Serum (test code = 1785627) 135 mmol/L 134-144 Potassium, Serum (test code = 8613657) 4.4 mmol/L 3.5-5.2 Chloride, Serum (test code = 4161318) 96 mmol/L 96-106 Carbon Dioxide, Total (test code = 4369976) 25 mmol/L 20-29 Calcium, Serum (test code = 8832594) 9.4 mg/dL 8.7-10.3 Protein, Total, Serum (test code = 20110311) 6.2 g/dL 6-8.5 Albumin, Serum (test code = 2178806) 4.6 g/dL 3.7-4.7 Please note reference interval change Globulin, Total (test code = 2287413) 1.6 g/dL 1.5-4.5 A/G Ratio (test code = 6832757) 2.9 1.2-2.2 H Bilirubin, Total (test code = 4620717) 0.3 mg/dL 0-1.2 Alkaline Phosphatase, S (test code = 6768-6) 65 39- 117 I U/L AST (SGOT) (test code = 5160294) 19 0- 40 IU/L ALT (SGPT) (test code = 1876370) 15 0- 32 IU/L VIJAY (test code = VIJAY) Performed at: [facility] [id number] Director: González Hsu MD, Phone: [phone] Lab Interpretation (test code = 43322-6) [facility]normal [facility] [id number] 14:35:00* Test Item Value Reference Range Interpretation Comments Cholesterol, Total (test code = 2093-3) 148 mg/dL 100-199 Triglycerides (test code = 2571-8) 129 mg/dL 0-149 HDL Cholesterol (test code = 2085-9) 58 mg/dL >39 VLDL Cholesterol Ishaan (test code = 6636169) 26 mg/dL 5-40 LDL Cholesterol Calc (test code = 98220-9) 64 mg/dL 0-99 LDL/HDL Ratio (test code = 1645467) 1.1 0.0- 3.2 ratio LDL/HDL Ratio Men Women 1/2 Avg.Risk 1.0 1.5 Avg.Risk 3.6 3.2 2X Avg.Risk 6.2 5.0 3X Avg.Risk 8.0 6.1 VIJAY (test code = VIJAY) Performed at: - [facility] [id number] [place], [place] [id number] Director: González Hsu MD, Phone: [phone] [facility] [id number] 14:35:00* Test Item Value Reference Range Interpretation Comments Hemoglobin A1c (test code = 4548-4) 5.5 % 4.8-5.6 Prediabetes: 5.7 - 6.4 Diabetes: >6.4 Glycemic control for adults with diabetes: <7.0 VIJAY (test code = VIJAY) Performed at: - [facility] [address] [id number] Director: González Hsu MD, Phone: [phone] [facility] with platelet count + automated [id number] 14:35:00* Test Item Value Reference Range Interpretation Comments WBC (test code = ) 5.3 3.4- 10.8 x10E3/uL RBC (test code = 789-8) 4.09 3.77- 5.28 x10E6/uL Hemoglobin (test code = ) 11.9 g/dL 11.1-15.9 Hematocrit (test code = ) 37.7 % 34-46.6 MCV (test code = ) 92 fL 79-97 MCH (test code = ) 29.1 pg 26.6-33 MCHC (test code = 8712558) 31.6 g/dL 31.5-35.7 RDW (test code = 8870125) 14.0 % 11.7-15.4 Platelets (test code = ) 273 150- 450 x10E3/uL % Neutros (test code = ) 61 % Not Estab. % Lymphs (test code = ) 26 % Not Estab. % Monos (test code = ) 11 % Not Estab. % Eos (test code = ) 2 % Not Estab. % Baso (test code = ) 0 % Not Estab. # Neutros (test code = ) 3.2 1.4- 7.0 x10E3/uL # Lymphs (test code = ) 1.4 0.7- 3.1 x10E3/uL # Monos (test code = ) 0.6 0.1- 0.9 x10E3/uL # Eos (test code = ) 0.1 0.0- 0.4 x10E3/uL Baso (Absolute) (test code = ) 0.0 0.0- 0.2 x10E3/u L % Immature Grans (test code = ) 0 % Not Estab. # Immature Grans (test code = ) 0.0 0.0- 0.1 x10E3/ uL VIJAY (test code = VIJAY) Performed at: [facility] [address] [id number] Director: González Hsu MD, Phone: [phone] [facility] HospitalT[facility]FREE [id number] 14:35:00* Test Item Value Reference Range Interpretation Comments TSH (test code = ) 3.160 0.450- 4.50 uIU/mL T4,Free(Direct) (test code = 20120609) 1.34 ng/dL 0.82-1.77 VIJAY (test code = VIJAY) Performed at: [facility] [address] [id number] Director: González Hsu MD, Phone: [phone] [facility] HospitalUA/M W/RFLX CULTURE, [id number] 14:35:00* Test Item Value Reference Range Interpretation Comments Specific Pilger, UA (test code = 2965-2) 1.020 1.005-1.03 pH, UA (test code = 5803-2) 5.5 5.0-7.5 Color, UA (test code = 9796-4) Yellow Yellow Appearance (test code = 4691495) Clear Clear WBC Esterase (test code = 6448207) Negative Negative Protein, UA (test code = 62380-4) Negative Negative/T Glucose, Urine (test code = 59723-6) Negative Negative Ketones, UA (test code = 2514-8) Negative Negative Blood, UA (test code = 62556-7) Negative Negative Bilirubin, UA (test code = 5770-3) Negative Negative Urobilinogen,Semi-Qn (test code = 1856531) 0.2 mg/dL 0.2-1 Nitrite, UA (test code = 97659-5) Negative Negative Microscopic Examination (test code = 4046151) Comment Microscopic follows if indicated. Microscopic Examination (test code = 6532693) See below: Microscopic was indicated and was performed. Urinalysis Reflex (test code = 4139040) Comment This specimen will not reflex to a Urine Culture. VIJAY (test code = VIJAY) Performed at: [address] [place] [id number] Director: González Hsu MD, Phone: [phone] [facility] HospitalMICROSCOPIC [id number] 14:35:00* Test Item Value Reference Range Interpretation Comments WBC (test code = 2165463) 0-5 0- 5 /hpf RBC (test code = 6954616) 0-2 0- 2 /hpf Epithelial Cells (non renal) (test code = 4928327) 0-10 0- 10 /hpf Mucus Threads (test code = 5161371) Present Not Estab. Bacteria (test code = 1157672) Few None seen/ VIJAY (test code = VIJAY) Performed at: [address] [place] [id number] Director: González Hsu MD, Phone: [phone] [facility] HospitalRAD, BONE DENSITY [id number] 14:28:00Reason for Exam:->screenFINAL REPORT Bone mineral density study 12/09/2019. HISTORY [...] one or more fragility fractures Signed: Valentin Bradshaw MDReport Verified Date/Time: 12/09/2019 14:28:58 Reading Loca tion: [facility] Women , BONE DENSITY [id number] 14:28:00Interface, External Ris In - 12/09/2019 2:31 PM CSTFINAL REPORT Bone mineral density study 12/09/2019. HISTORY [...] standard deviation from young adult populationOsteopenia: BMD measur ement between 1 and 2.4 standard deviations belowOsteoporosis: BMD measurement g reater than or equal to 2.5 standard deviations belowSevere osteoporosis: Osteop orosis and one or more fragility fractures Signed: Valentin Segura MDReport V erified Date/Time: 12/09/2019 14:28:58 Reading Location: [facility] Women Elect ronically signed by: VALENTIN SEGURA on 12/09/2019 02:28 PM [facility] HospitalMM, DIGITAL, MAMMO, SCREENING, WITH DIONE, BILATERAL INCLUDING CAD 2019-04-23 09:16:00Reason for Exam:->annualAddendum BeginsMRN#: [id number] Exam AMENDMENT: 04/23/2019 Momo Marquez M.D. Comparison with the prior 12/11/2017 mammograms shows no significant interval change.Impression: Benign, BIRADS 2, recommended annual mammogram. Amended BI-RADS: 2 Benign Addendum EndsN#: [id number] - MM, DIGITAL, MAMMO, SCREENING, WITH DIONE, BILATERAL INCLUDING CADBILATERAL DIGITAL SCREENING MAMMOGRAM 3D/2D WITH CAD: 03/16/2019No prior exams were available for comparison. There are scattered fibroglandular elements in both breasts that could obscure a lesion on mammography. Tomosynthesis 3D imaging of the breast was also performed. Curre nt study was also evaluated with a Computer Aided Detection (CAD) system. There is a global asymmetry in the right breast at 7 o'clock middle depth. No other significant findings are seen in either breast. IMPRESSION: INCOMPLETE: NEEDS ADDITIONAL IMAGING EVALUATIONPrevious films are not available. If they become av ailable, they will be reviewed and we will issue an addendum. Momo Marquez M.D. pth/:03/16/2019 13:59:18 Comparison Films Needed Mammogram BI-R ADS: 0 Indeterminate Electronically signed by: MOMO MARQUEZ M.D. on 04/23 09:16 AM TISSUE [id number] 16:49:00Surgical Pathology Report Case: [id number] Authorizing Provider: Herrera Ray MD Collected: 01/02/2019 1008 Ordering Location: [facility] Received: 01/02/2019 1148 Services Pathologist: Mariangel Maldonado MD Specimen: Biopsy, Gastric, random bx STOMACH, RANDOM, ENDOSCOPIC BIOPSY: - MILD CHRONIC GASTRITIS WITH FOCAL EROSION - NO INTESTINAL METAPLASIA SEEN - NO HELICOBACTER PYLORI- LIKE ORGANISMS SEEN ON WARTHIN-STARRY STAIN - NO DYSPLASIA OR MALIGNANCY NOTED Signing Pathologist Direct Phone Line: [phone] signed by Mariangel Maldonado MD on 01/05/2019 at 4:49 [id number]; [id number] for colon cancer, reflux esophagitis Random gastric [...] stains. WARTHIN-STARRYImmunohistochemistry technical testing was performed at [facility] Pathology Laboratory where it was developed and its performance characteristics were determined. It has not been cleared or approved by the U.S. Food and Drug Administration. The FDA has determined that such clearance or approval is not necessary. The test is used for clinical purposes. It should not be regarded as investigational or for research. This l aboratory is certified under the Clinical Laboratory Improvement Amendments of 1 988 (CLIA-88) as qualified to perform high complexity clinical laboratory testin g.CT BRAIN [id number]-[id number] 10:30:00 [place] [address] Patient Name: SYED SPENCE MR #: [id number] : 1950 Age/Sex: 67/F Req #: [id number] [facility] Physician: Ordered by: CUCO BALDEARS MD Report #: [id number] Location: [facility] Room/Bed: Procedure: [id number] HOPD /CT BRAIN MERGED WITH [facility] Exam Date: 10/05/18 Exam Time: 102 4 REPORT STATUS: Signed Examinat ion: CT head without contrast Clinical Indication: Headaches. Technique: Tra nsaxial noncontrast images from the skull base through the vertex were obtaine d. Sagittal and coronal reformatted images were done. Dose modulation, iterati ve reconstruction, and/or weight based adjustment of the mA/kV was utilized to reduce the radiation dose to as low as reasonably achievable. Comparison: None. Findings: Scalp: No abnormalities. Bones: Intact. No fractures . No blastic or lytic lesions. Brain sulci: Appropriate for patient's age . Ventricles: Normal in size and configuration. No hydrocephalus. . Ex tra-axial space: No abnormalities. Parenchyma: There are patchy areas of low-attenuation within subcortical and periventricular white matter, nonspe cific, but could represent microvascular ischemic disease. No masses, hemorr junaid, or acute or chronic cortical based vascular insults. Suprasellar trinh on: No abnormalities. Craniocervical junction: The foramen magnum is patent. No Chiari one malformation. Incidental findings: Atherosclerotic calci fication of the cavernous and supraclinoid internal carotid arteries. Imp ression: 1. No acute intracranial finding. 2. Mild chronic microvasc ular ischemic change. Signed by: Dr. Tamera Caruso M.D. on 10/05/2018 10 :32 AM Dictated By: TAMERA CANDELARIA MD 1032 Transcribed By: BRITNEY on 10/05 1032 COPY TO: CUCO BALDERAS MD AFB CULTURE + [id number] 16:58:00* Test Item Value Reference Range Interpretation Comments CULTURE (BEAKER) (test code = 1095) No acid-fast bacilli isolate d in 42 days AFB SMEAR (BEAKER) (test code = 994) No partially acid fast bacilli seen CHLORAMPHENICOL:SUSC:PT:ISOLATE:ORDQN:[id number] 16:24:00Methicillin Resistant Staphylococcus aureusMemorial Eric PENICILLIN:SUSC:PT:ISOLATE:ORDQN:[id number] 16:24:00Methicillin Resistant Staphylococcus aureusMemorial HerexioBCZRQIGBFRJW1908-05-53 08:46:0012.3[facility] MbhltggZBRTREXYNRQP3322-72-19 08:46:0079[facility] XtkntavEUGELSTBYNXG2082-99-12 08:46:009.0[facility] ZpkiuhlWDGTUDUIRIZF4754-48-67 08:46:95128Qrqvxvjo Eric NZMWHTRVAGJN8241-69-71 08:46:0026[facility] AthjznrWAXOVTKICWNW6411-51-67 08:46:00 4.3[facility] HtkfsjvNQXOKQBSEIAJ8426-76-40 08:46:0089[facility] HermannELECTROLYTES 2018-08-20 08:46:0012Mem[facility] BcrvsgoJHXRBIAEFLWY2960-31-86 08:46:34617Nrwdkeok DabvralYBADTXKRKJVI7448-55-99 08:46:000.77[facility] ItaebrmEWQVTAPZYK6626-39-25 08:46:0012.5[facility] ZbkswzvXGOMOKKTFF7267-80-35 08:46:00* Test Item Value Reference Range Interpretation Comments MCH (test code = MCH) 30.8 pg 27.0-31.0 [facility] IvkgiwmNNHMANXAQW8211-16-01 08:46:0089.3[facility] HermannHEMATOLOGY 2018-08-20 08:46:004.07[facility] VyawdeeSLLMLOQMEO5541-49-40 08:46:008.7[facility] HiuailwJPNFQCJQBA7545-98-78 08:46:0034.5[facility] FqoefrcRVJSUKZUOC6723-51-80 08:46:07205Llmubpfc OgohohwYLCNETRGKK9765-35-82 08:46:0036.3[facility] [place] SFAUIOKUKA9563-42-63 08:46:0013.7[facility] GemfhqfRLYMXTSMAZ4694-64-02 08:46:00 5.5[facility] HpaaysbKZXPJKLMFL7757-01-69 08:46:000.3[facility] HermannHEMATOLOGY 2018-08-20 08:46:000.6[facility] MuajfenMNDFUVIJTX2518-71-97 08:46:002.2[facility] VvryhtcCOFUYAVPHY1339-47-27 08:46:002.4[facility] JlpyurkUWFFZPEKXN0451-96-99 08:46:0042.9[facility] AgwjeqgTICHCNROKP4291-04-83 08:46:0010.5[facility] [place] SVTHOBXWQK2057-93-96 08:46:0040.7[facility] UqbcdcaJGNKIFIZPI3079-16-58 08:46:00 0.5[facility] MsmsuwzBZLEFRUWSR3099-38-35 08:46:005.4[facility] HermannBLOOD BANK CHDSAST6308-79-91 18:12:00Negative (08/19/18 1:12 PM)[facility] HermannHEMATOLOGY 2018-08-19 18:12:00* Test Item Value Reference Range Interpretation Comments INR (test code = INR) 1.05 1 0.85-1.17 [facility] QwojwjxFXQLBLUYIW7487-00-31 18:12:00* Test Item Value Reference Range Interpretation Comments PTT (test code = PTT) 28.6 s 22.9-35.8 [facility] GkizrixSMVLEOCJGM5205-28-81 18:12:00* Test Item Value Reference Range Interpretation Comments PT (test code = PT) 13.7 s 12.0-14.7 [facility] HermannSPECIAL CRDBKRDWZ2299-29-46 18:12:005.6[facility] HermannCHEM CIEOV5711-43-85 02:07:0084[facility] HermannCHEM BMTHM9598-22-99 02:07:004.5 [facility] HermannCHEM SMFYE4679-91-26 02:07:97734Lfvdlzse HermannCHEM PANEL 2018-08-19 02:07:008.6[facility] HermannCHEM YEKXU8642-62-85 02:07:0024Mem[facility] HermannCHEM FIGFR4360-38-04 02:07:99225Kxvppfch HermannCHEM ZZPGY3950-47-43 02:07:0083[facility] HermannCHEM JKKQG9871-51-27 02:07:000.73[facility] HermannCHEM ERBHA9563-73-17 02:07:009[facility] HermannCHEM BOUAT5281-58-26 02:07:0013.5 [facility] GcoqtguEONNSJLNQA2869-39-58 02:07:00* Test Item Value Reference Range Interpretation Comments MCH (test code = MCH) 30.0 pg 27.0-31.0 [facility] BkqvftsTCABWTWKZW5634-94-08 02:07:0012.2[facility] HermannHEMATOLOGY 2018-08-19 02:07:0033.5[facility] FoxveznXOJAMVGFGC5683-90-17 02:07:01066Duyncfaz XjkjwhwUTXJSQXRLS2416-41-10 02:07:0089.6[facility] RniacvrLKTYUVUKZU2699-58-86 02:07:008.8[facility] SywblogKBTTABMRZC9170-56-08 02:07:0013.5[facility] JUDNYKSCUN3322-90-28 02:07:005.3[facility] UpvjvznYDLXHLOCJI3959-90-87 02:07:00 36.3[facility] KprtkkfHNAZWHPLEZ3724-90-60 02:07:004.06[facility] HermannHEMATOLOGY 2018-08-19 02:07:007[facility] MxeqtwjWEYQECDOYN8792-11-07 02:07:00<2.9[facility] BnebjiuOSUVRKBTJJ1450-83-81 00:28:001[facility][U] XRAY HAND MIN 3 VWS LEFT [id number] 10:17:00* Test Item Value Reference Range Interpretation [...] degenerative changes. 08/18/2018 4:59 PM CDT [facility] PhysiciansFUNGUS CULTURE + [id number] 06:54:00* Test Item Value Reference Range Interpretation Comments CULTURE (BEAKER) (test code = 1095) No fungus isolated in 28 days FUNGUS SMEAR (BEAKER) (test code = 1406) No fungi seen ANAEROBIC FGASZHG4967-76-90 19:11:00* Test Item Value Reference Range Interpretation Comments CULTURE (BEAKER) (test code = 1095) No anaerobes isolated SURGICALLY OBTAINED CULTURE + GRAM VPPEO0407-52-74 13:47:00* Test Item Value Reference Range Interpretation Comments CULTURE (BEAKER) (test code = 1095) A 1+ Methicillin resistant Staphylococcus aureus GRAM STAIN RESULT (BEAKER) (test code = 1123) <1+ WBCs GRAM STAIN RESULT (BEAKER) (test code = 55581) <1+ gram posi tive cocci in pairs VANCOMYCIN LEVEL, AHUOBA5771-74-94 07:17:00* Test Item Value Reference Range Interpretation Comments VANCOMYCIN TROUGH (BEAKER) (test code = 522) 16.6 ug/mL 10.0-20.0 Draw trough level prior to dose administration.SPIN/CONCENTRATION CHARGE 2018-07-15 07:35:00* Test Item Value Reference Range Interpretation Comments CONCENTRATION CHARGED (BEAKER) (test code = 2657) Done BASIC METABOLIC FFYGG3415-22-63 07:06:00* Test Item Value Reference Range Interpretation [...] DIALYSIS PATIENTS. CBC W/PLT COUNT & AUTO ZLWZVVERFIPW7733-65-97 06:47:00* Test Item Value Reference Range Interpretation [...] = 2801) 1 % 0-1 BASIC METABOLIC ERKSO2307-13-57 05:16:00* Test Item Value Reference Range Interpretation [...] DIALYSIS PATIENTS. CBC W/PLT COUNT & AUTO IEBSOLVBIXXO7601-49-51 04:29:00* Test Item Value Reference Range Interpretation [...] 0 % 0-1 RAD, HAND, 3 VIEWS, OXFF1414-61-54 13:37:00Reason for exam:->LEFT index finger infectionFINAL REPORT Left hand, three images HISTORY: Index finger infection COMPARISON: None IMPRESSION:No fracture or dislocation. Swelling of the second digit. No apparent soft tissue defect. No radiopaque foreign body. Interphalangeal and carpometacarpal degenerative changes are noted. Signed: Mariaa Hoffman MDReport Verified Date/Time: 07/13/2018 13:37:58 Reading Location: [address] Body Reading Room C METABOLIC PANEL [...] DIALYSIS PATIENTS. CBC W/PLT COUNT & AUTO NQOEPWDSWDPK1147-56-02 11:32:00* Test Item Value Reference Range Interpretation [...] (test code = 2801) 0 % 0-1 CDFKHUVPRRAZ2941-87-91 08:51:88187Oggqsoav GjgiynyNBTIWBBOSBGP5023-45-39 08:51:10723Hrlldnhj FujzkdkDWJQCXACSZNR4852-53-65 08:51:003.4[facility] WAHVSUOVPKUW6911-68-69 08:51:0059[facility] HctnemwEAGNZUUZTMJM3654-48-51 08:51:00 8.9[facility] HjatzyrWPSHLFICXCRR5199-99-79 08:51:0010.4[facility] QULSYUDUPEEP1192-07-91 08:51:0030[facility] OdmmoqmXLWAVHXBYMXD8698-41-70 08:51:00 85[facility] MlcxbgpBHPKKQHPCYBG4516-11-97 08:51:001.0[facility] HermannELECTROLYTES 2015-07-30 08:51:0015[facility] FrqwzneRHKRNNSYSQ9566-55-77 08:51:000.1[facility] RmuuhugWDLVRNZWSS6354-16-71 08:51:0010.4[facility] LhkbmiqRJNIKCAHZH4522-84-14 08:51:000.5[facility] PvrolhkBFQTSLYKDK0224-68-24 08:51:008.4[facility] JIKGRVEWVP0475-53-22 08:51:002.2[facility] KdnpjewAHYUZWSNVS9995-81-79 08:51:001.2 [facility] MzsrpqlOWSKRCYVEP4226-78-59 08:51:0070.5[facility] HermannHEMATOLOGY 2015-07-30 08:51:0018.6[facility] AgoawdaHRCUYTVKLK8108-69-85 08:51:009.2[facility] RmyxckwJQYYZPNCBY6139-54-74 08:51:0032.1[facility] IxcrkxiYLWYCSZMGY7235-34-45 08:51:0013.8[facility] FughgglCQKSWMDFPG0268-95-32 08:51:47755Dntkljrx Eric ALZKQTGDAC6440-57-85 08:51:0090.5[facility] XyrtdzhHJGLDMGZMW4396-20-23 08:51:00* Test Item Value Reference Range Interpretation Comments MCH (test code = MCH) 29.1 pg 27.0-31.0 [facility] DxncjdjTKEYOFQWSI3138-43-82 08:51:0012.1[facility] HermannHEMATOLOGY 2015-07-30 08:51:0037.6[facility] BhlseolRFJHVTPZBA1164-68-46 08:51:0011.9[facility] ItpaaibXFUGWIYFDV1745-94-33 08:51:004.16[facility] HermannCHEM BVRYV5587-55-95 08:56:0067[facility] HermannCHEM JJZQE0272-01-63 08:56:18000Svqqdtwj HermannCHEM FUJLQ3792-12-51 08:56:004.9[facility] HermannCHEM SRSGE1307-41-16 08:56:0033 [facility] HermannCHEM DGLQV7147-13-83 08:56:009.2[facility] HermannCHEM PANEL 2015-07-29 08:56:08551Xwhxnhhl HermannCHEM ETWEU3415-28-44 08:56:63394Svkdyvkc HermannCHEM GQCWQ5077-69-33 08:56:000.9[facility] HermannCHEM EQMVG6611-94-17 08:56:0015[facility] HermannCHEM GYYIK8147-42-75 08:56:007.9[facility] ODCPSJDXLE3089-73-31 08:56:001.9[facility] SnyuqmlIGPDHLCXJH3991-15-06 08:56:006.2 [facility] LlkztuhUVMVNCANWU4856-77-78 08:56:007.1[facility] HermannHEMATOLOGY 2015-07-29 08:56:001.1[facility] TqkzeirNNNASMVPGG9797-11-39 08:56:000.2[facility] NaxpsqeGDSRDFJATT5261-08-73 08:56:000.6[facility] KkewhrkEQQHYBGJEV5372-76-78 08:56:000.1[facility] WgbsohtQGMPGMUJJC6251-94-07 08:56:0012.2[facility] [place] FKAHKYVFVG0798-71-23 08:56:0078.9[facility] KvxxovyUPSEWIWAGK0359-30-11 08:56:00 0.8[facility] MvqwbbxKWANVHNQTW2659-28-16 08:56:009.0[facility] HermannHEMATOLOGY 2015-07-29 08:56:004.29[facility] HgmvztqCXDHVBIUPQ9861-67-42 08:56:0033.0[facility] CheifvsLBWELNXDJJ4046-73-01 08:56:00* Test Item Value Reference Range Interpretation Comments MCH (test code = MCH) 29.7 pg 27.0-31.0 [facility] JutswiwEVCDIRUIIK2209-27-32 08:56:0012.7[facility] HermannHEMATOLOGY 2015-07-29 08:56:0090.0[facility] NejxurcHCRSNHUQEY5009-08-48 08:56:0038.6[facility] PwpgbayVFOVYLYSEM6502-53-10 08:56:0013.3[facility] DdzukxcLHFNJQZEMA4373-45-00 08:56:009.2[facility] WdlsayjCZPXMBWRGG4160-43-22 08:56:24647Gvetagdl [place] DWWEYFSCKNJS3104-03-70 08:31:17082Qkhdmkcy YmtkaauNMKUBPYFQZPZ3356-80-60 08:31:004.2[facility] JqrrdnnTNLZLIYAKGGO2822-01-79 08:31:43587Gmnmbbru [place] BJGCWSXIADFV1497-53-35 08:31:0067[facility] ZyuzoscTQHGSRXSHCTP0389-21-83 08:31:00 11.2[facility] NwmvocrLSNGOMHGORYF3913-16-10 08:31:008.8[facility] [place] RKIXOBBEJZVP1336-93-79 08:31:0018[facility] JwjxxfiVDATSJUCOUBC0917-20-06 08:31:00 31[facility] NsayaqlXWZCNTEUWHRX2743-95-25 08:31:000.9[facility] HermannELECTROLYTES 2015-07-28 08:31:0092[facility] BgubsabHVLNNHSPMJ9056-37-37 08:31:004.00[facility] MeahkjxRTOAILNPWP4296-90-83 08:31:0036.2[facility] WdfctpjNHNIRXULGL0453-89-34 08:31:0011.9[facility] FvkrtyfRHMOIEDKYL8312-19-88 08:31:009.7[facility] UNSIIFPKCC4110-21-17 08:31:0013.2[facility] JlyfaqwAQTDSYAIHM7724-23-25 08:31:00 234[facility] FwtdfuhSYXNQHGCCU2789-78-66 08:31:008.0[facility] HermannHEMATOLOGY 2015-07-28 08:31:00* Test Item Value Reference Range Interpretation Comments MCH (test code = MCH) 29.7 pg 27.0-31.0 [facility] RsclehmLVMJZIBTWV7152-76-28 08:31:0090.4[facility] HermannHEMATOLOGY 2015-07-28 08:31:0032.9[facility] KbqhzlcABVGDEGHLE6852-49-85 08:31:0031.9[facility] JcsixovYNCRLBUXES2117-65-59 08:31:0058.7[facility] ZwnnvqkEACXBDZSPH7203-36-88 08:31:008.9[facility] SnozsexSTNTWZHIMO2058-82-46 08:31:000.7[facility] [place] FAWNYHLKVK3482-48-44 08:31:000.3[facility] JcwefrcVTKVECQVEJ6220-50-88 08:31:004.7 [facility] WbsnqlpWNREEVTMSP1140-21-97 08:31:002.5[facility] HermannHEMATOLOGY 2015-07-28 08:31:000.2[facility] QoywmwlIHXUPGEOIG7293-60-94 08:55:000.1[facility] YxbkpkvRPAZEP5310-21-81 08:55:0014[facility] NcptqdpQJQYFO9833-09-43 08:55:0076 [facility] YmrwbagMQMLOA2022-56-38 08:55:0071[facility] YzdjenhKFPSSV0843-48-95 08:55:002.73[facility] CtmhcajIJIXVV4573-07-93 08:55:0052[facility] HermannLIPIDS 2015-07-27 08:55:49544Ihlbchum HermannSPECIAL OYXPDPXFJ7941-63-52 08:55:005.9 [facility] HermannTHYROID SLIGS8706-06-37 08:55:000.056[facility] HermannTHYROID BSJIQ9148-69-75 08:55:001.47[facility] HermannBLOOD BANK HDHQDSK4972-15-21 19:55:00Negative (07/26/15 2:55 PM)[facility] HermannDRUG XAWVRV8439-59-56 19:05:00 Negative *NA*(07/26/15 2:05 PM)[facility] HermannDRUG HBAIAC6852-09-61 19:05:00 Negative *NA*(07/26/15 2:05 PM)[facility] HermannDRUG ILWEFC7873-87-93 19:05:00 Negative *NA*(07/26/15 2:05 PM)[facility] HermannDRUG QVCWZJ7232-40-18 19:05:00 Negative *NA*(07/26/15 2:05 PM)[facility] HermannDRUG ORZELZ7651-12-51 19:05:00 Negative *NA*(07/26/15 2:05 PM)[facility] HermannDRUG MQSFNX8871-79-60 19:05:00 Positive *ABN*(07/26/15 2:05 PM)[facility] HermannDRUG LVPVJM9708-15-43 19:05:00 Negative *NA*(07/26/15 2:05 PM)[facility] HermannDRUG XCYZAH2814-75-79 19:05:00See Note (07/26/15 2:05 PM)[facility] HermannURINE AND SMPBD7568-75-97 19:05:003 [facility] HermannURINE AND YEBDR4973-17-95 19:05:00<1[facility] HermannURINE AND MCBBY9497-12-40 19:05:002.0[facility] HermannURINE AND VZEJD6155-48-01 19:05:00 Negative *NA*(07/26/15 2:05 PM)[facility] HermannURINE AND ZXQFI5652-54-16 19:05:00 Negative (07/26/15 2:05 PM)[facility] HermannURINE AND DOAHF9562-22-41 19:05:00 Positive *ABN*(07/26/15 2:05 PM)[facility] HermannURINE AND ZBJYH5381-00-67 19:05:00Trace *ABN*(07/26/15 2:05 PM)[facility] HermannURINE AND [id number] 19:05:006.0[facility] [id number] 19:05:001.014[facility] [id number] 19:05:00Slight *ABN*(07/26/15 2:05 PM)[facility] [id number] 19:05:00Yellow *NA*(07/26/15 2:05 PM)[facility] [id number] 15:48:00<0.02[facility] ENZYMES 2015-07-26 15:48:002.1[facility] [id number] 15:48:63702 [facility] [id number] 15:48:000.7[facility]annCHE[facility] PANEL 2015-07-26 15:48:002.9[facility] [id number] 15:48:001.2[facility]annCHE[facility] [id number] 15:48:006.3[facility]annCHE[facility] [id number] 15:48:003.4[facility]annCHE[facility] [id number] 15:48:000.5[facility]annCHE[facility] [id number] 15:48:0016[facility]CHE[facility] [id number] 15:48:0068 [facility] HermannCHE[facility] [id number] 15:48:0028[facility]annCHE[facility] PANEL 2015-07-26 15:48:0029[facility] [id number] 15:48:000.2[facility] HcremygERSNMHZJRM6027-40-49 15:48:00* Test Item Value Reference Range Interpretation Comments PTT (test code = PTT) 28.2 s 22.9-35.8 [id number] 15:48:00* Test Item Value Reference Range Interpretation Comments PT (test code = PT) 13.5 s 12.0-14.7 [facility] [id number] 15:48[facility].00[facility]
[2020-04-14] MEDS ORDERED: IBUPROFEN200 MG PO (16:40)
[2020-04-14] MEDS ORDERED: ULTRAM 50MG50 MG PO (16:40)
--- NOTE | 2020-04-14 16:41 | Emergency Department Note ---
History of Present Illnes History of Present Illness Chief Complaint: Extremity Trauma/Pain History of Present Illness This is a 69 year old female accidentally hit a hard object with her left foot last night, now it became painful and swollen at the 4 toe area, no opened wound. . Historian: Patient Arrival Mode: Car Matte Cutter Required: No Onset (how long ago): day(s) (1) Radiation: Reports non-radiation Onset quality: sudden Duration (how long): day(s) Timing of current episode: constant Progression: worsening Relieving factors: movement Exacerbating factors: immobilization Associated symptoms: Reports denies other symptoms Treatments prior to arrival: none Past Medical/Family History Physician Review I have reviewed the patient's past medical and family history. Any updates have been documented here. Past Medical History Recent Fever: No Clinical Suspicion of Infectio: No New/Unexplained Change in Ment: No Past Medical History: Hypertension, Asthma, Hypothyroidism, Anxiety, Depression, GERD Other Medical History: NEUROPATHY BIPOLAR DEPRESSION Past Surgical History: Appendectomy, Hysterectomy, T&A Other Surgery: HX OF MRSA TO A WOUND IN ANKLE POST OP ANKLE 2 YEARS AGO. PT HAD PICC LINE INSERTED WITH VANCOMYCIN ADMIN. OVARIAN CYST REMOVED FINGER AMPUTATION Social History Smoking Cessation: Never Smoker Alcohol Use: None Other Last Tetanus: 2017 Any Pre-Existing Lines (PICC,: No Review of Systems Review of Systems Constitutional: Reports no symptoms EENTM: Reports no symptoms Cardiovascular: Reports no symptoms Respiratory: Reports no symptoms Gastrointestinal: Reports no symptoms Genitourinary: Reports no symptoms Musculoskeletal: Reports as per HPI, Reports joint pain, Reports joint swelling, Reports other (left 4th toe swelling and painful) Integumentary: Reports no symptoms Neurological: Reports no symptoms Psychological: Reports no symptoms Endocrine: Reports no symptoms Hematological/Lymphatic: Reports no symptoms Physical Exam Related Data Allergies: Coded Allergies: bupropion (Unverified Adverse Reaction, Unknown, MAKES HER VERY ANGRY, 07/13/18) Uncoded Allergies: CODIENE (Allergy, Intermediate, HALLUCINATIONS, FREAKS OUT, 03/27/18) Vital signs reviewed: Yes Physical Exam CONSTITUTIONAL Constitutional: Reports well-developed, Reports well-nourished HENT HENT: Reports normocephalic, Reports atraumatic, Reports oropharynx clear/moist, Reports nose normal HENT L/R: Reports left ext ear normal, Reports right ext ear normal EYES Eyes: Reports PERRL, Reports conjunctivae normal NECK Neck: Reports ROM normal PULMONARY Pulmonary: Reports effort normal, Reports breath sounds normal CARDIOVASCULAR Cardiovascular: Reports regular rhythm, Reports heart sounds normal, Reports capillary refill normal, Reports normal rate GASTROINTESTINAL Abdominal: Reports soft, Reports nontender, Reports bowel sounds normal GENITOURINARY Genitourinary: Reports exam deferred SKIN Skin: Reports warm, Reports dry MUSCULOSKELETAL Musculoskeletal: Reports deformity, Reports tenderness, Reports swelling, Reports other (deformed at PIP joint) NEUROLOGICAL Neurological: Reports alert, Reports oriented x 3, Reports no gross motor or sensory deficits PSYCHOLOGICAL Psychological: Reports mood/affect normal, Reports judgement normal Results Imaging Imaging results reviewed: Yes Impressions fracture of the 4th proximal phalanx, left Procedures Orthopedic Splinting/Casting Injury: Injury #1 Side: left Lower extremity injury locatio: toe Additional comments shelby tape and walking boot, tissue swelling not red Assessment & Plan Medical Decision Making MDM fracture vs sprain vs dislocation, will need x ray Reassessment Reassessment time: 17:30 Reassessment closed fx, can be d/c and f/u Assessment & Plan Final Impression: (1) Acute pain due to trauma (2) Fracture of fourth toe, left, closed Depart Disposition: HOME, SELF-alf Meds Active Scripts Tramadol Hcl* (ULTRAM 50MG*) 50 Mg Tab, 50 MG PO Q6H for severe pain, #30 TAB Prov:SEFERINO MCCLELLAN MD 04/14/20 Ibuprofen (IBUPROFEN) 200 Mg Capsule, 200 MG PO Q4HR, #90 TAB Prov:SEFERINO MCCLELLAN MD 04/14/20 Reported Medications Gabapentin (GABAPENTIN) 100 Mg Capsule, DAILY 03/27/18 Losartan Potassium (COZAAR) 25 Mg Tablet, 25 MG PO BID, #60 TAB 03/27/18 Omeprazole Magnesium (PRILOSEC OTC) 20 Mg Tablet., DAILY 03/27/18 Levothyroxine Sodium (LEVOTHYROXINE SODIUM) 112 Mcg Tablet, 112 MCG PO DAILY, #30 TAB 03/27/18 Lamotrigine (LAMICTAL) 100 Mg Tab, DAILY 03/27/18 Citalopram Hydrobromide (CELEXA) 40 Mg Tablet, DAILY 03/27/18 Aspirin (ASPIR 81) 81 Mg Tablet., DAILY 03/27/18 Amlodipine Besylate (NORVASC) 5 Mg Tab, 5 MG PO DAILY, #30 TAB 03/27/18 Omeprazole Magnesium (PRILOSEC OTC) 20 Mg Tablet.dr, DAILY 03/27/18 Levothyroxine Sodium (LEVOTHYROXINE SODIUM) 112 Mcg Tablet, 112 MCG PO DAILY, #30 TAB 03/27/18 Medications in the ED tramadol and acetaminophen Physician Attestation Provider Attestation f/u with splicing machine operator automatic SEFERINO MCCLELLAN MD Apr 14, 2020 16:35
--- NOTE | 2020-04-14 17:21 | Diagnostic Imaging Report ---
EXAM: FOOT 3 VIEW LT - [facility] DATE: 04/14/2020 4:54 PM INDICATION: ^fracture left 4th toe COMPARISON: None FINDINGS: There is a fracture of the distal aspect of the fourth proximal phalanx with superior displacement of the distal fragment by one half bone width. There is possible intra-articular extension. No other acute bony abnormality. Scattered DIP degenerative changes are noted. Screws extend into the medial malleolus plantar posterior calcaneal enthesophytes are present.. IMPRESSION: Mildly displaced fracture of the distal aspect of the fourth proximal phalanx. Signed by: Dr. Efrain Jolly M.D. on 04/14/2020 5:18 PM
[2020-04-14] MEDS ORDERED: TRAMADOL/APAP 37.5MG-325MG TAB PO ONE (17:30)
[2020-04-14] MEDS ORDERED: ACETAMINOPHEN 325 MG TAB ONE (17:34)
[2020-04-14] MEDS ORDERED: TRAMADOL HCL 50 MG TAB ONE (17:35)
[2020-04-14] MEDS ORDERED: TRAMADOL HCL 50 MG TAB PO ONE (17:45)
[2020-04-14] MEDS ORDERED: ACETAMINOPHEN 325 MG TAB PO ONE (17:45)
[2020-04-14 17:59] VITALS: BP 126/77
== END 2020-04-14 17:50 | disposition home or self-care (01) ==
LOC: FSED 15:54
DX: M79.675 Pain in left toe(s) (principal); S92.512A Displaced fracture of proximal phalanx of left lesser toe(s), initial encounter for closed fracture; W22.09XA Striking against other stationary object, initial encounter; Y93.01 Activity, walking, marching and hiking; I10 Essential (primary) hypertension; G62.9 Polyneuropathy, unspecified; K21.9 Gastro-esophageal reflux disease without esophagitis; E03.9 Hypothyroidism, unspecified; F41.9 Anxiety disorder, unspecified; F31.9 Bipolar disorder, unspecified; Z86.14 Personal history of Methicillin resistant Staphylococcus aureus infection
CPT/HCPCS: 99284